=== PATIENT | female | born 1935 | race Caucasian/White ===

== ENCOUNTER 2019-06-07 18:31 | Inpatient (IN) | payer MEDICARE ==
[~2019-06-07] VITALS: Ht 152.4 cm; Wt 52.2 kg
[2019-06-07] MEDS ORDERED: SODIUM CHLORIDE 0.9% 1000ML 1,000 ML IV STA (18:49)
[2019-06-07] MEDS ORDERED: DILTIAZEM HCL 5 MG/ML 5 ML VIAL IV NR (19:13)
[2019-06-07] MEDS ORDERED: DILTIAZEM HCL 125 ML IV STA (19:13)
[2019-06-07] MEDS ORDERED: ONDANSETRON HCL INJ 2MG/ML 2ML 2 MG/ML VIAL IV PRN (19:30)
[2019-06-07 20:38] LABS: BASOPHILS # (AUTO) 0.1 (0.0-0.1); BASOPHILS % 0.5 % (0.0-1.0); EOSINOPHILS % 0.3 % (0.0-6.0); HEMATOCRIT 38.1 % (34.2-44.1); HEMOGLOBIN 12.6 g/dL (12.0-16.0); LYMPHOCYTES # (AUTO) 2.5 (1.0-3.2); LYMPHOCYTES % 26.3 % (18.0-39.1); MEAN CORPUSCULAR HEMOGLOBIN 35.3 pg (28-32); MEAN CORPUSCULAR HGB CONC 33.1 g/dL (31-35); MEAN CORPUSCULAR VOLUME 106.7 fL (81-99); MONOCYTES # (AUTO) 0.7 (0.2-0.8); MONOCYTES % 7.2 % (4.4-11.3); NEUTROPHILS % 63.4 % (38.7-80.0); PLATELET COUNT 376 x10e3/uL (140-360); RED BLOOD COUNT 3.57 x10e6/uL (3.6-5.1); RED CELL DISTRIBUTION WIDTH 15.8 % (11.7-14.4)
--- NOTE | 2019-06-07 20:41 | Diagnostic Imaging Report ---
EXAMINATION: Head CT without contrast. HISTORY:Altered mental status, seizure. COMPARISON:None. TECHNIQUE: Multidetector axial images were obtained from the foramen magnum to the vertex without contrast. The images were reconstructed using brain and bone algorithms. Thin section brain images were reformatted into coronal and sagittal planes. Dose modulation, iterative reconstruction, and/or weight based adjustment of the mA/kV was utilized to reduce the radiation dose to as low as reasonably achievable. Intravenous contrast: None IMAGE QUALITY: Suboptimal evaluation due to motion artifacts. FINDINGS: Skull/scalp: No lytic or blastic. lesions. No surgical changes. Parenchyma: No large area of cortical/subcortical based cavitating hypodensity involving the right occipital lobe, parietal lobe, posterior aspect of right temporal lobe, right subinsular region, frontal lobe, centrum semiovale and styles radiata represents prior vascular insult in right MCA and ENTERTAINER OR VARIETY ARTIST vascular territories. Wallerian degeneration of right lateral aspect of the brainstem. Old lacunar infarct in the superior aspect of right cerebellar hemisphere. Nonspecific bilateral frontoparietal confluent and patchy white matter hypodensity are likely related to small vessel ischemic changes. No acute hemorrhage or mass. No acute major vascular territorial infarct. No acute hemorrhage, mass or acute major vascular territorial infarct. Arteries: No density suggestive of thrombosis. Atherosclerotic calcification in bilateral carotid siphon. Dural sinuses: No abnormal density suggestive of thrombosis. Ventricles: Compensated dilatation due to volume loss. No hydrocephalus. Extra-axial spaces: No abnormal density. Brain volume: Generalized age-related cerebral volume loss. Craniocervical junction: No mass, Chiari malformation, or basilar invagination. Sella: No mass. Paranasal/mastoid sinuses: Imaged portions unremarkable. IMPRESSION: 1. Suboptimal evaluation due to motion artifacts, despite the limitation no gross acute intracranial abnormality. 2. 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 3. 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 4. 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 5. Generalized age-related cerebral volume loss. Signed by: Dr. Jaky Malin M.D. on 06/07/2019 8:37 PM
[2019-06-07 20:50] LABS: ALANINE AMINOTRANSFERASE 32 IU/L (0-55); ALBUMIN 2.1 g/dL (3.5-5.0); ALBUMIN/GLOBULIN RATIO 0.5 (0.8-2.0); ALKALINE PHOSPHATASE 187 IU/L (40-150); ANION GAP 15.1 mmol/L (8-16); BLOOD UREA NITROGEN 10 mg/dL (7-26); BUN/CREATININE RATIO 13 (6-25); CARBON DIOXIDE 24 mmol/L (22-29); CHLORIDE 104 mmol/L (98-107); CREATINE KINASE 51 IU/L (29-168); EST GLOMERULAR FILTRATION RATE > 60 ML/MIN (60-); GLUCOSE 222 mg/dL (74-118); POTASSIUM 4.1 mmol/L (3.5-5.1); SODIUM 139 mmol/L (136-145)
[2019-06-07 21:09] LABS: B-TYPE NATRIURETIC PEPTIDE2 479.7 pg/mL (0-100)
--- NOTE | 2019-06-07 21:11 | Diagnostic Imaging Report ---
EXAMINATION: CHEST SINGLE (PORTABLE) INDICATION: Altered mental status COMPARISON: None FINDINGS: TUBES and LINES: None. LUNGS/PLEURA: Lungs are well inflated. Bilateral lower lung haziness. Hemidiaphragms are obscured. HEART AND MEDIASTINUM: Cardiac size is mildly enlarged. There are atherosclerotic calcifications within the aorta. BONES AND SOFT TISSUES: No acute osseous lesion. Soft tissues are unremarkable. Healed right rib fracture deformities. Degenerative changes in the spine and shoulders. UPPER ABDOMEN: No free air under the diaphragm. IMPRESSION: 1. Mild cardiomegaly and pulmonary vascular congestion. 2. Bilateral lower lung haziness and obscured hemidiaphragms could be due to atelectasis, pneumonia, edema and/or pleural effusions. Signed by: Massimo Jay DO on 06/07/2019 9:08 PM
[2019-06-07] MEDS ORDERED: SODIUM CHLORIDE 0.9% 1000ML 1,000 ML ONE (22:06)
[2019-06-07] MEDS: LEVETIRACETAM 500MG/5ML VIAL 500 MG in SODIUM CHLORIDE 0.9% 100 ML 100 ML IV SCH (22:13)
[2019-06-07] MEDS ORDERED: LEVETIRACETAM 500 MG TAB PO SCH (22:15)
--- NOTE | 2019-06-07 22:40 | NUR ---
RECEIVED PATIENT FROM ED VIA STRETCHER, TRANSFERRED TO BED. PATIENT CRYING OUT WHEN LEGS ARE TOUCHED OR MOVED, STATES SHE ONLY HAS PAIN WHEN MOVED. LEGS APPEAR TO BE CONTRACTED, BUT PATIENT SAID SHE JUST PULLS THEM UP WHEN IN PAIN. PATIENT KNOWS NAME AND THAT SHE IS IN THE HOSPITAL, BUT DOES NOT KNOW TIME, A&OX2. PATIENT KNOWS FAMILY MEMBERS AT BEDSIDE. VERY POOR HISTORIAN. GARCIA CATHETER PRESENT ON ADMISSION, FAMILY BELIEVES IT WAS PLACED D/T RETENTION THEY REMEMBER HER BLADDER BEING EXPLAINED TO THEM " IF IT WAS BLOWN UP LIKE A BALLOON." GARCIA CARE PROVIDED, STERILE SAMPLE OF DARK MARIZOL URINE SENT TO LAB. GARCIA DRAINING TO GRAVITY. FOREARM BRUISING NOTED. R FA AND L FA 20G IVS ASYMPTOMATIC, INTACT, AND PATENT. LUNG SOUNDS CLEAR. BOWEL SOUNDS ACTIVE, FAMILY MEMBERS BELIEVE LAST BM WAS TODAY, 06/07. PEDAL PULSES PALPABLE. SKIN THIN, LOOSE, SHINY. SMALL ULCER, LESS THAN 2X2 INCHES NOTED TO L GLUTEAL CLEFT. SOME SKIN LOSS NOTED, WOUND BED REDDENED. IT IS UNKNOWN IF INJURY IS PRESSURE RELATED OR FROM FREQUENT BMS. SURROUNDING SKIN EXCORIATED, PATIENT HAS RECENT HX OF DIARRHEA. ALTERNATING PRESSURE MATTRESS APPLIED. Q2 TURNS INITIATED. FAMILY MEMBERS STATE PATIENT HAS NOT WALKED IN OVER A MONTH, SINCE BEFORE HER PRIOR HOSPITALIZATION AT [facility]. BED ALARM ACTIVE. PATIENT ALSO HAS HX OF DM IN CHART, BUT PATIENT AND FAMILY MEMBERS STATE SHE HAS NOT BEEN DIAGNOSED WITH DM. WILL CONTINUE TO MONITOR CLOSELY. BED LOCKED IN LOWEST POSITION, SIDE RAILS UPX2, CALL LIGHT IN REACH.
[2019-06-07] MEDS ORDERED: INFLUENZA VIRUS VAC SPLIT INJ 0.5 ML SYR IM SCH (23:08)
[2019-06-07 23:11] VITALS: BP 157/99
[2019-06-07 23:45] VITALS: BP 157/99
[2019-06-08] VITALS (8 sets, daily range): BP systolic 124–156; BP diastolic 75–107
[2019-06-08 01:16] LABS: CLARITY,URINE CLOUDY (CLEAR); COLOR,URINE YELLOW (YELLOW)
[2019-06-08 01:17] LABS: BILIRUBIN,URINE NEGATIVE (NEGATIVE); KETONES,URINE NEGATIVE (NEGATIVE); LEUKOCYTE ESTERASE ,URINE MODERATE (NEGATIVE); NITRITE,URINE POSITIVE (NEGATIVE); PROTEIN,URINE DIPSTICK TRACE (NEGATIVE); URINE UROBILINOGEN 0.2 mg/dL (0.2 - 1)
[2019-06-08 01:18] LABS: BACTERIA,URINE MANY /HPF; EPITHELIAL CELLS,URINE MODERATE /LPF; RBC,URINE >50 /HPF (0-5); WBC,URINE (MAN) >50 /HPF (0-5)
[2019-06-08] MEDS ORDERED: XARELTO10 MG PO (01:27)
[2019-06-08] MEDS ORDERED: LEVOTHYROXINE75 MCG PO (01:27)
[2019-06-08] MEDS ORDERED: ZOFRAN4 MG PO (01:27)
[2019-06-08] MEDS ORDERED: MEGESTROL400 MG/10 PO (01:27)
[2019-06-08] MEDS ORDERED: ACIDOPHILUS1 EAC1 PO (01:27)
[2019-06-08] MEDS ORDERED: VANCOMYCIN SOLUTION PO (01:27)
[2019-06-08] MEDS ORDERED: ATORVASTATIN CA10 MG PO (01:27)
[2019-06-08] MEDS ORDERED: METOPROLOL TART25 MG PO (01:27)
[2019-06-08] MEDS ORDERED: LACTULOSE20 GM/30 M PO (01:27)
[2019-06-08] MEDS ORDERED: ASPIRIN EC81 MG PO (01:27)
[2019-06-08] MEDS ORDERED: NIACIN500 M2 PO (01:27)
[2019-06-08] MEDS ORDERED: ACETAMINOPHEN325 M1 PO (01:27)
--- NOTE | 2019-06-08 05:45 | NUR ---
TELEMETRY CALLED, STATING PATIENT'S HR IS IN 130S. PATIENT SLEEPING, RESPONSIVE. HR CONFIRMED TO BE IN AFIB, JUMPING BETWEEN 108-133. CALL PLACED TO MD LOPEZ, NEW ORDERS RECEIVED. Addendum: 06/08/19 at 0606 by Madhuri Collins RN MEDICATION GIVEN ORDERED, HR 127 AT TIME OF ADMINISTRATION, WILL MONITOR CLOSELY.
[2019-06-08 05:48] LABS: CREATINE KINASE MB 2.4 ng/mL (0-5.0)
[2019-06-08] MEDS ORDERED: METOPROLOL TARTRATE 25 MG TAB PO SCH (06:00)
--- NOTE | 2019-06-08 10:20 | NUR ---
H&P cc: rapid HR HPI: 84yoF, PCP , developed rapid HR and became unresponsive at [facility]. PMH: PAF, stroke, C.diff, ambulatory dysfunction using walker PShx: none Allergies; see emr Fh/SH; single; no cigs; uses walker Meds; see MAR ROS; unobtainable v/s; revd PE tired appearing anicteric ns1s2 mod bs soft nt nd no e/t skin dry flat affect awake labs/meds revd A/P: A.fib with RVR UTI HLD Hypothyroidism Ambulatory dysfunction Hx C.diff- now resolved PLAN AV blockade with BB Resume AC Treat UTI Kelley Narvaez MD, PhD.
[2019-06-08] MEDS: LEVETIRACETAM 500MG/5ML VIAL 500 MG in SODIUM CHLORIDE 0.9% 100 ML 100 ML IV SCH ×2 (10:44→21:33)
[2019-06-08] MEDS: ASPIRIN 81 MG ENTERIC COATED PO SCH (11:58)
[2019-06-08] MEDS: AZTREONAM (AZACTAM) 0.5 GM in SODIUM CHLORIDE 0.9% 50ML 50 ML IV SCH ×3 (11:58→22:31)
[2019-06-08] MEDS: METOPROLOL TARTRATE 25 MG TAB PO SCH ×3 (11:59→22:31)
[2019-06-08 13:49] LABS: CREATINE KINASE MB 2.7 ng/mL (0-5.0)
--- NOTE | 2019-06-08 15:41 | Consultation ---
DATE OF CONSULTATION: 06/08/2019 Cardiology Consultation REASON FOR CONSULTATION: Atrial fibrillation. HISTORY OF PRESENT ILLNESS: This is an 84-year-old lady with past medical history of hypertension, type 2 diabetes, hypercholesteremia, history of atrial fibrillation as per son should be on anticoagulant therapy. Hospitalization for C. diff colitis at [facility] within the past 1 to 2 months, associated with just severe deconditioning, malaise and just inability to quite recover from that. Since that time, she went to the [facility] for rehab purposes and for the most part, the patient has dense left-sided hemiparesis from old prior stroke back in August of 2018. In fact, in the past month, she has been largely bed bound, inability to stand up or do much of anything at all. Yesterday, she was noted to be obtunded, unresponsive. The information is second hand and is admitted for further care and management. Apparently during her previous hospitalization a month ago, she had a clinical seizure. Essentially upon arrival, she had a brain CT showing right MCA, DRIVER TRAINEE distribution old infarct and moderate ischemic white matter disease changes and encephalomalacia. Chest x-ray reveals atelectasis in the lungs and some mild cardiomegaly. The patient is a very poor historian. She denies any chest pain or discomfort. She denies any subjective palpitations. She denies any lightheadedness, but is again quite sure what is going. PAST MEDICAL HISTORY: 1. Hypertension. 2. Hypercholesteremia. 3. History of atrial fibrillation. 4. 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 5. History of C. diff colitis. PAST SURGICAL HISTORY: Unknown. FAMILY HISTORY: Mother and father apparently of strokes under 80s. SOCIAL HISTORY: She does not smoke. No alcohol or illicit drug use. ALLERGIES: PENICILLIN. HOME MEDICATIONS: Include: 1. Aspirin 81 mg daily. 2. Xarelto 10 mg daily. 3. Atorvastatin 10 mg daily. 4. Lactulose p.r.n. 5. Synthroid 75 mcg daily. 6. Megace 400 mg daily. 7. Toprol 25 mg q.8 hours. 8. Niacin 1000 mg daily. REVIEW OF SYSTEMS: Not reliable historian to adequately obtain. PHYSICAL EXAMINATION: VITAL SIGNS: Height of 60 inches, weight of 113 pounds, BMI is 22.2, temperature of 99.1, pulse of 99, respiratory rate of 16, blood pressure 127/93, O2 saturation 97% on room air. GENERAL: This is a frail, emaciated lady, who is currently lying in bed, in no apparent distress. HEENT: Normocephalic and atraumatic. There is a left-sided facial droop. Extraocular movements are intact. Hearing is intact. Oropharynx is clear. NECK: There is a faint right carotid bruit. No JVD. CARDIOVASCULAR: Irregularly irregular rate and rhythm. Normal S1, S2. 1/6 systolic murmur at the left lower sternal border. LUNGS: Largely clear to auscultation. ABDOMEN: Soft, nontender, nondistended. Normoactive bowel sounds. No hepatosplenomegaly. BACK: No costovertebral angle tenderness. EXTREMITIES: Warm with the contractured left upper and left lower extremities with partial flexion. There is absent pedal pulses and diminished bilateral radial pulses. NEUROLOGIC: Has left-sided hemiparesis and 3/5 strength in the right lower extremity and 4-/5 strength in the right upper extremity. : There is a Kelly in place. LABORATORY DATA: White count of 9.5, hemoglobin 12.6, hematocrit 38.1, and platelets of 376. Sodium 139, potassium 4.1, chloride 104, bicarb 24, BUN 10, creatinine 0.8, glucose of 222, calcium of 9.0. AST 43, ALT 32, alkaline phosphatase 187, total protein of 6.6, albumin of 2.1. Troponin went from 0.025 to 0.038. BNP is 479. UA shows greater than [address] showing old right-sided brain infarct and extensive ischemic changes and volume loss. Chest x-ray shows atelectasis. EKG reveals atrial fibrillation with rapid ventricular response and left bundle branch block and nonspecific ST-T wave changes. DIAGNOSES: 1. Blackout episode of prolonged questionable postictal type versus medication side effect. 2. Chronic atrial fibrillation, needs to be on anticoagulant therapy. 3. Left-sided hemiparesis from sequela of old stroke. 4. Hypertension. 5. Hypercholesterolemia. 6. Severe protein-calorie malnutrition. 7. Elevated white count and questionable urinary tract infection. PLAN/RECOMMENDATIONS: 1. We will go ahead and keep her on rate control therapy with metoprolol and currently, we have her scheduled, receiving it q.6 hours. 2. We will restart anticoagulant therapy with Eliquis 2.5 b.i.d. on account of her advanced age and weight. 3. Aggressive risk factor modification medical therapy. 4. Add statin therapy. 5. We will appreciate Neurology. Await input in this case to see their recommendations. MD JUAN LUIS Desouza/SANDY /[id number]
[2019-06-08] MEDS: APIXAB 2.5 MG TABLET PO SCH (16:26)
[2019-06-08] MEDS: ATORVASTATIN 10 MG TAB PO SCH (21:33)
[2019-06-08] MEDS: ACETAMINOPHEN 325 MG TAB PO PRN (22:38)
[2019-06-09] VITALS (8 sets, daily range): BP systolic 106–135; BP diastolic 62–87
[2019-06-09] MEDS ORDERED: SODIUM CHLORIDE 0.9% 250ML 250 ML ONE (05:37)
[2019-06-09] MEDS: AZTREONAM (AZACTAM) 0.5 GM in SODIUM CHLORIDE 0.9% 50ML 50 ML IV SCH ×3 (05:58→21:57)
[2019-06-09] MEDS: LEVOTHYROXINE SODIUM 75 MCG TAB PO SCH (05:59)
[2019-06-09] MEDS: METOPROLOL TARTRATE 25 MG TAB PO SCH ×2 (05:59→16:54)
--- NOTE | 2019-06-09 07:34 | NUR ---
IM- progress note O/N no events ROS; unobtainable v/s; revd PE tired appearing anicteric ns1s2 mod bs soft nt nd no e/t skin dry flat affect awake labs/meds revd A/P: A.fib with RVR UTI HLD Hypothyroidism Ambulatory dysfunction Hx C.diff- now resolved PLAN AV blockade with BB Resume AC Treat UTI 06/09 cont care; PT; check labs; culture urine; Kelley Narvaez MD, PhD.
[2019-06-09 08:06] LABS: BASOPHILS # (AUTO) 0.1 (0.0-0.1); BASOPHILS % 0.7 % (0.0-1.0); EOSINOPHILS # (AUTO) 0.1 (0.0-0.4); EOSINOPHILS % 0.9 % (0.0-6.0); HEMATOCRIT 33.5 % (34.2-44.1); HEMOGLOBIN 11.2 g/dL (12.0-16.0); LYMPHOCYTES # (AUTO) 2.4 (1.0-3.2); MEAN CORPUSCULAR HEMOGLOBIN 35.4 pg (28-32); MEAN CORPUSCULAR HGB CONC 33.4 g/dL (31-35); MONOCYTES # (AUTO) 0.8 (0.2-0.8); MONOCYTES % 8.6 % (4.4-11.3); NEUTROPHILS # (AUTO) 5.2 (2.1-6.9); NEUTROPHILS % 59.2 % (38.7-80.0); PLATELET COUNT 348 x10e3/uL (140-360); RED BLOOD COUNT 3.16 x10e6/uL (3.6-5.1); RED CELL DISTRIBUTION WIDTH 15.5 % (11.7-14.4)
[2019-06-09 08:32] LABS: ANION GAP 13.2 mmol/L (8-16); BLOOD UREA NITROGEN 10 mg/dL (7-26); BUN/CREATININE RATIO 14 (6-25); CALCIUM 8.8 mg/dL (8.4-10.2); CARBON DIOXIDE 23 mmol/L (22-29); CHLORIDE 107 mmol/L (98-107); CREATININE, SERUM 0.69 mg/dL (0.57-1.11); EST GLOMERULAR FILTRATION RATE > 60 ML/MIN (60-); GLUCOSE 117 mg/dL (74-118); POTASSIUM 4.2 mmol/L (3.5-5.1); SODIUM 139 mmol/L (136-145)
[2019-06-09] MEDS ORDERED: RIVAROXABAN 10 MG TABLET PO SCH (09:00)
[2019-06-09] MEDS: APIXAB 2.5 MG TABLET PO SCH ×2 (09:44→16:54)
[2019-06-09] MEDS: LEVETIRACETAM 500MG/5ML VIAL 500 MG in SODIUM CHLORIDE 0.9% 100 ML 100 ML IV SCH (09:44)
[2019-06-09] MEDS: ACETAMINOPHEN 325 MG TAB PO PRN (09:44)
[2019-06-09] MEDS: ASPIRIN 81 MG ENTERIC COATED PO SCH (09:44)
--- NOTE | 2019-06-09 13:43 | NUR ---
WOUNDS CARE CONSULT FOR 84 YO FEMALE HX OF SEIZURE, A FIB, AND LOOSE STOOL SINDY 12 ON MODERATE PUP WITH ALTERNATING PRESSURE MATTRESS LABS: WBC- 7.85,HGB- 8.8, GLUCOSE 112 BLOOD CULTURE PENDING SKIN ASSESSMENT COMPLETE PATIENT PRESENTS WITH SACRAL STAGE 2 ULCERATION WITH DARK BRUISED DTI LOS AREA MEASURES 3CM [id number] PATIENT LEFT GLUTEAL HAS REDNESS NOTED RELATED TO FREQUENT LOOSE STOOL RECOMMENDATIONS : NURSING TO CONTINUE TO MAINTAIN MODERATE PUP STATUS AND INTERVENTIONS WITH ALTERNATING PRESSURE MATTRESS NURSING TO CONTINUE TO ASSIST PATIENT OUT OF BED FOR MEALS AND MUCH TOLERATED NURSING TO APPLY DAILY REMEDY BARRIER PASTE TO LEFT GLUTEAL DENUDED AREA AND PRN POST LOS CARE NURSING TO APPLY DAILY VENELEX OINTMENT TO SACRAL DTI COVER WITH ALLEVYN FOAM DRESSING Addendum: 06/09/19 at 1352 by Mahendra Molina RN Amended: Links added.
--- NOTE | 2019-06-09 16:14 | NUR ---
Nutrition Intervention Note RD Recommendation(s) for Physician: -Continue current diet as ordered -Recommend Murphy BID for wound healing Plan of Care: RD following, monitoring for tolerance and adequacy Nutrition reason for involvement: stage [address] Assessment (06/09/19) Pt is an 84 year old female admitted with seizure and atrial fibrillation. Pt was sleeping at time of visit and there were no family members present; therefore, prior nutrition information is limited at this time. Per chart, pt consumed 100% of lunch and 50% of dinner meal yesterday. Recommend Murphy BID for wound healing. Will continue to monitor. Principal Problems/Diagnoses: seizure and atrial fibrillation PMH: HTN, hypercholesterolemia, afib, and stroke I/O: 1000/800 GI: BM not recorded. Soft, non-tender abdomen Skin: stage 2 sacral pressure ulcer per wound care note Labs: (06/09/19) BNP 479.7 Meds: aztreonam, levothyroxine lipitor, zofran, metroprolol Ht: 60 inches Wt: 113 BMI: 22.2 kg/m2 IBW: 100 lbs Malnutrition Evaluation (06/09/19) The patient does not meet criteria for a specified degree of malnutrition at this time. Will re-evaluate at follow-up as appropriate. Prior nutrition information is limited. Nutrition Prescription (Diet Order): cardiac diet Estimated Nutritional Needs: [id number] calories/day (25-35 kcal/kg CBW) 62-77 g protein/day (1.2-1.5 g pro/kg CBW) Diet Adequacy: Pt consumed 100% of lunch and 50% of dinner meal yesterday. Prior nutrition information is limited. Tolerance: Tolerating PO Diet Education Needs Assessment: RD is available for diet education as needed Nutrition Care Level: low Nutrition Diagnosis: Increased nutrient needs related to increased demand for protein and kcal as evidenced by stage 2 sacral pressure ulcer. Goal: Patient will meet 75-100% of estimated needs by follow up Progress: N/A Interventions: -fat/sodium -modified diet, Commercial beverage Monitoring/Evaluation: -Total energy intake, Total protein intake, Modified diet, Liquid supplement, Weight change Signed: Kate Lucero RD, LD
[2019-06-09] MEDS: BALSAM PERU/CASTOR OIL 60 GM OINT...G. TP SCH (16:51)
--- NOTE | 2019-06-09 19:25 | NUR ---
PATIENT RECEIVED. PATIENT RESTING IN BED, AAOX2. RESP EVEN AND UNLABORED. NO ACUTE DISTRESS NOTED. TELE IN PLACE. CALL LIGHT WITHIN REACH. INSTRUCT TO CALL FOR ASSISTANCE. BED LOW/LOCKED. BED ALARM IS ON. CONTINUE TO MONITOR CLOSELY
[2019-06-09] MEDS: ATORVASTATIN 10 MG TAB PO SCH (21:57)
[2019-06-09] MEDS: LEVETIRACETAM 500 MG TAB PO SCH (21:57)
[2019-06-09] MEDS ORDERED: AZTREONAM 1 GM VIAL ONE (21:59)
[2019-06-10] VITALS (7 sets, daily range): BP systolic 120–148; BP diastolic 70–89
--- NOTE | 2019-06-10 01:28 | Consultation ---
DATE OF CONSULTATION: 06/09/2019 Neurology Consult Note HISTORY OF PRESENT ILLNESS: Unfortunately, the patient is encephalopathic and unable to provide current or prior medical history. There are no family members available at the bedside. History is obtained from review of the electronic medical records. Ms. Escoto is currently a resident at [facility]. She was admitted to this facility for rehabilitation purposes following a prolonged hospitalization at [facility] for Clostridium difficile colitis. On the day of admission, the patient was found in her room at [facility] to be poorly responsive/obtunded. Of note, there is no documentation of witnessed seizure activity by staff at [facility] or at [facility]. Given Tigist's poor level of responsiveness, she was transported via ambulance to [facility] for further evaluation of her symptoms. Upon arrival in the emergency center, the patient was afebrile with a blood pressure of 128/98 mmHg and a pulse of 114 beats per minute. Documentation of the patient's neurological examination is unavailable for review at present. While in the emergency center, the patient underwent a CT of the brain without contrast. This study did not reveal evidence of recent large territorial ischemia or hemorrhage. However, it did reveal a prior vascular insult in the right MCA and FIBREGLASS LAMINATOR territories with encephalomalacia in the same distribution. Ms. Escoto was subsequently admitted to [facility] as an inpatient for further evaluation and treatment of her symptoms. Once again, it should be noted, the patient has not been observed to experience seizure activity during this hospitalization. However, review of documentation from [facility], reveals a diagnosis of "other seizures" listed under medical history. Of note, the patient was not taking an antiepileptic medication while at [facility]. REVIEW OF SYSTEMS: Unable to obtain secondary to the patient being encephalopathic. PAST MEDICAL HISTORY: Hypertension, hyperlipidemia, atrial fibrillation, prior stroke in August 2018 with residual left hemiparesis, Clostridium difficile colitis. PAST SURGICAL HISTORY: No known prior surgeries. PAST HOSPITALIZATIONS: As detailed in the history of present illness, Ms. Escoto was recently hospitalized at [facility] for Clostridium difficile colitis. FAMILY MEDICAL HISTORY: Both of Ms. Escoto's parents from strokes. SOCIAL HISTORY: Ms. Escoto is a . She currently resides at [facility]. Ms. Escoto is retired. There is no reported current or prior tobacco, alcohol, or recreational drug use. HOME MEDICATIONS: Acetaminophen 650 mg by mouth every 6 hours as needed, aspirin 81 mg by mouth daily, atorvastatin 10 mg by mouth at bedtime daily, lactobacillus one tablet by mouth twice daily, lactulose 30 mL by mouth daily as needed for constipation, levothyroxine 75 mcg by mouth daily, megestrol 400 mg by mouth daily, metoprolol 25 mg by mouth every 8 hours, niacin 1000 mg by mouth daily, Zofran 4 mg by mouth every 8 hours as needed for nausea, Xarelto 10 mg by mouth daily, and vancomycin 250 mg by mouth every 6 hours. HOSPITAL MEDICATIONS: Tylenol, Eliquis, aspirin, atorvastatin, aztreonam, levetiracetam, levothyroxine, metoprolol, Zofran. ALLERGIES: PENICILLIN. NO KNOWN FOOD ALLERGIES. NO KNOWN ALLERGIES TO LATEX. NO KNOWN ALLERGIES TO IODINE OR OTHER CONTRAST MATERIALS. PHYSICAL EXAMINATION: Ms. Escoto is poorly cooperative with general physical and neurological examinations. VITAL SIGNS: Height 60 inches, weight 113 pounds, BMI 22.2 kg/m2, blood pressure 106/62 mmHg, pulse 108 beats per minute, respiratory rate 18 breaths per minute, and oxygen saturation 95% on room air. GENERAL: The patient is awake and alert, moaning secondary to pain. Normal body habitus. HEENT: Normocephalic, atraumatic. Pupils are equal, round, and sluggishly reactive to light. Moist mucous membranes. NECK: Supple. No appreciable thyromegaly. No appreciable carotid bruits. CARDIOVASCULAR: S1, S2, tachycardic, irregular rhythm. No murmurs, rubs, or gallops. RESPIRATORY: Clear to auscultation bilaterally. No wheezes, rhonchi, or rales. EXTREMITIES: The skin is warm and dry. No clubbing, cyanosis, or edema. The posterior tibial and dorsalis pedis pulses are 1+ and symmetric. SKIN: No rashes or lesions observed. NEUROLOGIC: Memory/Attention: The patient is awake and alert. Orientation cannot be assessed secondary to the patient being encephalopathic and refusing to answer questions. Ms. Escoto does not consistently follow commands. Cranial Nerves: Pupils are 4 mm, sluggishly reactive, 2 mm. Mild left central facial weakness is appreciated. Hearing is intact to voice. Strength: Bulk is diminished throughout. There is spontaneous movement observed in the right arm and right leg. There are contractures with increased tone of the left arm and left leg. Ms. Escoto withdraws all four extremities to peripheral noxious stimulation, right greater than left. Deep tendon reflexes: Unable to assess secondary to pain. Sensation: Sensation is as per motor exam. Cerebellar: Unable to assess secondary to the patient being encephalopathic. Gait: Deferred. Speech: Spontaneous speech is mildly dysarthric without aphasia. Repetition cannot be assessed secondary to lack of patient cooperation. Involuntary movements: None. Pronator Drift: As per motor exam. LABORATORY DATA: The most recent basic metabolic panel is unremarkable. A liver function panel collected on June 07, 2019, was significant for AST of 43, alkaline phosphatase of 187, albumin of 2.1, and globulin of 4.5. Cardiac enzymes are negative x3. B-natriuretic peptide 479.7. The CBC with differential and platelets reveals a white blood cell count of 8.84 with a normal differential. The hemoglobin and hematocrit are 11.2 and 33.5, respectively. The platelet count is 348. A urinalysis collected on June 07, 2019, reveals cloudy urine with trace protein, positive nitrites, moderate leukocyte esterase, greater than 50 red blood cells, greater than 50 white blood cells, many urine bacteria with moderate urine epithelial cells. DIAGNOSTIC STUDIES: Electrocardiogram on 06/07/2019: Atrial fibrillation with rapid ventricular response at 137 beats per minute. Left axis deviation. Chest x-ray on 06/07/2019: 1. Mild cardiomegaly and pulmonary vascular congestion. 2. Bilateral lower lung haziness and obscured hemidiaphragms could be due to atelectasis, pneumonia, edema, and/or pleural effusions. CT of the brain without contrast on 06/07/2019: On my review, there is no evidence of recent large territorial ischemia, hemorrhage, mass, or mass effect. Chronic encephalomalacia secondary to a prior vascular insult is seen in the right MCA and FIBREGLASS LAMINATOR vascular distributions. A chronic lacunar infarct is seen in the right cerebellar hemisphere. There is moderate diffuse cerebral atrophy with compensatory dilatation of the ventricles. Their findings compatible with moderate to severe chronic small vessel ischemic disease. Echocardiogram on 06/09/2019: Ejection fraction less than 30%. Biatrial enlargement. Moderate mitral regurgitation. Mild tricuspid regurgitation and pulmonic insufficiency. ASSESSMENT AND PLAN: Ms. Escoto is an 84-year-old woman with past medical history as detailed, admitted to [facility] as an inpatient on June 07, 2019, with encephalopathy of undetermined etiology. Ms. Escoto does have metabolic encephalopathy secondary to urinary tract infection. It is questionable as to whether or not her poor responsiveness/obtundation as observed at [facility] was secondary to metabolic encephalopathy or postictal state. The patient's neurological examination is significant for the patient being encephalopathic as well as moderate to severe left hemiparesis with contractures and increased tone of the left arm and left leg. The patient's laboratory data and other diagnostic studies have been reviewed and are documented above. 1. Seizure: Though Ms. Escoto has not been observed (per documentation) to experience seizure-like activity, the presence of encephalomalacia in the right middle cerebral artery and posterior cerebral artery distributions as well as the presence of a urinary tract infection puts her at high risk for recurrent seizures. Unfortunately, an electroencephalogram cannot be obtained at this time due to lack of equipment to perform the study. However, as the patient is at risk for future seizures, treatment with levetiracetam will be continued. However, the dose will be changed to 500 mg by mouth twice daily. 2. Metabolic encephalopathy: Ms. Escoto does have metabolic encephalopathy, probably secondary to urinary tract infection. The patient's neurological baseline is not known. It is possible the patient has vascular dementia as well. At present, treatment of the patient's urinary tract infection with antibiotic should be continued. Treatment with sedative/hypnotic and pain medication should be limited as these will alter the patient's sensorium. Environmental cues should be utilized to combat delirium. 3. Defer treatment of the remaining medical comorbidities to the primary and other services following the patient. 4. Ms. Escoto may be discharge to [facility] per the primary service. Thank you for this consultation. I will continue to follow the patient while she remains in the hospital. TIME SPENT: 70 minutes. Angela Gonsales MD CP/SANDY /[id number]
[2019-06-10] MEDS: LEVOTHYROXINE SODIUM 75 MCG TAB PO SCH (05:15)
[2019-06-10] MEDS: AZTREONAM (AZACTAM) 0.5 GM in SODIUM CHLORIDE 0.9% 50ML 50 ML IV SCH ×3 (05:15→22:30)
--- NOTE | 2019-06-10 07:14 | NUR ---
pt alert resp even and unlabored pt able to make needs known, family member at bedside, no c/o pain nor distress noted, call light in reach.
[2019-06-10] MEDS: LEVETIRACETAM 500 MG TAB PO SCH ×2 (09:00→17:26)
[2019-06-10] MEDS: APIXAB 2.5 MG TABLET PO SCH ×2 (09:00→17:26)
[2019-06-10] MEDS: ASPIRIN 81 MG ENTERIC COATED PO SCH (09:00)
[2019-06-10] MEDS: METOPROLOL TARTRATE 25 MG TAB PO SCH ×2 (09:00→17:26)
--- NOTE | 2019-06-10 10:18 | NUR ---
CM called pt's son José Manuel Escoto at [phone] to follow up on choice for SNF. Left message with callback number.
[2019-06-10] MEDS: BALSAM PERU/CASTOR OIL 60 GM OINT...G. TP SCH (10:37)
--- NOTE | 2019-06-10 11:47 | NUR ---
Spoke to pt's son José Manuel on the phone. He gave choice to return his mom to [facility] on discharge. Signed choice letter placed in chart. Clinicals faxed to [facility] at [phone]. José Manuel states we can update his Nohemi Escoto on status of referral - [phone].
--- NOTE | 2019-06-10 13:32 | NUR ---
FAXED CLINICALS TO [facility] AND COMPLETED RTF. PUT WITH PACKET AT NURSES STATION, CONFIRMED RECEIPT
--- NOTE | 2019-06-10 16:34 | Progress Note ---
DATE: 06/10/2019 Medicine Progress Note SUBJECTIVE: I am covering for Dr. Kevin Narvaez. The patient came in from the intermediate facility. The patient was just recently at [facility], treated for more than 3 weeks. She had C. difficile colitis, improved tremendously and now transferred to [facility] for further management and care. While here, Dr. Narvaez has been treating the patient for underlying atrial fibrillation with RVR and also underlying urinary tract infection. Her C. difficile colitis has been resolved. Urine culture was not sent to the lab. Currently, the patient is very weak at baseline with no other complaints. PHYSICAL EXAMINATION: VITAL SIGNS: Temperature is 96.4, pulse 88, respiratory rate is 20, blood pressure 120/75, and pulse ox 96% on room air. GENERAL: Not in acute distress. Alert and oriented x3. Cooperative on examination. HEENT: Head; normocephalic, atraumatic. Eyes; pupils are equal, round, and reactive to light bilaterally. Extraocular movements intact bilaterally. Throat; no evidence of erythema or exudates in the posterior pharynx. Has poor dentition. NECK: Supple. Good range of motion. PULMONARY: Clear to auscultation bilaterally. No wheezing, no rales, no rhonchi, no crackles appreciated. CARDIOVASCULAR: Positive S1 and S2. No murmurs, rubs, or gallops appreciated. ABDOMEN: Soft, nondistended, and nontender to palpation. Bowel sounds present. MUSCULOSKELETAL: Strength is 5/5 throughout. No evidence of any muscle deficits on examination. No weakness appreciated. NEUROLOGIC: Cranial nerves II through XII grossly intact. No evidence of any neurological deficits on exam. SKIN: Intact. Warm to touch. Good cap refill. PSYCHIATRIC: Normal affect and mood. EXTREMITIES: No edema. Good range of motion throughout. LABORATORY FINDINGS: Show white count was 8.8, hemoglobin 11.2, hematocrit is 33, and platelets of 348. Chemistry; sodium 139, potassium 4.2, chloride 107, bicarb 23, anion gap of 13, BUN is 10, creatinine is 0.69, glucose is 117, calcium is 8.8, and magnesium is 1.5. Urinalysis concerning for underlying UTI. MICROBIOLOGY: None. No UA was sent. She has been on antibiotics. IMAGING STUDIES: CT brain was found to be negative. Chest x-ray, mild cardiomegaly and pulmonary vascular congestion. IMPRESSION: 1. Concerns for underlying seizure-like activity. 2. Metabolic encephalopathy secondary to underlying urinary tract infection and possibly seizure. 3. Urinary tract infection. 4. Atrial fibrillation. 5. History of Clostridium difficile colitis. 6. Hypothyroidism. PLAN: At this time, recommendations by Neurology were noted that the patient will continue with oral Keppra twice daily. Currently, we do not have the EEG machine functional, so we will continue with Keppra as per Neurology recommendations. At this time, Cardiology was consulted for the underlying atrial fibrillation, which is being managed accordingly. As for the UTI, no urine cultures were sent. She is on IV aztreonam since the cultures will be sterile. I will go ahead and send another urine culture, but likely will be sterile. She is still having significant weakness. We are going to try to get PT and OT evaluation, possibly send back to the intermediate facility. We will continue with same plan of care and monitor very closely. Reviewed plan of care with nursing staff. Get a.m. labs. Put on Lovenox for DVT prophylaxis. PT/OT evaluation. MD LUIS Guan/GLORIAL /[id number]
--- NOTE | 2019-06-10 19:25 | NUR ---
report given to oncoming nurse, pt stable at this time.
[2019-06-10] MEDS: ACETAMINOPHEN 325 MG TAB PO PRN (19:35)
[2019-06-10] MEDS: ATORVASTATIN 10 MG TAB PO SCH (21:52)
[2019-06-11] VITALS (7 sets, daily range): BP systolic 122–153; BP diastolic 77–97
[2019-06-11] MEDS: LEVOTHYROXINE SODIUM 75 MCG TAB PO SCH (05:31)
[2019-06-11] MEDS: AZTREONAM (AZACTAM) 0.5 GM in SODIUM CHLORIDE 0.9% 50ML 50 ML IV SCH ×3 (05:31→15:23)
[2019-06-11 05:45] LABS: BASOPHILS # (AUTO) 0.1 (0.0-0.1); BASOPHILS % 1.2 % (0.0-1.0); EOSINOPHILS # (AUTO) 0.1 (0.0-0.4); EOSINOPHILS % 1.3 % (0.0-6.0); HEMATOCRIT 39.4 % (34.2-44.1); HEMOGLOBIN 12.8 g/dL (12.0-16.0); LYMPHOCYTES # (AUTO) 2.7 (1.0-3.2); MEAN CORPUSCULAR HEMOGLOBIN 34.5 pg (28-32); MEAN CORPUSCULAR HGB CONC 32.5 g/dL (31-35); MEAN CORPUSCULAR VOLUME 106.2 fL (81-99); MONOCYTES # (AUTO) 0.7 (0.2-0.8); MONOCYTES % 8.1 % (4.4-11.3); NEUTROPHILS # (AUTO) 4.3 (2.1-6.9); NEUTROPHILS % 52.1 % (38.7-80.0); PLATELET COUNT 402 x10e3/uL (140-360); RED BLOOD COUNT 3.71 x10e6/uL (3.6-5.1); RED CELL DISTRIBUTION WIDTH 15.2 % (11.7-14.4)
[2019-06-11 06:10] LABS: ANION GAP 13.9 mmol/L (8-16); BLOOD UREA NITROGEN 12 mg/dL (7-26); BUN/CREATININE RATIO 17 (6-25); CARBON DIOXIDE 22 mmol/L (22-29); CHLORIDE 104 mmol/L (98-107); EST GLOMERULAR FILTRATION RATE > 60 ML/MIN (60-); GLUCOSE 126 mg/dL (74-118); POTASSIUM 3.9 mmol/L (3.5-5.1); SODIUM 136 mmol/L (136-145)
--- NOTE | 2019-06-11 08:10 | NUR ---
[facility]-WAY FACILITY DISCHARGE INFORMATION PATIENT HAS BEEN ACCEPTED TO: NAME: [facility] ADDRESS:[id number] MD: VONDA ROOM:109 NURSE CALL REPORT TO: [phone] IMM SIGNED AND OBTAINED (if applicable): YES THE FOLLOWING DOCUMENTS MUST ACCOMPANY PATIENT FOR TRANSFER: COPIED CHART: ONCE ABX IS CHANGED CAN GO
[2019-06-11] MEDS: METOPROLOL TARTRATE 25 MG TAB PO SCH ×2 (09:57→16:42)
[2019-06-11] MEDS: APIXAB 2.5 MG TABLET PO SCH ×2 (09:57→16:42)
[2019-06-11] MEDS: LEVETIRACETAM 500 MG TAB PO SCH ×2 (09:57→16:42)
[2019-06-11] MEDS ORDERED: FUROSEMIDE INJ 10 MG/ML 4 ML VIAL IV SCH (12:00)
[2019-06-11] MEDS: BALSAM PERU/CASTOR OIL 60 GM OINT...G. TP SCH (12:28)
--- NOTE | 2019-06-11 14:32 | NUR ---
[facility] FACILITY DISCHARGE INFORMATION PATIENT HAS BEEN ACCEPTED TO: [place] [id number] [facility] [place] [address] ACCEPTING MD: DR. FERRARI ROOM:100 NURSE CALL REPORT TO: [phone] IMM SIGNED AND OBTAINED (if applicable): YES; signed copy in chart. Copy to pt's daughter in law Nohemi. THE FOLLOWING DOCUMENTS MUST ACCOMPANY PATIENT FOR TRANSFER: copy of chart COPIED CHART: community relations advisor Completed RTF with pt's packet at nurses station.
--- NOTE | 2019-06-11 15:59 | NUR ---
REPORT CALLED TO ARNOLDO GIBSON AT [facility]. PATIENT TO GO TO ROOM 100.
--- NOTE | 2019-06-11 16:01 | NUR ---
SONMANUEL MADE AWARE OF TRANSFER AT THIS TIME.
--- NOTE | 2019-06-12 16:52 | Discharge Summary ---
FINAL DISCHARGE DIAGNOSES: 1. Concerns for seizure-like activity-Neurology consulted, recommending continue with oral Keppra on discharge. 2. Metabolic encephalopathy secondary to underlying urinary tract infection, possible seizure. 3. Urinary tract infection. 4. Atrial fibrillation. 5. History of Clostridium difficile colitis, on treatment. 6. Hypothyroidism. CONSULTANTS: Cardiology and Neurology. PHYSICAL EXAMINATION: VITAL SIGNS: Temperature is 96, pulse is 98, respiratory rate is 18, blood pressure 153/77, and pulse ox 98% on room air. LABORATORY DATA: White count 8.1, hemoglobin 12.8, hematocrit 39, and platelets of 402. Chemistry; sodium 136, potassium 3.9, chloride 104, bicarb 22, anion gap of 13, BUN 12, creatinine is , glucose 126, and calcium is 9. LFTs within normal range. Troponins were 0.024. Urinalysis noted to be UTI, discharged on oral antibiotics. CT brain shows some chronic findings, but nothing acute. Chest x-ray shows some pulmonary vascular congestion. Some possible underlying atelectasis. HOSPITAL COURSE: 84-year-old female, [facility] the [facility] of Dr. Kevin Narvaez, transferred to [facility] due to elevated heart rate and concerns for underlying unresponsiveness. While here, Neurology was consulted. CT brain was found to be negative. EEG machine was not functional and according to Neurology's note, the patient will be discharged on oral Keppra. Cardiology was consulted for the atrial fibrillation. The patient was started on rate control medications as well as anticoagulation. The patient was discharged on rate control medications and also anticoagulation. The patient improved throughout the hospital course. There was no evidence of any seizure-like activity while here, but it was recommended to continue with oral antiseizure medications by Neurology. The patient continued on rate control medications as well as anticoagulation. The patient is being also treated for underlying urinary tract infection and discharged on oral antibiotics. She will continue with also oral vancomycin from a prior C diff colitis from the previous discharge from [facility]. On discharge, the patient is doing well back to normal baseline. On the day of discharge, vital signs were stable, labs reviewed and stable. The patient is seen and evaluated and examined thoroughly on the day of discharge. No other complaints. The patient verbalized understanding and agrees to plan of care to followup appointment as an outpatient with the primary care physician in 1 week and the rest of the consultants as described above in about 2 weeks' time. The patient was cleared for discharge by all consultants. MEDICATIONS: See med reconciliation form. DISPOSITION: Home. CONDITION: Stable. DIET: Heart healthy. DISCHARGE INSTRUCTIONS: In the event of any worsening symptoms, the patient was advised to come back to the ED for further evaluation. TIME SPENT: Discharge summary took greater than 35 minutes. Once again, the patient was discharged on rate control medications as well as anticoagulation as well as antiseizure medication based on the retail consultant's recommendations. MD LUIS Guan/MODPaulino /[id number]
--- OUTSIDE RECORDS SUMMARY | 2019-06-13 12:11 | XMS REPORT ---
Author [facility] Address Unknown Phone Unavailable Care Team Providers Care Director Of Broadcast Name Role Phone GAGAN PATHAK Unavailable Unavailable Payers Payer Name Policy Type Policy Number Effective Date Expiration Date Problems This patient has no known problems. Allergies, Adverse Reactions, Alerts Allergy Name Allergy Type Status Severity Reaction(s) Onset Date Inactive Date Treating Clinician Comments Penicillins DA Active [place] 2019-05-16 00:00:00 Penicillins DA Active [place] 2017-09-07 00:00:00 Medications This patient has no known medications. Results Test Description Test Time Test Comments Text Results Atomic Results Result Comments CHEST SINGLE (PORTABLE) 2019-06-07 21:05:00 [place] [address] Patient Name: ARNALDO MARSHALL MR #: [id number] : 1935 Age/Sex: 84/F Req #: [id number] Adm Physician: Ordered by: GAGAN PATHAK DO Report #: [id number] Location: ER Room/Bed: Procedure: [id number] DX/CHEST SINGLE (PORTABLE) Exam Date: 06/07/19 Exam Time: 2014 REPORT STATUS: Signed EXAMINATION: CHEST SINGLE (PORTABLE) INDICA TION: Altered mental status COMPARISON: None FINDINGS: TUBES and LINES: None. LUNGS/PLEURA: Lungs are well inflated. Bilateral lower lung haziness. Hemidiaphragms are obscured. HEART AND MEDIASTINUM: Cardiac size is mildly enlarged. There are atherosclerotic calcifications within the aorta. BONES AND SOFT TISSUES: No acute osseous lesion. Soft tissues are unremarkable. Healed right rib fracture deformities. Degenerative changes in the spine and shoulders. UPPER ABDOMEN: No free air under the diaphragm. IMPRESSION: 1. Mild cardiomegaly and pulmonary vascular congestion. 2. Bilateral lower lung haziness and obscured hemidiaphragms could be due to atelectasis, pneumonia, edema and/or pleural effusions. Signed by: Massimo Zeng DO on 06/07/2019 9:08 PM Dictated By: MASSIMO ZENG DO 07 Transcribed By: FRANCIS on 06/07/192107 COPY TO: GAGAN PATHAK DO CT BRAIN WO 2019-06-07 20:29:00 [place] [address] Patient Name: ARNALDO MARSHALL MR #: [id number] : 1935 Age/Sex: 84/F Req #: [id number] Adm Physician: Ordered by: GAGAN PATHAK DO Report #: [id number] Location: ER Room/Bed: Procedure: [id number] CT/CT BRAIN WO Exam Date: 06/07/19 Exam Time: 2004 REPORT STATUS: Signed EXAMINATION: Head CT without contrast. HISTORY:Altered mental status, seizure. COMPARISON:None. TECHNIQUE: Multidetector axial images were obtained from the foramen magnum to the vertex without contrast. The images were reconstructed using brain and bone algorithms. Thin section brain images were reformatted into coronal and sagittal planes. Dose modulation, iterative reconstruction, and/or weight based adjustment of the mA/kV was utilized to reduce the radiation dose to as low as reasonably achievable. Intravenous contrast: None IMAGE QUALITY: Suboptimal evaluation due to motion artifacts. FINDINGS: Skull/scalp: No lytic or blastic. lesions. No surgical changes. Parenchyma: No large area of cortical/subcortical based cavitating hypodensity involving the right occipital lobe, parietal lobe, posterior aspect of right temporal lobe, right subinsular region, frontal lobe, centrum semiovale and styles radiata represents prior vascular insult in right MCA and [employer]IGN [employer]INEER vascular territories. Wallerian degeneration of right lateral aspect of the brainstem. Old lacunar infarct in the superior aspect of right cerebellar hemisphere. Nonspecific bilateral frontoparietal confluent and patchy white matter hypodensity are likely related to small vessel ischemic changes. No acute hemorrhage or mass. No acute major vascular territorial infarct. No acute hemorrhage, mass or acute major vascular territorial infarct. Arteries: No density suggestive of thrombosis. Atherosclerotic calcification in bilateral carotid siphon. Dural sinuses: No abnormal density suggestive of thrombosis. Ventricles: Compensated dilatation due to volume loss. No hydrocephalus. Extra-axial spaces: No abnormal density. Brain volume: Generalized age-related cerebral volume loss. Craniocervical junction: No mass, Chiari malformation, or basilar invagination. Sella: No mass. Paranasal/mastoid sinuses: Imaged portions unremarkable. IMPRESSION: 1. Suboptimal evaluation due to motion artifacts, despite the limitation no gross acute intracranial abnormality. 2. 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 3. 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 4. 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 5. Generalized age-related cerebral volume loss. Signed by: Dr. Jaky Malin M.D. on 06/07/2019 8:37 PM Dictated By: JAKY MALIN MD 36 Transcribed By: FRANCIS on 06/07/192036 COPY TO: GAGAN PATHAK DO TROPONIN-I 2019-05-26 13:41:00 TROPONIN-I (test code=TROPI) 0.047 ng/mL 0-0.045 Results called to [id number] by [email or web address] 05/26/19 1341Critical results verified and read back by Nurse? Effie [id number] 12:37:00* Test Item Value Reference Range Comments GLUBED (test code=GLUBED) 233 mg/dL 74-106 Performed by certified exhaust equipment operator at [facility] - XR ABDOMEN AP 1 [id number] 08:01:00 FAX: Shweta Patton MD [phone] [place]: St: ADM FAX: Mathew Dove MD [phone] FAX: Oskar Mendoza [phone] Name: ARNALDO MARSHALL [facility] : 1935 Age/S: 84/F [address] [facility] Unit #: [id number] Loc: [place] [address] Phys: Oskar Luther MD Acct: [id number] Dis Date: Status: ADM IN [facility] #: [phone] Exam Date: 05/26/2019 0750 FAX #: [phone] Reason: distension EXAMS: CPT CODE: [id number] XR ABDOMEN AP 1 V 44762 HISTORY: dist ension TECHNIQUE: AP abdomen x-ray COMPARISON: Pre vious day FINDINGS: Nonobstructed small and large bowel gas patter n. No intra-abdominal mass effect. No abnormal calcifications are observed . Degenerative changes of the spine and hips. IMPRESSION : Nonobstructive bowel gas pattern. Gaseous distention of th e colon is slightly improved. LOCA TION: LP at 0801 Reported and signed by: Leonela davison D.O. CC: Shweta Patton MD; Mathew Martinez MD; Oskar Luther MD Technologist: TOMA BUENO) Trnscrd Date/Time/By: 05/26/2019 (800) : By: [email or web address] Orig Print D/T: S: (07) PAGE 1 Signed Rep ort COMPREHENSIVE METABOLIC [id number] 07:51:00* Test Item Value Reference Range Comments SODIUM (test code=NA) 141 mmol/L 136-145 POTASSIUM (test code=K) 3.9 mmol/L 3.5-5.1 CHLORIDE (test code=CL) 106.0 mmol/L 98-107 CARBON DIOXIDE (test code=CO2) 31.0 mmol/L 21-32 ANION GAP (test code=GAP) 7.9 10-20 GLUCOSE (test code=GLU) 154 mg/dL 74-106 BLOOD UREA NITROGEN (test code=BUN) 13 mg/dL 7-18 GLOMERULAR FILTRATION RATE (test code=GFR) > 60 mL/min >=60 Estimated GFR by using Modified MDRD formula.Chronic kidney disease is defined as either kidney damageor GFR <60 mL/min/1.73 m2 for >3 months. CREATININE (test code=CREAT) 0.70 mg/dL 0.55-1.02 Note change in reference range due to change in reagent. BUN/CREATININE RATIO (test code=BUN/CREA) 19.3 10-20 TOTAL PROTEIN (test code=PROT) 6.2 gram/dL 6.4-8.2 ALBUMIN (test code=ALB) 2.1 g/dL 3.4-5.0 GLOBULIN (test code=GLOB) 4.1 gram/dL 2.7-4.2 ALBUMIN/GLOBULIN RATIO (test code=A/G) 0.5 0.75-1.50 CALCIUM (test code=CA) 8.7 mg/dL 8.5-10.1 BILIRUBIN TOTAL (test code=BILT) 0.80 mg/dL 0.0-1.0 SGOT/AST (test code=AST) 71 IUnit/L 15-37 SGPT/ALT (test code=ALT) 87 IUnit/L 12-78 ALKALINE PHOSPHATASE TOTAL (test code=ALKP) 726 IUnit/L 45-117 Note change in reference range due to change in reagent. [id number] 07:47:00* Test Item Value Reference Range Comments TROPONIN-I (test code=TROPI) 0.062 ng/mL 0-0.045 COMPREHENSIVE METABOLIC [id number] 07:38:00* Test Item Value Reference Range Comments SODIUM (test code=NA) 141 mmol/L 136-145 POTASSIUM (test code=K) 3.9 mmol/L 3.5-5.1 CHLORIDE (test code=CL) 106.0 mmol/L 98-107 CARBON DIOXIDE (test code=CO2) mmol/L 21-32 ANION GAP (test code=GAP) 10-20 GLUCOSE (test code=GLU) mg/dL 74-106 BLOOD UREA NITROGEN (test code=BUN) mg/dL 7-18 GLOMERULAR FILTRATION RATE (test code=GFR) mL/min >=60 CREATININE (test code=CREAT) mg/dL 0.55-1.02 BUN/CREATININE RATIO (test code=BUN/CREA) 10-20 TOTAL PROTEIN (test code=PROT) gram/dL 6.4-8.2 ALBUMIN (test code=ALB) g/dL 3.4-5.0 GLOBULIN (test code=GLOB) gram/dL 2.7-4.2 ALBUMIN/GLOBULIN RATIO (test code=A/G) 0.75-1.50 CALCIUM (test code=CA) mg/dL 8.5-10.1 BILIRUBIN TOTAL (test code=BILT) mg/dL 0.0-1.0 SGOT/AST (test code=AST) IUnit/L 15-37 SGPT/ALT (test code=ALT) IUnit/L 12-78 ALKALINE PHOSPHATASE TOTAL (test code=ALKP) IUnit/L 45-117 CBC W/AUTO [id number] 07:23:00* Test Item Value Reference Range Comments WHITE BLOOD CELL (test code=WBC) 9.4 K/mm3 4.5-12.5 RED BLOOD CELL (test code=RBC) 4.17 mill/mm3 3.7-5.2 HEMOGLOBIN (test code=HGB) 14.1 gram/dL 11.5-15.5 HEMATOCRIT (test code=HCT) 42.6 % 36.0-46.0 MEAN CELL VOLUME (test code=MCV) 101.9 fL 80-98 MEAN CELL HGB (test code=MCH) 33.6 picogram 27.0-33.0 MEAN CELL HGB CONCETRATION (test code=MCHC) 32.9 gram/dL 33.0-36.0 RED CELL DISTRIBUTION WIDTH (test code=RDW) 14.2 % 11.6-16.2 RED CELL DISTRIBUTION WIDTH SD (test code=RDW-SD) 49.6 fL 37.0-51.0 PLATELET COUNT (test code=PLT) 105 K/mm3 150-450 MEAN PLATELET VOLUME (test code=MPV) 11.6 fL 6.7-11.0 NEUTROPHIL % (test code=NT%) 59.5 % 39.0-69.0 IMMATURE GRANULOCYTE % (test code=IG%) 4.5 % 0.0-5.0 LYMPHOCYTE % (test code=LY%) 27.0 % 25.0-55.0 MONOCYTE % (test code=MO%) 7.8 % 0.0-10.0 EOSINOPHIL % (test code=EO%) 0.6 % 0.0-5.0 BASOPHIL % (test code=BA%) 0.6 % 0.0-1.0 NUCLEATED RBC % (test code=NRBC%) 0.4 % 0-0 NEUTROPHIL # (test code=NT#) 5.58 K/mm3 1.8-7.7 IMMATURE GRANULOCYTE # (test code=IG#) 0.42 x10 3/uL 0-0.03 LYMPHOCYTE # (test code=LY#) 2.53 K/mm3 1.0-5.0 MONOCYTE # (test code=MO#) 0.73 K/mm3 0-0.8 EOSINOPHIL # (test code=EO#) 0.06 K/mm3 0.0-0.5 BASOPHIL # (test code=BA#) 0.06 K/mm3 0.0-0.2 NUCLEATED RBC # (test code=NRBC#) 0.04 K/mm3 0.0-0.1 MANUAL DIFF REQUIRED (test code=MDIFF) NO CBC W/AUTO [id number] 07:05:00* Test Item Value Reference Range Comments WHITE BLOOD CELL (test code=WBC) K/mm3 4.5-12.5 RED BLOOD CELL (test code=RBC) mill/mm3 3.7-5.2 HEMOGLOBIN (test code=HGB) 14.1 gram/dL 11.5-15.5 HEMATOCRIT (test code=HCT) 42.6 % 36.0-46.0 MEAN CELL VOLUME (test code=MCV) fL 80-98 MEAN CELL HGB (test code=MCH) picogram 27.0-33.0 MEAN CELL HGB CONCETRATION (test code=MCHC) gram/dL 33.0-36.0 RED CELL DISTRIBUTION WIDTH (test code=RDW) % 11.6-16.2 RED CELL DISTRIBUTION WIDTH SD (test code=RDW-SD) fL 37.0-51.0 PLATELET COUNT (test code=PLT) K/mm3 150-450 MEAN PLATELET VOLUME (test code=MPV) fL 6.7-11.0 NEUTROPHIL % (test code=NT%) % 39.0-69.0 IMMATURE GRANULOCYTE % (test code=IG%) % 0.0-5.0 LYMPHOCYTE % (test code=LY%) % 25.0-55.0 MONOCYTE % (test code=MO%) % 0.0-10.0 EOSINOPHIL % (test code=EO%) % 0.0-5.0 BASOPHIL % (test code=BA%) % 0.0-1.0 NEUTROPHIL # (test code=NT#) K/mm3 1.8-7.7 LYMPHOCYTE # (test code=LY#) K/mm3 1.0-5.0 MONOCYTE # (test code=MO#) K/mm3 0-0.8 EOSINOPHIL # (test code=EO#) K/mm3 0.0-0.5 BASOPHIL # (test code=BA#) K/mm3 0.0-0.2 [id number] 06:23:00* Test Item Value Reference Range Comments GLUBED (test code=GLUBED) 127 mg/dL 74-106 Performed by certified exhaust equipment operator at [facility] [id number] 03:21:00* Test Item Value Reference Range Comments TROPONIN-I (test code=TROPI) 0.078 ng/mL 0-0.045 Results called to [id number] by [email or web address] 05/26/19 0321Critical results verified and read back by Nurse? Y [id number] 21:08:00* Test Item Value Reference Range Comments GLUBED (test code=GLUBED) 264 mg/dL 74-106 Performed by certified exhaust equipment operator at [facility] [id number] 17:36:00* Test Item Value Reference Range Comments GLUBED (test code=GLUBED) 176 mg/dL 74-106 Performed by certified exhaust equipment operator at [facility] [id number] 17:07:00* Test Item Value Reference Range Comments TROPONIN-T (test code=TROPT) < 0.010 ng/mL <0.011 Performed At: [facility] [id number] Sanjai MD Ph:[phone] performed at: [facility] [address] CBC W/MANUAL [id number] 16:29:00* Test Item Value Reference Range Comments WHITE BLOOD CELL (test code=WBC) 10.2 K/mm3 4.5-12.5 RED BLOOD CELL (test code=RBC) 4.23 mill/mm3 3.7-5.2 HEMOGLOBIN (test code=HGB) 14.4 gram/dL 11.5-15.5 HEMATOCRIT (test code=HCT) 41.4 % 36.0-46.0 MEAN CELL VOLUME (test code=MCV) 97.9 fL 80-98 MEAN CELL HGB (test code=MCH) 34.0 picogram 27.0-33.0 MEAN CELL HGB CONCETRATION (test code=MCHC) 34.8 gram/dL 33.0-36.0 RED CELL DISTRIBUTION WIDTH (test code=RDW) 13.4 % 11.6-16.2 RED CELL DISTRIBUTION WIDTH SD (test code=RDW-SD) 46.8 fL 37.0-51.0 PLATELET COUNT (test code=PLT) 96 K/mm3 150-450 MEAN PLATELET VOLUME (test code=MPV) 11.9 fL 6.7-11.0 NEUTROPHIL % (test code=NT%) 64.1 % 39.0-69.0 IMMATURE GRANULOCYTE % (test code=IG%) 2.5 % 0.0-5.0 LYMPHOCYTE % (test code=LY%) 24.5 % 25.0-55.0 MONOCYTE % (test code=MO%) 7.7 % 0.0-10.0 EOSINOPHIL % (test code=EO%) 0.6 % 0.0-5.0 BASOPHIL % (test code=BA%) 0.6 % 0.0-1.0 NUCLEATED RBC % (test code=NRBC%) 0.5 % 0-0 NEUTROPHIL # (test code=NT#) 6.52 K/mm3 1.8-7.7 IMMATURE GRANULOCYTE # (test code=IG#) 0.25 x10 3/uL 0-0.03 LYMPHOCYTE # (test code=LY#) 2.49 K/mm3 1.0-5.0 MONOCYTE # (test code=MO#) 0.78 K/mm3 0-0.8 EOSINOPHIL # (test code=EO#) 0.06 K/mm3 0.0-0.5 BASOPHIL # (test code=BA#) 0.06 K/mm3 0.0-0.2 NUCLEATED RBC # (test code=NRBC#) 0.05 K/mm3 0.0-0.1 MANUAL DIFF REQUIRED (test code=MDIFF) NO STAIN ACCEPTABILITY (test code=STN ACCEPTABLE) STAIN ACCEPTABLE TOTAL CELLS COUNTED (test code=TCC) 100 #CELLS SEGMENTED NEUTROPHILS (test code=SEG) 78 % 39-69 LYMPHOCYTE (test code=LYMPH) 17 % 25-55 MONOCYTE (test code=MON) 4 % 0-10 EOSINOPHIL (test code=EOS) 1 % 0.0-5.0 NUCLEATED RED BLOOD CELL (test code=NRBC) 1 % 0.0-1.0 POLYCHROMASIA (test code=POLC) 1+ TOXIC GRANULATION (test code=TOX) 1+ VACUOLATED NEUTROPHILS (test code=VN) 1+ PLATELET ESTIMATE (test code=PLTEST) DECREASED PLATELET MORPHOLOGY (test code=PLTMORPH) NORMAL CBC W/MANUAL [id number] 16:28:00* Test Item Value Reference Range Comments WHITE BLOOD CELL (test code=WBC) 10.2 K/mm3 4.5-12.5 RED BLOOD CELL (test code=RBC) 4.23 mill/mm3 3.7-5.2 HEMOGLOBIN (test code=HGB) 14.4 gram/dL 11.5-15.5 HEMATOCRIT (test code=HCT) 41.4 % 36.0-46.0 MEAN CELL VOLUME (test code=MCV) 97.9 fL 80-98 MEAN CELL HGB (test code=MCH) 34.0 picogram 27.0-33.0 MEAN CELL HGB CONCETRATION (test code=MCHC) 34.8 gram/dL 33.0-36.0 RED CELL DISTRIBUTION WIDTH (test code=RDW) 13.4 % 11.6-16.2 RED CELL DISTRIBUTION WIDTH SD (test code=RDW-SD) 46.8 fL 37.0-51.0 PLATELET COUNT (test code=PLT) 96 K/mm3 150-450 MEAN PLATELET VOLUME (test code=MPV) 11.9 fL 6.7-11.0 NEUTROPHIL % (test code=NT%) 64.1 % 39.0-69.0 IMMATURE GRANULOCYTE % (test code=IG%) 2.5 % 0.0-5.0 LYMPHOCYTE % (test code=LY%) 24.5 % 25.0-55.0 MONOCYTE % (test code=MO%) 7.7 % 0.0-10.0 EOSINOPHIL % (test code=EO%) 0.6 % 0.0-5.0 BASOPHIL % (test code=BA%) 0.6 % 0.0-1.0 NUCLEATED RBC % (test code=NRBC%) 0.5 % 0-0 NEUTROPHIL # (test code=NT#) 6.52 K/mm3 1.8-7.7 IMMATURE GRANULOCYTE # (test code=IG#) 0.25 x10 3/uL 0-0.03 LYMPHOCYTE # (test code=LY#) 2.49 K/mm3 1.0-5.0 MONOCYTE # (test code=MO#) 0.78 K/mm3 0-0.8 EOSINOPHIL # (test code=EO#) 0.06 K/mm3 0.0-0.5 BASOPHIL # (test code=BA#) 0.06 K/mm3 0.0-0.2 NUCLEATED RBC # (test code=NRBC#) 0.05 K/mm3 0.0-0.1 MANUAL DIFF REQUIRED (test code=MDIFF) NO STAIN ACCEPTABILITY (test code=STN ACCEPTABLE) STAIN ACCEPTABLE TOTAL CELLS COUNTED (test code=TCC) 100 #CELLS SEGMENTED NEUTROPHILS (test code=SEG) 78 % 39-69 LYMPHOCYTE (test code=LYMPH) 17 % 25-55 MONOCYTE (test code=MON) 4 % 0-10 EOSINOPHIL (test code=EOS) 1 % 0.0-5.0 NUCLEATED RED BLOOD CELL (test code=NRBC) 1 % 0.0-1.0 POLYCHROMASIA (test code=POLC) 1+ PLATELET ESTIMATE (test code=PLTEST) DECREASED PLATELET MORPHOLOGY (test code=PLTMORPH) NORMAL - XR ABDOMEN AP 1 [id number] 15:42:00 FAX: Shweta Patton MD [phone] [place]: St: ADM FAX: Y Mathew Martinez MD [phone] Name: ARNALDO MARSHALL [facility] : 1935 Age/S: 84/F [address] [facility] Unit #: [id number] Loc: [place] [address] Phys: Shweta Patton MD Acct: [id number] Dis Date: Status: ADM IN PHONE #: [phone] Exam Date: 05/25/2019 1510 FAX #: [phone] Reason: ABD PAIN EXAMS: CPT CODE: [id number] XR ABDOMEN AP 1 V 19997 EXAM: Abdomen, 2 views; INFORMATION: Abdominal pain; IMPRESSION: No significant change compared with yeste mariam's study; moderate gaseous distention of the colon and mild distenti on of small bowel loops but no obstructive pattern. Lo cation code: GW at 4627 Reported and signed by: Ryan Lowe M.D. CC: Shweta Patton MD; Mathew Martinez MD Technologist: Monse Neely RT(R); MARIA FERNANDA WOLFF RT(R) Trnscrd Date/Time/By: 019 (1543) : By: ChristGRW Orig Print D/T: S: 05/25/2019 (9033) PAGE 1 Signed Report HEPATIC FUNCTION [id number] 15:25:00* Test Item Value Reference Range Comments TOTAL PROTEIN (test code=PROT) 5.7 gram/dL 6.4-8.2 ALBUMIN (test code=ALB) 2.2 g/dL 3.4-5.0 GLOBULIN (test code=GLOB) 3.5 gram/dL 2.7-4.2 ALBUMIN/GLOBULIN RATIO (test code=A/G) 0.6 0.75-1.50 BILIRUBIN TOTAL (test code=BILT) 0.90 mg/dL 0.0-1.0 BILIRUBIN DIRECT (test code=BILD) 0.17 mg/dL 0.0-0.20 SGOT/AST (test code=AST) 118 IUnit/L 15-37 SGPT/ALT (test code=ALT) 119 IUnit/L 12-78 ALKALINE PHOSPHATASE TOTAL (test code=ALKP) 833 IUnit/L 45-117 Note change in reference range due to change in reagent. [id number] 12:29:00* Test Item Value Reference Range Comments GLUBED (test code=GLUBED) 239 mg/dL 74-106 Performed by certified exhaust equipment operator at [facility] PROTHROMBIN [id number] 07:12:00* Test Item Value Reference Range Comments PROTHROMBIN TIME PATIENT (test code=PTP) 15.4 seconds 9.0-14.0 INTERNATIONAL NORMAL RATIO (test code=INR) 1.3 0.8-1.2 The therapeutic range for oral anticoagulant therapy formost indications is an international normalized ratio (INR)of between 2.0 and 3.0. The recommended therapeutic INRrange for various clinical situations is listed below: Clinical Situation INR range Pulmonary e mbolism treatment (2.0-3.0)Venous thrombosis treatmentVenous thrombosis prophylaxis (high risk surgery)Prevention of systemic embolism from: Acute myocardial infarction Valvular heart disease Atrial fibrillation Mechanical prosthetic heart valves (2.5-3.5) IS PATIENT ON ANTICOAGULANTS? NCOMPREHENSIVE METABOLIC [id number] 07:03:00 * Test Item Value Reference Range Comments SODIUM (test code=NA) 140 mmol/L 136-145 POTASSIUM (test code=K) 3.0 mmol/L 3.5-5.1 CHLORIDE (test code=CL) 102.0 mmol/L 98-107 CARBON DIOXIDE (test code=CO2) 28.0 mmol/L 21-32 ANION GAP (test code=GAP) 13.0 10-20 GLUCOSE (test code=GLU) 116 mg/dL 74-106 BLOOD UREA NITROGEN (test code=BUN) 18 mg/dL 7-18 GLOMERULAR FILTRATION RATE (test code=GFR) > 60 mL/min >=60 Estimated GFR by using Modified MDRD formula.Chronic kidney disease is defined as either kidney damageor GFR <60 mL/min/1.73 m2 for >3 months. CREATININE (test code=CREAT) 0.70 mg/dL 0.55-1.02 Note change in reference range due to change in reagent. BUN/CREATININE RATIO (test code=BUN/CREA) 25.5 10-20 TOTAL PROTEIN (test code=PROT) 5.6 gram/dL 6.4-8.2 ALBUMIN (test code=ALB) 2.1 g/dL 3.4-5.0 GLOBULIN (test code=GLOB) 3.5 gram/dL 2.7-4.2 ALBUMIN/GLOBULIN RATIO (test code=A/G) 0.6 0.75-1.50 CALCIUM (test code=CA) 8.1 mg/dL 8.5-10.1 BILIRUBIN TOTAL (test code=BILT) 1.00 mg/dL 0.0-1.0 SGOT/AST (test code=AST) 104 IUnit/L 15-37 SGPT/ALT (test code=ALT) 107 IUnit/L 12-78 ALKALINE PHOSPHATASE TOTAL (test code=ALKP) 815 IUnit/L 45-117 Note change in reference range due to change in reagent. CBC W/MANUAL [id number] 07:02:00* Test Item Value Reference Range Comments WHITE BLOOD CELL (test code=WBC) 10.2 K/mm3 4.5-12.5 RED BLOOD CELL (test code=RBC) 4.23 mill/mm3 3.7-5.2 HEMOGLOBIN (test code=HGB) 14.4 gram/dL 11.5-15.5 HEMATOCRIT (test code=HCT) 41.4 % 36.0-46.0 MEAN CELL VOLUME (test code=MCV) 97.9 fL 80-98 MEAN CELL HGB (test code=MCH) 34.0 picogram 27.0-33.0 MEAN CELL HGB CONCETRATION (test code=MCHC) 34.8 gram/dL 33.0-36.0 RED CELL DISTRIBUTION WIDTH (test code=RDW) 13.4 % 11.6-16.2 RED CELL DISTRIBUTION WIDTH SD (test code=RDW-SD) 46.8 fL 37.0-51.0 PLATELET COUNT (test code=PLT) 96 K/mm3 150-450 MEAN PLATELET VOLUME (test code=MPV) 11.9 fL 6.7-11.0 NEUTROPHIL % (test code=NT%) 64.1 % 39.0-69.0 IMMATURE GRANULOCYTE % (test code=IG%) 2.5 % 0.0-5.0 LYMPHOCYTE % (test code=LY%) 24.5 % 25.0-55.0 MONOCYTE % (test code=MO%) 7.7 % 0.0-10.0 EOSINOPHIL % (test code=EO%) 0.6 % 0.0-5.0 BASOPHIL % (test code=BA%) 0.6 % 0.0-1.0 NUCLEATED RBC % (test code=NRBC%) 0.5 % 0-0 NEUTROPHIL # (test code=NT#) 6.52 K/mm3 1.8-7.7 IMMATURE GRANULOCYTE # (test code=IG#) 0.25 x10 3/uL 0-0.03 LYMPHOCYTE # (test code=LY#) 2.49 K/mm3 1.0-5.0 MONOCYTE # (test code=MO#) 0.78 K/mm3 0-0.8 EOSINOPHIL # (test code=EO#) 0.06 K/mm3 0.0-0.5 BASOPHIL # (test code=BA#) 0.06 K/mm3 0.0-0.2 NUCLEATED RBC # (test code=NRBC#) 0.05 K/mm3 0.0-0.1 MANUAL DIFF REQUIRED (test code=MDIFF) NO STAIN ACCEPTABILITY (test code=STN ACCEPTABLE) TOTAL CELLS COUNTED (test code=TCC) #CELLS SEGMENTED NEUTROPHILS (test code=SEG) % 39-69 LYMPHOCYTE (test code=LYMPH) % 25-55 MONOCYTE (test code=MON) % 0-10 MORPHOLOGY COMMENT (test code=MOC) PLATELET ESTIMATE (test code=PLTEST) PLATELET MORPHOLOGY (test code=PLTMORPH) [id number] 07:01:00* Test Item Value Reference Range Comments GLYCOSYLATED HEMOGLOBIN (HA1C) (test code=GLYHGB) 6.7 % HbA1 SUGGESTED DIAGNOSIS: HbA1C (%) Diabetic >6.4Prediabetes 5.7 - 6.4Normal <5.7 ESTIMATED AVERAGE GLUCOSE (test code=EAG) 146 MG/DL [id number] 06:21:00* Test Item Value Reference Range Comments GLUBED (test code=GLUBED) 131 mg/dL 74-106 Performed by certified exhaust equipment operator at [facility] [id number] 20:36:00* Test Item Value Reference Range Comments GLUBED (test code=GLUBED) 257 mg/dL 74-106 Performed by certified exhaust equipment operator at [facility] [id number] 17:37:00* Test Item Value Reference Range Comments GLUBED (test code=GLUBED) 206 mg/dL 74-106 Performed by certified exhaust equipment operator at [facility] [id number] 17:37:00* Test Item Value Reference Range Comments GLUBED (test code=GLUBED) 147 mg/dL 74-106 Performed by certified exhaust equipment operator at [facility] - XR ABDOMEN AP 1 [id number] 14:54:00 FAX: Shweta Patton MD [phone] [place]: St: ADM FAX: Mathew Dove MD [phone] FAX: José Manuel Moreland MD [phone] [facility] 1935 Age[facility]S: 84/F [address] [facility] Unit #: [id number] Loc: V.[address] [place] [address] Phys: José Manuel Link MD Acct: [id number] Dis Date: Status: ADM IN ONE #: [phone] Exam Date: 05/24/2019 1300 FAX #: [phone] Reason: colon distention EXAMS: CPT CODE: [id number] XR ABDOMEN AP 1 V [id number] EXAM: Abdomen, one view; INFORMATION: Diarrhea, colon distention; IMPRESSION: Moderate gaseous distention of the colon with a maximum di ameter of 6 cm. No obstructive pattern. No acute abnormalities. Location code: [facility] at 9343 Reported and signed by: Ryan Lowe M.D. CC: Shweta Patton MD; Mathew Martinez MD; José Manuel Link MD Technologist: MARIA FERNANDA COLLIER(R) Trnscrd Jason ate/Time/By: 05/24/2019 (9381) : By: Jesus Orig Print D/T: S: 04/27 (5175) PAGE 1 Signed Repor t PROTHROMBIN [id number] 11:37:00* Test Item Value Reference Range Comments PROTHROMBIN TIME PATIENT (test code=PTP) 15.3 seconds 9.0-14.0 INTERNATIONAL NORMAL RATIO (test code=INR) 1.3 0.8-1.2 The therapeutic range for oral anticoagulant therapy formost indications is an international normalized ratio (INR)of between 2.0 and 3.0. The recommended therapeutic INRrange for various clinical situations is listed below: Clinical Situation INR range Pulmonary e mbolism treatment (2.0-3.0)Venous thrombosis treatmentVenous thrombosis prophylaxis (high risk surgery)Prevention of systemic embolism from: Acute myocardial infarction Valvular heart disease Atrial fibrillation Mechanical prosthetic heart valves (2.5-3.5) IS PATIENT ON ANTICOAGULANTS? NHEPATIC FUNCTION [id number] 07:30:00* Test Item Value Reference Range Comments TOTAL PROTEIN (test code=PROT) 5.7 gram/dL 6.4-8.2 ALBUMIN (test code=ALB) 1.9 g/dL 3.4-5.0 GLOBULIN (test code=GLOB) 3.8 gram/dL 2.7-4.2 ALBUMIN/GLOBULIN RATIO (test code=A/G) 0.5 0.75-1.50 BILIRUBIN TOTAL (test code=BILT) 1.10 mg/dL 0.0-1.0 BILIRUBIN DIRECT (test code=BILD) 0.41 mg/dL 0.0-0.20 SGOT/AST (test code=AST) 129 IUnit/L 15-37 SGPT/ALT (test code=ALT) 128 IUnit/L 12-78 ALKALINE PHOSPHATASE TOTAL (test code=ALKP) 768 IUnit/L 45-117 Note change in reference range due to change in reagent. BLOOD UREA [id number] 07:22:00* Test Item Value Reference Range Comments BLOOD UREA NITROGEN (test code=BUN) 33 mg/dL 7-18 RESULT VERIFIED BY REPEAT ANALYSIS [id number] 07:22:00* Test Item Value Reference Range Comments CREATININE (test code=CREAT) 1.00 mg/dL 0.55-1.02 Note change in reference range due to change in reagent. CBC W/AUTO [id number] 06:29:00* Test Item Value Reference Range Comments WHITE BLOOD CELL (test code=WBC) 12.8 K/mm3 4.5-12.5 RED BLOOD CELL (test code=RBC) 4.06 mill/mm3 3.7-5.2 HEMOGLOBIN (test code=HGB) 13.5 gram/dL 11.5-15.5 HEMATOCRIT (test code=HCT) 39.0 % 36.0-46.0 MEAN CELL VOLUME (test code=MCV) 96.1 fL 80-98 MEAN CELL HGB (test code=MCH) 33.3 picogram 27.0-33.0 MEAN CELL HGB CONCETRATION (test code=MCHC) 34.6 gram/dL 33.0-36.0 RED CELL DISTRIBUTION WIDTH (test code=RDW) 13.0 % 11.6-16.2 RED CELL DISTRIBUTION WIDTH SD (test code=RDW-SD) 44.9 fL 37.0-51.0 PLATELET COUNT (test code=PLT) 87 K/mm3 150-450 MEAN PLATELET VOLUME (test code=MPV) 11.9 fL 6.7-11.0 NEUTROPHIL % (test code=NT%) 69.4 % 39.0-69.0 IMMATURE GRANULOCYTE % (test code=IG%) 1.7 % 0.0-5.0 LYMPHOCYTE % (test code=LY%) 20.8 % 25.0-55.0 MONOCYTE % (test code=MO%) 7.8 % 0.0-10.0 EOSINOPHIL % (test code=EO%) 0.1 % 0.0-5.0 BASOPHIL % (test code=BA%) 0.2 % 0.0-1.0 NUCLEATED RBC % (test code=NRBC%) 0.5 % 0-0 NEUTROPHIL # (test code=NT#) 8.87 K/mm3 1.8-7.7 IMMATURE GRANULOCYTE # (test code=IG#) 0.22 x10 3/uL 0-0.03 LYMPHOCYTE # (test code=LY#) 2.66 K/mm3 1.0-5.0 MONOCYTE # (test code=MO#) 1.00 K/mm3 0-0.8 EOSINOPHIL # (test code=EO#) 0.01 K/mm3 0.0-0.5 BASOPHIL # (test code=BA#) 0.02 K/mm3 0.0-0.2 NUCLEATED RBC # (test code=NRBC#) 0.07 K/mm3 0.0-0.1 MANUAL DIFF REQUIRED (test code=MDIFF) NO, ONLY SCAN NEEDED DIFFERENTIAL [id number] 06:29:00* Test Item Value Reference Range Comments STAIN ACCEPTABILITY (test code=STN ACCEPTABLE) STAIN ACCEPTABLE ANISOCYTOSIS (test code=ANISO) 1+ MACROCYTOSIS (test code=MACR) 1+ PLATELET ESTIMATE (test code=PLTEST) DECREASED PLATELET MORPHOLOGY (test code=PLTMORPH) NORMAL CBC W/AUTO [id number] 06:00:00* Test Item Value Reference Range Comments WHITE BLOOD CELL (test code=WBC) 12.8 K/mm3 4.5-12.5 RED BLOOD CELL (test code=RBC) 4.06 mill/mm3 3.7-5.2 HEMOGLOBIN (test code=HGB) 13.5 gram/dL 11.5-15.5 HEMATOCRIT (test code=HCT) 39.0 % 36.0-46.0 MEAN CELL VOLUME (test code=MCV) 96.1 fL 80-98 MEAN CELL HGB (test code=MCH) 33.3 picogram 27.0-33.0 MEAN CELL HGB CONCETRATION (test code=MCHC) 34.6 gram/dL 33.0-36.0 RED CELL DISTRIBUTION WIDTH (test code=RDW) 13.0 % 11.6-16.2 RED CELL DISTRIBUTION WIDTH SD (test code=RDW-SD) 44.9 fL 37.0-51.0 PLATELET COUNT (test code=PLT) 87 K/mm3 150-450 MEAN PLATELET VOLUME (test code=MPV) 11.9 fL 6.7-11.0 NEUTROPHIL % (test code=NT%) 69.4 % 39.0-69.0 IMMATURE GRANULOCYTE % (test code=IG%) 1.7 % 0.0-5.0 LYMPHOCYTE % (test code=LY%) 20.8 % 25.0-55.0 MONOCYTE % (test code=MO%) 7.8 % 0.0-10.0 EOSINOPHIL % (test code=EO%) 0.1 % 0.0-5.0 BASOPHIL % (test code=BA%) 0.2 % 0.0-1.0 NUCLEATED RBC % (test code=NRBC%) 0.5 % 0-0 NEUTROPHIL # (test code=NT#) 8.87 K/mm3 1.8-7.7 IMMATURE GRANULOCYTE # (test code=IG#) 0.22 x10 3/uL 0-0.03 LYMPHOCYTE # (test code=LY#) 2.66 K/mm3 1.0-5.0 MONOCYTE # (test code=MO#) 1.00 K/mm3 0-0.8 EOSINOPHIL # (test code=EO#) 0.01 K/mm3 0.0-0.5 BASOPHIL # (test code=BA#) 0.02 K/mm3 0.0-0.2 NUCLEATED RBC # (test code=NRBC#) 0.07 K/mm3 0.0-0.1 MANUAL DIFF REQUIRED (test code=MDIFF) NO, ONLY SCAN NEEDED DIFFERENTIAL [id number] 06:00:00* Test Item Value Reference Range Comments STAIN ACCEPTABILITY (test code=STN ACCEPTABLE) MORPHOLOGY COMMENT (test code=MOC) PLATELET ESTIMATE (test code=PLTEST) PLATELET MORPHOLOGY (test code=PLTMORPH) CBC W/AUTO [id number] 05:59:00* Test Item Value Reference Range Comments WHITE BLOOD CELL (test code=WBC) 12.8 K/mm3 4.5-12.5 RED BLOOD CELL (test code=RBC) 4.06 mill/mm3 3.7-5.2 HEMOGLOBIN (test code=HGB) 13.5 gram/dL 11.5-15.5 HEMATOCRIT (test code=HCT) 39.0 % 36.0-46.0 MEAN CELL VOLUME (test code=MCV) 96.1 fL 80-98 MEAN CELL HGB (test code=MCH) 33.3 picogram 27.0-33.0 MEAN CELL HGB CONCETRATION (test code=MCHC) 34.6 gram/dL 33.0-36.0 RED CELL DISTRIBUTION WIDTH (test code=RDW) 13.0 % 11.6-16.2 RED CELL DISTRIBUTION WIDTH SD (test code=RDW-SD) 44.9 fL 37.0-51.0 PLATELET COUNT (test code=PLT) 87 K/mm3 150-450 MEAN PLATELET VOLUME (test code=MPV) 11.9 fL 6.7-11.0 NEUTROPHIL % (test code=NT%) 69.4 % 39.0-69.0 IMMATURE GRANULOCYTE % (test code=IG%) 1.7 % 0.0-5.0 LYMPHOCYTE % (test code=LY%) 20.8 % 25.0-55.0 MONOCYTE % (test code=MO%) 7.8 % 0.0-10.0 EOSINOPHIL % (test code=EO%) 0.1 % 0.0-5.0 BASOPHIL % (test code=BA%) 0.2 % 0.0-1.0 NUCLEATED RBC % (test code=NRBC%) 0.5 % 0-0 NEUTROPHIL # (test code=NT#) 8.87 K/mm3 1.8-7.7 IMMATURE GRANULOCYTE # (test code=IG#) 0.22 x10 3/uL 0-0.03 LYMPHOCYTE # (test code=LY#) 2.66 K/mm3 1.0-5.0 MONOCYTE # (test code=MO#) 1.00 K/mm3 0-0.8 EOSINOPHIL # (test code=EO#) 0.01 K/mm3 0.0-0.5 BASOPHIL # (test code=BA#) 0.02 K/mm3 0.0-0.2 NUCLEATED RBC # (test code=NRBC#) 0.07 K/mm3 0.0-0.1 MANUAL DIFF REQUIRED (test code=MDIFF) NO, ONLY SCAN NEEDED DIFFERENTIAL [id number] 05:59:00* Test Item Value Reference Range Comments STAIN ACCEPTABILITY (test code=STN ACCEPTABLE) CABOT RINGS (test code=CAB) MORPHOLOGY COMMENT (test code=MOC) PLATELET ESTIMATE (test code=PLTEST) PLATELET MORPHOLOGY (test code=PLTMORPH) CBC W/AUTO [id number] 05:59:00* Test Item Value Reference Range Comments WHITE BLOOD CELL (test code=WBC) 12.8 K/mm3 4.5-12.5 RED BLOOD CELL (test code=RBC) 4.06 mill/mm3 3.7-5.2 HEMOGLOBIN (test code=HGB) 13.5 gram/dL 11.5-15.5 HEMATOCRIT (test code=HCT) 39.0 % 36.0-46.0 MEAN CELL VOLUME (test code=MCV) 96.1 fL 80-98 MEAN CELL HGB (test code=MCH) 33.3 picogram 27.0-33.0 MEAN CELL HGB CONCETRATION (test code=MCHC) 34.6 gram/dL 33.0-36.0 RED CELL DISTRIBUTION WIDTH (test code=RDW) 13.0 % 11.6-16.2 RED CELL DISTRIBUTION WIDTH SD (test code=RDW-SD) 44.9 fL 37.0-51.0 PLATELET COUNT (test code=PLT) 87 K/mm3 150-450 MEAN PLATELET VOLUME (test code=MPV) 11.9 fL 6.7-11.0 NEUTROPHIL % (test code=NT%) 69.4 % 39.0-69.0 IMMATURE GRANULOCYTE % (test code=IG%) 1.7 % 0.0-5.0 LYMPHOCYTE % (test code=LY%) 20.8 % 25.0-55.0 MONOCYTE % (test code=MO%) 7.8 % 0.0-10.0 EOSINOPHIL % (test code=EO%) 0.1 % 0.0-5.0 BASOPHIL % (test code=BA%) 0.2 % 0.0-1.0 NUCLEATED RBC % (test code=NRBC%) 0.5 % 0-0 NEUTROPHIL # (test code=NT#) 8.87 K/mm3 1.8-7.7 IMMATURE GRANULOCYTE # (test code=IG#) 0.22 x10 3/uL 0-0.03 LYMPHOCYTE # (test code=LY#) 2.66 K/mm3 1.0-5.0 MONOCYTE # (test code=MO#) 1.00 K/mm3 0-0.8 EOSINOPHIL # (test code=EO#) 0.01 K/mm3 0.0-0.5 BASOPHIL # (test code=BA#) 0.02 K/mm3 0.0-0.2 NUCLEATED RBC # (test code=NRBC#) 0.07 K/mm3 0.0-0.1 MANUAL DIFF REQUIRED (test code=MDIFF) NO, ONLY SCAN NEEDED DIFFERENTIAL [id number] 05:59:00* Test Item Value Reference Range Comments STAIN ACCEPTABILITY (test code=STN ACCEPTABLE) MORPHOLOGY COMMENT (test code=MOC) PLATELET ESTIMATE (test code=PLTEST) PLATELET MORPHOLOGY (test code=PLTMORPH) CBC W/AUTO [id number] 05:59:00* Test Item Value Reference Range Comments WHITE BLOOD CELL (test code=WBC) 12.8 K/mm3 4.5-12.5 RED BLOOD CELL (test code=RBC) 4.06 mill/mm3 3.7-5.2 HEMOGLOBIN (test code=HGB) 13.5 gram/dL 11.5-15.5 HEMATOCRIT (test code=HCT) 39.0 % 36.0-46.0 MEAN CELL VOLUME (test code=MCV) 96.1 fL 80-98 MEAN CELL HGB (test code=MCH) 33.3 picogram 27.0-33.0 MEAN CELL HGB CONCETRATION (test code=MCHC) 34.6 gram/dL 33.0-36.0 RED CELL DISTRIBUTION WIDTH (test code=RDW) 13.0 % 11.6-16.2 RED CELL DISTRIBUTION WIDTH SD (test code=RDW-SD) 44.9 fL 37.0-51.0 PLATELET COUNT (test code=PLT) 87 K/mm3 150-450 MEAN PLATELET VOLUME (test code=MPV) 11.9 fL 6.7-11.0 NEUTROPHIL % (test code=NT%) 69.4 % 39.0-69.0 IMMATURE GRANULOCYTE % (test code=IG%) 1.7 % 0.0-5.0 LYMPHOCYTE % (test code=LY%) 20.8 % 25.0-55.0 MONOCYTE % (test code=MO%) 7.8 % 0.0-10.0 EOSINOPHIL % (test code=EO%) 0.1 % 0.0-5.0 BASOPHIL % (test code=BA%) 0.2 % 0.0-1.0 NUCLEATED RBC % (test code=NRBC%) 0.5 % 0-0 NEUTROPHIL # (test code=NT#) 8.87 K/mm3 1.8-7.7 IMMATURE GRANULOCYTE # (test code=IG#) 0.22 x10 3/uL 0-0.03 LYMPHOCYTE # (test code=LY#) 2.66 K/mm3 1.0-5.0 MONOCYTE # (test code=MO#) 1.00 K/mm3 0-0.8 EOSINOPHIL # (test code=EO#) 0.01 K/mm3 0.0-0.5 BASOPHIL # (test code=BA#) 0.02 K/mm3 0.0-0.2 NUCLEATED RBC # (test code=NRBC#) 0.07 K/mm3 0.0-0.1 MANUAL DIFF REQUIRED (test code=MDIFF) NO, ONLY SCAN NEEDED DIFFERENTIAL [id number] 05:59:00* Test Item Value Reference Range Comments STAIN ACCEPTABILITY (test code=STN ACCEPTABLE) CABOT RINGS (test code=CAB) MORPHOLOGY COMMENT (test code=MOC) PLATELET ESTIMATE (test code=PLTEST) PLATELET MORPHOLOGY (test code=PLTMORPH) [id number] 16:45:00* Test Item Value Reference Range Comments GLUBED (test code=GLUBED) 214 mg/dL 74-106 Performed by certified exhaust equipment operator at [facility] - CT ABD PELVIS W/O [id number] 13:21:00 Name: ARNALDO MARSHALL [facility] : 1935 Age/S: 84 / F [address] [facility] Unit #: [id number] Loc: [place] [address] Phys: Shweta Patton MD Acct: [id number] Dis Date: Status: ADM IN PHONE #: [phone] Exam Date: 05/23/2019 1303 FAX #: [phone] Reason: abd distended EXAMS: CPT CODE: [id number] CT ABD PELVIS W/O CONT 56424 HISTORY: Abdominal distention TECHNIQUE: 5mm axial CT images were obtained through the abdomen and pelvis without contrast. Sagittal and coronal reformatted images were generated. Automated exposure control for dose reduction. COMPARISON: 05/16/19 FINDINGS: Small bilateral pleural effusion with dependent subsegmental atelectasis. Cardiomegaly. Co ronary artery calcification. Gallbladder is not visualized. Hepato megaly. Atrophic pancreas. Nonenhanced spleen and adrenal glands are unrem arkable. Nonspecific bilateral perinephric stranding. 3.7 cm super ior right renal cyst. Nonenhanced left kidney is unremarkable. Mild bilate ral hydronephrosis. No urinary calculus. Stomach and small b owel are unremarkable. Severely distended proximal colon with air-fluid le alondra; gradual transition to normal caliber distal colon. No f ree air or free fluid. No lymphadenopathy. Aortoiliac atherosclerotic vasc ular calcification without aneurysm. Distended urinary bladder. No nenhanced uterus and ovaries are unremarkable. No pelvic free fluid. Degenerative changes of the spine, sacral iliac joints, and hips. IMPRESSION: Severely distended proximal co sushant with air-fluid level; no transition point to suggest obstruction. Distended urinary bladder. Mild secondary bilateral hydronephros is. No urinary calculus. PAGE 1 Signed Report (CONTINUED) Name: ARNALDO MARSHALL [facility] : 1935 Age/S: 84 / F [address] [facility] Unit #: [id number] Loc: [place] [address] Phys: Shweta Patton MD Acct: [id number] Dis Date: tus: ADM IN PHONE #: [phone] Exam Date : 05/23/2019 1303 FAX #: [phone] Reason: abd dist ended EXAMS: CPT CODE: [id number] CT ABD PELVIS W/O CONT 10313 <Continued> at 1321 Reported and signed by: Leonela Way D.O. CC: Shweta Patton MD; Mathew Martinez MD Technologist:Kashif Porter RT(R),(MR),(CT); CTDI: DLP: Trnscb Date/Time: 05/23/2019 (1321) [email or web address] Orig Print D/T: S: 05/23/2019 (1324) PAGE 2 Signed Report - HEPA IMAG INCL GB W [facility] 2019-05-23 13:13:00 FAX: Shweta Patton MD [phone] [place]: B St: ADM FAX: Mathew Dove MD [phone] FAX: Oskar Mendoza [phone] Name: ARNALDO MARSHALL [facility] : 1935 Age/S: 84/F [address] Unit #: [id number] Loc: V.2076 [place] [address] Phys: Oskar Luther MD Acct: [id number] Dis Date: Status: ADM IN ONE #: [phone] Exam Date: 05/23/2019 1306 FAX #: [phone] Reason: elevated LFTs EXAMS: CPT CODE: [id number] HE PA IMAG INCL GB W PHA [id number] HISTORY: Right upper quadrant abdominal pain, elevated LFTs EXAM: NUCLEAR MEDIC INE HEPATOBILIARY SCAN. TECHNIQUE: After IV injection of 5.6 mCi T c 99m Choletec, sequential planar images were obtained over the upper abdo men out to 120 minutes. FINDINGS: Homogeneous distribution of rad iopharmaceutical in the liver. No accumulation of radiopharmaceutical in t he gallbladder by 120 minutes. Normal accumulation of radiopharmaceutical in small bowel by 30 minutes. IMPRESSION: No radiopharmaceutical accumulation within the gallbladder by 120 minutes. Findings suggest cystic duct obstruction which can be seen with acute cholecystitis. LOCATION: LP at 1313 Reported and signed by: Leonela Way D.O. CC: Shweta Patton MD; Mathew Martinez MD; Oskar Luther MD Technologist: CHIKIS DUMONT Trnscrd Date/Time/By: 05/23/2019 (1313) : By: [email or web address] Orig Print D/T: S: 05/23/2019 (0665) PAGE 1 Signed Report [id number] 12:12:00* Test Item Value Reference Range Comments GLUBED (test code=GLUBED) 227 mg/dL 74-106 Performed by certified exhaust equipment operator at [facility] CBC W/AUTO [id number] 09:16:00* Test Item Value Reference Range Comments WHITE BLOOD CELL (test code=WBC) 17.4 K/mm3 4.5-12.5 RED BLOOD CELL (test code=RBC) 4.59 mill/mm3 3.7-5.2 HEMOGLOBIN (test code=HGB) 15.7 gram/dL 11.5-15.5 HEMATOCRIT (test code=HCT) 45.9 % 36.0-46.0 MEAN CELL VOLUME (test code=MCV) 97.4 fL 80-98 MEAN CELL HGB (test code=MCH) 34.2 picogram 27.0-33.0 MEAN CELL HGB CONCETRATION (test code=MCHC) 35.1 gram/dL 33.0-36.0 RED CELL DISTRIBUTION WIDTH (test code=RDW) 13.1 % 11.6-16.2 RED CELL DISTRIBUTION WIDTH SD (test code=RDW-SD) 46.2 fL 37.0-51.0 PLATELET COUNT (test code=PLT) 86 K/mm3 150-450 MEAN PLATELET VOLUME (test code=MPV) 11.9 fL 6.7-11.0 NEUTROPHIL % (test code=NT%) 77.9 % 39.0-69.0 IMMATURE GRANULOCYTE % (test code=IG%) 1.1 % 0.0-5.0 LYMPHOCYTE % (test code=LY%) 12.4 % 25.0-55.0 MONOCYTE % (test code=MO%) 8.3 % 0.0-10.0 EOSINOPHIL % (test code=EO%) 0.1 % 0.0-5.0 BASOPHIL % (test code=BA%) 0.2 % 0.0-1.0 NUCLEATED RBC % (test code=NRBC%) 0.4 % 0-0 NEUTROPHIL # (test code=NT#) 13.56 K/mm3 1.8-7.7 IMMATURE GRANULOCYTE # (test code=IG#) 0.19 x10 3/uL 0-0.03 LYMPHOCYTE # (test code=LY#) 2.15 K/mm3 1.0-5.0 MONOCYTE # (test code=MO#) 1.45 K/mm3 0-0.8 EOSINOPHIL # (test code=EO#) 0.01 K/mm3 0.0-0.5 BASOPHIL # (test code=BA#) 0.04 K/mm3 0.0-0.2 NUCLEATED RBC # (test code=NRBC#) 0.07 K/mm3 0.0-0.1 MANUAL DIFF REQUIRED (test code=MDIFF) NO, ONLY SCAN NEEDED DIFFERENTIAL [id number] 09:16:00* Test Item Value Reference Range Comments STAIN ACCEPTABILITY (test code=STN ACCEPTABLE) STAIN ACCEPTABLE TOXIC GRANULATION (test code=TOX) 1+ MORPHOLOGY COMMENT (test code=MOC) NORMAL PLATELET ESTIMATE (test code=PLTEST) DECREASED PLATELET MORPHOLOGY (test code=PLTMORPH) NORMAL COMPREHENSIVE METABOLIC [id number] 08:37:00* Test Item Value Reference Range Comments SODIUM (test code=NA) 132 mmol/L 136-145 POTASSIUM (test code=K) 3.5 mmol/L 3.5-5.1 CHLORIDE (test code=CL) 91.0 mmol/L 98-107 CARBON DIOXIDE (test code=CO2) 31.0 mmol/L 21-32 ANION GAP (test code=GAP) 13.5 10-20 GLUCOSE (test code=GLU) 198 mg/dL 74-106 BLOOD UREA NITROGEN (test code=BUN) 42 mg/dL 7-18 GLOMERULAR FILTRATION RATE (test code=GFR) 33 mL/min >=60 Estimated GFR by using Modified MDRD formula.Chronic kidney disease is defined as either kidney damageor GFR <60 mL/min/1.73 m2 for >3 months. CREATININE (test code=CREAT) 1.50 mg/dL 0.55-1.02 Note change in reference range due to change in reagent. BUN/CREATININE RATIO (test code=BUN/CREA) 28.4 10-20 TOTAL PROTEIN (test code=PROT) 6.3 gram/dL 6.4-8.2 ALBUMIN (test code=ALB) 2.6 g/dL 3.4-5.0 GLOBULIN (test code=GLOB) 3.7 gram/dL 2.7-4.2 ALBUMIN/GLOBULIN RATIO (test code=A/G) 0.7 0.75-1.50 CALCIUM (test code=CA) 8.8 mg/dL 8.5-10.1 BILIRUBIN TOTAL (test code=BILT) 1.40 mg/dL 0.0-1.0 SGOT/AST (test code=AST) 204 IUnit/L 15-37 SGPT/ALT (test code=ALT) 193 IUnit/L 12-78 ALKALINE PHOSPHATASE TOTAL (test code=ALKP) 957 IUnit/L 45-117 Note change in reference range due to change in reagent. HEPATIC FUNCTION [id number] 08:37:00* Test Item Value Reference Range Comments BILIRUBIN DIRECT (test code=BILD) 0.88 mg/dL 0.0-0.20 GAMMA GLUTAMYL [id number] 08:37:00* Test Item Value Reference Range Comments GAMMA GLUTAMYL TRANSPEPTIDASE (test code=GGT) 1740 Unit/L 5-55 COMPREHENSIVE METABOLIC [id number] 08:19:00* Test Item Value Reference Range Comments SODIUM (test code=NA) 132 mmol/L 136-145 POTASSIUM (test code=K) 3.5 mmol/L 3.5-5.1 CHLORIDE (test code=CL) 91.0 mmol/L 98-107 CARBON DIOXIDE (test code=CO2) mmol/L 21-32 ANION GAP (test code=GAP) 10-20 GLUCOSE (test code=GLU) mg/dL 74-106 BLOOD UREA NITROGEN (test code=BUN) mg/dL 7-18 GLOMERULAR FILTRATION RATE (test code=GFR) mL/min >=60 CREATININE (test code=CREAT) mg/dL 0.55-1.02 BUN/CREATININE RATIO (test code=BUN/CREA) 10-20 TOTAL PROTEIN (test code=PROT) gram/dL 6.4-8.2 ALBUMIN (test code=ALB) g/dL 3.4-5.0 GLOBULIN (test code=GLOB) gram/dL 2.7-4.2 ALBUMIN/GLOBULIN RATIO (test code=A/G) 0.75-1.50 CALCIUM (test code=CA) mg/dL 8.5-10.1 BILIRUBIN TOTAL (test code=BILT) mg/dL 0.0-1.0 SGOT/AST (test code=AST) IUnit/L 15-37 SGPT/ALT (test code=ALT) IUnit/L 12-78 ALKALINE PHOSPHATASE TOTAL (test code=ALKP) IUnit/L 45-117 HEPATIC FUNCTION [id number] 08:19:00* Test Item Value Reference Range Comments BILIRUBIN DIRECT (test code=BILD) mg/dL 0.0-0.20 GAMMA GLUTAMYL [id number] 08:19:00* Test Item Value Reference Range Comments GAMMA GLUTAMYL TRANSPEPTIDASE (test code=GGT) Unit/L 5-55 CBC W/AUTO [id number] 08:10:00* Test Item Value Reference Range Comments WHITE BLOOD CELL (test code=WBC) 17.4 K/mm3 4.5-12.5 RED BLOOD CELL (test code=RBC) 4.59 mill/mm3 3.7-5.2 HEMOGLOBIN (test code=HGB) 15.7 gram/dL 11.5-15.5 HEMATOCRIT (test code=HCT) 45.9 % 36.0-46.0 MEAN CELL VOLUME (test code=MCV) 97.4 fL 80-98 MEAN CELL HGB (test code=MCH) 34.2 picogram 27.0-33.0 MEAN CELL HGB CONCETRATION (test code=MCHC) 35.1 gram/dL 33.0-36.0 RED CELL DISTRIBUTION WIDTH (test code=RDW) 13.1 % 11.6-16.2 RED CELL DISTRIBUTION WIDTH SD (test code=RDW-SD) 46.2 fL 37.0-51.0 PLATELET COUNT (test code=PLT) 86 K/mm3 150-450 MEAN PLATELET VOLUME (test code=MPV) 11.9 fL 6.7-11.0 NEUTROPHIL % (test code=NT%) 77.9 % 39.0-69.0 IMMATURE GRANULOCYTE % (test code=IG%) 1.1 % 0.0-5.0 LYMPHOCYTE % (test code=LY%) 12.4 % 25.0-55.0 MONOCYTE % (test code=MO%) 8.3 % 0.0-10.0 EOSINOPHIL % (test code=EO%) 0.1 % 0.0-5.0 BASOPHIL % (test code=BA%) 0.2 % 0.0-1.0 NUCLEATED RBC % (test code=NRBC%) 0.4 % 0-0 NEUTROPHIL # (test code=NT#) 13.56 K/mm3 1.8-7.7 IMMATURE GRANULOCYTE # (test code=IG#) 0.19 x10 3/uL 0-0.03 LYMPHOCYTE # (test code=LY#) 2.15 K/mm3 1.0-5.0 MONOCYTE # (test code=MO#) 1.45 K/mm3 0-0.8 EOSINOPHIL # (test code=EO#) 0.01 K/mm3 0.0-0.5 BASOPHIL # (test code=BA#) 0.04 K/mm3 0.0-0.2 NUCLEATED RBC # (test code=NRBC#) 0.07 K/mm3 0.0-0.1 MANUAL DIFF REQUIRED (test code=MDIFF) NO, ONLY SCAN NEEDED DIFFERENTIAL [id number] 08:10:00* Test Item Value Reference Range Comments STAIN ACCEPTABILITY (test code=STN ACCEPTABLE) CABOT RINGS (test code=CAB) MORPHOLOGY COMMENT (test code=MOC) PLATELET ESTIMATE (test code=PLTEST) PLATELET MORPHOLOGY (test code=PLTMORPH) CBC W/AUTO [id number] 08:10:00* Test Item Value Reference Range Comments WHITE BLOOD CELL (test code=WBC) 17.4 K/mm3 4.5-12.5 RED BLOOD CELL (test code=RBC) 4.59 mill/mm3 3.7-5.2 HEMOGLOBIN (test code=HGB) 15.7 gram/dL 11.5-15.5 HEMATOCRIT (test code=HCT) 45.9 % 36.0-46.0 MEAN CELL VOLUME (test code=MCV) 97.4 fL 80-98 MEAN CELL HGB (test code=MCH) 34.2 picogram 27.0-33.0 MEAN CELL HGB CONCETRATION (test code=MCHC) 35.1 gram/dL 33.0-36.0 RED CELL DISTRIBUTION WIDTH (test code=RDW) 13.1 % 11.6-16.2 RED CELL DISTRIBUTION WIDTH SD (test code=RDW-SD) 46.2 fL 37.0-51.0 PLATELET COUNT (test code=PLT) 86 K/mm3 150-450 MEAN PLATELET VOLUME (test code=MPV) 11.9 fL 6.7-11.0 NEUTROPHIL % (test code=NT%) 77.9 % 39.0-69.0 IMMATURE GRANULOCYTE % (test code=IG%) 1.1 % 0.0-5.0 LYMPHOCYTE % (test code=LY%) 12.4 % 25.0-55.0 MONOCYTE % (test code=MO%) 8.3 % 0.0-10.0 EOSINOPHIL % (test code=EO%) 0.1 % 0.0-5.0 BASOPHIL % (test code=BA%) 0.2 % 0.0-1.0 NUCLEATED RBC % (test code=NRBC%) 0.4 % 0-0 NEUTROPHIL # (test code=NT#) 13.56 K/mm3 1.8-7.7 IMMATURE GRANULOCYTE # (test code=IG#) 0.19 x10 3/uL 0-0.03 LYMPHOCYTE # (test code=LY#) 2.15 K/mm3 1.0-5.0 MONOCYTE # (test code=MO#) 1.45 K/mm3 0-0.8 EOSINOPHIL # (test code=EO#) 0.01 K/mm3 0.0-0.5 BASOPHIL # (test code=BA#) 0.04 K/mm3 0.0-0.2 NUCLEATED RBC # (test code=NRBC#) 0.07 K/mm3 0.0-0.1 MANUAL DIFF REQUIRED (test code=MDIFF) NO, ONLY SCAN NEEDED DIFFERENTIAL [id number] 08:10:00* Test Item Value Reference Range Comments STAIN ACCEPTABILITY (test code=STN ACCEPTABLE) CABOT RINGS (test code=CAB) MORPHOLOGY COMMENT (test code=MOC) PLATELET ESTIMATE (test code=PLTEST) PLATELET MORPHOLOGY (test code=PLTMORPH) CBC W/AUTO [id number] 08:10:00* Test Item Value Reference Range Comments WHITE BLOOD CELL (test code=WBC) 17.4 K/mm3 4.5-12.5 RED BLOOD CELL (test code=RBC) 4.59 mill/mm3 3.7-5.2 HEMOGLOBIN (test code=HGB) 15.7 gram/dL 11.5-15.5 HEMATOCRIT (test code=HCT) 45.9 % 36.0-46.0 MEAN CELL VOLUME (test code=MCV) 97.4 fL 80-98 MEAN CELL HGB (test code=MCH) 34.2 picogram 27.0-33.0 MEAN CELL HGB CONCETRATION (test code=MCHC) 35.1 gram/dL 33.0-36.0 RED CELL DISTRIBUTION WIDTH (test code=RDW) 13.1 % 11.6-16.2 RED CELL DISTRIBUTION WIDTH SD (test code=RDW-SD) 46.2 fL 37.0-51.0 PLATELET COUNT (test code=PLT) 86 K/mm3 150-450 MEAN PLATELET VOLUME (test code=MPV) 11.9 fL 6.7-11.0 NEUTROPHIL % (test code=NT%) 77.9 % 39.0-69.0 IMMATURE GRANULOCYTE % (test code=IG%) 1.1 % 0.0-5.0 LYMPHOCYTE % (test code=LY%) 12.4 % 25.0-55.0 MONOCYTE % (test code=MO%) 8.3 % 0.0-10.0 EOSINOPHIL % (test code=EO%) 0.1 % 0.0-5.0 BASOPHIL % (test code=BA%) 0.2 % 0.0-1.0 NUCLEATED RBC % (test code=NRBC%) 0.4 % 0-0 NEUTROPHIL # (test code=NT#) 13.56 K/mm3 1.8-7.7 IMMATURE GRANULOCYTE # (test code=IG#) 0.19 x10 3/uL 0-0.03 LYMPHOCYTE # (test code=LY#) 2.15 K/mm3 1.0-5.0 MONOCYTE # (test code=MO#) 1.45 K/mm3 0-0.8 EOSINOPHIL # (test code=EO#) 0.01 K/mm3 0.0-0.5 BASOPHIL # (test code=BA#) 0.04 K/mm3 0.0-0.2 NUCLEATED RBC # (test code=NRBC#) 0.07 K/mm3 0.0-0.1 MANUAL DIFF REQUIRED (test code=MDIFF) NO, ONLY SCAN NEEDED DIFFERENTIAL [id number] 08:10:00* Test Item Value Reference Range Comments STAIN ACCEPTABILITY (test code=STN ACCEPTABLE) MORPHOLOGY COMMENT (test code=MOC) PLATELET ESTIMATE (test code=PLTEST) PLATELET MORPHOLOGY (test code=PLTMORPH) CBC W/AUTO [id number] 08:10:00* Test Item Value Reference Range Comments WHITE BLOOD CELL (test code=WBC) 17.4 K/mm3 4.5-12.5 RED BLOOD CELL (test code=RBC) 4.59 mill/mm3 3.7-5.2 HEMOGLOBIN (test code=HGB) 15.7 gram/dL 11.5-15.5 HEMATOCRIT (test code=HCT) 45.9 % 36.0-46.0 MEAN CELL VOLUME (test code=MCV) 97.4 fL 80-98 MEAN CELL HGB (test code=MCH) 34.2 picogram 27.0-33.0 MEAN CELL HGB CONCETRATION (test code=MCHC) 35.1 gram/dL 33.0-36.0 RED CELL DISTRIBUTION WIDTH (test code=RDW) 13.1 % 11.6-16.2 RED CELL DISTRIBUTION WIDTH SD (test code=RDW-SD) 46.2 fL 37.0-51.0 PLATELET COUNT (test code=PLT) 86 K/mm3 150-450 MEAN PLATELET VOLUME (test code=MPV) 11.9 fL 6.7-11.0 NEUTROPHIL % (test code=NT%) 77.9 % 39.0-69.0 IMMATURE GRANULOCYTE % (test code=IG%) 1.1 % 0.0-5.0 LYMPHOCYTE % (test code=LY%) 12.4 % 25.0-55.0 MONOCYTE % (test code=MO%) 8.3 % 0.0-10.0 EOSINOPHIL % (test code=EO%) 0.1 % 0.0-5.0 BASOPHIL % (test code=BA%) 0.2 % 0.0-1.0 NUCLEATED RBC % (test code=NRBC%) 0.4 % 0-0 NEUTROPHIL # (test code=NT#) 13.56 K/mm3 1.8-7.7 IMMATURE GRANULOCYTE # (test code=IG#) 0.19 x10 3/uL 0-0.03 LYMPHOCYTE # (test code=LY#) 2.15 K/mm3 1.0-5.0 MONOCYTE # (test code=MO#) 1.45 K/mm3 0-0.8 EOSINOPHIL # (test code=EO#) 0.01 K/mm3 0.0-0.5 BASOPHIL # (test code=BA#) 0.04 K/mm3 0.0-0.2 NUCLEATED RBC # (test code=NRBC#) 0.07 K/mm3 0.0-0.1 MANUAL DIFF REQUIRED (test code=MDIFF) NO, ONLY SCAN NEEDED DIFFERENTIAL [id number] 08:10:00* Test Item Value Reference Range Comments STAIN ACCEPTABILITY (test code=STN ACCEPTABLE) CABOT RINGS (test code=CAB) MORPHOLOGY COMMENT (test code=MOC) PLATELET ESTIMATE (test code=PLTEST) PLATELET MORPHOLOGY (test code=PLTMORPH) CBC W/AUTO [id number] 07:56:00* Test Item Value Reference Range Comments WHITE BLOOD CELL (test code=WBC) K/mm3 4.5-12.5 RED BLOOD CELL (test code=RBC) mill/mm3 3.7-5.2 HEMOGLOBIN (test code=HGB) gram/dL 11.5-15.5 HEMATOCRIT (test code=HCT) 45.9 % 36.0-46.0 MEAN CELL VOLUME (test code=MCV) fL 80-98 MEAN CELL HGB (test code=MCH) picogram 27.0-33.0 MEAN CELL HGB CONCETRATION (test code=MCHC) gram/dL 33.0-36.0 RED CELL DISTRIBUTION WIDTH (test code=RDW) % 11.6-16.2 RED CELL DISTRIBUTION WIDTH SD (test code=RDW-SD) fL 37.0-51.0 PLATELET COUNT (test code=PLT) K/mm3 150-450 MEAN PLATELET VOLUME (test code=MPV) fL 6.7-11.0 NEUTROPHIL % (test code=NT%) % 39.0-69.0 IMMATURE GRANULOCYTE % (test code=IG%) % 0.0-5.0 LYMPHOCYTE % (test code=LY%) % 25.0-55.0 MONOCYTE % (test code=MO%) % 0.0-10.0 EOSINOPHIL % (test code=EO%) % 0.0-5.0 BASOPHIL % (test code=BA%) % 0.0-1.0 NEUTROPHIL # (test code=NT#) K/mm3 1.8-7.7 LYMPHOCYTE # (test code=LY#) K/mm3 1.0-5.0 MONOCYTE # (test code=MO#) K/mm3 0-0.8 EOSINOPHIL # (test code=EO#) K/mm3 0.0-0.5 BASOPHIL # (test code=BA#) K/mm3 0.0-0.2 [id number] 06:19:00* Test Item Value Reference Range Comments GLUBED (test code=GLUBED) 250 mg/dL 74-106 Performed by certified exhaust equipment operator at [facility] [id number] 23:29:00* Test Item Value Reference Range Comments TROPONIN-I (test code=TROPI) 0.144 ng/mL 0-0.045 PREVIOUSLY CALLED - XR CHEST 1 [id number] 13:05:00 FAX: Shweta Patton MD [phone] [place]: St: ADM FAX: Mathew Dove MD [phone] Name: ARNALDO MARSHALL [facility] : 1935 Age/S: 84/F [address] [facility] Unit #: [id number] Loc: [place] [address] Phys: Shweta Patton MD Acct: [id number] Dis Date: Status: ADM IN PHONE #: [phone] Exam Date: 05/22/2019 1237 FAX #: [phone] Reason: sob EXAMS: CPT CODE: [id number] XR CHEST 1 V [id number] EXAM: Chest x-ray, one view; INFORMATION: Shortness of breath; IMPRESSION: 1. No significant change compared with the recent study from May 20, 2019; persistent moderate cardiomegaly. Aortic calcifications. 2. No acute pulmonary abnormalities. 3. Old, consolidated right-sided rib fractures. Location code: [facility] at 1305 Reported and signed by: Ryan Lowe M.D. CC: Shweta Patton MD; Mathew Martinez MD Technologist: Keri Francisco); PAYAM KING (R) Trnscrd Date/Time/By: 05/22/2019 (7397) : By: Jesus Orig Print D/T: S: 05/22/2019 (0953) PAGE 1 Signed Report [id number] 11:38:00* Test Item Value Reference Range Comments TROPONIN-I (test code=TROPI) 0.055 ng/mL 0-0.045 [id number] 07:12:00* Test Item Value Reference Range Comments TRANSFERRRIN (test code=TRANSF) 154 mg/dL 200-370 Performed At: [facility] [id number] Sanjai MD Ph:[phone] [id number] 07:12:00* Test Item Value Reference Range Comments FERRITIN (test code=JILL) 329 ng/mL 8-388 RETICULOCYTE [id number] 07:12:00* Test Item Value Reference Range Comments RETICULOCYTE COUNT (test code=RETICT) 1.5 % 0.5-2.0 RETIC COUNT ABSOLUTE (test code=RET#) 0.055 mill/mm3 0.016-0.095 IMMATURE RETICULOCYTE FRACTION (test code=IRF) 18.4 % 3.0-15.9 Values above normal range indicate an increase in RBCcellular response from bone marrow. RETICULOCYTE HGB EQUIVALENT (test code=RETHE) 34.2 pg 28.2-35.7 RET-He is a direct estimate of recent functionalavailability of iron in the cell, therefore, decreasedRET-He is indicative of iron deficiency. SMEAR PERIPHERAL [id number] 07:12:00* Test Item Value Reference Range Comments SMEAR PERIPHERAL BLOOD (test code=BLDSM) PATH REV PATH REVIEW Reviewed by Dr Sheri LiangHOMBOCYTOPENIASOME CRENATED RED BLOOD CELLSRED BLOOD CELL MORPHOLOGYOTHERWISE UNREMARKABLE [id number] 07:12:00* Test Item Value Reference Range Comments HAPTOGLOBIN (test code=HAPT) 114 mg/dL 34-200 Effective June 09, 2019 Haptoglobin reference interval will be changing to: Age Male Female 0 - 6 months Not Estab. Not Estab. 7 months - 1 year 23 - 218 23 - 218 2 - 5 years 10 - 212 10 - 212 6 - 12 years 10 - 182 10 - 182 13 - 17 years 20 - 191 22 - 208 18 - 40 years 17 - 317 33 - 278 41 - 50 years 23 - 355 42 - 296 51 - 60 years 29 - 370 33 - 346 61 - 70 years 32 - 363 37 - 355 71 - 80 years 34 - 355 42 - 346 >80 years 38 - 329 41 - 333Performed At: [facility] [address] [id number] Abdalla MD Ph:[phone] [id number] 06:42:00* Test Item Value Reference Range Comments GLUBED (test code=GLUBED) 212 mg/dL 74-106 Performed by certified exhaust equipment operator at [facility] CBC W/AUTO [id number] 06:19:00* Test Item Value Reference Range Comments WHITE BLOOD CELL (test code=WBC) 16.0 K/mm3 4.5-12.5 RED BLOOD CELL (test code=RBC) 4.54 mill/mm3 3.7-5.2 HEMOGLOBIN (test code=HGB) 15.3 gram/dL 11.5-15.5 HEMATOCRIT (test code=HCT) 44.4 % 36.0-46.0 MEAN CELL VOLUME (test code=MCV) 97.8 fL 80-98 MEAN CELL HGB (test code=MCH) 33.7 picogram 27.0-33.0 MEAN CELL HGB CONCETRATION (test code=MCHC) 34.5 gram/dL 33.0-36.0 RED CELL DISTRIBUTION WIDTH (test code=RDW) 12.7 % 11.6-16.2 RED CELL DISTRIBUTION WIDTH SD (test code=RDW-SD) 45.7 fL 37.0-51.0 PLATELET COUNT (test code=PLT) 90 K/mm3 150-450 MEAN PLATELET VOLUME (test code=MPV) 10.9 fL 6.7-11.0 NEUTROPHIL % (test code=NT%) 76.4 % 39.0-69.0 IMMATURE GRANULOCYTE % (test code=IG%) 1.0 % 0.0-5.0 LYMPHOCYTE % (test code=LY%) 14.4 % 25.0-55.0 MONOCYTE % (test code=MO%) 7.8 % 0.0-10.0 EOSINOPHIL % (test code=EO%) 0.1 % 0.0-5.0 BASOPHIL % (test code=BA%) 0.3 % 0.0-1.0 NUCLEATED RBC % (test code=NRBC%) 0.1 % 0-0 NEUTROPHIL # (test code=NT#) 12.25 K/mm3 1.8-7.7 IMMATURE GRANULOCYTE # (test code=IG#) 0.16 x10 3/uL 0-0.03 LYMPHOCYTE # (test code=LY#) 2.30 K/mm3 1.0-5.0 MONOCYTE # (test code=MO#) 1.25 K/mm3 0-0.8 EOSINOPHIL # (test code=EO#) 0.01 K/mm3 0.0-0.5 BASOPHIL # (test code=BA#) 0.05 K/mm3 0.0-0.2 NUCLEATED RBC # (test code=NRBC#) 0.02 K/mm3 0.0-0.1 MANUAL DIFF REQUIRED (test code=MDIFF) NO, ONLY SCAN NEEDED DIFFERENTIAL [id number] 06:19:00* Test Item Value Reference Range Comments STAIN ACCEPTABILITY (test code=STN ACCEPTABLE) STAIN ACCEPTABLE POLYCHROMASIA (test code=POLC) 1+ POIKILOCYTOSIS (test code=POIK) 1+ CRENATED CELLS (test code=CREN) 1+ PLATELET ESTIMATE (test code=PLTEST) ADEQUATE PLATELET MORPHOLOGY (test code=PLTMORPH) NORMAL COMPREHENSIVE METABOLIC [id number] 05:50:00* Test Item Value Reference Range Comments SODIUM (test code=NA) 134 mmol/L 136-145 POTASSIUM (test code=K) 3.6 mmol/L 3.5-5.1 CHLORIDE (test code=CL) 92.0 mmol/L 98-107 CARBON DIOXIDE (test code=CO2) 34.0 mmol/L 21-32 ANION GAP (test code=GAP) 11.6 10-20 GLUCOSE (test code=GLU) 183 mg/dL 74-106 BLOOD UREA NITROGEN (test code=BUN) 36 mg/dL 7-18 RESULT VERIFIED BY REPEAT ANALYSIS GLOMERULAR FILTRATION RATE (test code=GFR) 36 mL/min >=60 Estimated GFR by using Modified MDRD formula.Chronic kidney disease is defined as either kidney damageor GFR <60 mL/min/1.73 m2 for >3 months. CREATININE (test code=CREAT) 1.40 mg/dL 0.55-1.02 Note change in reference range due to change in reagent. BUN/CREATININE RATIO (test code=BUN/CREA) 25.7 10-20 TOTAL PROTEIN (test code=PROT) 6.3 gram/dL 6.4-8.2 ALBUMIN (test code=ALB) 2.6 g/dL 3.4-5.0 GLOBULIN (test code=GLOB) 3.7 gram/dL 2.7-4.2 ALBUMIN/GLOBULIN RATIO (test code=A/G) 0.7 0.75-1.50 CALCIUM (test code=CA) 8.6 mg/dL 8.5-10.1 BILIRUBIN TOTAL (test code=BILT) 1.60 mg/dL 0.0-1.0 SGOT/AST (test code=AST) 229 IUnit/L 15-37 SGPT/ALT (test code=ALT) 225 IUnit/L 12-78 ALKALINE PHOSPHATASE TOTAL (test code=ALKP) 711 IUnit/L 45-117 Note change in reference range due to change in reagent. COMPREHENSIVE METABOLIC [id number] 05:20:00* Test Item Value Reference Range Comments SODIUM (test code=NA) 134 mmol/L 136-145 POTASSIUM (test code=K) 3.6 mmol/L 3.5-5.1 CHLORIDE (test code=CL) 92.0 mmol/L 98-107 CARBON DIOXIDE (test code=CO2) mmol/L 21-32 ANION GAP (test code=GAP) 10-20 GLUCOSE (test code=GLU) mg/dL 74-106 BLOOD UREA NITROGEN (test code=BUN) mg/dL 7-18 GLOMERULAR FILTRATION RATE (test code=GFR) mL/min >=60 CREATININE (test code=CREAT) mg/dL 0.55-1.02 BUN/CREATININE RATIO (test code=BUN/CREA) 10-20 TOTAL PROTEIN (test code=PROT) gram/dL 6.4-8.2 ALBUMIN (test code=ALB) g/dL 3.4-5.0 GLOBULIN (test code=GLOB) gram/dL 2.7-4.2 ALBUMIN/GLOBULIN RATIO (test code=A/G) 0.75-1.50 CALCIUM (test code=CA) mg/dL 8.5-10.1 BILIRUBIN TOTAL (test code=BILT) mg/dL 0.0-1.0 SGOT/AST (test code=AST) IUnit/L 15-37 SGPT/ALT (test code=ALT) IUnit/L 12-78 ALKALINE PHOSPHATASE TOTAL (test code=ALKP) IUnit/L 45-117 CBC W/AUTO [id number] 04:44:00* Test Item Value Reference Range Comments WHITE BLOOD CELL (test code=WBC) 16.0 K/mm3 4.5-12.5 RED BLOOD CELL (test code=RBC) 4.54 mill/mm3 3.7-5.2 HEMOGLOBIN (test code=HGB) 15.3 gram/dL 11.5-15.5 HEMATOCRIT (test code=HCT) 44.4 % 36.0-46.0 MEAN CELL VOLUME (test code=MCV) 97.8 fL 80-98 MEAN CELL HGB (test code=MCH) 33.7 picogram 27.0-33.0 MEAN CELL HGB CONCETRATION (test code=MCHC) 34.5 gram/dL 33.0-36.0 RED CELL DISTRIBUTION WIDTH (test code=RDW) 12.7 % 11.6-16.2 RED CELL DISTRIBUTION WIDTH SD (test code=RDW-SD) 45.7 fL 37.0-51.0 PLATELET COUNT (test code=PLT) 90 K/mm3 150-450 MEAN PLATELET VOLUME (test code=MPV) 10.9 fL 6.7-11.0 NEUTROPHIL % (test code=NT%) 76.4 % 39.0-69.0 IMMATURE GRANULOCYTE % (test code=IG%) 1.0 % 0.0-5.0 LYMPHOCYTE % (test code=LY%) 14.4 % 25.0-55.0 MONOCYTE % (test code=MO%) 7.8 % 0.0-10.0 EOSINOPHIL % (test code=EO%) 0.1 % 0.0-5.0 BASOPHIL % (test code=BA%) 0.3 % 0.0-1.0 NUCLEATED RBC % (test code=NRBC%) 0.1 % 0-0 NEUTROPHIL # (test code=NT#) 12.25 K/mm3 1.8-7.7 IMMATURE GRANULOCYTE # (test code=IG#) 0.16 x10 3/uL 0-0.03 LYMPHOCYTE # (test code=LY#) 2.30 K/mm3 1.0-5.0 MONOCYTE # (test code=MO#) 1.25 K/mm3 0-0.8 EOSINOPHIL # (test code=EO#) 0.01 K/mm3 0.0-0.5 BASOPHIL # (test code=BA#) 0.05 K/mm3 0.0-0.2 NUCLEATED RBC # (test code=NRBC#) 0.02 K/mm3 0.0-0.1 MANUAL DIFF REQUIRED (test code=MDIFF) NO, ONLY SCAN NEEDED DIFFERENTIAL [id number] 04:44:00* Test Item Value Reference Range Comments STAIN ACCEPTABILITY (test code=STN ACCEPTABLE) CABOT RINGS (test code=CAB) MORPHOLOGY COMMENT (test code=MOC) PLATELET ESTIMATE (test code=PLTEST) PLATELET MORPHOLOGY (test code=PLTMORPH) CBC W/AUTO [id number] 04:44:00* Test Item Value Reference Range Comments WHITE BLOOD CELL (test code=WBC) 16.0 K/mm3 4.5-12.5 RED BLOOD CELL (test code=RBC) 4.54 mill/mm3 3.7-5.2 HEMOGLOBIN (test code=HGB) 15.3 gram/dL 11.5-15.5 HEMATOCRIT (test code=HCT) 44.4 % 36.0-46.0 MEAN CELL VOLUME (test code=MCV) 97.8 fL 80-98 MEAN CELL HGB (test code=MCH) 33.7 picogram 27.0-33.0 MEAN CELL HGB CONCETRATION (test code=MCHC) 34.5 gram/dL 33.0-36.0 RED CELL DISTRIBUTION WIDTH (test code=RDW) 12.7 % 11.6-16.2 RED CELL DISTRIBUTION WIDTH SD (test code=RDW-SD) 45.7 fL 37.0-51.0 PLATELET COUNT (test code=PLT) 90 K/mm3 150-450 MEAN PLATELET VOLUME (test code=MPV) 10.9 fL 6.7-11.0 NEUTROPHIL % (test code=NT%) 76.4 % 39.0-69.0 IMMATURE GRANULOCYTE % (test code=IG%) 1.0 % 0.0-5.0 LYMPHOCYTE % (test code=LY%) 14.4 % 25.0-55.0 MONOCYTE % (test code=MO%) 7.8 % 0.0-10.0 EOSINOPHIL % (test code=EO%) 0.1 % 0.0-5.0 BASOPHIL % (test code=BA%) 0.3 % 0.0-1.0 NUCLEATED RBC % (test code=NRBC%) 0.1 % 0-0 NEUTROPHIL # (test code=NT#) 12.25 K/mm3 1.8-7.7 IMMATURE GRANULOCYTE # (test code=IG#) 0.16 x10 3/uL 0-0.03 LYMPHOCYTE # (test code=LY#) 2.30 K/mm3 1.0-5.0 MONOCYTE # (test code=MO#) 1.25 K/mm3 0-0.8 EOSINOPHIL # (test code=EO#) 0.01 K/mm3 0.0-0.5 BASOPHIL # (test code=BA#) 0.05 K/mm3 0.0-0.2 NUCLEATED RBC # (test code=NRBC#) 0.02 K/mm3 0.0-0.1 MANUAL DIFF REQUIRED (test code=MDIFF) NO, ONLY SCAN NEEDED DIFFERENTIAL [id number] 04:44:00* Test Item Value Reference Range Comments STAIN ACCEPTABILITY (test code=STN ACCEPTABLE) CABOT RINGS (test code=CAB) MORPHOLOGY COMMENT (test code=MOC) PLATELET ESTIMATE (test code=PLTEST) PLATELET MORPHOLOGY (test code=PLTMORPH) CBC W/AUTO [id number] 04:44:00* Test Item Value Reference Range Comments WHITE BLOOD CELL (test code=WBC) 16.0 K/mm3 4.5-12.5 RED BLOOD CELL (test code=RBC) 4.54 mill/mm3 3.7-5.2 HEMOGLOBIN (test code=HGB) 15.3 gram/dL 11.5-15.5 HEMATOCRIT (test code=HCT) 44.4 % 36.0-46.0 MEAN CELL VOLUME (test code=MCV) 97.8 fL 80-98 MEAN CELL HGB (test code=MCH) 33.7 picogram 27.0-33.0 MEAN CELL HGB CONCETRATION (test code=MCHC) 34.5 gram/dL 33.0-36.0 RED CELL DISTRIBUTION WIDTH (test code=RDW) 12.7 % 11.6-16.2 RED CELL DISTRIBUTION WIDTH SD (test code=RDW-SD) 45.7 fL 37.0-51.0 PLATELET COUNT (test code=PLT) 90 K/mm3 150-450 MEAN PLATELET VOLUME (test code=MPV) 10.9 fL 6.7-11.0 NEUTROPHIL % (test code=NT%) 76.4 % 39.0-69.0 IMMATURE GRANULOCYTE % (test code=IG%) 1.0 % 0.0-5.0 LYMPHOCYTE % (test code=LY%) 14.4 % 25.0-55.0 MONOCYTE % (test code=MO%) 7.8 % 0.0-10.0 EOSINOPHIL % (test code=EO%) 0.1 % 0.0-5.0 BASOPHIL % (test code=BA%) 0.3 % 0.0-1.0 NUCLEATED RBC % (test code=NRBC%) 0.1 % 0-0 NEUTROPHIL # (test code=NT#) 12.25 K/mm3 1.8-7.7 IMMATURE GRANULOCYTE # (test code=IG#) 0.16 x10 3/uL 0-0.03 LYMPHOCYTE # (test code=LY#) 2.30 K/mm3 1.0-5.0 MONOCYTE # (test code=MO#) 1.25 K/mm3 0-0.8 EOSINOPHIL # (test code=EO#) 0.01 K/mm3 0.0-0.5 BASOPHIL # (test code=BA#) 0.05 K/mm3 0.0-0.2 NUCLEATED RBC # (test code=NRBC#) 0.02 K/mm3 0.0-0.1 MANUAL DIFF REQUIRED (test code=MDIFF) NO, ONLY SCAN NEEDED DIFFERENTIAL [id number] 04:44:00* Test Item Value Reference Range Comments STAIN ACCEPTABILITY (test code=STN ACCEPTABLE) MORPHOLOGY COMMENT (test code=MOC) PLATELET ESTIMATE (test code=PLTEST) PLATELET MORPHOLOGY (test code=PLTMORPH) CBC W/AUTO [id number] 04:44:00* Test Item Value Reference Range Comments WHITE BLOOD CELL (test code=WBC) 16.0 K/mm3 4.5-12.5 RED BLOOD CELL (test code=RBC) 4.54 mill/mm3 3.7-5.2 HEMOGLOBIN (test code=HGB) 15.3 gram/dL 11.5-15.5 HEMATOCRIT (test code=HCT) 44.4 % 36.0-46.0 MEAN CELL VOLUME (test code=MCV) 97.8 fL 80-98 MEAN CELL HGB (test code=MCH) 33.7 picogram 27.0-33.0 MEAN CELL HGB CONCETRATION (test code=MCHC) 34.5 gram/dL 33.0-36.0 RED CELL DISTRIBUTION WIDTH (test code=RDW) 12.7 % 11.6-16.2 RED CELL DISTRIBUTION WIDTH SD (test code=RDW-SD) 45.7 fL 37.0-51.0 PLATELET COUNT (test code=PLT) 90 K/mm3 150-450 MEAN PLATELET VOLUME (test code=MPV) 10.9 fL 6.7-11.0 NEUTROPHIL % (test code=NT%) 76.4 % 39.0-69.0 IMMATURE GRANULOCYTE % (test code=IG%) 1.0 % 0.0-5.0 LYMPHOCYTE % (test code=LY%) 14.4 % 25.0-55.0 MONOCYTE % (test code=MO%) 7.8 % 0.0-10.0 EOSINOPHIL % (test code=EO%) 0.1 % 0.0-5.0 BASOPHIL % (test code=BA%) 0.3 % 0.0-1.0 NUCLEATED RBC % (test code=NRBC%) 0.1 % 0-0 NEUTROPHIL # (test code=NT#) 12.25 K/mm3 1.8-7.7 IMMATURE GRANULOCYTE # (test code=IG#) 0.16 x10 3/uL 0-0.03 LYMPHOCYTE # (test code=LY#) 2.30 K/mm3 1.0-5.0 MONOCYTE # (test code=MO#) 1.25 K/mm3 0-0.8 EOSINOPHIL # (test code=EO#) 0.01 K/mm3 0.0-0.5 BASOPHIL # (test code=BA#) 0.05 K/mm3 0.0-0.2 NUCLEATED RBC # (test code=NRBC#) 0.02 K/mm3 0.0-0.1 MANUAL DIFF REQUIRED (test code=MDIFF) NO, ONLY SCAN NEEDED DIFFERENTIAL [id number] 04:44:00* Test Item Value Reference Range Comments STAIN ACCEPTABILITY (test code=STN ACCEPTABLE) CABOT RINGS (test code=CAB) MORPHOLOGY COMMENT (test code=MOC) PLATELET ESTIMATE (test code=PLTEST) PLATELET MORPHOLOGY (test code=PLTMORPH) CBC W/AUTO [id number] 04:37:00* Test Item Value Reference Range Comments WHITE BLOOD CELL (test code=WBC) K/mm3 4.5-12.5 RED BLOOD CELL (test code=RBC) mill/mm3 3.7-5.2 HEMOGLOBIN (test code=HGB) 15.3 gram/dL 11.5-15.5 HEMATOCRIT (test code=HCT) 44.4 % 36.0-46.0 MEAN CELL VOLUME (test code=MCV) fL 80-98 MEAN CELL HGB (test code=MCH) picogram 27.0-33.0 MEAN CELL HGB CONCETRATION (test code=MCHC) gram/dL 33.0-36.0 RED CELL DISTRIBUTION WIDTH (test code=RDW) % 11.6-16.2 RED CELL DISTRIBUTION WIDTH SD (test code=RDW-SD) fL 37.0-51.0 PLATELET COUNT (test code=PLT) K/mm3 150-450 MEAN PLATELET VOLUME (test code=MPV) fL 6.7-11.0 NEUTROPHIL % (test code=NT%) % 39.0-69.0 IMMATURE GRANULOCYTE % (test code=IG%) % 0.0-5.0 LYMPHOCYTE % (test code=LY%) % 25.0-55.0 MONOCYTE % (test code=MO%) % 0.0-10.0 EOSINOPHIL % (test code=EO%) % 0.0-5.0 BASOPHIL % (test code=BA%) % 0.0-1.0 NEUTROPHIL # (test code=NT#) K/mm3 1.8-7.7 LYMPHOCYTE # (test code=LY#) K/mm3 1.0-5.0 MONOCYTE # (test code=MO#) K/mm3 0-0.8 EOSINOPHIL # (test code=EO#) K/mm3 0.0-0.5 BASOPHIL # (test code=BA#) K/mm3 0.0-0.2 [id number] 20:42:00* Test Item Value Reference Range Comments GLUBED (test code=GLUBED) 235 mg/dL 74-106 Performed by certified exhaust equipment operator at [facility] RETICULOCYTE [id number] 18:07:00* Test Item Value Reference Range Comments RETICULOCYTE COUNT (test code=RETICT) 1.5 % 0.5-2.0 RETIC COUNT ABSOLUTE (test code=RET#) 0.055 mill/mm3 0.016-0.095 IMMATURE RETICULOCYTE FRACTION (test code=IRF) 18.4 % 3.0-15.9 Values above normal range indicate an increase in RBCcellular response from bone marrow. RETICULOCYTE HGB EQUIVALENT (test code=RETHE) 34.2 pg 28.2-35.7 RET-He is a direct estimate of recent functionalavailability of iron in the cell, therefore, decreasedRET-He is indicative of iron deficiency. SMEAR PERIPHERAL [id number] 18:07:00* Test Item Value Reference Range Comments SMEAR PERIPHERAL BLOOD (test code=BLDSM) PATH REV PATH REVIEW Reviewed by Dr Sheri LiangHOMBOCYTOPENIASOME CRENATED RED BLOOD CELLSRED BLOOD CELL MORPHOLOGYOTHERWISE UNREMARKABLE [id number] 18:07:00* Test Item Value Reference Range Comments HAPTOGLOBIN (test code=HAPT) mg/dL [id number] 16:24:00* Test Item Value Reference Range Comments GLUBED (test code=GLUBED) 183 mg/dL 74-106 Performed by certified exhaust equipment operator at [facility] [id number] 13:06:00* Test Item Value Reference Range Comments GLUBED (test code=GLUBED) 204 mg/dL 74-106 Performed by certified exhaust equipment operator at [facility] ACUTE HEPATITIS [id number] 12:08:00* Test Item Value Reference Range Comments AB HEPATITIS A IGM (test code=HAVMAB) Negative Negative AG HEPAT B SURF (test code=HBSAG) Negative Negative HEPATITIS B CORE ANTIBODY,IGM (test code=HBCMAB) Negative Negative AB HEPATITIS C (test code=HCVAB) <0.1 0.0-0.9 INFCE Result Units: s/co ratio Negative: < 0.8 Indeterminate: 0.8 - 0.9 Positive: > 0.9 The CDC recommends that a positive HCV antibody result be followed up with a HCV Nucleic Acid Amplification test (345200).Performed At: [facility] [address] [id number] Darío Bob MD Ph:[phone] SPECIMEN COMMENTS: can add to morning labs or tomorrow [id number] 11:04:00* Test Item Value Reference Range Comments TROPONIN-I (test code=TROPI) 0.048 ng/mL 0-0.045 Results called to [id number] by V.[facility].QD 05/21/19 1104Critical results verified and read back by Nurse? YES CBC W/AUTO [id number] 09:22:00* Test Item Value Reference Range Comments WHITE BLOOD CELL (test code=WBC) 14.0 K/mm3 4.5-12.5 RED BLOOD CELL (test code=RBC) 4.56 mill/mm3 3.7-5.2 HEMOGLOBIN (test code=HGB) 15.4 gram/dL 11.5-15.5 RESULT VERIFIED BY REPEAT ANALYSIS HEMATOCRIT (test code=HCT) 45.4 % 36.0-46.0 MEAN CELL VOLUME (test code=MCV) 99.6 fL 80-98 MEAN CELL HGB (test code=MCH) 33.8 picogram 27.0-33.0 MEAN CELL HGB CONCETRATION (test code=MCHC) 33.9 gram/dL 33.0-36.0 RED CELL DISTRIBUTION WIDTH (test code=RDW) 13.0 % 11.6-16.2 RED CELL DISTRIBUTION WIDTH SD (test code=RDW-SD) 47.9 fL 37.0-51.0 PLATELET COUNT (test code=PLT) 101 K/mm3 150-450 MEAN PLATELET VOLUME (test code=MPV) 10.4 fL 6.7-11.0 NEUTROPHIL % (test code=NT%) 73.0 % 39.0-69.0 IMMATURE GRANULOCYTE % (test code=IG%) 1.1 % 0.0-5.0 LYMPHOCYTE % (test code=LY%) 17.9 % 25.0-55.0 MONOCYTE % (test code=MO%) 7.7 % 0.0-10.0 EOSINOPHIL % (test code=EO%) 0.1 % 0.0-5.0 BASOPHIL % (test code=BA%) 0.2 % 0.0-1.0 NUCLEATED RBC % (test code=NRBC%) 0.1 % 0-0 NEUTROPHIL # (test code=NT#) 10.21 K/mm3 1.8-7.7 IMMATURE GRANULOCYTE # (test code=IG#) 0.15 x10 3/uL 0-0.03 LYMPHOCYTE # (test code=LY#) 2.50 K/mm3 1.0-5.0 MONOCYTE # (test code=MO#) 1.08 K/mm3 0-0.8 EOSINOPHIL # (test code=EO#) 0.01 K/mm3 0.0-0.5 BASOPHIL # (test code=BA#) 0.03 K/mm3 0.0-0.2 NUCLEATED RBC # (test code=NRBC#) 0.02 K/mm3 0.0-0.1 MANUAL DIFF REQUIRED (test code=MDIFF) NO, ONLY SCAN NEEDED DIFFERENTIAL [id number] 09:22:00* Test Item Value Reference Range Comments STAIN ACCEPTABILITY (test code=STN ACCEPTABLE) STAIN ACCEPTABLE ANISOCYTOSIS (test code=ANISO) 2+ MACROCYTOSIS (test code=MACR) 2+ ELLIPTOCYTES (test code=ELL) 1+ PLATELET ESTIMATE (test code=PLTEST) DECREASED PLATELET MORPHOLOGY (test code=PLTMORPH) NORMAL CBC W/AUTO [id number] 07:54:00* Test Item Value Reference Range Comments WHITE BLOOD CELL (test code=WBC) 14.0 K/mm3 4.5-12.5 RED BLOOD CELL (test code=RBC) 4.56 mill/mm3 3.7-5.2 HEMOGLOBIN (test code=HGB) 15.4 gram/dL 11.5-15.5 RESULT VERIFIED BY REPEAT ANALYSIS HEMATOCRIT (test code=HCT) 45.4 % 36.0-46.0 MEAN CELL VOLUME (test code=MCV) 99.6 fL 80-98 MEAN CELL HGB (test code=MCH) 33.8 picogram 27.0-33.0 MEAN CELL HGB CONCETRATION (test code=MCHC) 33.9 gram/dL 33.0-36.0 RED CELL DISTRIBUTION WIDTH (test code=RDW) 13.0 % 11.6-16.2 RED CELL DISTRIBUTION WIDTH SD (test code=RDW-SD) 47.9 fL 37.0-51.0 PLATELET COUNT (test code=PLT) 101 K/mm3 150-450 MEAN PLATELET VOLUME (test code=MPV) 10.4 fL 6.7-11.0 NEUTROPHIL % (test code=NT%) 73.0 % 39.0-69.0 IMMATURE GRANULOCYTE % (test code=IG%) 1.1 % 0.0-5.0 LYMPHOCYTE % (test code=LY%) 17.9 % 25.0-55.0 MONOCYTE % (test code=MO%) 7.7 % 0.0-10.0 EOSINOPHIL % (test code=EO%) 0.1 % 0.0-5.0 BASOPHIL % (test code=BA%) 0.2 % 0.0-1.0 NUCLEATED RBC % (test code=NRBC%) 0.1 % 0-0 NEUTROPHIL # (test code=NT#) 10.21 K/mm3 1.8-7.7 IMMATURE GRANULOCYTE # (test code=IG#) 0.15 x10 3/uL 0-0.03 LYMPHOCYTE # (test code=LY#) 2.50 K/mm3 1.0-5.0 MONOCYTE # (test code=MO#) 1.08 K/mm3 0-0.8 EOSINOPHIL # (test code=EO#) 0.01 K/mm3 0.0-0.5 BASOPHIL # (test code=BA#) 0.03 K/mm3 0.0-0.2 NUCLEATED RBC # (test code=NRBC#) 0.02 K/mm3 0.0-0.1 MANUAL DIFF REQUIRED (test code=MDIFF) NO, ONLY SCAN NEEDED DIFFERENTIAL [id number] 07:54:00* Test Item Value Reference Range Comments STAIN ACCEPTABILITY (test code=STN ACCEPTABLE) CABOT RINGS (test code=CAB) MORPHOLOGY COMMENT (test code=MOC) PLATELET ESTIMATE (test code=PLTEST) PLATELET MORPHOLOGY (test code=PLTMORPH) CBC W/AUTO [id number] 07:54:00* Test Item Value Reference Range Comments WHITE BLOOD CELL (test code=WBC) 14.0 K/mm3 4.5-12.5 RED BLOOD CELL (test code=RBC) 4.56 mill/mm3 3.7-5.2 HEMOGLOBIN (test code=HGB) 15.4 gram/dL 11.5-15.5 RESULT VERIFIED BY REPEAT ANALYSIS HEMATOCRIT (test code=HCT) 45.4 % 36.0-46.0 MEAN CELL VOLUME (test code=MCV) 99.6 fL 80-98 MEAN CELL HGB (test code=MCH) 33.8 picogram 27.0-33.0 MEAN CELL HGB CONCETRATION (test code=MCHC) 33.9 gram/dL 33.0-36.0 RED CELL DISTRIBUTION WIDTH (test code=RDW) 13.0 % 11.6-16.2 RED CELL DISTRIBUTION WIDTH SD (test code=RDW-SD) 47.9 fL 37.0-51.0 PLATELET COUNT (test code=PLT) 101 K/mm3 150-450 MEAN PLATELET VOLUME (test code=MPV) 10.4 fL 6.7-11.0 NEUTROPHIL % (test code=NT%) 73.0 % 39.0-69.0 IMMATURE GRANULOCYTE % (test code=IG%) 1.1 % 0.0-5.0 LYMPHOCYTE % (test code=LY%) 17.9 % 25.0-55.0 MONOCYTE % (test code=MO%) 7.7 % 0.0-10.0 EOSINOPHIL % (test code=EO%) 0.1 % 0.0-5.0 BASOPHIL % (test code=BA%) 0.2 % 0.0-1.0 NUCLEATED RBC % (test code=NRBC%) 0.1 % 0-0 NEUTROPHIL # (test code=NT#) 10.21 K/mm3 1.8-7.7 IMMATURE GRANULOCYTE # (test code=IG#) 0.15 x10 3/uL 0-0.03 LYMPHOCYTE # (test code=LY#) 2.50 K/mm3 1.0-5.0 MONOCYTE # (test code=MO#) 1.08 K/mm3 0-0.8 EOSINOPHIL # (test code=EO#) 0.01 K/mm3 0.0-0.5 BASOPHIL # (test code=BA#) 0.03 K/mm3 0.0-0.2 NUCLEATED RBC # (test code=NRBC#) 0.02 K/mm3 0.0-0.1 MANUAL DIFF REQUIRED (test code=MDIFF) NO, ONLY SCAN NEEDED DIFFERENTIAL [id number] 07:54:00* Test Item Value Reference Range Comments STAIN ACCEPTABILITY (test code=STN ACCEPTABLE) CABOT RINGS (test code=CAB) MORPHOLOGY COMMENT (test code=MOC) PLATELET ESTIMATE (test code=PLTEST) PLATELET MORPHOLOGY (test code=PLTMORPH) CBC W/AUTO [id number] 07:54:00* Test Item Value Reference Range Comments WHITE BLOOD CELL (test code=WBC) 14.0 K/mm3 4.5-12.5 RED BLOOD CELL (test code=RBC) 4.56 mill/mm3 3.7-5.2 HEMOGLOBIN (test code=HGB) 15.4 gram/dL 11.5-15.5 RESULT VERIFIED BY REPEAT ANALYSIS HEMATOCRIT (test code=HCT) 45.4 % 36.0-46.0 MEAN CELL VOLUME (test code=MCV) 99.6 fL 80-98 MEAN CELL HGB (test code=MCH) 33.8 picogram 27.0-33.0 MEAN CELL HGB CONCETRATION (test code=MCHC) 33.9 gram/dL 33.0-36.0 RED CELL DISTRIBUTION WIDTH (test code=RDW) 13.0 % 11.6-16.2 RED CELL DISTRIBUTION WIDTH SD (test code=RDW-SD) 47.9 fL 37.0-51.0 PLATELET COUNT (test code=PLT) 101 K/mm3 150-450 MEAN PLATELET VOLUME (test code=MPV) 10.4 fL 6.7-11.0 NEUTROPHIL % (test code=NT%) 73.0 % 39.0-69.0 IMMATURE GRANULOCYTE % (test code=IG%) 1.1 % 0.0-5.0 LYMPHOCYTE % (test code=LY%) 17.9 % 25.0-55.0 MONOCYTE % (test code=MO%) 7.7 % 0.0-10.0 EOSINOPHIL % (test code=EO%) 0.1 % 0.0-5.0 BASOPHIL % (test code=BA%) 0.2 % 0.0-1.0 NUCLEATED RBC % (test code=NRBC%) 0.1 % 0-0 NEUTROPHIL # (test code=NT#) 10.21 K/mm3 1.8-7.7 IMMATURE GRANULOCYTE # (test code=IG#) 0.15 x10 3/uL 0-0.03 LYMPHOCYTE # (test code=LY#) 2.50 K/mm3 1.0-5.0 MONOCYTE # (test code=MO#) 1.08 K/mm3 0-0.8 EOSINOPHIL # (test code=EO#) 0.01 K/mm3 0.0-0.5 BASOPHIL # (test code=BA#) 0.03 K/mm3 0.0-0.2 NUCLEATED RBC # (test code=NRBC#) 0.02 K/mm3 0.0-0.1 MANUAL DIFF REQUIRED (test code=MDIFF) NO, ONLY SCAN NEEDED DIFFERENTIAL [id number] 07:54:00* Test Item Value Reference Range Comments STAIN ACCEPTABILITY (test code=STN ACCEPTABLE) MORPHOLOGY COMMENT (test code=MOC) PLATELET ESTIMATE (test code=PLTEST) PLATELET MORPHOLOGY (test code=PLTMORPH) CBC W/AUTO [id number] 07:54:00* Test Item Value Reference Range Comments WHITE BLOOD CELL (test code=WBC) 14.0 K/mm3 4.5-12.5 RED BLOOD CELL (test code=RBC) 4.56 mill/mm3 3.7-5.2 HEMOGLOBIN (test code=HGB) 15.4 gram/dL 11.5-15.5 RESULT VERIFIED BY REPEAT ANALYSIS HEMATOCRIT (test code=HCT) 45.4 % 36.0-46.0 MEAN CELL VOLUME (test code=MCV) 99.6 fL 80-98 MEAN CELL HGB (test code=MCH) 33.8 picogram 27.0-33.0 MEAN CELL HGB CONCETRATION (test code=MCHC) 33.9 gram/dL 33.0-36.0 RED CELL DISTRIBUTION WIDTH (test code=RDW) 13.0 % 11.6-16.2 RED CELL DISTRIBUTION WIDTH SD (test code=RDW-SD) 47.9 fL 37.0-51.0 PLATELET COUNT (test code=PLT) 101 K/mm3 150-450 MEAN PLATELET VOLUME (test code=MPV) 10.4 fL 6.7-11.0 NEUTROPHIL % (test code=NT%) 73.0 % 39.0-69.0 IMMATURE GRANULOCYTE % (test code=IG%) 1.1 % 0.0-5.0 LYMPHOCYTE % (test code=LY%) 17.9 % 25.0-55.0 MONOCYTE % (test code=MO%) 7.7 % 0.0-10.0 EOSINOPHIL % (test code=EO%) 0.1 % 0.0-5.0 BASOPHIL % (test code=BA%) 0.2 % 0.0-1.0 NUCLEATED RBC % (test code=NRBC%) 0.1 % 0-0 NEUTROPHIL # (test code=NT#) 10.21 K/mm3 1.8-7.7 IMMATURE GRANULOCYTE # (test code=IG#) 0.15 x10 3/uL 0-0.03 LYMPHOCYTE # (test code=LY#) 2.50 K/mm3 1.0-5.0 MONOCYTE # (test code=MO#) 1.08 K/mm3 0-0.8 EOSINOPHIL # (test code=EO#) 0.01 K/mm3 0.0-0.5 BASOPHIL # (test code=BA#) 0.03 K/mm3 0.0-0.2 NUCLEATED RBC # (test code=NRBC#) 0.02 K/mm3 0.0-0.1 MANUAL DIFF REQUIRED (test code=MDIFF) NO, ONLY SCAN NEEDED DIFFERENTIAL [id number] 07:54:00* Test Item Value Reference Range Comments STAIN ACCEPTABILITY (test code=STN ACCEPTABLE) CABOT RINGS (test code=CAB) MORPHOLOGY COMMENT (test code=MOC) PLATELET ESTIMATE (test code=PLTEST) PLATELET MORPHOLOGY (test code=PLTMORPH) COMPREHENSIVE METABOLIC [id number] 07:52:00* Test Item Value Reference Range Comments SODIUM (test code=NA) 134 mmol/L 136-145 POTASSIUM (test code=K) 4.3 mmol/L 3.5-5.1 CHLORIDE (test code=CL) 96.0 mmol/L 98-107 CARBON DIOXIDE (test code=CO2) 30.0 mmol/L 21-32 ANION GAP (test code=GAP) 12.3 10-20 GLUCOSE (test code=GLU) 167 mg/dL 74-106 BLOOD UREA NITROGEN (test code=BUN) 29 mg/dL 7-18 GLOMERULAR FILTRATION RATE (test code=GFR) 39 mL/min >=60 Estimated GFR by using Modified MDRD formula.Chronic kidney disease is defined as either kidney damageor GFR <60 mL/min/1.73 m2 for >3 months. CREATININE (test code=CREAT) 1.30 mg/dL 0.55-1.02 Note change in reference range due to change in reagent. BUN/CREATININE RATIO (test code=BUN/CREA) 22.8 10-20 TOTAL PROTEIN (test code=PROT) 6.9 gram/dL 6.4-8.2 ALBUMIN (test code=ALB) 2.6 g/dL 3.4-5.0 GLOBULIN (test code=GLOB) 4.3 gram/dL 2.7-4.2 ALBUMIN/GLOBULIN RATIO (test code=A/G) 0.6 0.75-1.50 CALCIUM (test code=CA) 9.1 mg/dL 8.5-10.1 BILIRUBIN TOTAL (test code=BILT) 1.80 mg/dL 0.0-1.0 SGOT/AST (test code=AST) 339 IUnit/L 15-37 SGPT/ALT (test code=ALT) 291 IUnit/L 12-78 ALKALINE PHOSPHATASE TOTAL (test code=ALKP) 547 IUnit/L 45-117 Note change in reference range due to change in reagent. COMPREHENSIVE METABOLIC [id number] 07:42:00* Test Item Value Reference Range Comments SODIUM (test code=NA) 134 mmol/L 136-145 POTASSIUM (test code=K) 4.3 mmol/L 3.5-5.1 CHLORIDE (test code=CL) 96.0 mmol/L 98-107 CARBON DIOXIDE (test code=CO2) mmol/L 21-32 ANION GAP (test code=GAP) 10-20 GLUCOSE (test code=GLU) mg/dL 74-106 BLOOD UREA NITROGEN (test code=BUN) mg/dL 7-18 GLOMERULAR FILTRATION RATE (test code=GFR) mL/min >=60 CREATININE (test code=CREAT) mg/dL 0.55-1.02 BUN/CREATININE RATIO (test code=BUN/CREA) 10-20 TOTAL PROTEIN (test code=PROT) gram/dL 6.4-8.2 ALBUMIN (test code=ALB) g/dL 3.4-5.0 GLOBULIN (test code=GLOB) gram/dL 2.7-4.2 ALBUMIN/GLOBULIN RATIO (test code=A/G) 0.75-1.50 CALCIUM (test code=CA) mg/dL 8.5-10.1 BILIRUBIN TOTAL (test code=BILT) mg/dL 0.0-1.0 SGOT/AST (test code=AST) IUnit/L 15-37 SGPT/ALT (test code=ALT) IUnit/L 12-78 ALKALINE PHOSPHATASE TOTAL (test code=ALKP) IUnit/L 45-117 [id number] 06:16:00* Test Item Value Reference Range Comments GLUBED (test code=GLUBED) 203 mg/dL 74-106 Performed by certified exhaust equipment operator at [facility] [id number] 21:05:00* Test Item Value Reference Range Comments GLUBED (test code=GLUBED) 201 mg/dL 74-106 Performed by certified exhaust equipment operator at [facility] [id number] 16:55:00* Test Item Value Reference Range Comments GLUBED (test code=GLUBED) 170 mg/dL 74-106 Performed by certified exhaust equipment operator at [facility] - XR CHEST 1 [id number] 14:28:00 FAX: Shweta Patton MD [phone] [place]: [address] St: ADM FAX: Mathew Dove MD [phone] Name: ARNALDO MARSHALL [facility] : 1935 Age/S: 84/F [address] Unit #: [id number] Loc: [place] [address] Phys: Shweta Patton MD Acct: [id number] Dis Date: Status: ADM IN PHONE #: [phone] Exam Date: 05/20/2019 1412 FAX #: [phone] Reason: sob EXAMS: CPT CODE: [id number] XR CHEST 1 V [id number] REASON FOR EXAM: sob Exam Order Date: 05/20/2019 12:00 AM Ordering Jose Ramon: Shweta Pattno MD PROCEDURE: - XR CHEST 1 V COMPARISON: Frontal chest x-ray 3 days earlier FINDINGS: There are opacities in the bilateral lung bases, more pronounced on the left side, which may represent any combination of small layering effusions, subsegmental atelectasis, and consolidations. When compared to the previous exam the right lung is unchanged but the left lung is better aerated. The upper lungs are clear with no pneumothorax. The cardiomediastinal silhouette is markedly widened but stable in size. Atherosclerotic disease and tortuosity of the thoracic aorta is unchanged. There are degenerative changes in the shoulders and spine. The visualized upper abdomen is within normal limits. IMPRESSION: Improved aeration of the left lung base from the prior exam. Remaining findings are unchanged. Locat ion: [facility] at 14 28 Reported and signed by: Bautista Negrete MD CC: Shweta Jackson MD; Mathew Martinez MD Technologist: Mendy turner, RT(R) Trnscrd Date/Time/By: 05/20/2019 (1428 ) : By: [email or web address] Orig Print D/T: S: 05/20/2019 (0522) PAGE 1 Signed Report [id number] 13:14:00* Test Item Value Reference Range Comments GLUBED (test code=GLUBED) 171 mg/dL 74-106 Performed by certified exhaust equipment operator at [facility] PROTHROMBIN [id number] 11:43:00* Test Item Value Reference Range Comments PROTHROMBIN TIME PATIENT (test code=PTP) 22.4 seconds 9.0-14.0 INTERNATIONAL NORMAL RATIO (test code=INR) 1.9 0.8-1.2 The therapeutic range for oral anticoagulant therapy formost indications is an international normalized ratio (INR)of between 2.0 and 3.0. The recommended therapeutic INRrange for various clinical situations is listed below: Clinical Situation INR range Pulmonary e mbolism treatment (2.0-3.0)Venous thrombosis treatmentVenous thrombosis prophylaxis (high risk surgery)Prevention of systemic embolism from: Acute myocardial infarction Valvular heart disease Atrial fibrillation Mechanical prosthetic heart valves (2.5-3.5) IS PATIENT ON ANTICOAGULANTS? [id number] 09:19:00* Test Item Value Reference Range Comments TRANSFERRRIN (test code=TRANSF) mg/dL 200-370 [id number] 09:19:00* Test Item Value Reference Range Comments FERRITIN (test code=JILL) 329 ng/mL 8-388 CBC W/AUTO [id number] 07:05:00* Test Item Value Reference Range Comments WHITE BLOOD CELL (test code=WBC) 10.0 K/mm3 4.5-12.5 RED BLOOD CELL (test code=RBC) 3.96 mill/mm3 3.7-5.2 HEMOGLOBIN (test code=HGB) 13.4 gram/dL 11.5-15.5 HEMATOCRIT (test code=HCT) 39.8 % 36.0-46.0 MEAN CELL VOLUME (test code=MCV) 100.5 fL 80-98 MEAN CELL HGB (test code=MCH) 33.8 picogram 27.0-33.0 MEAN CELL HGB CONCETRATION (test code=MCHC) 33.7 gram/dL 33.0-36.0 RED CELL DISTRIBUTION WIDTH (test code=RDW) 13.1 % 11.6-16.2 RED CELL DISTRIBUTION WIDTH SD (test code=RDW-SD) 48.7 fL 37.0-51.0 PLATELET COUNT (test code=PLT) 80 K/mm3 150-450 MEAN PLATELET VOLUME (test code=MPV) 10.5 fL 6.7-11.0 NEUTROPHIL % (test code=NT%) 73.9 % 39.0-69.0 IMMATURE GRANULOCYTE % (test code=IG%) 0.8 % 0.0-5.0 LYMPHOCYTE % (test code=LY%) 15.9 % 25.0-55.0 MONOCYTE % (test code=MO%) 8.6 % 0.0-10.0 EOSINOPHIL % (test code=EO%) 0.3 % 0.0-5.0 BASOPHIL % (test code=BA%) 0.5 % 0.0-1.0 NUCLEATED RBC % (test code=NRBC%) 0.0 % 0-0 NEUTROPHIL # (test code=NT#) 7.41 K/mm3 1.8-7.7 IMMATURE GRANULOCYTE # (test code=IG#) 0.08 x10 3/uL 0-0.03 LYMPHOCYTE # (test code=LY#) 1.59 K/mm3 1.0-5.0 MONOCYTE # (test code=MO#) 0.86 K/mm3 0-0.8 EOSINOPHIL # (test code=EO#) 0.03 K/mm3 0.0-0.5 BASOPHIL # (test code=BA#) 0.05 K/mm3 0.0-0.2 NUCLEATED RBC # (test code=NRBC#) 0.00 K/mm3 0.0-0.1 MANUAL DIFF REQUIRED (test code=MDIFF) NO, ONLY SCAN NEEDED DIFFERENTIAL [id number] 07:05:00* Test Item Value Reference Range Comments STAIN ACCEPTABILITY (test code=STN ACCEPTABLE) STAIN ACCEPTABLE POLYCHROMASIA (test code=POLC) 1+ POIKILOCYTOSIS (test code=POIK) 3+ ANISOCYTOSIS (test code=ANISO) 2+ MACROCYTOSIS (test code=MACR) 1+ YOLI CELLS (test code=YOLI) 2+ NONE PLATELET ESTIMATE (test code=PLTEST) DECREASED PLATELET MORPHOLOGY (test code=PLTMORPH) NORMAL [id number] 06:18:00* Test Item Value Reference Range Comments GLUBED (test code=GLUBED) 150 mg/dL 74-106 Performed by certified exhaust equipment operator at [facility] COMPREHENSIVE METABOLIC [id number] 06:16:00* Test Item Value Reference Range Comments SODIUM (test code=NA) 138 mmol/L 136-145 POTASSIUM (test code=K) 3.5 mmol/L 3.5-5.1 CHLORIDE (test code=CL) 103.0 mmol/L 98-107 CARBON DIOXIDE (test code=CO2) 29.0 mmol/L 21-32 ANION GAP (test code=GAP) 9.5 10-20 GLUCOSE (test code=GLU) 156 mg/dL 74-106 BLOOD UREA NITROGEN (test code=BUN) 22 mg/dL 7-18 GLOMERULAR FILTRATION RATE (test code=GFR) 60 mL/min >=60 Estimated GFR by using Modified MDRD formula.Chronic kidney disease is defined as either kidney damageor GFR <60 mL/min/1.73 m2 for >3 months. CREATININE (test code=CREAT) 0.90 mg/dL 0.55-1.02 Note change in reference range due to change in reagent. BUN/CREATININE RATIO (test code=BUN/CREA) 25.2 10-20 TOTAL PROTEIN (test code=PROT) 6.3 gram/dL 6.4-8.2 ALBUMIN (test code=ALB) 2.5 g/dL 3.4-5.0 GLOBULIN (test code=GLOB) 3.8 gram/dL 2.7-4.2 ALBUMIN/GLOBULIN RATIO (test code=A/G) 0.7 0.75-1.50 CALCIUM (test code=CA) 8.6 mg/dL 8.5-10.1 BILIRUBIN TOTAL (test code=BILT) 1.90 mg/dL 0.0-1.0 SGOT/AST (test code=AST) 450 IUnit/L 15-37 SGPT/ALT (test code=ALT) 318 IUnit/L 12-78 ALKALINE PHOSPHATASE TOTAL (test code=ALKP) 379 IUnit/L 45-117 Note change in reference range due to change in reagent. PROTHROMBIN [id number] 06:16:00* Test Item Value Reference Range Comments PROTHROMBIN TIME PATIENT (test code=PTP) 24.7 seconds 9.0-14.0 INTERNATIONAL NORMAL RATIO (test code=INR) 2.1 0.8-1.2 The therapeutic range for oral anticoagulant therapy formost indications is an international normalized ratio (INR)of between 2.0 and 3.0. The recommended therapeutic INRrange for various clinical situations is listed below: Clinical Situation INR range Pulmonary e mbolism treatment (2.0-3.0)Venous thrombosis treatmentVenous thrombosis prophylaxis (high risk surgery)Prevention of systemic embolism from: Acute myocardial infarction Valvular heart disease Atrial fibrillation Mechanical prosthetic heart valves (2.5-3.5) IS PATIENT ON ANTICOAGULANTS? NCOMPREHENSIVE METABOLIC [id number] 06:08:00 * Test Item Value Reference Range Comments SODIUM (test code=NA) 138 mmol/L 136-145 POTASSIUM (test code=K) 3.5 mmol/L 3.5-5.1 CHLORIDE (test code=CL) 103.0 mmol/L 98-107 CARBON DIOXIDE (test code=CO2) mmol/L 21-32 ANION GAP (test code=GAP) 10-20 GLUCOSE (test code=GLU) mg/dL 74-106 BLOOD UREA NITROGEN (test code=BUN) mg/dL 7-18 GLOMERULAR FILTRATION RATE (test code=GFR) mL/min >=60 CREATININE (test code=CREAT) mg/dL 0.55-1.02 BUN/CREATININE RATIO (test code=BUN/CREA) 10-20 TOTAL PROTEIN (test code=PROT) gram/dL 6.4-8.2 ALBUMIN (test code=ALB) g/dL 3.4-5.0 GLOBULIN (test code=GLOB) gram/dL 2.7-4.2 ALBUMIN/GLOBULIN RATIO (test code=A/G) 0.75-1.50 CALCIUM (test code=CA) mg/dL 8.5-10.1 BILIRUBIN TOTAL (test code=BILT) mg/dL 0.0-1.0 SGOT/AST (test code=AST) IUnit/L 15-37 SGPT/ALT (test code=ALT) IUnit/L 12-78 ALKALINE PHOSPHATASE TOTAL (test code=ALKP) IUnit/L 45-117 CBC W/AUTO [id number] 06:08:00* Test Item Value Reference Range Comments WHITE BLOOD CELL (test code=WBC) 10.0 K/mm3 4.5-12.5 RED BLOOD CELL (test code=RBC) 3.96 mill/mm3 3.7-5.2 HEMOGLOBIN (test code=HGB) 13.4 gram/dL 11.5-15.5 HEMATOCRIT (test code=HCT) 39.8 % 36.0-46.0 MEAN CELL VOLUME (test code=MCV) 100.5 fL 80-98 MEAN CELL HGB (test code=MCH) 33.8 picogram 27.0-33.0 MEAN CELL HGB CONCETRATION (test code=MCHC) 33.7 gram/dL 33.0-36.0 RED CELL DISTRIBUTION WIDTH (test code=RDW) 13.1 % 11.6-16.2 RED CELL DISTRIBUTION WIDTH SD (test code=RDW-SD) 48.7 fL 37.0-51.0 PLATELET COUNT (test code=PLT) 80 K/mm3 150-450 MEAN PLATELET VOLUME (test code=MPV) 10.5 fL 6.7-11.0 NEUTROPHIL % (test code=NT%) 73.9 % 39.0-69.0 IMMATURE GRANULOCYTE % (test code=IG%) 0.8 % 0.0-5.0 LYMPHOCYTE % (test code=LY%) 15.9 % 25.0-55.0 MONOCYTE % (test code=MO%) 8.6 % 0.0-10.0 EOSINOPHIL % (test code=EO%) 0.3 % 0.0-5.0 BASOPHIL % (test code=BA%) 0.5 % 0.0-1.0 NUCLEATED RBC % (test code=NRBC%) 0.0 % 0-0 NEUTROPHIL # (test code=NT#) 7.41 K/mm3 1.8-7.7 IMMATURE GRANULOCYTE # (test code=IG#) 0.08 x10 3/uL 0-0.03 LYMPHOCYTE # (test code=LY#) 1.59 K/mm3 1.0-5.0 MONOCYTE # (test code=MO#) 0.86 K/mm3 0-0.8 EOSINOPHIL # (test code=EO#) 0.03 K/mm3 0.0-0.5 BASOPHIL # (test code=BA#) 0.05 K/mm3 0.0-0.2 NUCLEATED RBC # (test code=NRBC#) 0.00 K/mm3 0.0-0.1 MANUAL DIFF REQUIRED (test code=MDIFF) NO, ONLY SCAN NEEDED DIFFERENTIAL [id number] 06:08:00* Test Item Value Reference Range Comments STAIN ACCEPTABILITY (test code=STN ACCEPTABLE) CABOT RINGS (test code=CAB) MORPHOLOGY COMMENT (test code=MOC) PLATELET ESTIMATE (test code=PLTEST) PLATELET MORPHOLOGY (test code=PLTMORPH) CBC W/AUTO [id number] 06:08:00* Test Item Value Reference Range Comments WHITE BLOOD CELL (test code=WBC) 10.0 K/mm3 4.5-12.5 RED BLOOD CELL (test code=RBC) 3.96 mill/mm3 3.7-5.2 HEMOGLOBIN (test code=HGB) 13.4 gram/dL 11.5-15.5 HEMATOCRIT (test code=HCT) 39.8 % 36.0-46.0 MEAN CELL VOLUME (test code=MCV) 100.5 fL 80-98 MEAN CELL HGB (test code=MCH) 33.8 picogram 27.0-33.0 MEAN CELL HGB CONCETRATION (test code=MCHC) 33.7 gram/dL 33.0-36.0 RED CELL DISTRIBUTION WIDTH (test code=RDW) 13.1 % 11.6-16.2 RED CELL DISTRIBUTION WIDTH SD (test code=RDW-SD) 48.7 fL 37.0-51.0 PLATELET COUNT (test code=PLT) 80 K/mm3 150-450 MEAN PLATELET VOLUME (test code=MPV) 10.5 fL 6.7-11.0 NEUTROPHIL % (test code=NT%) 73.9 % 39.0-69.0 IMMATURE GRANULOCYTE % (test code=IG%) 0.8 % 0.0-5.0 LYMPHOCYTE % (test code=LY%) 15.9 % 25.0-55.0 MONOCYTE % (test code=MO%) 8.6 % 0.0-10.0 EOSINOPHIL % (test code=EO%) 0.3 % 0.0-5.0 BASOPHIL % (test code=BA%) 0.5 % 0.0-1.0 NUCLEATED RBC % (test code=NRBC%) 0.0 % 0-0 NEUTROPHIL # (test code=NT#) 7.41 K/mm3 1.8-7.7 IMMATURE GRANULOCYTE # (test code=IG#) 0.08 x10 3/uL 0-0.03 LYMPHOCYTE # (test code=LY#) 1.59 K/mm3 1.0-5.0 MONOCYTE # (test code=MO#) 0.86 K/mm3 0-0.8 EOSINOPHIL # (test code=EO#) 0.03 K/mm3 0.0-0.5 BASOPHIL # (test code=BA#) 0.05 K/mm3 0.0-0.2 NUCLEATED RBC # (test code=NRBC#) 0.00 K/mm3 0.0-0.1 MANUAL DIFF REQUIRED (test code=MDIFF) NO, ONLY SCAN NEEDED DIFFERENTIAL [id number] 06:08:00* Test Item Value Reference Range Comments STAIN ACCEPTABILITY (test code=STN ACCEPTABLE) MORPHOLOGY COMMENT (test code=MOC) PLATELET ESTIMATE (test code=PLTEST) PLATELET MORPHOLOGY (test code=PLTMORPH) CBC W/AUTO [id number] 06:08:00* Test Item Value Reference Range Comments WHITE BLOOD CELL (test code=WBC) 10.0 K/mm3 4.5-12.5 RED BLOOD CELL (test code=RBC) 3.96 mill/mm3 3.7-5.2 HEMOGLOBIN (test code=HGB) 13.4 gram/dL 11.5-15.5 HEMATOCRIT (test code=HCT) 39.8 % 36.0-46.0 MEAN CELL VOLUME (test code=MCV) 100.5 fL 80-98 MEAN CELL HGB (test code=MCH) 33.8 picogram 27.0-33.0 MEAN CELL HGB CONCETRATION (test code=MCHC) 33.7 gram/dL 33.0-36.0 RED CELL DISTRIBUTION WIDTH (test code=RDW) 13.1 % 11.6-16.2 RED CELL DISTRIBUTION WIDTH SD (test code=RDW-SD) 48.7 fL 37.0-51.0 PLATELET COUNT (test code=PLT) 80 K/mm3 150-450 MEAN PLATELET VOLUME (test code=MPV) 10.5 fL 6.7-11.0 NEUTROPHIL % (test code=NT%) 73.9 % 39.0-69.0 IMMATURE GRANULOCYTE % (test code=IG%) 0.8 % 0.0-5.0 LYMPHOCYTE % (test code=LY%) 15.9 % 25.0-55.0 MONOCYTE % (test code=MO%) 8.6 % 0.0-10.0 EOSINOPHIL % (test code=EO%) 0.3 % 0.0-5.0 BASOPHIL % (test code=BA%) 0.5 % 0.0-1.0 NUCLEATED RBC % (test code=NRBC%) 0.0 % 0-0 NEUTROPHIL # (test code=NT#) 7.41 K/mm3 1.8-7.7 IMMATURE GRANULOCYTE # (test code=IG#) 0.08 x10 3/uL 0-0.03 LYMPHOCYTE # (test code=LY#) 1.59 K/mm3 1.0-5.0 MONOCYTE # (test code=MO#) 0.86 K/mm3 0-0.8 EOSINOPHIL # (test code=EO#) 0.03 K/mm3 0.0-0.5 BASOPHIL # (test code=BA#) 0.05 K/mm3 0.0-0.2 NUCLEATED RBC # (test code=NRBC#) 0.00 K/mm3 0.0-0.1 MANUAL DIFF REQUIRED (test code=MDIFF) NO, ONLY SCAN NEEDED DIFFERENTIAL [id number] 06:08:00* Test Item Value Reference Range Comments STAIN ACCEPTABILITY (test code=STN ACCEPTABLE) MORPHOLOGY COMMENT (test code=MOC) PLATELET ESTIMATE (test code=PLTEST) PLATELET MORPHOLOGY (test code=PLTMORPH) CBC W/AUTO [id number] 06:08:00* Test Item Value Reference Range Comments WHITE BLOOD CELL (test code=WBC) 10.0 K/mm3 4.5-12.5 RED BLOOD CELL (test code=RBC) 3.96 mill/mm3 3.7-5.2 HEMOGLOBIN (test code=HGB) 13.4 gram/dL 11.5-15.5 HEMATOCRIT (test code=HCT) 39.8 % 36.0-46.0 MEAN CELL VOLUME (test code=MCV) 100.5 fL 80-98 MEAN CELL HGB (test code=MCH) 33.8 picogram 27.0-33.0 MEAN CELL HGB CONCETRATION (test code=MCHC) 33.7 gram/dL 33.0-36.0 RED CELL DISTRIBUTION WIDTH (test code=RDW) 13.1 % 11.6-16.2 RED CELL DISTRIBUTION WIDTH SD (test code=RDW-SD) 48.7 fL 37.0-51.0 PLATELET COUNT (test code=PLT) 80 K/mm3 150-450 MEAN PLATELET VOLUME (test code=MPV) 10.5 fL 6.7-11.0 NEUTROPHIL % (test code=NT%) 73.9 % 39.0-69.0 IMMATURE GRANULOCYTE % (test code=IG%) 0.8 % 0.0-5.0 LYMPHOCYTE % (test code=LY%) 15.9 % 25.0-55.0 MONOCYTE % (test code=MO%) 8.6 % 0.0-10.0 EOSINOPHIL % (test code=EO%) 0.3 % 0.0-5.0 BASOPHIL % (test code=BA%) 0.5 % 0.0-1.0 NUCLEATED RBC % (test code=NRBC%) 0.0 % 0-0 NEUTROPHIL # (test code=NT#) 7.41 K/mm3 1.8-7.7 IMMATURE GRANULOCYTE # (test code=IG#) 0.08 x10 3/uL 0-0.03 LYMPHOCYTE # (test code=LY#) 1.59 K/mm3 1.0-5.0 MONOCYTE # (test code=MO#) 0.86 K/mm3 0-0.8 EOSINOPHIL # (test code=EO#) 0.03 K/mm3 0.0-0.5 BASOPHIL # (test code=BA#) 0.05 K/mm3 0.0-0.2 NUCLEATED RBC # (test code=NRBC#) 0.00 K/mm3 0.0-0.1 MANUAL DIFF REQUIRED (test code=MDIFF) NO, ONLY SCAN NEEDED DIFFERENTIAL [id number] 06:08:00* Test Item Value Reference Range Comments STAIN ACCEPTABILITY (test code=STN ACCEPTABLE) CABOT RINGS (test code=CAB) MORPHOLOGY COMMENT (test code=MOC) PLATELET ESTIMATE (test code=PLTEST) PLATELET MORPHOLOGY (test code=PLTMORPH) CBC W/AUTO [id number] 05:57:00* Test Item Value Reference Range Comments WHITE BLOOD CELL (test code=WBC) K/mm3 4.5-12.5 RED BLOOD CELL (test code=RBC) mill/mm3 3.7-5.2 HEMOGLOBIN (test code=HGB) 13.4 gram/dL 11.5-15.5 HEMATOCRIT (test code=HCT) 39.8 % 36.0-46.0 MEAN CELL VOLUME (test code=MCV) fL 80-98 MEAN CELL HGB (test code=MCH) picogram 27.0-33.0 MEAN CELL HGB CONCETRATION (test code=MCHC) gram/dL 33.0-36.0 RED CELL DISTRIBUTION WIDTH (test code=RDW) % 11.6-16.2 RED CELL DISTRIBUTION WIDTH SD (test code=RDW-SD) fL 37.0-51.0 PLATELET COUNT (test code=PLT) K/mm3 150-450 MEAN PLATELET VOLUME (test code=MPV) fL 6.7-11.0 NEUTROPHIL % (test code=NT%) % 39.0-69.0 IMMATURE GRANULOCYTE % (test code=IG%) % 0.0-5.0 LYMPHOCYTE % (test code=LY%) % 25.0-55.0 MONOCYTE % (test code=MO%) % 0.0-10.0 EOSINOPHIL % (test code=EO%) % 0.0-5.0 BASOPHIL % (test code=BA%) % 0.0-1.0 NEUTROPHIL # (test code=NT#) K/mm3 1.8-7.7 LYMPHOCYTE # (test code=LY#) K/mm3 1.0-5.0 MONOCYTE # (test code=MO#) K/mm3 0-0.8 EOSINOPHIL # (test code=EO#) K/mm3 0.0-0.5 BASOPHIL # (test code=BA#) K/mm3 0.0-0.2 LACTIC DEHYDROGENASE(LDH)2019-05-20 01:05:00* Test Item Value Reference Range Comments LACTIC DEHYDROGENASE(LDH) (test code=LDH) 605 IUnit/L 84-246 FE W/TOTAL IRON BINDING CAP.2019-05-20 01:05:00* Test Item Value Reference Range Comments SERUM IRON (test code=IRON) 146 ug/dL 50-175 TOTAL IRON BINDING CAPACITY (test code=TIBC) 242 mcg/dL 250-450 IRON SATURATION (test code=FESAT) 60.33 % 13-45 VITAMIN [id number] 01:05:00* Test Item Value Reference Range Comments VITAMIN B12 (test code=VITB12) 3137 pg/mL 193-986 FOLIC [id number] 01:05:00* Test Item Value Reference Range Comments FOLIC ACID (test code=FOL) 19.1 ng/mL 3.10-17.50 [id number] 23:46:00* Test Item Value Reference Range Comments FIBRINOGEN (test code=FIB) 265 mg/dL 200-400 RETICULOCYTE [id number] 23:15:00* Test Item Value Reference Range Comments RETICULOCYTE COUNT (test code=RETICT) 1.5 % 0.5-2.0 RETIC COUNT ABSOLUTE (test code=RET#) 0.055 mill/mm3 0.016-0.095 IMMATURE RETICULOCYTE FRACTION (test code=IRF) 18.4 % 3.0-15.9 Values above normal range indicate an increase in RBCcellular response from bone marrow. RETICULOCYTE HGB EQUIVALENT (test code=RETHE) 34.2 pg 28.2-35.7 RET-He is a direct estimate of recent functionalavailability of iron in the cell, therefore, decreasedRET-He is indicative of iron deficiency. SMEAR PERIPHERAL [id number] 23:15:00* Test Item Value Reference Range Comments SMEAR PERIPHERAL BLOOD (test code=BLDSM) PATH REV PATH REVIEW [id number] 23:15:00* Test Item Value Reference Range Comments HAPTOGLOBIN (test code=HAPT) mg/dL [id number] 21:14:00* Test Item Value Reference Range Comments GLUBED (test code=GLUBED) 211 mg/dL 74-106 Performed by certified exhaust equipment operator at [facility] - MRI ABDOMEN W/O [id number] 19:06:00 FAX: Shweta Patton MD [phone] [place]: B St: ADM FAX: Mathew Dove MD [phone] FAX: Valentina Strickland [phone] Name: ARNALDO MARSHALL [facility] : 1935 Age/S: 84/F [address] [facility] Unit #: [id number] Loc: [place] [address] Phys: Valentina Strickland Acct: [id number] Dis Date: Status: ADM IN ONE #: [phone] Exam Date: 05/19/2019 1857 FAX #: [phone] Reason: elevated LFTs EXAMS: CPT CODE: [id number] MR I ABDOMEN W/O CONT [id number] REASON FOR EXAM: elevated LFTs EXAM ORDER DATE: 05/19/2019 10:58 AM Ordering: NYASIA La Attending:Shweta Patton MD Location: PROCEDURE: - MRI ABDOMEN W/O CONT FINDINGS: Axial and 3-D psba-rj-[id number] images of the upper abdomen and biliary system were obtained without IV contrast using MRCP protocol. Rec onstructed sagittal and coronal images including 3D reconstructions of the biliary system were provided for interpretation. No focal mass id entified in the liver. No evidence of intra or extrahepatic biliary diste ntion. The gallbladder is minimally distended without evidence of gallstone. The common bile duct measures 0.4 cm IMPRESSIO N: Moderate bilateral pleural effusions. 3 cm right renal cyst. Mild b ilateral hydronephrosis. No evidence of gall stones or choledocholithia sis Electronically Signed by Jose Ramon Sheridan on at 1906 Reported and signed by: Chaka Sheridan M.D. CC: Shweta Patton MD; Mathew Martinez MD; Valentina Strickland Technologist: RT JOSELIN - MRI Trnscrd Date/Time/By: (190) : By: ChristVTL Orig Print D/T: S: 05/19/2019 (191) PAGE 1 Signed Report - US ABDOMEN [id number] 17:44:00 Name: ARNALDO MARSHALL [facility] : 1935 Age/S: 84 / F [address] Unit #: [id number] Loc: [place] [address] Phys: Valentina Strickland Acct: [id number] Dis Date: Status: ADM IN PHONE #: [phone] Exam Date: 05/19/2019 1717 FAX #: [phone] Reason: elevated LFTS EXAMS: CPT CODE: [id number] US ABDOMEN LTD [id number] REASON FOR EXAM: elevated LFTS EXAM ORDER DATE: 05/19/2019 2:52 PM Ordering: NYASIA La Attending:Shweta Patton MD Location:[facility] PROCEDURE: - US ABDOMEN LTD FINDINGS: The liver is unremarkable. There is no evidence of focal mass identified. The pancreas is within normal limits. The right kidney measures 9.9 x 3.5 cm. There is no evidence of nephrolithiasis. There is no evidence of renal mass. The gallbladder is unremarkable without evidence of gall stone. No evidence of gallbladder wall thickening or pericholecystic fluid. The common bile duct measures 0.3 cm. There is no evidence of ascites. The aorta and IVC are within normal limits. The portal vein is patent with hepatopetal flow IMPRESSION: 3.1 cm right renal cyst. Minimal right hydronephrosis. Electronically Si gned by Jose Ramon Sheridan on 05/19/2019 at 1744 Reported and signed by: Chaka Sheridan M.D. CC: Shweta Patton MD; Mathew Martinez MD ; Valentina Strickland Technologist: Christine Hernandez [facility] Trnscb Date/Time: 05/19/2019 (8803) Nelda.VTL Orig Print D/T: S: 05/19/2019 (657) Probe: PAGE 1 Signed Report [id number] 16:43:00* Test Item Value Reference Range Comments GLUBED (test code=GLUBED) 222 mg/dL 74-106 Performed by certified exhaust equipment operator at [facility] [id number] 12:57:00* Test Item Value Reference Range Comments GLUBED (test code=GLUBED) 182 mg/dL 74-106 Performed by certified exhaust equipment operator at [facility] COMPREHENSIVE METABOLIC [id number] 07:36:00* Test Item Value Reference Range Comments SODIUM (test code=NA) 140 mmol/L 136-145 POTASSIUM (test code=K) 3.9 mmol/L 3.5-5.1 CHLORIDE (test code=CL) 102.0 mmol/L 98-107 CARBON DIOXIDE (test code=CO2) 29.0 mmol/L 21-32 ANION GAP (test code=GAP) 12.9 10-20 GLUCOSE (test code=GLU) 136 mg/dL 74-106 BLOOD UREA NITROGEN (test code=BUN) 20 mg/dL 7-18 GLOMERULAR FILTRATION RATE (test code=GFR) 39 mL/min >=60 Estimated GFR by using Modified MDRD formula.Chronic kidney disease is defined as either kidney damageor GFR <60 mL/min/1.73 m2 for >3 months. CREATININE (test code=CREAT) 1.30 mg/dL 0.55-1.02 Note change in reference range due to change in reagent. BUN/CREATININE RATIO (test code=BUN/CREA) 15.2 10-20 TOTAL PROTEIN (test code=PROT) 5.9 gram/dL 6.4-8.2 ALBUMIN (test code=ALB) 2.8 g/dL 3.4-5.0 GLOBULIN (test code=GLOB) 3.1 gram/dL 2.7-4.2 ALBUMIN/GLOBULIN RATIO (test code=A/G) 0.9 0.75-1.50 CALCIUM (test code=CA) 8.5 mg/dL 8.5-10.1 BILIRUBIN TOTAL (test code=BILT) 1.30 mg/dL 0.0-1.0 SGOT/AST (test code=AST) 483 IUnit/L 15-37 SGPT/ALT (test code=ALT) 291 IUnit/L 12-78 ALKALINE PHOSPHATASE TOTAL (test code=ALKP) 260 IUnit/L 45-117 Note change in reference range due to change in reagent. COMPREHENSIVE METABOLIC [id number] 07:29:00* Test Item Value Reference Range Comments SODIUM (test code=NA) 140 mmol/L 136-145 POTASSIUM (test code=K) 3.9 mmol/L 3.5-5.1 CHLORIDE (test code=CL) 102.0 mmol/L 98-107 CARBON DIOXIDE (test code=CO2) mmol/L 21-32 ANION GAP (test code=GAP) 10-20 GLUCOSE (test code=GLU) mg/dL 74-106 BLOOD UREA NITROGEN (test code=BUN) mg/dL 7-18 GLOMERULAR FILTRATION RATE (test code=GFR) mL/min >=60 CREATININE (test code=CREAT) mg/dL 0.55-1.02 BUN/CREATININE RATIO (test code=BUN/CREA) 10-20 TOTAL PROTEIN (test code=PROT) gram/dL 6.4-8.2 ALBUMIN (test code=ALB) g/dL 3.4-5.0 GLOBULIN (test code=GLOB) gram/dL 2.7-4.2 ALBUMIN/GLOBULIN RATIO (test code=A/G) 0.75-1.50 CALCIUM (test code=CA) mg/dL 8.5-10.1 BILIRUBIN TOTAL (test code=BILT) mg/dL 0.0-1.0 SGOT/AST (test code=AST) IUnit/L 15-37 SGPT/ALT (test code=ALT) IUnit/L 12-78 ALKALINE PHOSPHATASE TOTAL (test code=ALKP) IUnit/L 45-117 PROTHROMBIN [id number] 06:51:00* Test Item Value Reference Range Comments PROTHROMBIN TIME PATIENT (test code=PTP) 38.5 seconds 9.0-14.0 INTERNATIONAL NORMAL RATIO (test code=INR) 3.3 0.8-1.2 The therapeutic range for oral anticoagulant therapy formost indications is an international normalized ratio (INR)of between 2.0 and 3.0. The recommended therapeutic INRrange for various clinical situations is listed below: Clinical Situation INR range Pulmonary e mbolism treatment (2.0-3.0)Venous thrombosis treatmentVenous thrombosis prophylaxis (high risk surgery)Prevention of systemic embolism from: Acute myocardial infarction Valvular heart disease Atrial fibrillation Mechanical prosthetic heart valves (2.5-3.5) IS PATIENT ON ANTICOAGULANTS? NCBC W/AUTO [id number] 06:49:00* Test Item Value Reference Range Comments WHITE BLOOD CELL (test code=WBC) 7.7 K/mm3 4.5-12.5 RED BLOOD CELL (test code=RBC) 3.58 mill/mm3 3.7-5.2 HEMOGLOBIN (test code=HGB) 12.1 gram/dL 11.5-15.5 HEMATOCRIT (test code=HCT) 36.0 % 36.0-46.0 MEAN CELL VOLUME (test code=MCV) 100.6 fL 80-98 MEAN CELL HGB (test code=MCH) 33.8 picogram 27.0-33.0 MEAN CELL HGB CONCETRATION (test code=MCHC) 33.6 gram/dL 33.0-36.0 RED CELL DISTRIBUTION WIDTH (test code=RDW) 13.1 % 11.6-16.2 RED CELL DISTRIBUTION WIDTH SD (test code=RDW-SD) 48.6 fL 37.0-51.0 PLATELET COUNT (test code=PLT) 85 K/mm3 150-450 MEAN PLATELET VOLUME (test code=MPV) 10.0 fL 6.7-11.0 NEUTROPHIL % (test code=NT%) 73.0 % 39.0-69.0 IMMATURE GRANULOCYTE % (test code=IG%) 0.4 % 0.0-5.0 LYMPHOCYTE % (test code=LY%) 17.1 % 25.0-55.0 MONOCYTE % (test code=MO%) 8.8 % 0.0-10.0 EOSINOPHIL % (test code=EO%) 0.3 % 0.0-5.0 BASOPHIL % (test code=BA%) 0.4 % 0.0-1.0 NUCLEATED RBC % (test code=NRBC%) 0.0 % 0-0 NEUTROPHIL # (test code=NT#) 5.66 K/mm3 1.8-7.7 IMMATURE GRANULOCYTE # (test code=IG#) 0.03 x10 3/uL 0-0.03 LYMPHOCYTE # (test code=LY#) 1.32 K/mm3 1.0-5.0 MONOCYTE # (test code=MO#) 0.68 K/mm3 0-0.8 EOSINOPHIL # (test code=EO#) 0.02 K/mm3 0.0-0.5 BASOPHIL # (test code=BA#) 0.03 K/mm3 0.0-0.2 NUCLEATED RBC # (test code=NRBC#) 0.00 K/mm3 0.0-0.1 MANUAL DIFF REQUIRED (test code=MDIFF) NO CBC W/AUTO [id number] 06:48:00* Test Item Value Reference Range Comments WHITE BLOOD CELL (test code=WBC) K/mm3 4.5-12.5 RED BLOOD CELL (test code=RBC) mill/mm3 3.7-5.2 HEMOGLOBIN (test code=HGB) 12.1 gram/dL 11.5-15.5 HEMATOCRIT (test code=HCT) 36.0 % 36.0-46.0 MEAN CELL VOLUME (test code=MCV) fL 80-98 MEAN CELL HGB (test code=MCH) picogram 27.0-33.0 MEAN CELL HGB CONCETRATION (test code=MCHC) gram/dL 33.0-36.0 RED CELL DISTRIBUTION WIDTH (test code=RDW) % 11.6-16.2 RED CELL DISTRIBUTION WIDTH SD (test code=RDW-SD) fL 37.0-51.0 PLATELET COUNT (test code=PLT) K/mm3 150-450 MEAN PLATELET VOLUME (test code=MPV) fL 6.7-11.0 NEUTROPHIL % (test code=NT%) % 39.0-69.0 IMMATURE GRANULOCYTE % (test code=IG%) % 0.0-5.0 LYMPHOCYTE % (test code=LY%) % 25.0-55.0 MONOCYTE % (test code=MO%) % 0.0-10.0 EOSINOPHIL % (test code=EO%) % 0.0-5.0 BASOPHIL % (test code=BA%) % 0.0-1.0 NEUTROPHIL # (test code=NT#) K/mm3 1.8-7.7 LYMPHOCYTE # (test code=LY#) K/mm3 1.0-5.0 MONOCYTE # (test code=MO#) K/mm3 0-0.8 EOSINOPHIL # (test code=EO#) K/mm3 0.0-0.5 BASOPHIL # (test code=BA#) K/mm3 0.0-0.2 [id number] 19:49:00* Test Item Value Reference Range Comments GLUBED (test code=GLUBED) 157 mg/dL 74-106 Performed by certified exhaust equipment operator at [facility] [id number] 17:37:00* Test Item Value Reference Range Comments GLUBED (test code=GLUBED) 152 mg/dL 74-106 Performed by certified exhaust equipment operator at [facility] [id number] 17:37:00* Test Item Value Reference Range Comments GLUBED (test code=GLUBED) 168 mg/dL 74-106 Performed by certified exhaust equipment operator at [facility] PROTHROMBIN [id number] 13:05:00* Test Item Value Reference Range Comments PROTHROMBIN TIME PATIENT (test code=PTP) 54.7 seconds 9.0-14.0 INTERNATIONAL NORMAL RATIO (test code=INR) 4.7 0.8-1.2 The therapeutic range for oral anticoagulant therapy formost indications is an international normalized ratio (INR)of between 2.0 and 3.0. The recommended therapeutic INRrange for various clinical situations is listed below: Clinical Situation INR range Pulmonary e mbolism treatment (2.0-3.0)Venous thrombosis treatmentVenous thrombosis prophylaxis (high risk surgery)Prevention of systemic embolism from: Acute myocardial infarction Valvular heart disease Atrial fibrillation Mechanical prosthetic heart valves (2.5-3.5) IS PATIENT ON ANTICOAGULANTS? NCOMPREHENSIVE METABOLIC [id number] 07:43:00 * Test Item Value Reference Range Comments SODIUM (test code=NA) 140 mmol/L 136-145 POTASSIUM (test code=K) 4.9 mmol/L 3.5-5.1 CHLORIDE (test code=CL) 104.0 mmol/L 98-107 CARBON DIOXIDE (test code=CO2) 28.0 mmol/L 21-32 ANION GAP (test code=GAP) 12.9 10-20 GLUCOSE (test code=GLU) 201 mg/dL 74-106 BLOOD UREA NITROGEN (test code=BUN) 15 mg/dL 7-18 GLOMERULAR FILTRATION RATE (test code=GFR) 39 mL/min >=60 Estimated GFR by using Modified MDRD formula.Chronic kidney disease is defined as either kidney damageor GFR <60 mL/min/1.73 m2 for >3 months. CREATININE (test code=CREAT) 1.30 mg/dL 0.55-1.02 Note change in reference range due to change in reagent. BUN/CREATININE RATIO (test code=BUN/CREA) 11.5 10-20 TOTAL PROTEIN (test code=PROT) 6.7 gram/dL 6.4-8.2 ALBUMIN (test code=ALB) 3.0 g/dL 3.4-5.0 GLOBULIN (test code=GLOB) 3.7 gram/dL 2.7-4.2 ALBUMIN/GLOBULIN RATIO (test code=A/G) 0.8 0.75-1.50 CALCIUM (test code=CA) 8.8 mg/dL 8.5-10.1 BILIRUBIN TOTAL (test code=BILT) 1.00 mg/dL 0.0-1.0 SGOT/AST (test code=AST) 423 IUnit/L 15-37 SGPT/ALT (test code=ALT) 240 IUnit/L 12-78 ALKALINE PHOSPHATASE TOTAL (test code=ALKP) 189 IUnit/L 45-117 Note change in reference range due to change in reagent. COMPREHENSIVE METABOLIC [id number] 07:37:00* Test Item Value Reference Range Comments SODIUM (test code=NA) 140 mmol/L 136-145 POTASSIUM (test code=K) 4.9 mmol/L 3.5-5.1 CHLORIDE (test code=CL) 104.0 mmol/L 98-107 CARBON DIOXIDE (test code=CO2) mmol/L 21-32 ANION GAP (test code=GAP) 10-20 GLUCOSE (test code=GLU) mg/dL 74-106 BLOOD UREA NITROGEN (test code=BUN) mg/dL 7-18 GLOMERULAR FILTRATION RATE (test code=GFR) mL/min >=60 CREATININE (test code=CREAT) mg/dL 0.55-1.02 BUN/CREATININE RATIO (test code=BUN/CREA) 10-20 TOTAL PROTEIN (test code=PROT) gram/dL 6.4-8.2 ALBUMIN (test code=ALB) g/dL 3.4-5.0 GLOBULIN (test code=GLOB) gram/dL 2.7-4.2 ALBUMIN/GLOBULIN RATIO (test code=A/G) 0.75-1.50 CALCIUM (test code=CA) mg/dL 8.5-10.1 BILIRUBIN TOTAL (test code=BILT) mg/dL 0.0-1.0 SGOT/AST (test code=AST) IUnit/L 15-37 SGPT/ALT (test code=ALT) IUnit/L 12-78 ALKALINE PHOSPHATASE TOTAL (test code=ALKP) IUnit/L 45-117 CBC W/AUTO [id number] 06:50:00* Test Item Value Reference Range Comments WHITE BLOOD CELL (test code=WBC) 8.6 K/mm3 4.5-12.5 RED BLOOD CELL (test code=RBC) 3.59 mill/mm3 3.7-5.2 HEMOGLOBIN (test code=HGB) 12.1 gram/dL 11.5-15.5 HEMATOCRIT (test code=HCT) 35.4 % 36.0-46.0 MEAN CELL VOLUME (test code=MCV) 98.6 fL 80-98 MEAN CELL HGB (test code=MCH) 33.7 picogram 27.0-33.0 MEAN CELL HGB CONCETRATION (test code=MCHC) 34.2 gram/dL 33.0-36.0 RED CELL DISTRIBUTION WIDTH (test code=RDW) 13.2 % 11.6-16.2 RED CELL DISTRIBUTION WIDTH SD (test code=RDW-SD) 47.1 fL 37.0-51.0 PLATELET COUNT (test code=PLT) 106 K/mm3 150-450 MEAN PLATELET VOLUME (test code=MPV) 10.3 fL 6.7-11.0 NEUTROPHIL % (test code=NT%) 77.9 % 39.0-69.0 IMMATURE GRANULOCYTE % (test code=IG%) 0.3 % 0.0-5.0 LYMPHOCYTE % (test code=LY%) 10.8 % 25.0-55.0 MONOCYTE % (test code=MO%) 10.8 % 0.0-10.0 EOSINOPHIL % (test code=EO%) 0.0 % 0.0-5.0 BASOPHIL % (test code=BA%) 0.2 % 0.0-1.0 NUCLEATED RBC % (test code=NRBC%) 0.0 % 0-0 NEUTROPHIL # (test code=NT#) 6.72 K/mm3 1.8-7.7 IMMATURE GRANULOCYTE # (test code=IG#) 0.03 x10 3/uL 0-0.03 LYMPHOCYTE # (test code=LY#) 0.93 K/mm3 1.0-5.0 MONOCYTE # (test code=MO#) 0.93 K/mm3 0-0.8 EOSINOPHIL # (test code=EO#) 0.00 K/mm3 0.0-0.5 BASOPHIL # (test code=BA#) 0.02 K/mm3 0.0-0.2 NUCLEATED RBC # (test code=NRBC#) 0.00 K/mm3 0.0-0.1 CBC W/AUTO [id number] 06:46:00* Test Item Value Reference Range Comments WHITE BLOOD CELL (test code=WBC) K/mm3 4.5-12.5 RED BLOOD CELL (test code=RBC) mill/mm3 3.7-5.2 HEMOGLOBIN (test code=HGB) 12.1 gram/dL 11.5-15.5 HEMATOCRIT (test code=HCT) % 36.0-46.0 MEAN CELL VOLUME (test code=MCV) fL 80-98 MEAN CELL HGB (test code=MCH) picogram 27.0-33.0 MEAN CELL HGB CONCETRATION (test code=MCHC) gram/dL 33.0-36.0 RED CELL DISTRIBUTION WIDTH (test code=RDW) % 11.6-16.2 RED CELL DISTRIBUTION WIDTH SD (test code=RDW-SD) fL 37.0-51.0 PLATELET COUNT (test code=PLT) K/mm3 150-450 MEAN PLATELET VOLUME (test code=MPV) fL 6.7-11.0 NEUTROPHIL % (test code=NT%) % 39.0-69.0 IMMATURE GRANULOCYTE % (test code=IG%) % 0.0-5.0 LYMPHOCYTE % (test code=LY%) % 25.0-55.0 MONOCYTE % (test code=MO%) % 0.0-10.0 EOSINOPHIL % (test code=EO%) % 0.0-5.0 BASOPHIL % (test code=BA%) % 0.0-1.0 NEUTROPHIL # (test code=NT#) K/mm3 1.8-7.7 LYMPHOCYTE # (test code=LY#) K/mm3 1.0-5.0 MONOCYTE # (test code=MO#) K/mm3 0-0.8 EOSINOPHIL # (test code=EO#) K/mm3 0.0-0.5 BASOPHIL # (test code=BA#) K/mm3 0.0-0.2 [id number] 06:02:00* Test Item Value Reference Range Comments GLUBED (test code=GLUBED) 183 mg/dL 74-106 Performed by certified exhaust equipment operator at [facility] - XR CHEST 1 [id number] 22:05:00 FAX: Shweta Patton MD [phone] [place]: St: [facility] FAX: Mathew Dove MD [phone] Name: ARNALDO MARSHALL [facility] : 1935 Age/S: 84/F [address] [facility] Unit #: [id number] Loc: [address] [place] [id number] Phys: Shweta Patton MD Acct: [id number] Dis Date: Status: ADM IN PHONE #: [phone] Exam Date: 05/17/20192199 FAX #: [phone] Reason: WHEEZING EXAMS: CPT CODE: [id number] XR CHEST 1 V 96464 HISTORY: WHEEZING TECHNIQUE: AP chest x-ray COMPARISON: 09/07/17 FINDINGS: Left mid-lower lung field airspace consolidation with small pleural effusion. Bilateral interstitial opacities. Cardiomegaly. There are chest degenerative changes of the spine and shoulders. IMPRESSION: Findings suggest developing pneumonia or pulmonary edema. LOCATION: [place] at 2205 Reported and signed by: Leonela Way D.O. CC: Shweta Patton MD; Mathew Martinez MD Technologist: Monse Neely RT(R) Trnscrd Date/Time/By: 05/17/2019 (2204) : By: [email or web address] [facility] Print D/T: S: 05/17/2019 (2207) PAGE 1 Signed Report [id number] 20:13:00* Test Item Value Reference Range Comments GLUBED (test code=GLUBED) 150 mg/dL 74-106 Performed by certified exhaust equipment operator at [facility] PROTHROMBIN [id number] 10:28:00* Test Item Value Reference Range Comments PROTHROMBIN TIME PATIENT (test code=PTP) 53.5 seconds 9.0-14.0 INTERNATIONAL NORMAL RATIO (test code=INR) 4.6 0.8-1.2 The therapeutic range for oral anticoagulant therapy formost indications is an international normalized ratio (INR)of between 2.0 and 3.0. The recommended therapeutic INRrange for various clinical situations is listed below: Clinical Situation INR range Pulmonary e mbolism treatment (2.0-3.0)Venous thrombosis treatmentVenous thrombosis prophylaxis (high risk surgery)Prevention of systemic embolism from: Acute myocardial infarction Valvular heart disease Atrial fibrillation Mechanical prosthetic heart valves (2.5-3.5) IS PATIENT ON ANTICOAGULANTS? YLIST ANTICOAGULANTS COUMADINCOMPREHENSIVE METABOLIC [id number] 07:47:00* Test Item Value Reference Range Comments SODIUM (test code=NA) 139 mmol/L 136-145 POTASSIUM (test code=K) 3.3 mmol/L 3.5-5.1 CHLORIDE (test code=CL) 104.0 mmol/L 98-107 CARBON DIOXIDE (test code=CO2) 24.0 mmol/L 21-32 ANION GAP (test code=GAP) 14.3 10-20 GLUCOSE (test code=GLU) 167 mg/dL 74-106 BLOOD UREA NITROGEN (test code=BUN) 15 mg/dL 7-18 GLOMERULAR FILTRATION RATE (test code=GFR) 53 mL/min >=60 Estimated GFR by using Modified MDRD formula.Chronic kidney disease is defined as either kidney damageor GFR <60 mL/min/1.73 m2 for >3 months. CREATININE (test code=CREAT) 1.00 mg/dL 0.55-1.02 Note change in reference range due to change in reagent. BUN/CREATININE RATIO (test code=BUN/CREA) 15.4 10-20 TOTAL PROTEIN (test code=PROT) 6.4 gram/dL 6.4-8.2 ALBUMIN (test code=ALB) 3.2 g/dL 3.4-5.0 GLOBULIN (test code=GLOB) 3.2 gram/dL 2.7-4.2 ALBUMIN/GLOBULIN RATIO (test code=A/G) 1.0 0.75-1.50 CALCIUM (test code=CA) 9.0 mg/dL 8.5-10.1 BILIRUBIN TOTAL (test code=BILT) 0.90 mg/dL 0.0-1.0 SGOT/AST (test code=AST) 340 IUnit/L 15-37 SGPT/ALT (test code=ALT) 181 IUnit/L 12-78 ALKALINE PHOSPHATASE TOTAL (test code=ALKP) 135 IUnit/L 45-117 Note change in reference range due to change in reagent. [id number] 07:47:00* Test Item Value Reference Range Comments MAGNESIUM (test code=MAG) 1.8 mg/dL 1.8-2.4 COMPREHENSIVE METABOLIC [id number] 07:25:00* Test Item Value Reference Range Comments SODIUM (test code=NA) 139 mmol/L 136-145 POTASSIUM (test code=K) 3.3 mmol/L 3.5-5.1 CHLORIDE (test code=CL) 104.0 mmol/L 98-107 CARBON DIOXIDE (test code=CO2) mmol/L 21-32 ANION GAP (test code=GAP) 10-20 GLUCOSE (test code=GLU) mg/dL 74-106 BLOOD UREA NITROGEN (test code=BUN) mg/dL 7-18 GLOMERULAR FILTRATION RATE (test code=GFR) mL/min >=60 CREATININE (test code=CREAT) mg/dL 0.55-1.02 BUN/CREATININE RATIO (test code=BUN/CREA) 10-20 TOTAL PROTEIN (test code=PROT) gram/dL 6.4-8.2 ALBUMIN (test code=ALB) g/dL 3.4-5.0 GLOBULIN (test code=GLOB) gram/dL 2.7-4.2 ALBUMIN/GLOBULIN RATIO (test code=A/G) 0.75-1.50 CALCIUM (test code=CA) mg/dL 8.5-10.1 BILIRUBIN TOTAL (test code=BILT) mg/dL 0.0-1.0 SGOT/AST (test code=AST) IUnit/L 15-37 SGPT/ALT (test code=ALT) IUnit/L 12-78 ALKALINE PHOSPHATASE TOTAL (test code=ALKP) IUnit/L 45-117 [id number] 07:25:00* Test Item Value Reference Range Comments MAGNESIUM (test code=MAG) mg/dL 1.8-2.4 CBC W/AUTO [id number] 06:58:00* Test Item Value Reference Range Comments WHITE BLOOD CELL (test code=WBC) 9.4 K/mm3 4.5-12.5 RED BLOOD CELL (test code=RBC) 3.34 mill/mm3 3.7-5.2 HEMOGLOBIN (test code=HGB) 11.3 gram/dL 11.5-15.5 HEMATOCRIT (test code=HCT) 34.1 % 36.0-46.0 MEAN CELL VOLUME (test code=MCV) 102.1 fL 80-98 MEAN CELL HGB (test code=MCH) 33.8 picogram 27.0-33.0 MEAN CELL HGB CONCETRATION (test code=MCHC) 33.1 gram/dL 33.0-36.0 RED CELL DISTRIBUTION WIDTH (test code=RDW) 13.0 % 11.6-16.2 RED CELL DISTRIBUTION WIDTH SD (test code=RDW-SD) 48.1 fL 37.0-51.0 PLATELET COUNT (test code=PLT) 114 K/mm3 150-450 MEAN PLATELET VOLUME (test code=MPV) 10.1 fL 6.7-11.0 NEUTROPHIL % (test code=NT%) 63.3 % 39.0-69.0 IMMATURE GRANULOCYTE % (test code=IG%) 0.5 % 0.0-5.0 LYMPHOCYTE % (test code=LY%) 24.7 % 25.0-55.0 MONOCYTE % (test code=MO%) 10.9 % 0.0-10.0 EOSINOPHIL % (test code=EO%) 0.2 % 0.0-5.0 BASOPHIL % (test code=BA%) 0.4 % 0.0-1.0 NUCLEATED RBC % (test code=NRBC%) 0.0 % 0-0 NEUTROPHIL # (test code=NT#) 5.97 K/mm3 1.8-7.7 IMMATURE GRANULOCYTE # (test code=IG#) 0.05 x10 3/uL 0-0.03 LYMPHOCYTE # (test code=LY#) 2.33 K/mm3 1.0-5.0 MONOCYTE # (test code=MO#) 1.03 K/mm3 0-0.8 EOSINOPHIL # (test code=EO#) 0.02 K/mm3 0.0-0.5 BASOPHIL # (test code=BA#) 0.04 K/mm3 0.0-0.2 NUCLEATED RBC # (test code=NRBC#) 0.00 K/mm3 0.0-0.1 [id number] 22:28:00* Test Item Value Reference Range Comments TROPONIN-I (test code=TROPI) 0.027 ng/mL 0-0.045 COMMENTS TO REAL ESTATE ADMINISTRATOR: COLLECT 3 HOURS AFTER PREVIOUS SAMPLELACTIC [id number] 22:23:00* Test Item Value Reference Range Comments LACTIC ACID (test code=LACT) 1.5 mmol/L 0.4-1.9 CBC W/AUTO [id number] 22:18:00* Test Item Value Reference Range Comments WHITE BLOOD CELL (test code=WBC) 12.0 K/mm3 4.5-12.5 RED BLOOD CELL (test code=RBC) 3.25 mill/mm3 3.7-5.2 HEMOGLOBIN (test code=HGB) 11.1 gram/dL 11.5-15.5 RESULT VERIFIED BY REPEAT ANALYSIS HEMATOCRIT (test code=HCT) 33.2 % 36.0-46.0 MEAN CELL VOLUME (test code=MCV) 102.2 fL 80-98 MEAN CELL HGB (test code=MCH) 34.2 picogram 27.0-33.0 MEAN CELL HGB CONCETRATION (test code=MCHC) 33.4 gram/dL 33.0-36.0 RED CELL DISTRIBUTION WIDTH (test code=RDW) 13.1 % 11.6-16.2 RED CELL DISTRIBUTION WIDTH SD (test code=RDW-SD) 49.1 fL 37.0-51.0 PLATELET COUNT (test code=PLT) 129 K/mm3 150-450 MEAN PLATELET VOLUME (test code=MPV) 10.2 fL 6.7-11.0 NEUTROPHIL % (test code=NT%) 70.5 % 39.0-69.0 IMMATURE GRANULOCYTE % (test code=IG%) 0.6 % 0.0-5.0 LYMPHOCYTE % (test code=LY%) 21.3 % 25.0-55.0 MONOCYTE % (test code=MO%) 7.2 % 0.0-10.0 EOSINOPHIL % (test code=EO%) 0.1 % 0.0-5.0 BASOPHIL % (test code=BA%) 0.3 % 0.0-1.0 NUCLEATED RBC % (test code=NRBC%) 0.0 % 0-0 NEUTROPHIL # (test code=NT#) 8.48 K/mm3 1.8-7.7 IMMATURE GRANULOCYTE # (test code=IG#) 0.07 x10 3/uL 0-0.03 LYMPHOCYTE # (test code=LY#) 2.56 K/mm3 1.0-5.0 MONOCYTE # (test code=MO#) 0.86 K/mm3 0-0.8 EOSINOPHIL # (test code=EO#) 0.01 K/mm3 0.0-0.5 BASOPHIL # (test code=BA#) 0.04 K/mm3 0.0-0.2 NUCLEATED RBC # (test code=NRBC#) 0.00 K/mm3 0.0-0.1 MANUAL DIFF REQUIRED (test code=MDIFF) NO BASIC METABOLIC [id number] 22:16:00* Test Item Value Reference Range Comments SODIUM (test code=NA) 138 mmol/L 136-145 POTASSIUM (test code=K) 3.5 mmol/L 3.5-5.1 CHLORIDE (test code=CL) 104.0 mmol/L 98-107 CARBON DIOXIDE (test code=CO2) 27.0 mmol/L 21-32 ANION GAP (test code=GAP) 10.5 10-20 GLUCOSE (test code=GLU) 185 mg/dL 74-106 BLOOD UREA NITROGEN (test code=BUN) 17 mg/dL 7-18 GLOMERULAR FILTRATION RATE (test code=GFR) 53 mL/min >=60 Estimated GFR by using Modified MDRD formula.Chronic kidney disease is defined as either kidney damageor GFR <60 mL/min/1.73 m2 for >3 months. CREATININE (test code=CREAT) 1.00 mg/dL 0.55-1.02 Note change in reference range due to change in reagent. BUN/CREATININE RATIO (test code=BUN/CREA) 17.9 10-20 CALCIUM (test code=CA) 8.6 mg/dL 8.5-10.1 [id number] 22:16:00* Test Item Value Reference Range Comments MAGNESIUM (test code=MAG) 1.8 mg/dL 1.8-2.4 BASIC METABOLIC [id number] 22:12:00* Test Item Value Reference Range Comments SODIUM (test code=NA) 138 mmol/L 136-145 POTASSIUM (test code=K) 3.5 mmol/L 3.5-5.1 CHLORIDE (test code=CL) 104.0 mmol/L 98-107 CARBON DIOXIDE (test code=CO2) mmol/L 21-32 ANION GAP (test code=GAP) 10-20 GLUCOSE (test code=GLU) mg/dL 74-106 BLOOD UREA NITROGEN (test code=BUN) mg/dL 7-18 GLOMERULAR FILTRATION RATE (test code=GFR) mL/min >=60 CREATININE (test code=CREAT) mg/dL 0.55-1.02 BUN/CREATININE RATIO (test code=BUN/CREA) 10-20 CALCIUM (test code=CA) mg/dL 8.5-10.1 [id number] 22:12:00* Test Item Value Reference Range Comments MAGNESIUM (test code=MAG) mg/dL 1.8-2.4 PROTHROMBIN [id number] 19:49:00* Test Item Value Reference Range Comments PROTHROMBIN TIME PATIENT (test code=PTP) 165.9 seconds 9.0-14.0 INTERNATIONAL NORMAL RATIO (test code=INR) 14.2 0.8-1.2 Results called to [id number] by PARKIN 05/16/191947Critical results verified and read back by Nurse? YThe therapeutic range for oral anticoagulant therapy formost indications is an international normalized ratio (INR)of between 2.0 and 3.0. The recommended therapeutic INRrange for various clinical situations is listed below: Clinical Situation INR range Pulmonary embolism treatment (2.0-3.0)Venous thrombosis treatmentVenous thrombosis prophylaxis (high risk surgery)Prevention of systemic embolism from: Acute myocardial infarction Valvular heart disease Atrial fibrillation Mechanical prosthetic heart valves (2.5-3.5) IS PATIENT ON ANTICOAGULANTS? [id number] 19:36:00* Test Item Value Reference Range Comments TROPONIN-I (test code=TROPI) 0.043 ng/mL 0-0.045 COMMENTS TO REAL ESTATE ADMINISTRATOR: COLLECT 3 HOURS AFTER PREVIOUS SAMPLELACTIC [id number] 17:41:00* Test Item Value Reference Range Comments LACTIC ACID (test code=LACT) 2.9 mmol/L 0.4-1.9 Results called to [id number] by V.LAB.LT 05/16/19 1741Critical results verified and read back by Nurse? Y BASIC METABOLIC [id number] 17:04:00* Test Item Value Reference Range Comments SODIUM (test code=NA) 140 mmol/L 136-145 RESULT VERIFIED BY REPEAT ANALYSIS POTASSIUM (test code=K) 4.0 mmol/L 3.5-5.1 CHLORIDE (test code=CL) 105.0 mmol/L 98-107 CARBON DIOXIDE (test code=CO2) 25.0 mmol/L 21-32 ANION GAP (test code=GAP) 14.0 10-20 GLUCOSE (test code=GLU) 211 mg/dL 74-106 BLOOD UREA NITROGEN (test code=BUN) 18 mg/dL 7-18 GLOMERULAR FILTRATION RATE (test code=GFR) 47 mL/min >=60 Estimated GFR by using Modified MDRD formula.Chronic kidney disease is defined as either kidney damageor GFR <60 mL/min/1.73 m2 for >3 months. CREATININE (test code=CREAT) 1.10 mg/dL 0.55-1.02 Note change in reference range due to change in reagent. BUN/CREATININE RATIO (test code=BUN/CREA) 16.7 10-20 CALCIUM (test code=CA) 8.6 mg/dL 8.5-10.1 [id number] 17:04:00* Test Item Value Reference Range Comments MAGNESIUM (test code=MAG) 1.4 mg/dL 1.8-2.4 URINALYSIS [id number] 16:55:00* Test Item Value Reference Range Comments UA COLOR (test code=COLU) YELLOW YELLOW UA APPEARANCE (test code=APPU) Cloudy CLEAR UA GLUCOSE DIPSTICK (test code=DGLUU) NEGATIVE mg/dL NEGATIVE UA BILIRUBIN DIPSTICK (test code=BILU) NEGATIVE mg/dL NEGATIVE UA KETONE DIPSTICK (test code=KETU) 10 (1+) mg/dL NEGATIVE UA SPECIFIC GRAVITY (test code=SGU) 1.023 1.001-1.035 UA BLOOD DIPSTICK (test code=ADRY) 1.0 mg/dL (3+) mg/dL NEGATIVE UA PH DIPSTICK (test code=MALCOM) 5.5 5.0-8.0 UA PROTEIN DIPSTICK (test code=PROU) 50 (1+) mg/dL NEGATIVE UA UROBILINIOGEN DIPSTICK (test code=URO) Normal mg/dL NEGATIVE UA NITRITE DIPSTICK (test code=LORENA) NEGATIVE NEGATIVE UA LEUKOCYTE ESTERASE W REFLEX (test code=LEUUR) NEGATIVE Lisa/uL NEGATIVE UA WBC (test code=WBCU) 6-10 per HPF 0-5 UA RBC (test code=RBCU) 21-50 #/HPF 0-5 UA EPITHELIAL CELLS (test code=EPIU) FEW per HPF FEW UA BACTERIA (test code=BACU) MODERATE #/HPF NONE UA HYALINE CAST (test code=HYALU) 11-20 #/LPF 0-5 UA MUCUS (test code=MUCU) MODERATE #/LPF FEW Urine Source? Clean CatchPOC LACTIC [id number] 16:28:00* Test Item Value Reference Range Comments POC LACTIC ACID (test code=POCLAC) 4.03 MMOL/L 0.4-2.2 - CT ABD PELVIS W/O [id number] 14:00:00 Name: ARNALDO MARSHALL [facility] : 1935 Age/S: 84 / F [address] [facility] Unit #: [id number] Loc: [place] [address] Phys: Amadou Novak MD Acct: [id number] Dis Date: Status: REG ER PHONE #: [phone] Exam Date: 05/16/2019 1301 FAX #: [phone] Reason: diarrhea, abdominal pain EXAMS: CPT CODE: [id number] CT ABD PELVIS W/O CONT 10304 REASON FOR EXAM: diarrhea, abdominal pain EXAM ORDER DATE: 05/16/2019 10:54 AM Ordering M.D.: Amadou Novak MD PROCEDURE: - CT ABD PELVIS W/O CONT noncontrast axial CT images were acquired through the abdomen/pelvis at 5 mm intervals. Sagittal and coronal reformatted images were generated. Automated exposure control was utilized for this reduction. Phases of contrast: None COMPARISON: None FINDINGS: The absence of IV contrast limits sensitivity of this exam for the detection of soft tissue pathology Visualized thorax: Mild subsegmental atelectasis is present in the lung bases. Atherosclerotic disease is seen in the coronary arteries Hepatobiliary system: Gr ossly normal Pancreas: Grossly normal Spleen: Grossl y normal Adrenal glands: Grossly normal Genitourinar y system: Grossly normal Gastrointestinal tract and appendix: Rach sly normal Abdominal vascular structures: Extensive atheroscleroti c disease is present in the abdominal aorta. Atherosclerotic disease is al so present in the splenic artery Peritoneum and retroperiton eum: No free fluid or free air. No omental or mesenteric masses. No abno rmal lymph nodes. Musculoskeletal structures and abdominal wall: T here is anterior wedging of the T11 vertebral body. There are degenerative changes in the hips and pubic symphysis. PAGE 1 Signed Report (CONTINUED) Name: ARNALDO MARSHALL [facility] : 1935 Age/S: 84 / F [address] [facility] Unit #: [id number] Loc: [place] [address] Phys: Amadou Novak MD Acct: [id number] Dis Date: Status: REG ER PHONE #: [phone] Exam Date: 2018 1301 FAX #: [phone] Reason: diarrhea, abdomi nal pain EXAMS: CPT CODE: [id number] CT ABD PELVIS W/O CONT 741 76 <Continued> IMPRESSION: No acute intra-abdominal process. Specifically no abnormalities of the gastrointestinal tract. Anterior wedging of the T11 vertebral body likely represents a chronic compression fracture. Location: [facility] at 1400 Reported and signed by: Bautista Negrete MD CC: Mathew Martinez MD; Amadou Novak MD Technologist:Kashif Porter RT(R),(MR),(CT) CTDI: DLP: Trnscb Date/Time: 05/16/2019 (1400) [id number] Orig Print D/T: S: 05/16/2019 (1260) PAGE 2 Signed Report - CT HEAD/BRAIN W/O [id number] 12:49:00 Name: ARNALDO MARSHALL [facility] : 1935 Age/S: 84 / F [address] Unit #: [id number] Loc: [place] [address] Phys: Lakisha Novak MD Acct: [id number] Di s Date: Status: REG ER PHONE #: Exam Date: 05/16/2019 1202 FAX #: Reason: seizure EXAMS: CPT CODE: [id number] CT HEAD/BRAIN W/O CONT 56822 HISTORY: seizure TECHNIQUE: Noncontrast 2.[address] of the head. Examination acq uired within 24 hours of arrival. Automated exposure control for dose redu ction. COMPARISON: CT angiogram of the head and neck September [address] scan of the brain September 07, 2017 FINDINGS: No lacerations or contusions of the scalp or facial soft tissues. C alvarium and skull base are intact. No acute hemorrhage. No intrac ranial mass, mass effect, or midline shift. 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 There is diffuse cortical atrop hy. Microvascular ischemic changes are present in the periventricular whit e matter in the left cerebral hemisphere, similar to the previous study. Visualized paranasal sinuses are clear. Mastoid air cells and middle ear cavities are clear. Orbital contents are unremarkable. IMPRESSION: No acute intracranial process and no change from prior CT scan of the brain September 07, 2017. Location: [facility] Electronically Signed by Bautista Negrete MD on at 1249 Reported and signed by: Bautista Negrete MD CC: Mathew Martinez MD; Amadou Novak MD Technologist:Kashif Trujillo RT(R),(MR),(CT); CTDI: DLP: Trnscb Date/Time: 9 (1249) [email or web address] Orig Print D/T: S: 05/16/2019 (2659) PAGE 1 Signed Report BASIC METABOLIC [id number] 12:36:00* Test Item Value Reference Range Comments SODIUM (test code=NA) 159 mmol/L 136-145 Results called to [id number] by V.LAB.QD 05/16/19 1236Critical results verified and read back by Nurse? YES POTASSIUM (test code=K) 4.0 mmol/L 3.5-5.1 CHLORIDE (test code=CL) 114.0 mmol/L 98-107 CARBON DIOXIDE (test code=CO2) 16.0 mmol/L 21-32 ANION GAP (test code=GAP) 33.0 10-20 GLUCOSE (test code=GLU) 164 mg/dL 74-106 BLOOD UREA NITROGEN (test code=BUN) 18 mg/dL 7-18 GLOMERULAR FILTRATION RATE (test code=GFR) 36 mL/min >=60 Estimated GFR by using Modified MDRD formula.Chronic kidney disease is defined as either kidney damageor GFR <60 mL/min/1.73 m2 for >3 months. CREATININE (test code=CREAT) 1.40 mg/dL 0.55-1.02 Note change in reference range due to change in reagent. BUN/CREATININE RATIO (test code=BUN/CREA) 13.0 10-20 CALCIUM (test code=CA) 9.4 mg/dL 8.5-10.1 HEPATIC FUNCTION [id number] 12:36:00* Test Item Value Reference Range Comments TOTAL PROTEIN (test code=PROT) 7.6 gram/dL 6.4-8.2 ALBUMIN (test code=ALB) 3.4 g/dL 3.4-5.0 GLOBULIN (test code=GLOB) 4.2 gram/dL 2.7-4.2 ALBUMIN/GLOBULIN RATIO (test code=A/G) 0.8 0.75-1.50 BILIRUBIN TOTAL (test code=BILT) 1.10 mg/dL 0.0-1.0 BILIRUBIN DIRECT (test code=BILD) 0.57 mg/dL 0.0-0.20 SGOT/AST (test code=AST) 333 IUnit/L 15-37 SGPT/ALT (test code=ALT) 189 IUnit/L 12-78 ALKALINE PHOSPHATASE TOTAL (test code=ALKP) 174 IUnit/L 45-117 Note change in reference range due to change in reagent. [id number] 12:36:00* Test Item Value Reference Range Comments LIPASE (test code=LIP) 50 U/L 73.0-393.0 [id number] 12:36:00* Test Item Value Reference Range Comments TROPONIN-I (test code=TROPI) <0.015 ng/mL 0-0.045 LACTIC [id number] 12:35:00* Test Item Value Reference Range Comments LACTIC ACID (test code=LACT) 17.1 mmol/L 0.4-1.9 Results called to [id number] by V.LAB.ALYCIA 05/16/19 1235Critical results verified and read back by Nurse? YES [id number] 12:31:00* Test Item Value Reference Range Comments MAGNESIUM (test code=MAG) 1.4 mg/dL 1.8-2.4 TSH REFLEX TO [id number] 12:31:00* Test Item Value Reference Range Comments TSH REFLEX TO FT4 (test code=TSHREFLEX) 4.4 0.4-5.5 PROCALCITONIN (PCT)2019-05-16 12:31:00* Test Item Value Reference Range Comments PROCALCITONIN (PCT) (test code=PROCAL) 0.27 ng/ml Concentration Interpretation (ng/mL) <0.51 Sepsis is not likely. Local bacterial infection is possible. (LOW RISK for progression to Sepsis) 0.51 - 2.00 Sepsis is possible, but other conditions are known to elevate PCT as well. (MODERATE RISK for progression to Sepsis) > 2.00 Sepsis is likely, unless other causes are known. (HIGH RISK for progression to Severe Sepsis or Septic Shock) 10.00 High likelihood of Severe Sepsis or Septic or higher Shock. *Increased PCT levels may not always be related to systemic bacterial infection.*Low PCT levels do not automatically exclude the presence of bacterial infection.*All results should be interpreted taking into account the patients history. PROTHROMBIN [id number] 12:27:00* Test Item Value Reference Range Comments PROTHROMBIN TIME PATIENT (test code=PTP) 113.6 seconds 9.0-14.0 INTERNATIONAL NORMAL RATIO (test code=INR) 9.7 0.8-1.2 Results called to [id number] by CRYSTAL 05/16/19 1226Critical results verified and read back by Nurse? YThe therapeutic range for oral anticoagulant therapy formost indications is an international normalized ratio (INR)of between 2.0 and 3.0. The recommended therapeutic INRrange for various clinical situations is listed below: Clinical Situation INR range Pulmonary embolism treatment (2.0-3.0)Venous thrombosis treatmentVenous thrombosis prophylaxis (high risk surgery)Prevention of systemic embolism from: Acute myocardial infarction Valvular heart disease Atrial fibrillation Mechanical prosthetic heart valves (2.5-3.5) IS PATIENT ON ANTICOAGULANTS? NTHROMBOPLASTIN TIME [id number] 12:27:00* Test Item Value Reference Range Comments THROMBOPLASTIN TIME PARTIAL (test code=PTT) 31.2 seconds 25.0-36.5 IS PATIENT ON ANTICOAGULANTS? [id number] 12:22:00* Test Item Value Reference Range Comments MAGNESIUM (test code=MAG) 1.4 mg/dL 1.8-2.4 TSH REFLEX TO [id number] 12:22:00* Test Item Value Reference Range Comments TSH REFLEX TO FT4 (test code=TSHREFLEX) 0.4-5.5 CBC W/O [id number] 11:46:00* Test Item Value Reference Range Comments WHITE BLOOD CELL (test code=WBC) K/mm3 4.5-12.5 RED BLOOD CELL (test code=RBC) mill/mm3 3.7-5.2 HEMOGLOBIN (test code=HGB) 15.1 gram/dL 11.5-15.5 HEMATOCRIT (test code=HCT) 45.4 % 36.0-46.0 MEAN CELL VOLUME (test code=MCV) fL 80-98 MEAN CELL HGB (test code=MCH) picogram 27.0-33.0 MEAN CELL HGB CONCETRATION (test code=MCHC) gram/dL 33.0-36.0 RED CELL DISTRIBUTION WIDTH (test code=RDW) % 11.6-16.2 PLATELET COUNT (test code=PLT) K/mm3 150-450 MEAN PLATELET VOLUME (test code=MPV) fL 6.7-11.0 CBC W/O [id number] 11:46:00* Test Item Value Reference Range Comments WHITE BLOOD CELL (test code=WBC) 16.2 K/mm3 4.5-12.5 RED BLOOD CELL (test code=RBC) 4.45 mill/mm3 3.7-5.2 HEMOGLOBIN (test code=HGB) 15.1 gram/dL 11.5-15.5 HEMATOCRIT (test code=HCT) 45.4 % 36.0-46.0 MEAN CELL VOLUME (test code=MCV) 102.0 fL 80-98 MEAN CELL HGB (test code=MCH) 33.9 picogram 27.0-33.0 MEAN CELL HGB CONCETRATION (test code=MCHC) 33.3 gram/dL 33.0-36.0 RED CELL DISTRIBUTION WIDTH (test code=RDW) 12.9 % 11.6-16.2 PLATELET COUNT (test code=PLT) 157 K/mm3 150-450 MEAN PLATELET VOLUME (test code=MPV) 10.5 fL 6.7-11.0
== END 2019-06-11 19:06 | DRG 100 ==
LOC: ER 18:31 → ERHOLD 21:28 → MED/SURG2 22:41
PROVIDERS: ADMIT Internal Medicine; ATTEND Internal Medicine
DX: R56.9 Unspecified convulsions (principal); G93.41 Metabolic encephalopathy; E43 Unspecified severe protein-calorie malnutrition; N39.0 Urinary tract infection, site not specified; I69.154 Hemiplegia and hemiparesis following nontraumatic intracerebral hemorrhage affecting left non-dominant side; I48.20 Chronic atrial fibrillation, unspecified; A04.71 Enterocolitis due to Clostridium difficile, recurrent; E03.9 Hypothyroidism, unspecified; E78.00 Pure hypercholesterolemia, unspecified; Z74.01 Bed confinement status; G93.89 Other specified disorders of brain; Z88.0 Allergy status to penicillin; F03.90 Unspecified dementia, unspecified severity, without behavioral disturbance, psychotic disturbance, mood disturbance, and anxiety
CPT/HCPCS: 36415; 70450; 71045; 80048; 80053; 81001; 82550; 82553; 82948; 83605; 83735; 83880; 84484; 85025; 93005; 93306; 96374; 97139; 99284; J1940; J2405; J7030; J7050

== ENCOUNTER 2020-03-01 11:58 | Inpatient (IN) | payer MEDICARE ==
[~2020-03-01] VITALS: Ht 149.9 cm; Wt 51.3 kg
[2020-03-01] VITALS (7 sets, daily range): BP systolic 101–128; BP diastolic 48–83
[~2020-03-01 11:58] MED LIST: ACETAMINOPHEN325 M1 PO; ACIDOPHILUS1 EAC1 PO; ASPIRIN EC81 MG PO; ATORVASTATIN CA10 MG PO; LACTULOSE20 GM/30 M PO; LEVOTHYROXINE75 MCG PO; MEGESTROL400 MG/10 PO; METOPROLOL TART25 MG PO; NIACIN500 M2 PO; VANCOMYCIN SOLUTION PO; XARELTO10 MG PO; ZOFRAN4 MG PO
[2020-03-01] MEDS ORDERED: VANCOMYCIN 1GM/NS 250 ML 250 ML IV ONE (12:08)
[2020-03-01] MEDS ORDERED: SODIUM CHLORIDE 0.9% 1000ML 1,000 ML IV STA ×2 (12:15→13:03)
--- NOTE | 2020-03-01 12:20 | Emergency Department Note ---
History of Present Illnes History of Present Illness Chief Complaint: Abdominal Complaints History of Present Illness This is a 84 year old female arrived to the ED AMS- covered in diarrhea unable to provide history. Pt is coming from home accompanied by EMS. Chief Complaint Comment Patient in from home via EMS with reports of altered mental status and lethargy since this morning. Patient's home health nurse noted that the patient was not as alert as normal and stated that the patient has had diarrhea since Sunday. Patient is tachycardic (A-Fib w/RVR) in triage but afebrile. Historian: Patient History limited by: condition of the patient [facility] Required: No Severity: moderate Onset quality: sudden Duration (how long): day(s) Progression: worsening Chronicity: new Relieving factors: none Past Medical/Family History Physician Review I have reviewed the patient's past medical and family history. Any updates have been documented here. Past Medical History Past Medical History: Diabetes, CVA, A-Fib, Seizure Disorder Other Medical History: ENTERCOLITIS V-FIB C-DIFF Other Surgery: UNABLE TO OBTAIN SURGICAL HISTORY. Review of Systems ROS Narrative Unable to obtain ROS: Unable to obtain due to, altered mental status Review of Systems Gastrointestinal: Reports as per HPI Physical Exam Related Data Allergies: Coded Allergies: Penicillins (Verified Allergy, Unknown, 06/07/19) Vital signs reviewed: Yes Physical Exam CONSTITUTIONAL Constitutional: Present cachectic HENT HENT: Present normocephalic, Present atraumatic, Present oropharynx clear/moist, Present nose normal HENT L/R: Present left ext ear normal, Present right ext ear normal EYES Eyes: Reports PERRL, Reports conjunctivae normal NECK Neck: Present ROM normal PULMONARY Pulmonary: Present effort normal, Present breath sounds normal CARDIOVASCULAR Cardiovascular: Present regular rhythm, Present heart sounds normal, Present capillary refill normal, Present normal rate GASTROINTESTINAL Abdominal: Present soft, Present nontender, Present bowel sounds normal GENITOURINARY Genitourinary: Present exam deferred SKIN Skin: Present warm, Present dry MUSCULOSKELETAL Musculoskeletal: Present ROM normal NEUROLOGICAL Neurological: Present alert PSYCHOLOGICAL Psychological: Present mood/affect normal, Present judgement normal Results Laboratory Lab results reviewed: Yes Critical Care Time Total Critical Care Time (min): 75 Critical care time exclusive o: separately billable procedures Critcal care necessary due to: circulatory failure Assessment & Plan Medical Decision Making MDM 84-year-old female arrives the ED unable to 5 medical history, found to be covered and diarrhea. Patient's presentation concerning for possible C. difficile infection. Patient covered with empiric antibiotics, blood cultures lactic acid obtained. There is also suspicion of Covid 19 co-infection. Home Meds Active Scripts Metronidazole (FLAGYL) 500 Mg Tablet, 500 MG PO TID for 14 Days Prov:LITO FERRARI MD 03/09/20 Vancomycin Hcl (VANCOCIN HCL) 250 Mg Capsule, 250 MG PO Q6HR for 14 Days Prov:LITO FERRARI MD 03/09/20 Cholestyramine (CHOLESTYRAMINE LIGHT PACKET) 4 Gm Pack, 4 GM PO Q6H for 14 Days Prov:LITO FERRARI MD 03/09/20 Reported Medications Ondansetron Hcl* (ZOFRAN*) 4 Mg Tablet, 4 MG PO Q8H PRN for NAUSEA 06/08/19 Acetaminophen (ACETAMINOPHEN) 325 Mg Tablet, 650 MG PO Q6H PRN for MODERATE PAIN (4-6) for 5 Days, TAB 06/08/19 Niacin (NIACIN) 500 Mg Tabsr, 1000 MG PO DAILY, #30 TAB 06/08/19 Levothyroxine Sodium (LEVOTHYROXINE SODIUM) 75 Mcg Tablet, 75 MCG PO DAILY, #30 TAB 06/08/19 Lactulose (LACTULOSE) 20 Gm/30 Ml Solution, 30 ML PO DAILY PRN for CONSTIPATION, EACH 06/08/19 Lactobacillus Acidophilus (ACIDOPHILUS) 1 Each Tab.chew, 1 EA PO BID 06/08/19 Atorvastatin Calcium (ATORVASTATIN CALCIUM) 10 Mg Tablet, 10 MG PO 2100, #30 TAB 06/08/19 Aspirin (ASPIRIN EC) 81 Mg Tablet.dr, 81 MG PO DAILY, #30 TAB 06/08/19 Discontinued Reported Medications [Vancomycin Solution] No Conflict Check, 250 MG PO Q6H GIVE 250MG/10ML BY MOUTH EVERY 6 HOURS FOR C-DIFF UNTIL 06/09/2019 23:59 06/08/19 GERA FLEMING DO Mar 01, 2020 12:21
--- OUTSIDE RECORDS SUMMARY | 2020-03-01 12:33 | XMS REPORT | Continuity of Care Document ---
Author Author [facility] t Organization [facility] Address [address] [place] [address] Phone Unavailable Care Team Providers Care Revenue Manager Name Role Phone REY, (NON STAFF) MANUEL PCP GAGAN PATHAK Attphys Unavailable ANTOINETTE LOPEZ Admphys Unavailable Payers Payer Name Policy Type Policy Number Effective Date Expiration Date S ource Problems This patient has no known problems. Allergies, Adverse Reactions, Alerts Allergy Name Allergy Type Status Severity Reaction(s) Onset Date Inacti ve Date Treating Clinician Comments Source Penicillin Allergy to Substance Active 2019-06-07 00:00:00 [facility] Penicillins DA Active [place] 2019-05-16 00:00:00 [facility] Penicillins DA Active MT 2017-09-07 00:00:00 [facility] Medications Ordered Medication Name Filled Medication Name Start Date Stop Da te Current Medication? Ordering Clinician Indication Dosage Frequency Signature (SIG) Comments Components Source Acetaminophen 325 Mg Tablet Acetaminophen 325 Mg Tablet Yes 650 Every 6 Hours as needed for Moderate Pain (4-6) [facility] Aspirin (Aspirin Ec) 81 Mg Tablet. Aspirin (Aspirin Ec) 81 Mg Tab let. Yes 81 Daily [facility] Atorvastatin Calcium 10 Mg Tablet Atorvastatin Calcium 10 Mg Tablet Yes 10 Today At 9:00PM [facility] Lactobacillus Acidophilus (Acidophilus) 1 Each Tab.saul w Lactobacillus Acidophilus (Acidophilus) 1 Each Tab.chew Yes 1 Twice A Day [facility] Lactulose 20 Gm/30 Ml Solution Lactulose 20 Gm/30 Ml Solution Yes 30 Daily as needed for Constipation [facility] Levothyroxine Sodium 75 Mcg Tablet Levothyroxine Sodium 75 Mcg Tablet Yes 75 Daily [facility] Niacin 500 Mg Tabsr Niacin 500 Mg Tabsr Yes 1000 Daily [facility] Ondansetron Hcl (Zofran*) 4 Mg Tablet Ondansetron Hcl (Zofran*) 4 M g Tablet Yes 4 Every 8 Hours as needed for Nausea [facility] Vancomycin Solution Vancomycin Solution Yes 250 Every 6 Hours [facility] Megestrol Acetate 400 Mg/10 Ml Oral.susp, 400 Mg Oral Megestrol Acetate 400 Mg/10 Ml Oral.susp, 400 Mg Oral 2019-06-11 00:00:00 No 400 Daily [facility] Metoprolol Tartrate 25 Mg Tablet, 25 Mg Oral Metoprolo l Tartrate 25 Mg Tablet, 25 Mg Oral 2019-06-11 00:00:00 No 25 Every 8 Hours [facility] Rivaroxaban (Xarelto) 10 Mg Tablet, 10 Mg Oral Rivarox aban (Xarelto) 10 Mg Tablet, 10 Mg Oral 2019-06-11 00:00:00 No 10 Daily [facility] Procedures Procedure Date / Time Performed Performing Clinician [facility] e Computed tomography of brain without radiopaque contrast 201 03-06-14 00:00:00 GAGAN PATHAK [facility] Encounters Start Date/Time End Date/Time Encounter Type [facility] Encounter ID Source 2019-06-07 21:28:00 2019-06-11 19:06:00 Discharged Inpatient 1 GAGAN PATHAK [facility] [id number] [facility] Results Test Description Test Time Test Comments Results Result Comments Source Bedside Glucose 2019-06-11 16:17:00 Test Item Bedside Glucose (test code = 91405-7) 111 70-120 Meter ID: [id number] [facility] 2019-06-11 06:13:00* Test Item Value Reference Range Interpretation Comments Sodium Level (test code = 2951-2) 136 136-145 [facility] [id number] 06:13:00* Test Item Value Reference Range Interpretation Comments Potassium Level (test code = 2823-3) 3.9 3.5-5.1 [facility]loride Fbnjx1278-93-16 06:13:00* Test Item Value Reference Range Interpretation Comments Chloride Level (test code = 2075-0) 104 98-107 [facility] Central[facility]bon Dioxide Dodmr8928-99-25 06:13:00* Test Item Value Reference Range Interpretation Comments Carbon Dioxide Level (test code = 2028-9) 22 22-29 [facility] CentralAnion [id number] 06:13:00* Test Item Value Reference Range Interpretation Comments Anion Gap (test code = 12843-3) 13.9 8-16 [facility] Central[facility] Urea Guqueazz2512-30-91 06:13:00* Test Item Value Reference Range Interpretation Comments Blood Urea Nitrogen (test code = 3094-0) 12 7-26 [facility] CentralCreatinine2019-12-18 06:13:00* Test Item Value Reference Range Interpretation Comments Creatinine (test code = 2160-0) 0.70 0.57-1.11 [facility]UN/Creatinine Jkrjx6648-43-79 06:13:00* Test Item Value Reference Range Interpretation Comments BUN/Creatinine Ratio (test code = 3097-3) 17 6-25 [facility] CentralEstimat Glomerular Filtration Rate 2019-06-11 06:13:00* Test Item Value Reference Range Interpretation Comments Estimat Glomerular Filtration Rate (test code = 908513168) > 60 >60 Ranges were taken from the National Kidney Disease Education Program and the [facility] literature.Reference ranges:60 or greater: Tjnevn81-19 ( for 3 consecutive months): Chronic kidney disease 15 or less: Kidney failureMid[facility] – CentralGlucose Mqevl5151-52-38 06:13:00* Test Item Value Reference Range Interpretation Comments Glucose Level (test code = BCY4992) 126 74-118 H [facility] CentralCalcium Opkhl4062-65-89 06:13:00* Test Item Value Reference Range Interpretation Comments Calcium Level (test code = 68701-8) 9.0 8.4-10.2 [facility] CentralWhite Blood Zsild9439-36-70 05:53:00* Test Item Value Reference Range Interpretation Comments White Blood Count (test code = 6690-2) 8.18 4.8-10.8 [facility] CentralRed Blood Kqsgu9106-53-99 05:53:00* Test Item Value Reference Range Interpretation Comments Red Blood Count (test code = 789-8) 3.71 3.6-5.1 [facility] CentralHemoglobin2019-12-18 05:53:00* Test Item Value Reference Range Interpretation Comments Hemoglobin (test code = 66538-8) 12.8 12.0-16.0 [facility] CentralHematocrit2019-12-18 05:53:00* Test Item Value Reference Range Interpretation Comments Hematocrit (test code = 4544-3) 39.4 34.2-44.1 [facility] CentralMean Corpuscular Kcpfzy0119-23-27 05:53:00* Test Item Value Reference Range Interpretation Comments Mean Corpuscular Volume (test code = 787-2) 106.2 81-99 H [facility] CentralMean Corpuscular Uttvprkpzk9706-43-54 05:53:00* Test Item Value Reference Range Interpretation Comments Mean Corpuscular Hemoglobin (test code = 785-6) 34.5 28-32 H [facility] CentralMean Corpuscular Hemoglobin Concent 2019-06-11 05:53:00* Test Item Value Reference Range Interpretation Comments Mean Corpuscular Hemoglobin Concent (test code = 786-4) 32.5 31-35 [facility] CentralRed Cell Distribution Iirnt2164-85-43 05:53:00* Test Item Value Reference Range Interpretation Comments Red Cell Distribution Width (test code = 26451-9) 15.2 11.7 -14.4 H [facility] CentralPlatelet Ibspd3645-91-94 05:53:00* Test Item Value Reference Range Interpretation Comments Platelet Count (test code = 777-3) 402 140-360 H [facility] CentralNeutrophils (%) (Auto)2019-06-11 05:53:00 * Test Item Value Reference Range Interpretation Comments Neutrophils (%) (Auto) (test code = 23126-6) 52.1 38.7-80.0 [facility] CentralLymphocytes (%) (Auto)2019-06-11 05:53:00 * Test Item Value Reference Range Interpretation Comments Lymphocytes (%) (Auto) (test code = 736-9) 33.0 18.0-39.1 [facility] CentralMonocytes (%) (Auto)2019-06-11 05:53:00* Test Item Value Reference Range Interpretation Comments Monocytes (%) (Auto) (test code = 5905-5) 8.1 4.4-11.3 [facility] Central[facility]osinophils (%) (Auto)2019-06-11 05:53:00 * Test Item Value Reference Range Interpretation Comments Eosinophils (%) (Auto) (test code = 713-8) 1.3 0.0-6.0 [facility] Central[facility]ophils (%) (Auto)2019-06-11 05:53:00* Test Item Value Reference Range Interpretation Comments Basophils (%) (Auto) (test code = 706-2) 1.2 0.0-1.0 H [facility] CentralIM GRANULOCYTES %2019-06-11 05:53:00* Test Item Value Reference Range Interpretation Comments IM GRANULOCYTES % (test code = IM GRANULOCYTES %) 4.3 0.0- 1.0 H [facility] CentralNeutrophils # (Auto)2019-06-11 05:53:00* Test Item Value Reference Range Interpretation Comments Neutrophils # (Auto) (test code = 751-8) 4.3 2.1-6.9 [facility] CentralLymphocytes # (Auto)2019-06-11 05:53:00* Test Item Value Reference Range Interpretation Comments Lymphocytes # (Auto) (test code = 03224-6) 2.7 1.0-3.2 [facility] CentralMonocytes # (Auto)2019-06-11 05:53:00* Test Item Value Reference Range Interpretation Comments Monocytes # (Auto) (test code = 742-7) 0.7 0.2-0.8 [facility] Central[facility]osinophils # (Auto)2019-06-11 05:53:00* Test Item Value Reference Range Interpretation Comments Eosinophils # (Auto) (test code = 711-2) 0.1 0.0-0.4 [facility] Central[facility]ophils # (Auto)2019-06-11 05:53:00* Test Item Value Reference Range Interpretation Comments Basophils # (Auto) (test code = 704-7) 0.1 0.0-0.1 [facility] CentralAbsolute Immature Granulocyte (auto 2019-06-11 05:53:00* Test Item Value Reference Range Interpretation Comments Absolute Immature Granulocyte (auto (henri t code = Absolute Immature Granulocyte (auto) 0.35 0-0.1 H [facility] CentralMagnesium Ogjyu2622-76-74 08:57:00* Test Item Value Reference Range Interpretation Comments Magnesium Level (test code = 70571-3) 1.5 1.3-2.1 [facility] CentralCreatine Lvrrcj6433-00-51 13:54:00* Test Item Value Reference Range Interpretation Comments Creatine Kinase (test code = 2157-6) 35 29-168 [facility] CentralCreatine Kinase [id number] 13:54:00* Test Item Value Reference Range Interpretation Comments Creatine Kinase MB (test code = 12159-8) 2.70 0-5.0 [facility] CentralTroponin Z2439-06-85 13:54:00* Test Item Value Reference Range Interpretation Comments Troponin I (test code = KUQ0990) 0.024 0-0.300 [facility] CentralUrine Vfiwa7903-61-36 01:18:00* Test Item Value Reference Range Interpretation Comments Urine Color (test code = 5778-6) YELLOW YELLOW [facility] CentralUrine Sdmyvcb3962-02-61 01:18:00* Test Item Value Reference Range Interpretation Comments Urine Clarity (test code = 05138-0) CLOUDY CLEAR H [facility] CentralUrine Specific Gmffguw6820-45-78 01:18:00 * Test Item Value Reference Range Interpretation Comments Urine Specific [place] (test code = 5811-5) 1.015 1.010-1.02 5 [facility] CentralUrine nY7723-51-74 01:18:00* Test Item Value Reference Range Interpretation Comments Urine pH (test code = 69952-5) 6.5 5-7 [facility] Leukocyte Bbkqqnun8943-86-49 01:18:00* Test Item Value Reference Range Interpretation Comments Urine Leukocyte Esterase (test code = 5799-2) MODERATE NEGATIVE [facility] Taratdy1314-25-89 01:18:00* Test Item Value Reference Range Interpretation Comments Urine Nitrite (test code = 06170-4) POSITIVE NEGATIVE [facility] Orjurtl8348-82-37 01:18:00* Test Item Value Reference Range Interpretation Comments Urine Protein (test code = 5804-0) TRACE NEGATIVE H [facility] Glucose (UA)2019-06-08 01:18:00* Test Item Value Reference Range Interpretation Comments Urine Glucose (UA) (test code = 2349-9) NEGATIVE NEGATIVE [facility] Tvbvnhj8575-55-16 01:18:00* Test Item Value Reference Range Interpretation Comments Urine Ketones (test code = 81832-3) NEGATIVE NEGATIVE [facility] Dqjoxaoagqbm7644-82-76 01:18:00* Test Item Value Reference Range Interpretation Comments Urine Urobilinogen (test code = 57143-0) 0.2 0.2-1 [facility] CentralUrine Vwlboavbm5426-13-85 01:18:00* Test Item Value Reference Range Interpretation Comments Urine Bilirubin (test code = 1978-6) NEGATIVE NEGATIVE [facility] Vgxyi8083-09-94 01:18:00* Test Item Value Reference Range Interpretation Comments Urine Blood (test code = 39724-1) 3+ NEGATIVE [facility] CentralU[facility] RNJ3349-97-77 01:18:00* Test Item Value Reference Range Interpretation Comments Urine WBC (test code = 5821-4) >50 0-5 H [facility] CentralUrine RGL9056-20-25 01:18:00* Test Item Value Reference Range Interpretation Comments Urine RBC (test code = 42643-7) >50 0-5 H [facility] CentralUrine Nnjobhyi6249-86-36 01:18:00* Test Item Value Reference Range Interpretation Comments Urine Bacteria (test code = 16790-3) MANY NONE H [facility] CentralU[facility] Epithelial Yfcvj8025-47-69 01:18:00 * Test Item Value Reference Range Interpretation Comments Urine Epithelial Cells (test code = 76948-3) MODERATE NONE [facility] CentralB-Type Natriuretic Sjemwhq3480-09-19 21:31:00* Test Item Value Reference Range Interpretation Comments B-Type Natriuretic Peptide (test code = 73349-9) 479.7 0-100 H [facility] CentralCHEST SINGLE (PORTABLE)2019-06-07 21:05:00 [facility] [address] [place] [address] Patient Name: ARNALDO MARSHALL MR #: [id number] : 1935 Age/Sex: 84/F Req #: [id number] Adm Physician: Ordered by: GAGAN PATHAK DO Report #: [id number] Location: ER Room/Bed: Procedure: [id number] DX/C HEST SINGLE (PORTABLE) Exam Date: 06/07/19 Exam Time : 2014 REPORT STATUS: Signed EXA MINATION: CHEST SINGLE (PORTABLE) INDICATION: Altered mental status COMPARISON: None FINDINGS: TUBES and LINES: None. LUNGS/PLEURA: Lungs are well inflated. Bilateral lower lung haziness. He midiaphragms are obscured. HEART AND MEDIASTINUM: Cardiac size is mildly e nlarged. There are atherosclerotic calcifications within the aorta. BONES AND SOFT TISSUES: No acute osseous lesion. Soft tissues are unremarkable. H ealed right rib fracture deformities. Degenerative changes in the spine and sh oulders. UPPER ABDOMEN: No free air under the diaphragm. IMPRESSION: 1. Mild cardiomegaly and pulmonary vascular congestion. 2. Bilateral lower lung haziness and obscured hemidiaphragms could be due to atelectasis, p neumonia, edema and/or pleural effusions. Signed by: Massimo Zeng DO on 06/07/2019 9:08 PM Dictated By: MASSIMO ZENG DO Electronically Eileen d By: MASSIMO ZENG DO on 06/07/192107 Transcribed By: FRANCIS on 06/07/192107 COPY TO: GAGAN PATHAK DO Total Srcjrddzu6901-94-88 20:58:00 * Test Item Value Reference Range Interpretation Comments Total Bilirubin (test code = 1975-2) 0.4 0.2-1.2 [facility] CentralAspartate Amino Transf (AST/SGOT) 2019-06-07 20:58:00* Test Item Value Reference Range Interpretation Comments Aspartate Amino Transf (AST/SGOT) (test code = Aspartate Amino Transf (AST/SGOT)) 43 5-34 H [facility] CentralAlanine Aminotransferase (ALT/SGPT) 2019-06-07 20:58:00* Test Item Value Reference Range Interpretation Comments Alanine Aminotransferase (ALT/SGPT) (test code = 1742-6) 32 0-55 [facility] CentralTotal Fxniivj5494-25-23 20:58:00* Test Item Value Reference Range Interpretation Comments Total Protein (test code = 2885-2) 6.6 6.5-8.1 [facility] CentralAlbumin2019-12-14 20:58:00* Test Item Value Reference Range Interpretation Comments Albumin (test code = 1751-7) 2.1 3.5-5.0 L [facility] CentralGlobulin2019-12-14 20:58:00* Test Item Value Reference Range Interpretation Comments Globulin (test code = 66857-7) 4.5 2.3-3.5 H [facility] CentralAlbumin/Globulin Vpera5628-25-64 20:58:00 * Test Item Value Reference Range Interpretation Comments Albumin/Globulin Ratio (test code = 1759-0) 0.5 0.8-2.0 L [facility] CentralAlkaline Tzoercmvsrs4633-20-36 20:58:00* Test Item Value Reference Range Interpretation Comments Alkaline Phosphatase (test code = 6768-6) 187 40-150 H [facility] CentralCT BRAIN [id number] 20:29:00 [place] [address] Patient Name: ARNALDO MARSHALL MR #: [id number] : 1935 Age/Sex: 84/F Req #: [id number] Adm Physician: Ordered by: GAGAN PATHAK DO Report #: [id number] Location: ER Room/Bed: Procedure: [id number] CT/C T BRAIN WO Exam Date: 06/07/19 Exam Time: 2004 REPORT STATUS: Signed EXAMINATION: He ad CT without contrast. HISTORY:Altered mental status, seizure. C OMPARISON:None. TECHNIQUE: Multidetector axial images were obtained from the f oramen magnum to the vertex without contrast. The images were reconstructed us ing brain and bone algorithms. Thin section brain images were reformatted int o coronal and sagittal planes. Dose modulation, iterative reconstruction, an d/or weight based adjustment of the mA/kV was utilized to reduce the radiation dose to as low as reasonably achievable. Intravenous contrast: None IMAGE QUALITY: Suboptimal evaluation due to motion artifacts. FINDINGS: Skull/scalp: No lytic or blastic. lesions. No surgical changes. Par enchyma: No large area of cortical/subcortical based cavitating hypodensity in volving the right occipital lobe, parietal lobe, posterior aspect of right tem poral lobe, right subinsular region, frontal lobe, centrum semiovale and coron a radiata represents prior vascular insult in right MCA and SYSTEMS ADMINISTRATOR vascular nitin tories. Wallerian degeneration of right lateral aspect of the brainstem. Old lacunar infarct in the superior aspect of right cerebellar hemisphere. Nonspe cific bilateral frontoparietal confluent and patchy white matter hypodensity a re likely related to small vessel ischemic changes. No acute hemorrhage or mas s. No acute major vascular territorial infarct. No acute hemorrhage, mass or a cute major vascular territorial infarct. Arteries: No density suggestive o f thrombosis. Atherosclerotic calcification in bilateral carotid siphon. Dural sinuses: No abnormal density suggestive of thrombosis. Ventricl es: Compensated dilatation due to volume loss. No hydrocephalus. Extra-axi al spaces: No abnormal density. Brain volume: Generalized age-related ce rebral volume loss. Craniocervical junction: No mass, Chiari malformation, or basilar invagination. Sella: No mass. Paranasal/mastoid sinus es: Imaged portions unremarkable. IMPRESSION: 1. Suboptimal evaluat ion due to motion artifacts, despite the limitation no gross acute intracrania l abnormality. 2. 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 3. 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 4. 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 5. Generalized age-related cerebral volume loss. Si gned by: Dr. Jaky Malin M.D. on 06/07/2019 8:37 PM Dictated By: BERE MALIN MD 36 Transcribed By: FRANCIS on 06/07/192036 COPY TO: GAGAN PATHAK DO [id number]-[id number] 13:41:00* Test Item Value Reference Range Interpretation Comments TROPONIN-I (test code = TROPI) 0.047 ng/mL 0-0.045 Results called to [id number] by [email or web address] 05/26/19 1341Critical results verified and read back by Nurse? Y [id number] 12:37:00* Test Item Value Reference Range Interpretation Comments GLUBED (test code = GLUBED) 233 mg/dL 74-106 H Performed by certified shaker operator at [facility] - XR ABDOMEN AP 1 N1490-03-30 08:01:00 FAX: Shweta Patton MD [phone] [place]: St: ADM FAX: Mathew Dove MD [phone] FAX: Oskar Mendoza [phone] Name: ARNALDO MARSHALL [facility] : 1935 Age/S: 84/F [address] [facility] Unit #: [id number] Loc: [place] [address] Phys: Oskar Luther MD Acct: [id number] Dis Date: Status: ADM IN [facility] #: [phone] Exam Date: 05/26/2019 0750 FAX #: [phone] Reason: distension EXAMS: CPT CODE: [id number] XR ABDOMEN AP 1 V 54364 HISTORY: dist ension TECHNIQUE: AP abdomen x-ray [...] Mathew Martinez MD; Oskar Luther MD Technologist: RT XIMENA(Dick) Trnscrd Date/Time/By: 05/26/2019 (800) : By: [email or web address] Orig Print D/T: S: (4107) PAGE 1 Signed Rep ort COMPREHENSIVE METABOLIC [id number] 07:51:00* Test Item Value Reference Range Interpretation Comments SODIUM (test code = NA) 141 mmol/L 136-145 N POTASSIUM (test code = K) 3.9 mmol/L 3.5-5.1 N CHLORIDE (test code = CL) 106.0 mmol/L 98-107 N CARBON DIOXIDE (test code = CO2) 31.0 mmol/L 21-32 N ANION GAP (test code = GAP) 7.9 10-20 L GLUCOSE (test code = GLU) 154 mg/dL 74-106 H BLOOD UREA NITROGEN (test code = BUN) 13 mg/dL 7-18 N GLOMERULAR FILTRATION RATE (test code = GFR) > 60 mL/min >=60 Estimated GFR by using Modified MDRD formula.Chronic kidney disease is defined as either kidney damageor GFR <60 mL/min/1.73 m2 for >3 months. CREATININE (test code = CREAT) 0.70 mg/dL 0.55-1.02 N Note change in reference range due to change in reagent. BUN/CREATININE RATIO (test code = BUN/CREA) 19.3 10-20 N TOTAL PROTEIN (test code = PROT) 6.2 gram/dL 6.4-8.2 L ALBUMIN (test code = ALB) 2.1 g/dL 3.4-5.0 L GLOBULIN (test code = GLOB) 4.1 gram/dL 2.7-4.2 N ALBUMIN/GLOBULIN RATIO (test code = A/G) 0.5 0.75-1.50 L CALCIUM (test code = CA) 8.7 mg/dL 8.5-10.1 N BILIRUBIN TOTAL (test code = BILT) 0.80 mg/dL 0.0-1.0 N SGOT/AST (test code = AST) 71 IUnit/L 15-37 H SGPT/ALT (test code = ALT) 87 IUnit/L 12-78 H ALKALINE PHOSPHATASE TOTAL (test code = ALKP) 726 IUnit/L 45-117 H Note change in reference range due to change in reagent. [id number] 07:47:00* Test Item Value Reference Range Interpretation Comments TROPONIN-I (test code = TROPI) 0.062 ng/mL 0-0.045 COMPREHENSIVE METABOLIC [id number] 07:38:00* Test Item Value Reference Range Interpretation Comments SODIUM (test code = NA) 141 mmol/L 136-145 N POTASSIUM (test code = K) 3.9 mmol/L 3.5-5.1 N CHLORIDE (test code = CL) 106.0 mmol/L 98-107 N CARBON DIOXIDE (test code = CO2) mmol/L 21-32 ANION GAP (test code = GAP) 10-20 GLUCOSE (test code = GLU) mg/dL 74-106 BLOOD UREA NITROGEN (test code = BUN) mg/dL 7-18 GLOMERULAR FILTRATION RATE (test code = GFR) mL/min >=60 CREATININE (test code = CREAT) mg/dL 0.55-1.02 BUN/CREATININE RATIO (test code = BUN/CREA) 10-20 TOTAL PROTEIN (test code = PROT) gram/dL 6.4-8.2 ALBUMIN (test code = ALB) g/dL 3.4-5.0 GLOBULIN (test code = GLOB) gram/dL 2.7-4.2 ALBUMIN/GLOBULIN RATIO (test code = A/G) 0.75-1.50 CALCIUM (test code = CA) mg/dL 8.5-10.1 BILIRUBIN TOTAL (test code = BILT) mg/dL 0.0-1.0 SGOT/AST (test code = AST) IUnit/L 15-37 SGPT/ALT (test code = ALT) IUnit/L 12-78 ALKALINE PHOSPHATASE TOTAL (test code = ALKP) IUnit/L 45-117 CBC W/AUTO [id number] 07:23:00* Test Item Value Reference Range Interpretation Comments WHITE BLOOD CELL (test code = WBC) 9.4 K/mm3 4.5-12.5 N RED BLOOD CELL (test code = RBC) 4.17 mill/mm3 3.7-5.2 N HEMOGLOBIN (test code = HGB) 14.1 gram/dL 11.5-15.5 N HEMATOCRIT (test code = HCT) 42.6 % 36.0-46.0 N MEAN CELL VOLUME (test code = MCV) 101.9 fL 80-98 H MEAN CELL HGB (test code = MCH) 33.6 picogram 27.0-33.0 H MEAN CELL HGB CONCETRATION (test code = MCHC) 32.9 gram/dL 33.0-36. 0 L RED CELL DISTRIBUTION WIDTH (test code = RDW) 14.2 % 11.6-16. 2 N RED CELL DISTRIBUTION WIDTH SD (test code = RDW-SD) 49.6 fL 37 .0-51.0 N PLATELET COUNT (test code = PLT) 105 K/mm3 150-450 L MEAN PLATELET VOLUME (test code = MPV) 11.6 fL 6.7-11.0 H NEUTROPHIL % (test code = NT%) 59.5 % 39.0-69.0 N IMMATURE GRANULOCYTE % (test code = IG%) 4.5 % 0.0-5.0 N LYMPHOCYTE % (test code = LY%) 27.0 % 25.0-55.0 N MONOCYTE % (test code = MO%) 7.8 % 0.0-10.0 N EOSINOPHIL % (test code = EO%) 0.6 % 0.0-5.0 N BASOPHIL % (test code = BA%) 0.6 % 0.0-1.0 N NUCLEATED RBC % (test code = NRBC%) 0.4 % 0-0 H NEUTROPHIL # (test code = NT#) 5.58 K/mm3 1.8-7.7 N IMMATURE GRANULOCYTE # (test code = IG#) 0.42 x10 3/uL 0-0.03 H LYMPHOCYTE # (test code = LY#) 2.53 K/mm3 1.0-5.0 N MONOCYTE # (test code = MO#) 0.73 K/mm3 0-0.8 N EOSINOPHIL # (test code = EO#) 0.06 K/mm3 0.0-0.5 N BASOPHIL # (test code = BA#) 0.06 K/mm3 0.0-0.2 N NUCLEATED RBC # (test code = NRBC#) 0.04 K/mm3 0.0-0.1 N MANUAL DIFF REQUIRED (test code = MDIFF) NO CBC W/AUTO [id number] 07:05:00* Test Item Value Reference Range Interpretation Comments WHITE BLOOD CELL (test code = WBC) K/mm3 4.5-12.5 RED BLOOD CELL (test code = RBC) mill/mm3 3.7-5.2 HEMOGLOBIN (test code = HGB) 14.1 gram/dL 11.5-15.5 N HEMATOCRIT (test code = HCT) 42.6 % 36.0-46.0 N MEAN CELL VOLUME (test code = MCV) fL 80-98 MEAN CELL HGB (test code = MCH) picogram 27.0-33.0 MEAN CELL HGB CONCETRATION (test code = MCHC) gram/dL 33.0-36. 0 RED CELL DISTRIBUTION WIDTH (test code = RDW) % 11.6-16. 2 RED CELL DISTRIBUTION WIDTH SD (test code = RDW-SD) fL 37 .0-51.0 PLATELET COUNT (test code = PLT) K/mm3 150-450 MEAN PLATELET VOLUME (test code = MPV) fL 6.7-11.0 NEUTROPHIL % (test code = NT%) % 39.0-69.0 IMMATURE GRANULOCYTE % (test code = IG%) % 0.0-5.0 LYMPHOCYTE % (test code = LY%) % 25.0-55.0 MONOCYTE % (test code = MO%) % 0.0-10.0 EOSINOPHIL % (test code = EO%) % 0.0-5.0 BASOPHIL % (test code = BA%) % 0.0-1.0 NEUTROPHIL # (test code = NT#) K/mm3 1.8-7.7 LYMPHOCYTE # (test code = LY#) K/mm3 1.0-5.0 MONOCYTE # (test code = MO#) K/mm3 0-0.8 EOSINOPHIL # (test code = EO#) K/mm3 0.0-0.5 BASOPHIL # (test code = BA#) K/mm3 0.0-0.2 [id number] 06:23:00* Test Item Value Reference Range Interpretation Comments GLUBED (test code = GLUBED) 127 mg/dL 74-106 H Performed by certified shaker operator at [facility] [id number] 03:21:00* Test Item Value Reference Range Interpretation Comments TROPONIN-I (test code = TROPI) 0.078 ng/mL 0-0.045 HH Results called to [id number] by [email or web address] 05/26/19 0321Critical results verified and read back by Nurse? Y [id number] 21:08:00* Test Item Value Reference Range Interpretation Comments GLUBED (test code = GLUBED) 264 mg/dL 74-106 H Performed by certified shaker operator at [facility] [id number] 17:36:00* Test Item Value Reference Range Interpretation Comments GLUBED (test code = GLUBED) 176 mg/dL 74-106 H Performed by certified shaker operator at [facility] [id number] 17:07:00* Test Item Value Reference Range Interpretation Comments TROPONIN-T (test code = TROPT) < 0.010 ng/mL <0.011 Performed At: [facility] [id number] Sanjai MD Ph:[phone] performed at: [facility] [address] [place] [address] CBC W/MANUAL [id number] 16:29:00* Test Item Value Reference Range Interpretation Comments WHITE BLOOD CELL (test code = WBC) 10.2 K/mm3 4.5-12.5 N RED BLOOD CELL (test code = RBC) 4.23 mill/mm3 3.7-5.2 N HEMOGLOBIN (test code = HGB) 14.4 gram/dL 11.5-15.5 N HEMATOCRIT (test code = HCT) 41.4 % 36.0-46.0 N MEAN CELL VOLUME (test code = MCV) 97.9 fL 80-98 N MEAN CELL HGB (test code = MCH) 34.0 picogram 27.0-33.0 H MEAN CELL HGB CONCETRATION (test code = MCHC) 34.8 gram/dL 33.0-36. 0 N RED CELL DISTRIBUTION WIDTH (test code = RDW) 13.4 % 11.6-16. 2 N RED CELL DISTRIBUTION WIDTH SD (test code = RDW-SD) 46.8 fL 37 .0-51.0 N PLATELET COUNT (test code = PLT) 96 K/mm3 150-450 L MEAN PLATELET VOLUME (test code = MPV) 11.9 fL 6.7-11.0 H NEUTROPHIL % (test code = NT%) 64.1 % 39.0-69.0 N IMMATURE GRANULOCYTE % (test code = IG%) 2.5 % 0.0-5.0 N LYMPHOCYTE % (test code = LY%) 24.5 % 25.0-55.0 L MONOCYTE % (test code = MO%) 7.7 % 0.0-10.0 N EOSINOPHIL % (test code = EO%) 0.6 % 0.0-5.0 N BASOPHIL % (test code = BA%) 0.6 % 0.0-1.0 N NUCLEATED RBC % (test code = NRBC%) 0.5 % 0-0 H NEUTROPHIL # (test code = NT#) 6.52 K/mm3 1.8-7.7 N IMMATURE GRANULOCYTE # (test code = IG#) 0.25 x10 3/uL 0-0.03 H LYMPHOCYTE # (test code = LY#) 2.49 K/mm3 1.0-5.0 N MONOCYTE # (test code = MO#) 0.78 K/mm3 0-0.8 N EOSINOPHIL # (test code = EO#) 0.06 K/mm3 0.0-0.5 N BASOPHIL # (test code = BA#) 0.06 K/mm3 0.0-0.2 N NUCLEATED RBC # (test code = NRBC#) 0.05 K/mm3 0.0-0.1 N MANUAL DIFF REQUIRED (test code = MDIFF) NO STAIN ACCEPTABILITY (test code = STN ACCEPTABLE) STAIN ACCEPTABLE TOTAL CELLS COUNTED (test code = TCC) 100 #CELLS SEGMENTED NEUTROPHILS (test code = SEG) 78 % 39-69 H LYMPHOCYTE (test code = LYMPH) 17 % 25-55 L MONOCYTE (test code = MON) 4 % 0-10 N EOSINOPHIL (test code = EOS) 1 % 0.0-5.0 N NUCLEATED RED BLOOD CELL (test code = NRBC) 1 % 0.0-1.0 N POLYCHROMASIA (test code = POLC) 1+ TOXIC GRANULATION (test code = TOX) 1+ VACUOLATED NEUTROPHILS (test code = VN) 1+ PLATELET ESTIMATE (test code = PLTEST) DECREASED PLATELET MORPHOLOGY (test code = PLTMORPH) NORMAL CBC W/MANUAL [id number] 16:28:00* Test Item Value Reference Range Interpretation Comments WHITE BLOOD CELL (test code = WBC) 10.2 K/mm3 4.5-12.5 N RED BLOOD CELL (test code = RBC) 4.23 mill/mm3 3.7-5.2 N HEMOGLOBIN (test code = HGB) 14.4 gram/dL 11.5-15.5 N HEMATOCRIT (test code = HCT) 41.4 % 36.0-46.0 N MEAN CELL VOLUME (test code = MCV) 97.9 fL 80-98 N MEAN CELL HGB (test code = MCH) 34.0 picogram 27.0-33.0 H MEAN CELL HGB CONCETRATION (test code = MCHC) 34.8 gram/dL 33.0-36. 0 N RED CELL DISTRIBUTION WIDTH (test code = RDW) 13.4 % 11.6-16. 2 N RED CELL DISTRIBUTION WIDTH SD (test code = RDW-SD) 46.8 fL 37 .0-51.0 N PLATELET COUNT (test code = PLT) 96 K/mm3 150-450 L MEAN PLATELET VOLUME (test code = MPV) 11.9 fL 6.7-11.0 H NEUTROPHIL % (test code = NT%) 64.1 % 39.0-69.0 N IMMATURE GRANULOCYTE % (test code = IG%) 2.5 % 0.0-5.0 N LYMPHOCYTE % (test code = LY%) 24.5 % 25.0-55.0 L MONOCYTE % (test code = MO%) 7.7 % 0.0-10.0 N EOSINOPHIL % (test code = EO%) 0.6 % 0.0-5.0 N BASOPHIL % (test code = BA%) 0.6 % 0.0-1.0 N NUCLEATED RBC % (test code = NRBC%) 0.5 % 0-0 H NEUTROPHIL # (test code = NT#) 6.52 K/mm3 1.8-7.7 N IMMATURE GRANULOCYTE # (test code = IG#) 0.25 x10 3/uL 0-0.03 H LYMPHOCYTE # (test code = LY#) 2.49 K/mm3 1.0-5.0 N MONOCYTE # (test code = MO#) 0.78 K/mm3 0-0.8 N EOSINOPHIL # (test code = EO#) 0.06 K/mm3 0.0-0.5 N BASOPHIL # (test code = BA#) 0.06 K/mm3 0.0-0.2 N NUCLEATED RBC # (test code = NRBC#) 0.05 K/mm3 0.0-0.1 N MANUAL DIFF REQUIRED (test code = MDIFF) NO STAIN ACCEPTABILITY (test code = STN ACCEPTABLE) STAIN ACCEPTABLE TOTAL CELLS COUNTED (test code = TCC) 100 #CELLS SEGMENTED NEUTROPHILS (test code = SEG) 78 % 39-69 H LYMPHOCYTE (test code = LYMPH) 17 % 25-55 L MONOCYTE (test code = MON) 4 % 0-10 N EOSINOPHIL (test code = EOS) 1 % 0.0-5.0 N NUCLEATED RED BLOOD CELL (test code = NRBC) 1 % 0.0-1.0 N POLYCHROMASIA (test code = POLC) 1+ PLATELET ESTIMATE (test code = PLTEST) DECREASED PLATELET MORPHOLOGY (test code = PLTMORPH) NORMAL - XR ABDOMEN AP 1 [id number] 15:42:00 FAX: Shweta Patton MD [phone] [place]: B St: ADM FAX: Mathew Dove MD [phone] Name: ARNALDO MARSHALL [facility] : 1935 Age/S: 84/F [address] [facility] Unit #: [id number] Loc: [place] [address] Phys: Shweta Patton MD Acct: [id number] Dis Date: Status: ADM IN PHONE #: [phone] Exam Date: 05/25/2019 1510 FAX #: [phone] Reason: ABD PAIN EXAMS: CPT CODE: [id number] XR ABDOMEN AP 1 V [id number] EXAM: Abdomen, 2 views; INFORMATION: Abdominal pain; IMPRESSION: No significant change compared with yeste mariam's study; moderate gaseous distention of the colon and mild distenti on of small bowel loops but no obstructive pattern. Lo cation code: GW at 1542 Reported and signed by: Ryan Lowe M.D. CC: Shweta Patton MD; Mathew Martinez MD Technologist: Monse Neely RT(R); MARIA FERNANDA WOLFF RT(R) Trnscrd Date/Time/By: 019 (5404) : By: ChristGRW Orig Print D/T: S: 05/25/2019 (8601) PAGE 1 Signed Report HEPATIC FUNCTION [id number] 15:25:00* Test Item Value Reference Range Interpretation Comments TOTAL PROTEIN (test code = PROT) 5.7 gram/dL 6.4-8.2 L ALBUMIN (test code = ALB) 2.2 g/dL 3.4-5.0 L GLOBULIN (test code = GLOB) 3.5 gram/dL 2.7-4.2 N ALBUMIN/GLOBULIN RATIO (test code = A/G) 0.6 0.75-1.50 L BILIRUBIN TOTAL (test code = BILT) 0.90 mg/dL 0.0-1.0 N BILIRUBIN DIRECT (test code = BILD) 0.17 mg/dL 0.0-0.20 N SGOT/AST (test code = AST) 118 IUnit/L 15-37 H SGPT/ALT (test code = ALT) 119 IUnit/L 12-78 H ALKALINE PHOSPHATASE TOTAL (test code = ALKP) 833 IUnit/L 45-117 H Note change in reference range due to change in reagent. [id number] 12:29:00* Test Item Value Reference Range Interpretation Comments GLUBED (test code = GLUBED) 239 mg/dL 74-106 H Performed by certified shaker operator at [facility] PROTHROMBIN [id number] 07:12:00* Test Item Value Reference Range Interpretation Comments PROTHROMBIN TIME PATIENT (test code = PTP) 15.4 seconds 9.0-14.0 H INTERNATIONAL NORMAL RATIO (test code = INR) 1.3 0.8-1.2 H The therapeutic range for oral anticoagulant therapy [...] (2.5-3.5) IS PATIENT ON ANTICOAGULANTS? NCOMPREHENSIVE METABOLIC [id number] 07:03:00 * Test Item Value Reference Range Interpretation Comments SODIUM (test code = NA) 140 mmol/L 136-145 N POTASSIUM (test code = K) 3.0 mmol/L 3.5-5.1 L CHLORIDE (test code = CL) 102.0 mmol/L 98-107 N CARBON DIOXIDE (test code = CO2) 28.0 mmol/L 21-32 N ANION GAP (test code = GAP) 13.0 10-20 N GLUCOSE (test code = GLU) 116 mg/dL 74-106 H BLOOD UREA NITROGEN (test code = BUN) 18 mg/dL 7-18 N GLOMERULAR FILTRATION RATE (test code = GFR) > 60 mL/min >=60 Estimated GFR by using Modified MDRD formula.Chronic kidney disease is defined as either kidney damageor GFR <60 mL/min/1.73 m2 for >3 months. CREATININE (test code = CREAT) 0.70 mg/dL 0.55-1.02 N Note change in reference range due to change in reagent. BUN/CREATININE RATIO (test code = BUN/CREA) 25.5 10-20 H TOTAL PROTEIN (test code = PROT) 5.6 gram/dL 6.4-8.2 L ALBUMIN (test code = ALB) 2.1 g/dL 3.4-5.0 L GLOBULIN (test code = GLOB) 3.5 gram/dL 2.7-4.2 N ALBUMIN/GLOBULIN RATIO (test code = A/G) 0.6 0.75-1.50 L CALCIUM (test code = CA) 8.1 mg/dL 8.5-10.1 L BILIRUBIN TOTAL (test code = BILT) 1.00 mg/dL 0.0-1.0 N SGOT/AST (test code = AST) 104 IUnit/L 15-37 H SGPT/ALT (test code = ALT) 107 IUnit/L 12-78 H ALKALINE PHOSPHATASE TOTAL (test code = ALKP) 815 IUnit/L 45-117 H Note change in reference range due to change in reagent. CBC W/MANUAL [id number] 07:02:00* Test Item Value Reference Range Interpretation Comments WHITE BLOOD CELL (test code = WBC) 10.2 K/mm3 4.5-12.5 N RED BLOOD CELL (test code = RBC) 4.23 mill/mm3 3.7-5.2 N HEMOGLOBIN (test code = HGB) 14.4 gram/dL 11.5-15.5 N HEMATOCRIT (test code = HCT) 41.4 % 36.0-46.0 N MEAN CELL VOLUME (test code = MCV) 97.9 fL 80-98 N MEAN CELL HGB (test code = MCH) 34.0 picogram 27.0-33.0 H MEAN CELL HGB CONCETRATION (test code = MCHC) 34.8 gram/dL 33.0-36. 0 N RED CELL DISTRIBUTION WIDTH (test code = RDW) 13.4 % 11.6-16. 2 N RED CELL DISTRIBUTION WIDTH SD (test code = RDW-SD) 46.8 fL 37 .0-51.0 N PLATELET COUNT (test code = PLT) 96 K/mm3 150-450 L MEAN PLATELET VOLUME (test code = MPV) 11.9 fL 6.7-11.0 H NEUTROPHIL % (test code = NT%) 64.1 % 39.0-69.0 N IMMATURE GRANULOCYTE % (test code = IG%) 2.5 % 0.0-5.0 N LYMPHOCYTE % (test code = LY%) 24.5 % 25.0-55.0 L MONOCYTE % (test code = MO%) 7.7 % 0.0-10.0 N EOSINOPHIL % (test code = EO%) 0.6 % 0.0-5.0 N BASOPHIL % (test code = BA%) 0.6 % 0.0-1.0 N NUCLEATED RBC % (test code = NRBC%) 0.5 % 0-0 H NEUTROPHIL # (test code = NT#) 6.52 K/mm3 1.8-7.7 N IMMATURE GRANULOCYTE # (test code = IG#) 0.25 x10 3/uL 0-0.03 H LYMPHOCYTE # (test code = LY#) 2.49 K/mm3 1.0-5.0 N MONOCYTE # (test code = MO#) 0.78 K/mm3 0-0.8 N EOSINOPHIL # (test code = EO#) 0.06 K/mm3 0.0-0.5 N BASOPHIL # (test code = BA#) 0.06 K/mm3 0.0-0.2 N NUCLEATED RBC # (test code = NRBC#) 0.05 K/mm3 0.0-0.1 N MANUAL DIFF REQUIRED (test code = MDIFF) NO STAIN ACCEPTABILITY (test code = STN ACCEPTABLE) TOTAL CELLS COUNTED (test code = TCC) #CELLS SEGMENTED NEUTROPHILS (test code = SEG) % 39-69 LYMPHOCYTE (test code = LYMPH) % 25-55 MONOCYTE (test code = MON) % 0-10 MORPHOLOGY COMMENT (test code = MOC) PLATELET ESTIMATE (test code = PLTEST) PLATELET MORPHOLOGY (test code = PLTMORPH) [id number] 07:01:00* Test Item Value Reference Range Interpretation Comments GLYCOSYLATED HEMOGLOBIN (HA1C) (test code = GLYHGB) 6.7 % HbA1 SUGGESTED DIAGNOSIS: HbA1C (%) Diabetic >6.4Prediabetes 5.7 - 6.4Normal <5.7 ESTIMATED AVERAGE GLUCOSE (test code = EAG) 146 MG/DL [id number] 06:21:00* Test Item Value Reference Range Interpretation Comments GLUBED (test code = GLUBED) 131 mg/dL 74-106 H Performed by certified shaker operator at [facility] [id number] 20:36:00* Test Item Value Reference Range Interpretation Comments GLUBED (test code = GLUBED) 257 mg/dL 74-106 H Performed by certified shaker operator at [facility] [id number] 17:37:00* Test Item Value Reference Range Interpretation Comments GLUBED (test code = GLUBED) 206 mg/dL 74-106 H Performed by certified shaker operator at [facility] [id number] 17:37:00* Test Item Value Reference Range Interpretation Comments GLUBED (test code = GLUBED) 147 mg/dL 74-106 H Performed by certified shaker operator at [facility] - XR ABDOMEN AP 1 [id number] 14:54:00 FAX: Shweta Patton MD [phone] [place]: St: ADM FAX: Mathew Dove MD [phone] FAX: Manuel Moreland MD [phone] Name: ARNALDO MARSHALL [facility] : 1935 Age/S: 84/F [address] [facility] Unit #: [id number] Loc: [address] [place] [address] Phys: Manuel Link MD Acct: [id number] Dis Date: Status: ADM IN ONE #: [phone] Exam Date: 05/24/2019 1300 FAX #: [phone] Reason: colon distention EXAMS: CPT CODE: [id number] XR ABDOMEN AP 1 V [id number] EXAM: Abdomen, one view; INFORMATION: Diarrhea, colon distention; IMPRESSION: Moderate gaseous distention of the colon with a maximum di ameter of 6 cm. No obstructive pattern. No acute abnormalities. Location code: [facility] at 8046 Reported and signed by: Ryan Lowe M.D. CC: Shweta Patton MD; Mathew Martinez MD; Manuel Link MD Technologist: MARIA FERNANDA COLLIER(R) Trnscrd D ate/Time/By: 05/24/2019 (1963) : By: ChristGRW Orig Print D/T: S: 04/27 (7180) PAGE 1 Signed Repor t PROTHROMBIN [id number] 11:37:00* Test Item Value Reference Range Interpretation Comments PROTHROMBIN TIME PATIENT (test code = PTP) 15.3 seconds 9.0-14.0 H INTERNATIONAL NORMAL RATIO (test code = INR) 1.3 0.8-1.2 H The therapeutic range for oral anticoagulant therapy [...] (2.5-3.5) IS PATIENT ON ANTICOAGULANTS? NHEPATIC FUNCTION [id number] 07:30:00* Test Item Value Reference Range Interpretation Comments TOTAL PROTEIN (test code = PROT) 5.7 gram/dL 6.4-8.2 L ALBUMIN (test code = ALB) 1.9 g/dL 3.4-5.0 L GLOBULIN (test code = GLOB) 3.8 gram/dL 2.7-4.2 N ALBUMIN/GLOBULIN RATIO (test code = A/G) 0.5 0.75-1.50 L BILIRUBIN TOTAL (test code = BILT) 1.10 mg/dL 0.0-1.0 H BILIRUBIN DIRECT (test code = BILD) 0.41 mg/dL 0.0-0.20 H SGOT/AST (test code = AST) 129 IUnit/L 15-37 H SGPT/ALT (test code = ALT) 128 IUnit/L 12-78 H ALKALINE PHOSPHATASE TOTAL (test code = ALKP) 768 IUnit/L 45-117 H Note change in reference range due to change in reagent. BLOOD UREA [id number] 07:22:00* Test Item Value Reference Range Interpretation Comments BLOOD UREA NITROGEN (test code = BUN) 33 mg/dL 7-18 H RESULT VERIFIED BY REPEAT ANALYSIS [id number] 07:22:00* Test Item Value Reference Range Interpretation Comments CREATININE (test code = CREAT) 1.00 mg/dL 0.55-1.02 N Note change in reference range due to change in reagent. CBC W/AUTO [id number] 06:29:00* Test Item Value Reference Range Interpretation Comments WHITE BLOOD CELL (test code = WBC) 12.8 K/mm3 4.5-12.5 H RED BLOOD CELL (test code = RBC) 4.06 mill/mm3 3.7-5.2 N HEMOGLOBIN (test code = HGB) 13.5 gram/dL 11.5-15.5 HEMATOCRIT (test code = HCT) 39.0 % 36.0-46.0 N MEAN CELL VOLUME (test code = MCV) 96.1 fL 80-98 N MEAN CELL HGB (test code = MCH) 33.3 picogram 27.0-33.0 H MEAN CELL HGB CONCETRATION (test code = MCHC) 34.6 gram/dL 33.0-36. 0 N RED CELL DISTRIBUTION WIDTH (test code = RDW) 13.0 % 11.6-16. 2 N RED CELL DISTRIBUTION WIDTH SD (test code = RDW-SD) 44.9 fL 37 .0-51.0 N PLATELET COUNT (test code = PLT) 87 K/mm3 150-450 L MEAN PLATELET VOLUME (test code = MPV) 11.9 fL 6.7-11.0 H NEUTROPHIL % (test code = NT%) 69.4 % 39.0-69.0 H IMMATURE GRANULOCYTE % (test code = IG%) 1.7 % 0.0-5.0 N LYMPHOCYTE % (test code = LY%) 20.8 % 25.0-55.0 L MONOCYTE % (test code = MO%) 7.8 % 0.0-10.0 N EOSINOPHIL % (test code = EO%) 0.1 % 0.0-5.0 N BASOPHIL % (test code = BA%) 0.2 % 0.0-1.0 N NUCLEATED RBC % (test code = NRBC%) 0.5 % 0-0 H NEUTROPHIL # (test code = NT#) 8.87 K/mm3 1.8-7.7 H IMMATURE GRANULOCYTE # (test code = IG#) 0.22 x10 3/uL 0-0.03 H LYMPHOCYTE # (test code = LY#) 2.66 K/mm3 1.0-5.0 N MONOCYTE # (test code = MO#) 1.00 K/mm3 0-0.8 H EOSINOPHIL # (test code = EO#) 0.01 K/mm3 0.0-0.5 N BASOPHIL # (test code = BA#) 0.02 K/mm3 0.0-0.2 N NUCLEATED RBC # (test code = NRBC#) 0.07 K/mm3 0.0-0.1 N MANUAL DIFF REQUIRED (test code = MDIFF) NO, ONLY SCAN NEEDED DIFFERENTIAL [id number] 06:29:00* Test Item Value Reference Range Interpretation Comments STAIN ACCEPTABILITY (test code = STN ACCEPTABLE) STAIN ACCEPTABLE ANISOCYTOSIS (test code = ANISO) 1+ MACROCYTOSIS (test code = MACR) 1+ PLATELET ESTIMATE (test code = PLTEST) DECREASED PLATELET MORPHOLOGY (test code = PLTMORPH) NORMAL CBC W/AUTO [id number] 06:00:00* Test Item Value Reference Range Interpretation Comments WHITE BLOOD CELL (test code = WBC) 12.8 K/mm3 4.5-12.5 H RED BLOOD CELL (test code = RBC) 4.06 mill/mm3 3.7-5.2 N HEMOGLOBIN (test code = HGB) 13.5 gram/dL 11.5-15.5 HEMATOCRIT (test code = HCT) 39.0 % 36.0-46.0 N MEAN CELL VOLUME (test code = MCV) 96.1 fL 80-98 N MEAN CELL HGB (test code = MCH) 33.3 picogram 27.0-33.0 H MEAN CELL HGB CONCETRATION (test code = MCHC) 34.6 gram/dL 33.0-36. 0 N RED CELL DISTRIBUTION WIDTH (test code = RDW) 13.0 % 11.6-16. 2 N RED CELL DISTRIBUTION WIDTH SD (test code = RDW-SD) 44.9 fL 37 .0-51.0 N PLATELET COUNT (test code = PLT) 87 K/mm3 150-450 L MEAN PLATELET VOLUME (test code = MPV) 11.9 fL 6.7-11.0 H NEUTROPHIL % (test code = NT%) 69.4 % 39.0-69.0 H IMMATURE GRANULOCYTE % (test code = IG%) 1.7 % 0.0-5.0 N LYMPHOCYTE % (test code = LY%) 20.8 % 25.0-55.0 L MONOCYTE % (test code = MO%) 7.8 % 0.0-10.0 N EOSINOPHIL % (test code = EO%) 0.1 % 0.0-5.0 N BASOPHIL % (test code = BA%) 0.2 % 0.0-1.0 N NUCLEATED RBC % (test code = NRBC%) 0.5 % 0-0 H NEUTROPHIL # (test code = NT#) 8.87 K/mm3 1.8-7.7 H IMMATURE GRANULOCYTE # (test code = IG#) 0.22 x10 3/uL 0-0.03 H LYMPHOCYTE # (test code = LY#) 2.66 K/mm3 1.0-5.0 N MONOCYTE # (test code = MO#) 1.00 K/mm3 0-0.8 H EOSINOPHIL # (test code = EO#) 0.01 K/mm3 0.0-0.5 N BASOPHIL # (test code = BA#) 0.02 K/mm3 0.0-0.2 N NUCLEATED RBC # (test code = NRBC#) 0.07 K/mm3 0.0-0.1 N MANUAL DIFF REQUIRED (test code = MDIFF) NO, ONLY SCAN NEEDED DIFFERENTIAL [id number] 06:00:00* Test Item Value Reference Range Interpretation Comments STAIN ACCEPTABILITY (test code = STN ACCEPTABLE) MORPHOLOGY COMMENT (test code = MOC) PLATELET ESTIMATE (test code = PLTEST) PLATELET MORPHOLOGY (test code = PLTMORPH) CBC W/AUTO [id number] 05:59:00* Test Item Value Reference Range Interpretation Comments WHITE BLOOD CELL (test code = WBC) 12.8 K/mm3 4.5-12.5 H RED BLOOD CELL (test code = RBC) 4.06 mill/mm3 3.7-5.2 N HEMOGLOBIN (test code = HGB) 13.5 gram/dL 11.5-15.5 HEMATOCRIT (test code = HCT) 39.0 % 36.0-46.0 N MEAN CELL VOLUME (test code = MCV) 96.1 fL 80-98 N MEAN CELL HGB (test code = MCH) 33.3 picogram 27.0-33.0 H MEAN CELL HGB CONCETRATION (test code = MCHC) 34.6 gram/dL 33.0-36. 0 N RED CELL DISTRIBUTION WIDTH (test code = RDW) 13.0 % 11.6-16. 2 N RED CELL DISTRIBUTION WIDTH SD (test code = RDW-SD) 44.9 fL 37 .0-51.0 N PLATELET COUNT (test code = PLT) 87 K/mm3 150-450 L MEAN PLATELET VOLUME (test code = MPV) 11.9 fL 6.7-11.0 H NEUTROPHIL % (test code = NT%) 69.4 % 39.0-69.0 H IMMATURE GRANULOCYTE % (test code = IG%) 1.7 % 0.0-5.0 N LYMPHOCYTE % (test code = LY%) 20.8 % 25.0-55.0 L MONOCYTE % (test code = MO%) 7.8 % 0.0-10.0 N EOSINOPHIL % (test code = EO%) 0.1 % 0.0-5.0 N BASOPHIL % (test code = BA%) 0.2 % 0.0-1.0 N NUCLEATED RBC % (test code = NRBC%) 0.5 % 0-0 H NEUTROPHIL # (test code = NT#) 8.87 K/mm3 1.8-7.7 H IMMATURE GRANULOCYTE # (test code = IG#) 0.22 x10 3/uL 0-0.03 H LYMPHOCYTE # (test code = LY#) 2.66 K/mm3 1.0-5.0 N MONOCYTE # (test code = MO#) 1.00 K/mm3 0-0.8 H EOSINOPHIL # (test code = EO#) 0.01 K/mm3 0.0-0.5 N BASOPHIL # (test code = BA#) 0.02 K/mm3 0.0-0.2 N NUCLEATED RBC # (test code = NRBC#) 0.07 K/mm3 0.0-0.1 N MANUAL DIFF REQUIRED (test code = MDIFF) NO, ONLY SCAN NEEDED DIFFERENTIAL [id number] 05:59:00* Test Item Value Reference Range Interpretation Comments STAIN ACCEPTABILITY (test code = STN ACCEPTABLE) CABOT RINGS (test code = CAB) MORPHOLOGY COMMENT (test code = MOC) PLATELET ESTIMATE (test code = PLTEST) PLATELET MORPHOLOGY (test code = PLTMORPH) CBC W/AUTO [id number] 05:59:00* Test Item Value Reference Range Interpretation Comments WHITE BLOOD CELL (test code = WBC) 12.8 K/mm3 4.5-12.5 H RED BLOOD CELL (test code = RBC) 4.06 mill/mm3 3.7-5.2 N HEMOGLOBIN (test code = HGB) 13.5 gram/dL 11.5-15.5 HEMATOCRIT (test code = HCT) 39.0 % 36.0-46.0 N MEAN CELL VOLUME (test code = MCV) 96.1 fL 80-98 N MEAN CELL HGB (test code = MCH) 33.3 picogram 27.0-33.0 H MEAN CELL HGB CONCETRATION (test code = MCHC) 34.6 gram/dL 33.0-36. 0 N RED CELL DISTRIBUTION WIDTH (test code = RDW) 13.0 % 11.6-16. 2 N RED CELL DISTRIBUTION WIDTH SD (test code = RDW-SD) 44.9 fL 37 .0-51.0 N PLATELET COUNT (test code = PLT) 87 K/mm3 150-450 L MEAN PLATELET VOLUME (test code = MPV) 11.9 fL 6.7-11.0 H NEUTROPHIL % (test code = NT%) 69.4 % 39.0-69.0 H IMMATURE GRANULOCYTE % (test code = IG%) 1.7 % 0.0-5.0 N LYMPHOCYTE % (test code = LY%) 20.8 % 25.0-55.0 L MONOCYTE % (test code = MO%) 7.8 % 0.0-10.0 N EOSINOPHIL % (test code = EO%) 0.1 % 0.0-5.0 N BASOPHIL % (test code = BA%) 0.2 % 0.0-1.0 N NUCLEATED RBC % (test code = NRBC%) 0.5 % 0-0 H NEUTROPHIL # (test code = NT#) 8.87 K/mm3 1.8-7.7 H IMMATURE GRANULOCYTE # (test code = IG#) 0.22 x10 3/uL 0-0.03 H LYMPHOCYTE # (test code = LY#) 2.66 K/mm3 1.0-5.0 N MONOCYTE # (test code = MO#) 1.00 K/mm3 0-0.8 H EOSINOPHIL # (test code = EO#) 0.01 K/mm3 0.0-0.5 N BASOPHIL # (test code = BA#) 0.02 K/mm3 0.0-0.2 N NUCLEATED RBC # (test code = NRBC#) 0.07 K/mm3 0.0-0.1 N MANUAL DIFF REQUIRED (test code = MDIFF) NO, ONLY SCAN NEEDED DIFFERENTIAL [id number] 05:59:00* Test Item Value Reference Range Interpretation Comments STAIN ACCEPTABILITY (test code = STN ACCEPTABLE) MORPHOLOGY COMMENT (test code = MOC) PLATELET ESTIMATE (test code = PLTEST) PLATELET MORPHOLOGY (test code = PLTMORPH) CBC W/AUTO [id number] 05:59:00* Test Item Value Reference Range Interpretation Comments WHITE BLOOD CELL (test code = WBC) 12.8 K/mm3 4.5-12.5 H RED BLOOD CELL (test code = RBC) 4.06 mill/mm3 3.7-5.2 N HEMOGLOBIN (test code = HGB) 13.5 gram/dL 11.5-15.5 HEMATOCRIT (test code = HCT) 39.0 % 36.0-46.0 N MEAN CELL VOLUME (test code = MCV) 96.1 fL 80-98 N MEAN CELL HGB (test code = MCH) 33.3 picogram 27.0-33.0 H MEAN CELL HGB CONCETRATION (test code = MCHC) 34.6 gram/dL 33.0-36. 0 N RED CELL DISTRIBUTION WIDTH (test code = RDW) 13.0 % 11.6-16. 2 N RED CELL DISTRIBUTION WIDTH SD (test code = RDW-SD) 44.9 fL 37 .0-51.0 N PLATELET COUNT (test code = PLT) 87 K/mm3 150-450 L MEAN PLATELET VOLUME (test code = MPV) 11.9 fL 6.7-11.0 H NEUTROPHIL % (test code = NT%) 69.4 % 39.0-69.0 H IMMATURE GRANULOCYTE % (test code = IG%) 1.7 % 0.0-5.0 N LYMPHOCYTE % (test code = LY%) 20.8 % 25.0-55.0 L MONOCYTE % (test code = MO%) 7.8 % 0.0-10.0 N EOSINOPHIL % (test code = EO%) 0.1 % 0.0-5.0 N BASOPHIL % (test code = BA%) 0.2 % 0.0-1.0 N NUCLEATED RBC % (test code = NRBC%) 0.5 % 0-0 H NEUTROPHIL # (test code = NT#) 8.87 K/mm3 1.8-7.7 H IMMATURE GRANULOCYTE # (test code = IG#) 0.22 x10 3/uL 0-0.03 H LYMPHOCYTE # (test code = LY#) 2.66 K/mm3 1.0-5.0 N MONOCYTE # (test code = MO#) 1.00 K/mm3 0-0.8 H EOSINOPHIL # (test code = EO#) 0.01 K/mm3 0.0-0.5 N BASOPHIL # (test code = BA#) 0.02 K/mm3 0.0-0.2 N NUCLEATED RBC # (test code = NRBC#) 0.07 K/mm3 0.0-0.1 N MANUAL DIFF REQUIRED (test code = MDIFF) NO, ONLY SCAN NEEDED DIFFERENTIAL [id number] 05:59:00* Test Item Value Reference Range Interpretation Comments STAIN ACCEPTABILITY (test code = STN ACCEPTABLE) CABOT RINGS (test code = CAB) MORPHOLOGY COMMENT (test code = MOC) PLATELET ESTIMATE (test code = PLTEST) PLATELET MORPHOLOGY (test code = PLTMORPH) [id number] 16:45:00* Test Item Value Reference Range Interpretation Comments GLUBED (test code = GLUBED) 214 mg/dL 74-106 H Performed by certified shaker operator at [facility] - CT ABD PELVIS W/O [id number] 13:21:00 Name: ARNALDO MARSHALL [facility] : 1935 Age/S: 84 / F [address] Unit #: [id number] Loc: [place] [address] Phys: Shweta Patton MD Acct: [id number] Dis Date: Status: ADM IN PHONE #: [phone] Exam Date: 05/23/2019 1303 FAX #: [phone] Reason: abd distended EXAMS: CPT CODE: [id number] CT ABD PELVIS W/O CONT 54131 HISTORY: Abdominal distention TECHNIQUE: 5mm axial CT [...] calculus. PAGE 1 Signed Report (CONTINUED) Name: VILLAARNALDO WEBBER ALFA [facility] : 1935 Age/S: 84 / F [address] Unit #: [id number] Loc: [place] [address] Phys: Shweta Patton MD Acct: [id number] Dis Date: Sta tus: ADM IN PHONE #: [phone] Exam Date : 05/23/2019 1303 FAX #: [phone] Reason: abd dist ended EXAMS: CPT CODE: [id number] CT ABD PELVIS W/O CONT 16695 <Continued> at 1321 Reported and signed by: Leonela Way D.O. CC: Shweta Patton MD; Mathew Martinez MD Technologist:Kashif Porter RT(R),(MR),(CT); CTDI: DLP: Trnscb Date/Time: 05/23/2019 (1321) [email or web address] Orig Print D/T: S: 05/23/2019 (9706) PAGE 2 Signed Report - HEPA IMAG INCL GB W [facility] 2019-05-23 13:13:00 FAX: Shweta Patton MD [phone] [place]: St: ADM FAX: Mathew Dove MD [phone] FAX: Oskar Mendoza [phone] Name: VILLANISAARNALDO MANDEL [facility] : 1935 Age/S: 84/F [address] Unit #: [id number] Loc: V.2076 [place] [address] Phys: Oskar Luther MD Acct: [id number] Dis Date: Status: ADM IN ONE #: [phone] Exam Date: 05/23/2019 1306 FAX #: [phone] Reason: elevated LFTs EXAMS: CPT CODE: [id number] HE PA IMAG INCL GB W PHA 73005 HISTORY: Right upper quadrant abdominal pain, elevated [...] MD Technologist: CHIKIS DUMONT Trnscrd Date/Time/By: 05/23/2019 (1086) : By: [email or web address] Orig Print D/T: S: 05/23/2019 (9613) PAGE 1 Signed Report [id number] 12:12:00* Test Item Value Reference Range Interpretation Comments GLUBED (test code = GLUBED) 227 mg/dL 74-106 H Performed by certified shaker operator at [facility] CBC W/AUTO [id number] 09:16:00* Test Item Value Reference Range Interpretation Comments WHITE BLOOD CELL (test code = WBC) 17.4 K/mm3 4.5-12.5 H RED BLOOD CELL (test code = RBC) 4.59 mill/mm3 3.7-5.2 N HEMOGLOBIN (test code = HGB) 15.7 gram/dL 11.5-15.5 H HEMATOCRIT (test code = HCT) 45.9 % 36.0-46.0 N MEAN CELL VOLUME (test code = MCV) 97.4 fL 80-98 N MEAN CELL HGB (test code = MCH) 34.2 picogram 27.0-33.0 H MEAN CELL HGB CONCETRATION (test code = MCHC) 35.1 gram/dL 33.0-36. 0 N RED CELL DISTRIBUTION WIDTH (test code = RDW) 13.1 % 11.6-16. 2 N RED CELL DISTRIBUTION WIDTH SD (test code = RDW-SD) 46.2 fL 37 .0-51.0 N PLATELET COUNT (test code = PLT) 86 K/mm3 150-450 L MEAN PLATELET VOLUME (test code = MPV) 11.9 fL 6.7-11.0 H NEUTROPHIL % (test code = NT%) 77.9 % 39.0-69.0 H IMMATURE GRANULOCYTE % (test code = IG%) 1.1 % 0.0-5.0 N LYMPHOCYTE % (test code = LY%) 12.4 % 25.0-55.0 L MONOCYTE % (test code = MO%) 8.3 % 0.0-10.0 N EOSINOPHIL % (test code = EO%) 0.1 % 0.0-5.0 N BASOPHIL % (test code = BA%) 0.2 % 0.0-1.0 N NUCLEATED RBC % (test code = NRBC%) 0.4 % 0-0 H NEUTROPHIL # (test code = NT#) 13.56 K/mm3 1.8-7.7 H IMMATURE GRANULOCYTE # (test code = IG#) 0.19 x10 3/uL 0-0.03 H LYMPHOCYTE # (test code = LY#) 2.15 K/mm3 1.0-5.0 N MONOCYTE # (test code = MO#) 1.45 K/mm3 0-0.8 H EOSINOPHIL # (test code = EO#) 0.01 K/mm3 0.0-0.5 N BASOPHIL # (test code = BA#) 0.04 K/mm3 0.0-0.2 N NUCLEATED RBC # (test code = NRBC#) 0.07 K/mm3 0.0-0.1 N MANUAL DIFF REQUIRED (test code = MDIFF) NO, ONLY SCAN NEEDED DIFFERENTIAL [id number] 09:16:00* Test Item Value Reference Range Interpretation Comments STAIN ACCEPTABILITY (test code = STN ACCEPTABLE) STAIN ACCEPTABLE TOXIC GRANULATION (test code = TOX) 1+ MORPHOLOGY COMMENT (test code = MOC) NORMAL PLATELET ESTIMATE (test code = PLTEST) DECREASED PLATELET MORPHOLOGY (test code = PLTMORPH) NORMAL COMPREHENSIVE METABOLIC [id number] 08:37:00* Test Item Value Reference Range Interpretation Comments SODIUM (test code = NA) 132 mmol/L 136-145 L POTASSIUM (test code = K) 3.5 mmol/L 3.5-5.1 N CHLORIDE (test code = CL) 91.0 mmol/L 98-107 L CARBON DIOXIDE (test code = CO2) 31.0 mmol/L 21-32 N ANION GAP (test code = GAP) 13.5 10-20 N GLUCOSE (test code = GLU) 198 mg/dL 74-106 H BLOOD UREA NITROGEN (test code = BUN) 42 mg/dL 7-18 H GLOMERULAR FILTRATION RATE (test code = GFR) 33 mL/min >=60 Estimated GFR by using Modified MDRD formula.Chronic kidney disease is defined as either kidney damageor GFR <60 mL/min/1.73 m2 for >3 months. CREATININE (test code = CREAT) 1.50 mg/dL 0.55-1.02 H Note change in reference range due to change in reagent. BUN/CREATININE RATIO (test code = BUN/CREA) 28.4 10-20 H TOTAL PROTEIN (test code = PROT) 6.3 gram/dL 6.4-8.2 L ALBUMIN (test code = ALB) 2.6 g/dL 3.4-5.0 L GLOBULIN (test code = GLOB) 3.7 gram/dL 2.7-4.2 N ALBUMIN/GLOBULIN RATIO (test code = A/G) 0.7 0.75-1.50 L CALCIUM (test code = CA) 8.8 mg/dL 8.5-10.1 N BILIRUBIN TOTAL (test code = BILT) 1.40 mg/dL 0.0-1.0 H SGOT/AST (test code = AST) 204 IUnit/L 15-37 H SGPT/ALT (test code = ALT) 193 IUnit/L 12-78 H ALKALINE PHOSPHATASE TOTAL (test code = ALKP) 957 IUnit/L 45-117 H Note change in reference range due to change in reagent. HEPATIC FUNCTION [id number] 08:37:00* Test Item Value Reference Range Interpretation Comments BILIRUBIN DIRECT (test code = BILD) 0.88 mg/dL 0.0-0.20 H GAMMA GLUTAMYL [id number] 08:37:00* Test Item Value Reference Range Interpretation Comments GAMMA GLUTAMYL TRANSPEPTIDASE (test code = GGT) 1740 Unit/L 5-55 H COMPREHENSIVE METABOLIC [id number] 08:19:00* Test Item Value Reference Range Interpretation Comments SODIUM (test code = NA) 132 mmol/L 136-145 L POTASSIUM (test code = K) 3.5 mmol/L 3.5-5.1 N CHLORIDE (test code = CL) 91.0 mmol/L 98-107 L CARBON DIOXIDE (test code = CO2) mmol/L 21-32 ANION GAP (test code = GAP) 10-20 GLUCOSE (test code = GLU) mg/dL 74-106 BLOOD UREA NITROGEN (test code = BUN) mg/dL 7-18 GLOMERULAR FILTRATION RATE (test code = GFR) mL/min >=60 CREATININE (test code = CREAT) mg/dL 0.55-1.02 BUN/CREATININE RATIO (test code = BUN/CREA) 10-20 TOTAL PROTEIN (test code = PROT) gram/dL 6.4-8.2 ALBUMIN (test code = ALB) g/dL 3.4-5.0 GLOBULIN (test code = GLOB) gram/dL 2.7-4.2 ALBUMIN/GLOBULIN RATIO (test code = A/G) 0.75-1.50 CALCIUM (test code = CA) mg/dL 8.5-10.1 BILIRUBIN TOTAL (test code = BILT) mg/dL 0.0-1.0 SGOT/AST (test code = AST) IUnit/L 15-37 SGPT/ALT (test code = ALT) IUnit/L 12-78 ALKALINE PHOSPHATASE TOTAL (test code = ALKP) IUnit/L 45-117 HEPATIC FUNCTION [id number] 08:19:00* Test Item Value Reference Range Interpretation Comments BILIRUBIN DIRECT (test code = BILD) mg/dL 0.0-0.20 GAMMA GLUTAMYL [id number] 08:19:00* Test Item Value Reference Range Interpretation Comments GAMMA GLUTAMYL TRANSPEPTIDASE (test code = GGT) Unit/L 5-55 CBC W/AUTO [id number] 08:10:00* Test Item Value Reference Range Interpretation Comments WHITE BLOOD CELL (test code = WBC) 17.4 K/mm3 4.5-12.5 H RED BLOOD CELL (test code = RBC) 4.59 mill/mm3 3.7-5.2 N HEMOGLOBIN (test code = HGB) 15.7 gram/dL 11.5-15.5 H HEMATOCRIT (test code = HCT) 45.9 % 36.0-46.0 N MEAN CELL VOLUME (test code = MCV) 97.4 fL 80-98 N MEAN CELL HGB (test code = MCH) 34.2 picogram 27.0-33.0 H MEAN CELL HGB CONCETRATION (test code = MCHC) 35.1 gram/dL 33.0-36. 0 N RED CELL DISTRIBUTION WIDTH (test code = RDW) 13.1 % 11.6-16. 2 N RED CELL DISTRIBUTION WIDTH SD (test code = RDW-SD) 46.2 fL 37 .0-51.0 N PLATELET COUNT (test code = PLT) 86 K/mm3 150-450 L MEAN PLATELET VOLUME (test code = MPV) 11.9 fL 6.7-11.0 H NEUTROPHIL % (test code = NT%) 77.9 % 39.0-69.0 H IMMATURE GRANULOCYTE % (test code = IG%) 1.1 % 0.0-5.0 N LYMPHOCYTE % (test code = LY%) 12.4 % 25.0-55.0 L MONOCYTE % (test code = MO%) 8.3 % 0.0-10.0 N EOSINOPHIL % (test code = EO%) 0.1 % 0.0-5.0 N BASOPHIL % (test code = BA%) 0.2 % 0.0-1.0 N NUCLEATED RBC % (test code = NRBC%) 0.4 % 0-0 H NEUTROPHIL # (test code = NT#) 13.56 K/mm3 1.8-7.7 H IMMATURE GRANULOCYTE # (test code = IG#) 0.19 x10 3/uL 0-0.03 H LYMPHOCYTE # (test code = LY#) 2.15 K/mm3 1.0-5.0 N MONOCYTE # (test code = MO#) 1.45 K/mm3 0-0.8 H EOSINOPHIL # (test code = EO#) 0.01 K/mm3 0.0-0.5 N BASOPHIL # (test code = BA#) 0.04 K/mm3 0.0-0.2 N NUCLEATED RBC # (test code = NRBC#) 0.07 K/mm3 0.0-0.1 N MANUAL DIFF REQUIRED (test code = MDIFF) NO, ONLY SCAN NEEDED DIFFERENTIAL [id number] 08:10:00* Test Item Value Reference Range Interpretation Comments STAIN ACCEPTABILITY (test code = STN ACCEPTABLE) CABOT RINGS (test code = CAB) MORPHOLOGY COMMENT (test code = MOC) PLATELET ESTIMATE (test code = PLTEST) PLATELET MORPHOLOGY (test code = PLTMORPH) CBC W/AUTO [id number] 08:10:00* Test Item Value Reference Range Interpretation Comments WHITE BLOOD CELL (test code = WBC) 17.4 K/mm3 4.5-12.5 H RED BLOOD CELL (test code = RBC) 4.59 mill/mm3 3.7-5.2 N HEMOGLOBIN (test code = HGB) 15.7 gram/dL 11.5-15.5 H HEMATOCRIT (test code = HCT) 45.9 % 36.0-46.0 N MEAN CELL VOLUME (test code = MCV) 97.4 fL 80-98 N MEAN CELL HGB (test code = MCH) 34.2 picogram 27.0-33.0 H MEAN CELL HGB CONCETRATION (test code = MCHC) 35.1 gram/dL 33.0-36. 0 N RED CELL DISTRIBUTION WIDTH (test code = RDW) 13.1 % 11.6-16. 2 N RED CELL DISTRIBUTION WIDTH SD (test code = RDW-SD) 46.2 fL 37 .0-51.0 N PLATELET COUNT (test code = PLT) 86 K/mm3 150-450 L MEAN PLATELET VOLUME (test code = MPV) 11.9 fL 6.7-11.0 H NEUTROPHIL % (test code = NT%) 77.9 % 39.0-69.0 H IMMATURE GRANULOCYTE % (test code = IG%) 1.1 % 0.0-5.0 N LYMPHOCYTE % (test code = LY%) 12.4 % 25.0-55.0 L MONOCYTE % (test code = MO%) 8.3 % 0.0-10.0 N EOSINOPHIL % (test code = EO%) 0.1 % 0.0-5.0 N BASOPHIL % (test code = BA%) 0.2 % 0.0-1.0 N NUCLEATED RBC % (test code = NRBC%) 0.4 % 0-0 H NEUTROPHIL # (test code = NT#) 13.56 K/mm3 1.8-7.7 H IMMATURE GRANULOCYTE # (test code = IG#) 0.19 x10 3/uL 0-0.03 H LYMPHOCYTE # (test code = LY#) 2.15 K/mm3 1.0-5.0 N MONOCYTE # (test code = MO#) 1.45 K/mm3 0-0.8 H EOSINOPHIL # (test code = EO#) 0.01 K/mm3 0.0-0.5 N BASOPHIL # (test code = BA#) 0.04 K/mm3 0.0-0.2 N NUCLEATED RBC # (test code = NRBC#) 0.07 K/mm3 0.0-0.1 N MANUAL DIFF REQUIRED (test code = MDIFF) NO, ONLY SCAN NEEDED DIFFERENTIAL [id number] 08:10:00* Test Item Value Reference Range Interpretation Comments STAIN ACCEPTABILITY (test code = STN ACCEPTABLE) CABOT RINGS (test code = CAB) MORPHOLOGY COMMENT (test code = MOC) PLATELET ESTIMATE (test code = PLTEST) PLATELET MORPHOLOGY (test code = PLTMORPH) CBC W/AUTO [id number] 08:10:00* Test Item Value Reference Range Interpretation Comments WHITE BLOOD CELL (test code = WBC) 17.4 K/mm3 4.5-12.5 H RED BLOOD CELL (test code = RBC) 4.59 mill/mm3 3.7-5.2 N HEMOGLOBIN (test code = HGB) 15.7 gram/dL 11.5-15.5 H HEMATOCRIT (test code = HCT) 45.9 % 36.0-46.0 N MEAN CELL VOLUME (test code = MCV) 97.4 fL 80-98 N MEAN CELL HGB (test code = MCH) 34.2 picogram 27.0-33.0 H MEAN CELL HGB CONCETRATION (test code = MCHC) 35.1 gram/dL 33.0-36. 0 N RED CELL DISTRIBUTION WIDTH (test code = RDW) 13.1 % 11.6-16. 2 N RED CELL DISTRIBUTION WIDTH SD (test code = RDW-SD) 46.2 fL 37 .0-51.0 N PLATELET COUNT (test code = PLT) 86 K/mm3 150-450 L MEAN PLATELET VOLUME (test code = MPV) 11.9 fL 6.7-11.0 H NEUTROPHIL % (test code = NT%) 77.9 % 39.0-69.0 H IMMATURE GRANULOCYTE % (test code = IG%) 1.1 % 0.0-5.0 N LYMPHOCYTE % (test code = LY%) 12.4 % 25.0-55.0 L MONOCYTE % (test code = MO%) 8.3 % 0.0-10.0 N EOSINOPHIL % (test code = EO%) 0.1 % 0.0-5.0 N BASOPHIL % (test code = BA%) 0.2 % 0.0-1.0 N NUCLEATED RBC % (test code = NRBC%) 0.4 % 0-0 H NEUTROPHIL # (test code = NT#) 13.56 K/mm3 1.8-7.7 H IMMATURE GRANULOCYTE # (test code = IG#) 0.19 x10 3/uL 0-0.03 H LYMPHOCYTE # (test code = LY#) 2.15 K/mm3 1.0-5.0 N MONOCYTE # (test code = MO#) 1.45 K/mm3 0-0.8 H EOSINOPHIL # (test code = EO#) 0.01 K/mm3 0.0-0.5 N BASOPHIL # (test code = BA#) 0.04 K/mm3 0.0-0.2 N NUCLEATED RBC # (test code = NRBC#) 0.07 K/mm3 0.0-0.1 N MANUAL DIFF REQUIRED (test code = MDIFF) NO, ONLY SCAN NEEDED DIFFERENTIAL [id number] 08:10:00* Test Item Value Reference Range Interpretation Comments STAIN ACCEPTABILITY (test code = STN ACCEPTABLE) MORPHOLOGY COMMENT (test code = MOC) PLATELET ESTIMATE (test code = PLTEST) PLATELET MORPHOLOGY (test code = PLTMORPH) CBC W/AUTO [id number] 08:10:00* Test Item Value Reference Range Interpretation Comments WHITE BLOOD CELL (test code = WBC) 17.4 K/mm3 4.5-12.5 H RED BLOOD CELL (test code = RBC) 4.59 mill/mm3 3.7-5.2 N HEMOGLOBIN (test code = HGB) 15.7 gram/dL 11.5-15.5 H HEMATOCRIT (test code = HCT) 45.9 % 36.0-46.0 N MEAN CELL VOLUME (test code = MCV) 97.4 fL 80-98 N MEAN CELL HGB (test code = MCH) 34.2 picogram 27.0-33.0 H MEAN CELL HGB CONCETRATION (test code = MCHC) 35.1 gram/dL 33.0-36. 0 N RED CELL DISTRIBUTION WIDTH (test code = RDW) 13.1 % 11.6-16. 2 N RED CELL DISTRIBUTION WIDTH SD (test code = RDW-SD) 46.2 fL 37 .0-51.0 N PLATELET COUNT (test code = PLT) 86 K/mm3 150-450 L MEAN PLATELET VOLUME (test code = MPV) 11.9 fL 6.7-11.0 H NEUTROPHIL % (test code = NT%) 77.9 % 39.0-69.0 H IMMATURE GRANULOCYTE % (test code = IG%) 1.1 % 0.0-5.0 N LYMPHOCYTE % (test code = LY%) 12.4 % 25.0-55.0 L MONOCYTE % (test code = MO%) 8.3 % 0.0-10.0 N EOSINOPHIL % (test code = EO%) 0.1 % 0.0-5.0 N BASOPHIL % (test code = BA%) 0.2 % 0.0-1.0 N NUCLEATED RBC % (test code = NRBC%) 0.4 % 0-0 H NEUTROPHIL # (test code = NT#) 13.56 K/mm3 1.8-7.7 H IMMATURE GRANULOCYTE # (test code = IG#) 0.19 x10 3/uL 0-0.03 H LYMPHOCYTE # (test code = LY#) 2.15 K/mm3 1.0-5.0 N MONOCYTE # (test code = MO#) 1.45 K/mm3 0-0.8 H EOSINOPHIL # (test code = EO#) 0.01 K/mm3 0.0-0.5 N BASOPHIL # (test code = BA#) 0.04 K/mm3 0.0-0.2 N NUCLEATED RBC # (test code = NRBC#) 0.07 K/mm3 0.0-0.1 N MANUAL DIFF REQUIRED (test code = MDIFF) NO, ONLY SCAN NEEDED DIFFERENTIAL [id number] 08:10:00* Test Item Value Reference Range Interpretation Comments STAIN ACCEPTABILITY (test code = STN ACCEPTABLE) CABOT RINGS (test code = CAB) MORPHOLOGY COMMENT (test code = MOC) PLATELET ESTIMATE (test code = PLTEST) PLATELET MORPHOLOGY (test code = PLTMORPH) CBC W/AUTO [id number] 07:56:00* Test Item Value Reference Range Interpretation Comments WHITE BLOOD CELL (test code = WBC) K/mm3 4.5-12.5 RED BLOOD CELL (test code = RBC) mill/mm3 3.7-5.2 HEMOGLOBIN (test code = HGB) gram/dL 11.5-15.5 HEMATOCRIT (test code = HCT) 45.9 % 36.0-46.0 N MEAN CELL VOLUME (test code = MCV) fL 80-98 MEAN CELL HGB (test code = MCH) picogram 27.0-33.0 MEAN CELL HGB CONCETRATION (test code = MCHC) gram/dL 33.0-36. 0 RED CELL DISTRIBUTION WIDTH (test code = RDW) % 11.6-16. 2 RED CELL DISTRIBUTION WIDTH SD (test code = RDW-SD) fL 37 .0-51.0 PLATELET COUNT (test code = PLT) K/mm3 150-450 MEAN PLATELET VOLUME (test code = MPV) fL 6.7-11.0 NEUTROPHIL % (test code = NT%) % 39.0-69.0 IMMATURE GRANULOCYTE % (test code = IG%) % 0.0-5.0 LYMPHOCYTE % (test code = LY%) % 25.0-55.0 MONOCYTE % (test code = MO%) % 0.0-10.0 EOSINOPHIL % (test code = EO%) % 0.0-5.0 BASOPHIL % (test code = BA%) % 0.0-1.0 NEUTROPHIL # (test code = NT#) K/mm3 1.8-7.7 LYMPHOCYTE # (test code = LY#) K/mm3 1.0-5.0 MONOCYTE # (test code = MO#) K/mm3 0-0.8 EOSINOPHIL # (test code = EO#) K/mm3 0.0-0.5 BASOPHIL # (test code = BA#) K/mm3 0.0-0.2 [id number] 06:19:00* Test Item Value Reference Range Interpretation Comments GLUBED (test code = GLUBED) 250 mg/dL 74-106 H Performed by certified shaker operator at [facility] [id number] 23:29:00* Test Item Value Reference Range Interpretation Comments TROPONIN-I (test code = TROPI) 0.144 ng/mL 0-0.045 HH PREVIOUSLY CALLED - XR CHEST 1 [id number] 13:05:00 FAX: Shweta Patton MD [phone] [place]: St: ADM FAX: Mathew Dove MD [phone] Name: ARNALDO MARSHALL [facility] : 1935 Age/S: 84/F [address] Unit #: [id number] Loc: V.2076 [place] [address] Phys: Shweta Patton MD Acct: [id number] Dis Date: Status: ADM IN PHONE #: [phone] Exam Date: 05/22/2019 1237 FAX #: [phone] Reason: sob EXAMS: CPT CODE: [id number] XR CHEST 1 V 86543 EXAM: Chest x-ray, one view; INFORMATION: Shortness of breath; IMPRESSION: 1. No significant change compared with the recent study from May 20, 2019; persistent moderate cardiomegaly. Aortic calcifications. 2. No acute pulmonary abnormalities. 3. Old, consolidated right-sided rib fractures. Location code: [facility] at 1305 Reported and signed by: Ryan Lowe M.D. CC: Shweta Patton MD; Mathew Martinez MD Technologist: Keri Cotter(R); PAYAM GERMANIA COLLIER (R) Trnscrd Date/Time/By: 05/22/2019 (7450) : By: ChristGRW Orig Print D/T: S: 05/22/2019 (3171) PAGE 1 Signed Report [id number] 11:38:00* Test Item Value Reference Range Interpretation Comments TROPONIN-I (test code = TROPI) 0.055 ng/mL 0-0.045 HH [id number] 07:12:00* Test Item Value Reference Range Interpretation Comments TRANSFERRRIN (test code = TRANSF) 154 mg/dL 200-370 A Performed At: [facility] [id number] Sanjai MD Ph:[phone] [id number] 07:12:00* Test Item Value Reference Range Interpretation Comments FERRITIN (test code = JILL) 329 ng/mL 8-388 N RETICULOCYTE [id number] 07:12:00* Test Item Value Reference Range Interpretation Comments RETICULOCYTE COUNT (test code = RETICT) 1.5 % 0.5-2.0 N RETIC COUNT ABSOLUTE (test code = RET#) 0.055 mill/mm3 0.016-0.095 N IMMATURE RETICULOCYTE FRACTION (test code = IRF) 18.4 % 3.0-1 5.9 H Values above normal range indicate an increase in RBCcellular response from bone marrow. RETICULOCYTE HGB EQUIVALENT (test code = RETHE) 34.2 pg 28.2-3 5.7 N RET-He is a direct estimate of recent functionalavailability of iron in the cell, therefore, decreasedRET-He is indicative of iron deficiency. SMEAR PERIPHERAL [id number] 07:12:00* Test Item Value Reference Range Interpretation Comments SMEAR PERIPHERAL BLOOD (test code = BLDSM) PATH REV PATH REVIEW Reviewed by Dr Sheri LiangHOMBOCYTOPENIASOME CRENATED RED BLOOD CELLSRED BLOOD CELL MORPHOLOGYOTHERWISE UNREMARKABLE [id number] 07:12:00* Test Item Value Reference Range Interpretation Comments HAPTOGLOBIN (test code = HAPT) 114 mg/dL 34-200 Effective June 09, 2019 [...] - 329 41 - 333Performed At: [facility] [address] [id number] Sanjai MD Ph:[phone] [id number] 06:42:00* Test Item Value Reference Range Interpretation Comments GLUBED (test code = GLUBED) 212 mg/dL 74-106 H Performed by certified shaker operator at [facility] CBC W/AUTO [id number] 06:19:00* Test Item Value Reference Range Interpretation Comments WHITE BLOOD CELL (test code = WBC) 16.0 K/mm3 4.5-12.5 H RED BLOOD CELL (test code = RBC) 4.54 mill/mm3 3.7-5.2 N HEMOGLOBIN (test code = HGB) 15.3 gram/dL 11.5-15.5 N HEMATOCRIT (test code = HCT) 44.4 % 36.0-46.0 N MEAN CELL VOLUME (test code = MCV) 97.8 fL 80-98 N MEAN CELL HGB (test code = MCH) 33.7 picogram 27.0-33.0 H MEAN CELL HGB CONCETRATION (test code = MCHC) 34.5 gram/dL 33.0-36. 0 N RED CELL DISTRIBUTION WIDTH (test code = RDW) 12.7 % 11.6-16. 2 N RED CELL DISTRIBUTION WIDTH SD (test code = RDW-SD) 45.7 fL 37 .0-51.0 N PLATELET COUNT (test code = PLT) 90 K/mm3 150-450 L MEAN PLATELET VOLUME (test code = MPV) 10.9 fL 6.7-11.0 N NEUTROPHIL % (test code = NT%) 76.4 % 39.0-69.0 H IMMATURE GRANULOCYTE % (test code = IG%) 1.0 % 0.0-5.0 N LYMPHOCYTE % (test code = LY%) 14.4 % 25.0-55.0 L MONOCYTE % (test code = MO%) 7.8 % 0.0-10.0 N EOSINOPHIL % (test code = EO%) 0.1 % 0.0-5.0 N BASOPHIL % (test code = BA%) 0.3 % 0.0-1.0 N NUCLEATED RBC % (test code = NRBC%) 0.1 % 0-0 H NEUTROPHIL # (test code = NT#) 12.25 K/mm3 1.8-7.7 H IMMATURE GRANULOCYTE # (test code = IG#) 0.16 x10 3/uL 0-0.03 H LYMPHOCYTE # (test code = LY#) 2.30 K/mm3 1.0-5.0 N MONOCYTE # (test code = MO#) 1.25 K/mm3 0-0.8 H EOSINOPHIL # (test code = EO#) 0.01 K/mm3 0.0-0.5 N BASOPHIL # (test code = BA#) 0.05 K/mm3 0.0-0.2 N NUCLEATED RBC # (test code = NRBC#) 0.02 K/mm3 0.0-0.1 N MANUAL DIFF REQUIRED (test code = MDIFF) NO, ONLY SCAN NEEDED DIFFERENTIAL [id number] 06:19:00* Test Item Value Reference Range Interpretation Comments STAIN ACCEPTABILITY (test code = STN ACCEPTABLE) STAIN ACCEPTABLE POLYCHROMASIA (test code = POLC) 1+ POIKILOCYTOSIS (test code = POIK) 1+ CRENATED CELLS (test code = CREN) 1+ PLATELET ESTIMATE (test code = PLTEST) ADEQUATE PLATELET MORPHOLOGY (test code = PLTMORPH) NORMAL COMPREHENSIVE METABOLIC [id number] 05:50:00* Test Item Value Reference Range Interpretation Comments SODIUM (test code = NA) 134 mmol/L 136-145 L POTASSIUM (test code = K) 3.6 mmol/L 3.5-5.1 N CHLORIDE (test code = CL) 92.0 mmol/L 98-107 L CARBON DIOXIDE (test code = CO2) 34.0 mmol/L 21-32 H ANION GAP (test code = GAP) 11.6 10-20 N GLUCOSE (test code = GLU) 183 mg/dL 74-106 H BLOOD UREA NITROGEN (test code = BUN) 36 mg/dL 7-18 H RESULT VERIFIED BY REPEAT ANALYSIS GLOMERULAR FILTRATION RATE (test code = GFR) 36 mL/min >=60 Estimated GFR by using Modified MDRD formula.Chronic kidney disease is defined as either kidney damageor GFR <60 mL/min/1.73 m2 for >3 months. CREATININE (test code = CREAT) 1.40 mg/dL 0.55-1.02 H Note change in reference range due to change in reagent. BUN/CREATININE RATIO (test code = BUN/CREA) 25.7 10-20 H TOTAL PROTEIN (test code = PROT) 6.3 gram/dL 6.4-8.2 L ALBUMIN (test code = ALB) 2.6 g/dL 3.4-5.0 L GLOBULIN (test code = GLOB) 3.7 gram/dL 2.7-4.2 N ALBUMIN/GLOBULIN RATIO (test code = A/G) 0.7 0.75-1.50 L CALCIUM (test code = CA) 8.6 mg/dL 8.5-10.1 N BILIRUBIN TOTAL (test code = BILT) 1.60 mg/dL 0.0-1.0 H SGOT/AST (test code = AST) 229 IUnit/L 15-37 H SGPT/ALT (test code = ALT) 225 IUnit/L 12-78 H ALKALINE PHOSPHATASE TOTAL (test code = ALKP) 711 IUnit/L 45-117 H Note change in reference range due to change in reagent. COMPREHENSIVE METABOLIC [id number] 05:20:00* Test Item Value Reference Range Interpretation Comments SODIUM (test code = NA) 134 mmol/L 136-145 L POTASSIUM (test code = K) 3.6 mmol/L 3.5-5.1 N CHLORIDE (test code = CL) 92.0 mmol/L 98-107 L CARBON DIOXIDE (test code = CO2) mmol/L 21-32 ANION GAP (test code = GAP) 10-20 GLUCOSE (test code = GLU) mg/dL 74-106 BLOOD UREA NITROGEN (test code = BUN) mg/dL 7-18 GLOMERULAR FILTRATION RATE (test code = GFR) mL/min >=60 CREATININE (test code = CREAT) mg/dL 0.55-1.02 BUN/CREATININE RATIO (test code = BUN/CREA) 10-20 TOTAL PROTEIN (test code = PROT) gram/dL 6.4-8.2 ALBUMIN (test code = ALB) g/dL 3.4-5.0 GLOBULIN (test code = GLOB) gram/dL 2.7-4.2 ALBUMIN/GLOBULIN RATIO (test code = A/G) 0.75-1.50 CALCIUM (test code = CA) mg/dL 8.5-10.1 BILIRUBIN TOTAL (test code = BILT) mg/dL 0.0-1.0 SGOT/AST (test code = AST) IUnit/L 15-37 SGPT/ALT (test code = ALT) IUnit/L 12-78 ALKALINE PHOSPHATASE TOTAL (test code = ALKP) IUnit/L 45-117 CBC W/AUTO [id number] 04:44:00* Test Item Value Reference Range Interpretation Comments WHITE BLOOD CELL (test code = WBC) 16.0 K/mm3 4.5-12.5 H RED BLOOD CELL (test code = RBC) 4.54 mill/mm3 3.7-5.2 N HEMOGLOBIN (test code = HGB) 15.3 gram/dL 11.5-15.5 N HEMATOCRIT (test code = HCT) 44.4 % 36.0-46.0 N MEAN CELL VOLUME (test code = MCV) 97.8 fL 80-98 N MEAN CELL HGB (test code = MCH) 33.7 picogram 27.0-33.0 H MEAN CELL HGB CONCETRATION (test code = MCHC) 34.5 gram/dL 33.0-36. 0 N RED CELL DISTRIBUTION WIDTH (test code = RDW) 12.7 % 11.6-16. 2 N RED CELL DISTRIBUTION WIDTH SD (test code = RDW-SD) 45.7 fL 37 .0-51.0 N PLATELET COUNT (test code = PLT) 90 K/mm3 150-450 L MEAN PLATELET VOLUME (test code = MPV) 10.9 fL 6.7-11.0 N NEUTROPHIL % (test code = NT%) 76.4 % 39.0-69.0 H IMMATURE GRANULOCYTE % (test code = IG%) 1.0 % 0.0-5.0 N LYMPHOCYTE % (test code = LY%) 14.4 % 25.0-55.0 L MONOCYTE % (test code = MO%) 7.8 % 0.0-10.0 N EOSINOPHIL % (test code = EO%) 0.1 % 0.0-5.0 N BASOPHIL % (test code = BA%) 0.3 % 0.0-1.0 N NUCLEATED RBC % (test code = NRBC%) 0.1 % 0-0 H NEUTROPHIL # (test code = NT#) 12.25 K/mm3 1.8-7.7 H IMMATURE GRANULOCYTE # (test code = IG#) 0.16 x10 3/uL 0-0.03 H LYMPHOCYTE # (test code = LY#) 2.30 K/mm3 1.0-5.0 N MONOCYTE # (test code = MO#) 1.25 K/mm3 0-0.8 H EOSINOPHIL # (test code = EO#) 0.01 K/mm3 0.0-0.5 N BASOPHIL # (test code = BA#) 0.05 K/mm3 0.0-0.2 N NUCLEATED RBC # (test code = NRBC#) 0.02 K/mm3 0.0-0.1 N MANUAL DIFF REQUIRED (test code = MDIFF) NO, ONLY SCAN NEEDED DIFFERENTIAL [id number] 04:44:00* Test Item Value Reference Range Interpretation Comments STAIN ACCEPTABILITY (test code = STN ACCEPTABLE) CABOT RINGS (test code = CAB) MORPHOLOGY COMMENT (test code = MOC) PLATELET ESTIMATE (test code = PLTEST) PLATELET MORPHOLOGY (test code = PLTMORPH) CBC W/AUTO [id number] 04:44:00* Test Item Value Reference Range Interpretation Comments WHITE BLOOD CELL (test code = WBC) 16.0 K/mm3 4.5-12.5 H RED BLOOD CELL (test code = RBC) 4.54 mill/mm3 3.7-5.2 N HEMOGLOBIN (test code = HGB) 15.3 gram/dL 11.5-15.5 N HEMATOCRIT (test code = HCT) 44.4 % 36.0-46.0 N MEAN CELL VOLUME (test code = MCV) 97.8 fL 80-98 N MEAN CELL HGB (test code = MCH) 33.7 picogram 27.0-33.0 H MEAN CELL HGB CONCETRATION (test code = MCHC) 34.5 gram/dL 33.0-36. 0 N RED CELL DISTRIBUTION WIDTH (test code = RDW) 12.7 % 11.6-16. 2 N RED CELL DISTRIBUTION WIDTH SD (test code = RDW-SD) 45.7 fL 37 .0-51.0 N PLATELET COUNT (test code = PLT) 90 K/mm3 150-450 L MEAN PLATELET VOLUME (test code = MPV) 10.9 fL 6.7-11.0 N NEUTROPHIL % (test code = NT%) 76.4 % 39.0-69.0 H IMMATURE GRANULOCYTE % (test code = IG%) 1.0 % 0.0-5.0 N LYMPHOCYTE % (test code = LY%) 14.4 % 25.0-55.0 L MONOCYTE % (test code = MO%) 7.8 % 0.0-10.0 N EOSINOPHIL % (test code = EO%) 0.1 % 0.0-5.0 N BASOPHIL % (test code = BA%) 0.3 % 0.0-1.0 N NUCLEATED RBC % (test code = NRBC%) 0.1 % 0-0 H NEUTROPHIL # (test code = NT#) 12.25 K/mm3 1.8-7.7 H IMMATURE GRANULOCYTE # (test code = IG#) 0.16 x10 3/uL 0-0.03 H LYMPHOCYTE # (test code = LY#) 2.30 K/mm3 1.0-5.0 N MONOCYTE # (test code = MO#) 1.25 K/mm3 0-0.8 H EOSINOPHIL # (test code = EO#) 0.01 K/mm3 0.0-0.5 N BASOPHIL # (test code = BA#) 0.05 K/mm3 0.0-0.2 N NUCLEATED RBC # (test code = NRBC#) 0.02 K/mm3 0.0-0.1 N MANUAL DIFF REQUIRED (test code = MDIFF) NO, ONLY SCAN NEEDED DIFFERENTIAL [id number] 04:44:00* Test Item Value Reference Range Interpretation Comments STAIN ACCEPTABILITY (test code = STN ACCEPTABLE) CABOT RINGS (test code = CAB) MORPHOLOGY COMMENT (test code = MOC) PLATELET ESTIMATE (test code = PLTEST) PLATELET MORPHOLOGY (test code = PLTMORPH) CBC W/AUTO [id number] 04:44:00* Test Item Value Reference Range Interpretation Comments WHITE BLOOD CELL (test code = WBC) 16.0 K/mm3 4.5-12.5 H RED BLOOD CELL (test code = RBC) 4.54 mill/mm3 3.7-5.2 N HEMOGLOBIN (test code = HGB) 15.3 gram/dL 11.5-15.5 N HEMATOCRIT (test code = HCT) 44.4 % 36.0-46.0 N MEAN CELL VOLUME (test code = MCV) 97.8 fL 80-98 N MEAN CELL HGB (test code = MCH) 33.7 picogram 27.0-33.0 H MEAN CELL HGB CONCETRATION (test code = MCHC) 34.5 gram/dL 33.0-36. 0 N RED CELL DISTRIBUTION WIDTH (test code = RDW) 12.7 % 11.6-16. 2 N RED CELL DISTRIBUTION WIDTH SD (test code = RDW-SD) 45.7 fL 37 .0-51.0 N PLATELET COUNT (test code = PLT) 90 K/mm3 150-450 L MEAN PLATELET VOLUME (test code = MPV) 10.9 fL 6.7-11.0 N NEUTROPHIL % (test code = NT%) 76.4 % 39.0-69.0 H IMMATURE GRANULOCYTE % (test code = IG%) 1.0 % 0.0-5.0 N LYMPHOCYTE % (test code = LY%) 14.4 % 25.0-55.0 L MONOCYTE % (test code = MO%) 7.8 % 0.0-10.0 N EOSINOPHIL % (test code = EO%) 0.1 % 0.0-5.0 N BASOPHIL % (test code = BA%) 0.3 % 0.0-1.0 N NUCLEATED RBC % (test code = NRBC%) 0.1 % 0-0 H NEUTROPHIL # (test code = NT#) 12.25 K/mm3 1.8-7.7 H IMMATURE GRANULOCYTE # (test code = IG#) 0.16 x10 3/uL 0-0.03 H LYMPHOCYTE # (test code = LY#) 2.30 K/mm3 1.0-5.0 N MONOCYTE # (test code = MO#) 1.25 K/mm3 0-0.8 H EOSINOPHIL # (test code = EO#) 0.01 K/mm3 0.0-0.5 N BASOPHIL # (test code = BA#) 0.05 K/mm3 0.0-0.2 N NUCLEATED RBC # (test code = NRBC#) 0.02 K/mm3 0.0-0.1 N MANUAL DIFF REQUIRED (test code = MDIFF) NO, ONLY SCAN NEEDED DIFFERENTIAL [id number] 04:44:00* Test Item Value Reference Range Interpretation Comments STAIN ACCEPTABILITY (test code = STN ACCEPTABLE) MORPHOLOGY COMMENT (test code = MOC) PLATELET ESTIMATE (test code = PLTEST) PLATELET MORPHOLOGY (test code = PLTMORPH) CBC W/AUTO [id number] 04:44:00* Test Item Value Reference Range Interpretation Comments WHITE BLOOD CELL (test code = WBC) 16.0 K/mm3 4.5-12.5 H RED BLOOD CELL (test code = RBC) 4.54 mill/mm3 3.7-5.2 N HEMOGLOBIN (test code = HGB) 15.3 gram/dL 11.5-15.5 N HEMATOCRIT (test code = HCT) 44.4 % 36.0-46.0 N MEAN CELL VOLUME (test code = MCV) 97.8 fL 80-98 N MEAN CELL HGB (test code = MCH) 33.7 picogram 27.0-33.0 H MEAN CELL HGB CONCETRATION (test code = MCHC) 34.5 gram/dL 33.0-36. 0 N RED CELL DISTRIBUTION WIDTH (test code = RDW) 12.7 % 11.6-16. 2 N RED CELL DISTRIBUTION WIDTH SD (test code = RDW-SD) 45.7 fL 37 .0-51.0 N PLATELET COUNT (test code = PLT) 90 K/mm3 150-450 L MEAN PLATELET VOLUME (test code = MPV) 10.9 fL 6.7-11.0 N NEUTROPHIL % (test code = NT%) 76.4 % 39.0-69.0 H IMMATURE GRANULOCYTE % (test code = IG%) 1.0 % 0.0-5.0 N LYMPHOCYTE % (test code = LY%) 14.4 % 25.0-55.0 L MONOCYTE % (test code = MO%) 7.8 % 0.0-10.0 N EOSINOPHIL % (test code = EO%) 0.1 % 0.0-5.0 N BASOPHIL % (test code = BA%) 0.3 % 0.0-1.0 N NUCLEATED RBC % (test code = NRBC%) 0.1 % 0-0 H NEUTROPHIL # (test code = NT#) 12.25 K/mm3 1.8-7.7 H IMMATURE GRANULOCYTE # (test code = IG#) 0.16 x10 3/uL 0-0.03 H LYMPHOCYTE # (test code = LY#) 2.30 K/mm3 1.0-5.0 N MONOCYTE # (test code = MO#) 1.25 K/mm3 0-0.8 H EOSINOPHIL # (test code = EO#) 0.01 K/mm3 0.0-0.5 N BASOPHIL # (test code = BA#) 0.05 K/mm3 0.0-0.2 N NUCLEATED RBC # (test code = NRBC#) 0.02 K/mm3 0.0-0.1 N MANUAL DIFF REQUIRED (test code = MDIFF) NO, ONLY SCAN NEEDED DIFFERENTIAL [id number] 04:44:00* Test Item Value Reference Range Interpretation Comments STAIN ACCEPTABILITY (test code = STN ACCEPTABLE) CABOT RINGS (test code = CAB) MORPHOLOGY COMMENT (test code = MOC) PLATELET ESTIMATE (test code = PLTEST) PLATELET MORPHOLOGY (test code = PLTMORPH) CBC W/AUTO [id number] 04:37:00* Test Item Value Reference Range Interpretation Comments WHITE BLOOD CELL (test code = WBC) K/mm3 4.5-12.5 RED BLOOD CELL (test code = RBC) mill/mm3 3.7-5.2 HEMOGLOBIN (test code = HGB) 15.3 gram/dL 11.5-15.5 N HEMATOCRIT (test code = HCT) 44.4 % 36.0-46.0 N MEAN CELL VOLUME (test code = MCV) fL 80-98 MEAN CELL HGB (test code = MCH) picogram 27.0-33.0 MEAN CELL HGB CONCETRATION (test code = MCHC) gram/dL 33.0-36. 0 RED CELL DISTRIBUTION WIDTH (test code = RDW) % 11.6-16. 2 RED CELL DISTRIBUTION WIDTH SD (test code = RDW-SD) fL 37 .0-51.0 PLATELET COUNT (test code = PLT) K/mm3 150-450 MEAN PLATELET VOLUME (test code = MPV) fL 6.7-11.0 NEUTROPHIL % (test code = NT%) % 39.0-69.0 IMMATURE GRANULOCYTE % (test code = IG%) % 0.0-5.0 LYMPHOCYTE % (test code = LY%) % 25.0-55.0 MONOCYTE % (test code = MO%) % 0.0-10.0 EOSINOPHIL % (test code = EO%) % 0.0-5.0 BASOPHIL % (test code = BA%) % 0.0-1.0 NEUTROPHIL # (test code = NT#) K/mm3 1.8-7.7 LYMPHOCYTE # (test code = LY#) K/mm3 1.0-5.0 MONOCYTE # (test code = MO#) K/mm3 0-0.8 EOSINOPHIL # (test code = EO#) K/mm3 0.0-0.5 BASOPHIL # (test code = BA#) K/mm3 0.0-0.2 [id number] 20:42:00* Test Item Value Reference Range Interpretation Comments GLUBED (test code = GLUBED) 235 mg/dL 74-106 H Performed by certified shaker operator at [facility] RETICULOCYTE [id number] 18:07:00* Test Item Value Reference Range Interpretation Comments RETICULOCYTE COUNT (test code = RETICT) 1.5 % 0.5-2.0 N RETIC COUNT ABSOLUTE (test code = RET#) 0.055 mill/mm3 0.016-0.095 N IMMATURE RETICULOCYTE FRACTION (test code = IRF) 18.4 % 3.0-1 5.9 H Values above normal range indicate an increase in RBCcellular response from bone marrow. RETICULOCYTE HGB EQUIVALENT (test code = RETHE) 34.2 pg 28.2-3 5.7 N RET-He is a direct estimate of recent functionalavailability of iron in the cell, therefore, decreasedRET-He is indicative of iron deficiency. SMEAR PERIPHERAL [id number] 18:07:00* Test Item Value Reference Range Interpretation Comments SMEAR PERIPHERAL BLOOD (test code = BLDSM) PATH REV PATH REVIEW Reviewed by Dr Sheri LiangHOMBOCYTOPENIASOME CRENATED RED BLOOD CELLSRED BLOOD CELL MORPHOLOGYOTHERWISE UNREMARKABLE [id number] 18:07:00* Test Item Value Reference Range Interpretation Comments HAPTOGLOBIN (test code = HAPT) mg/dL [id number] 16:24:00* Test Item Value Reference Range Interpretation Comments GLUBED (test code = GLUBED) 183 mg/dL 74-106 H Performed by certified shaker operator at [facility] [id number] 13:06:00* Test Item Value Reference Range Interpretation Comments GLUBED (test code = GLUBED) 204 mg/dL 74-106 H Performed by certified shaker operator at [facility] ACUTE HEPATITIS [id number] 12:08:00* Test Item Value Reference Range Interpretation Comments AB HEPATITIS A IGM (test code = HAVMAB) Negative Negative AG HEPAT B SURF (test code = HBSAG) Negative Negative HEPATITIS B CORE ANTIBODY,IGM (test code = HBCMAB) Negative Neg ative AB HEPATITIS C (test code = HCVAB) <0.1 0.0-0.9 INFCE Result Units: s/co ratio Negative: < 0.8 Indeterminate: 0.8 - 0.9 Positive: > 0.9 The CDC recommends that a positive HCV antibody result be followed up with a HCV Nucleic Acid Amplification test (109705).Performed At: [facility] [address] [id number] Darío Bob MD Ph:[phone] SPECIMEN COMMENTS: can add to morning labs or tomorrow [id number] 11:04:00* Test Item Value Reference Range Interpretation Comments TROPONIN-I (test code = TROPI) 0.048 ng/mL 0-0.045 Results called to [id number] by [facility].QD 05/21/19 1104Critical results verified and read back by Nurse? YES CBC W/AUTO [id number] 09:22:00* Test Item Value Reference Range Interpretation Comments WHITE BLOOD CELL (test code = WBC) 14.0 K/mm3 4.5-12.5 H RED BLOOD CELL (test code = RBC) 4.56 mill/mm3 3.7-5.2 N HEMOGLOBIN (test code = HGB) 15.4 gram/dL 11.5-15.5 RESULT VERIFIED BY REPEAT ANALYSIS HEMATOCRIT (test code = HCT) 45.4 % 36.0-46.0 N MEAN CELL VOLUME (test code = MCV) 99.6 fL 80-98 H MEAN CELL HGB (test code = MCH) 33.8 picogram 27.0-33.0 H MEAN CELL HGB CONCETRATION (test code = MCHC) 33.9 gram/dL 33.0-36. 0 N RED CELL DISTRIBUTION WIDTH (test code = RDW) 13.0 % 11.6-16. 2 N RED CELL DISTRIBUTION WIDTH SD (test code = RDW-SD) 47.9 fL 37 .0-51.0 N PLATELET COUNT (test code = PLT) 101 K/mm3 150-450 L MEAN PLATELET VOLUME (test code = MPV) 10.4 fL 6.7-11.0 N NEUTROPHIL % (test code = NT%) 73.0 % 39.0-69.0 H IMMATURE GRANULOCYTE % (test code = IG%) 1.1 % 0.0-5.0 N LYMPHOCYTE % (test code = LY%) 17.9 % 25.0-55.0 L MONOCYTE % (test code = MO%) 7.7 % 0.0-10.0 N EOSINOPHIL % (test code = EO%) 0.1 % 0.0-5.0 N BASOPHIL % (test code = BA%) 0.2 % 0.0-1.0 N NUCLEATED RBC % (test code = NRBC%) 0.1 % 0-0 H NEUTROPHIL # (test code = NT#) 10.21 K/mm3 1.8-7.7 H IMMATURE GRANULOCYTE # (test code = IG#) 0.15 x10 3/uL 0-0.03 H LYMPHOCYTE # (test code = LY#) 2.50 K/mm3 1.0-5.0 N MONOCYTE # (test code = MO#) 1.08 K/mm3 0-0.8 H EOSINOPHIL # (test code = EO#) 0.01 K/mm3 0.0-0.5 N BASOPHIL # (test code = BA#) 0.03 K/mm3 0.0-0.2 N NUCLEATED RBC # (test code = NRBC#) 0.02 K/mm3 0.0-0.1 N MANUAL DIFF REQUIRED (test code = MDIFF) NO, ONLY SCAN NEEDED DIFFERENTIAL [id number] 09:22:00* Test Item Value Reference Range Interpretation Comments STAIN ACCEPTABILITY (test code = STN ACCEPTABLE) STAIN ACCEPTABLE ANISOCYTOSIS (test code = ANISO) 2+ MACROCYTOSIS (test code = MACR) 2+ ELLIPTOCYTES (test code = ELL) 1+ PLATELET ESTIMATE (test code = PLTEST) DECREASED PLATELET MORPHOLOGY (test code = PLTMORPH) NORMAL CBC W/AUTO [id number] 07:54:00* Test Item Value Reference Range Interpretation Comments WHITE BLOOD CELL (test code = WBC) 14.0 K/mm3 4.5-12.5 H RED BLOOD CELL (test code = RBC) 4.56 mill/mm3 3.7-5.2 N HEMOGLOBIN (test code = HGB) 15.4 gram/dL 11.5-15.5 RESULT VERIFIED BY REPEAT ANALYSIS HEMATOCRIT (test code = HCT) 45.4 % 36.0-46.0 N MEAN CELL VOLUME (test code = MCV) 99.6 fL 80-98 H MEAN CELL HGB (test code = MCH) 33.8 picogram 27.0-33.0 H MEAN CELL HGB CONCETRATION (test code = MCHC) 33.9 gram/dL 33.0-36. 0 N RED CELL DISTRIBUTION WIDTH (test code = RDW) 13.0 % 11.6-16. 2 N RED CELL DISTRIBUTION WIDTH SD (test code = RDW-SD) 47.9 fL 37 .0-51.0 N PLATELET COUNT (test code = PLT) 101 K/mm3 150-450 L MEAN PLATELET VOLUME (test code = MPV) 10.4 fL 6.7-11.0 N NEUTROPHIL % (test code = NT%) 73.0 % 39.0-69.0 H IMMATURE GRANULOCYTE % (test code = IG%) 1.1 % 0.0-5.0 N LYMPHOCYTE % (test code = LY%) 17.9 % 25.0-55.0 L MONOCYTE % (test code = MO%) 7.7 % 0.0-10.0 N EOSINOPHIL % (test code = EO%) 0.1 % 0.0-5.0 N BASOPHIL % (test code = BA%) 0.2 % 0.0-1.0 N NUCLEATED RBC % (test code = NRBC%) 0.1 % 0-0 H NEUTROPHIL # (test code = NT#) 10.21 K/mm3 1.8-7.7 H IMMATURE GRANULOCYTE # (test code = IG#) 0.15 x10 3/uL 0-0.03 H LYMPHOCYTE # (test code = LY#) 2.50 K/mm3 1.0-5.0 N MONOCYTE # (test code = MO#) 1.08 K/mm3 0-0.8 H EOSINOPHIL # (test code = EO#) 0.01 K/mm3 0.0-0.5 N BASOPHIL # (test code = BA#) 0.03 K/mm3 0.0-0.2 N NUCLEATED RBC # (test code = NRBC#) 0.02 K/mm3 0.0-0.1 N MANUAL DIFF REQUIRED (test code = MDIFF) NO, ONLY SCAN NEEDED DIFFERENTIAL [id number] 07:54:00* Test Item Value Reference Range Interpretation Comments STAIN ACCEPTABILITY (test code = STN ACCEPTABLE) CABOT RINGS (test code = CAB) MORPHOLOGY COMMENT (test code = MOC) PLATELET ESTIMATE (test code = PLTEST) PLATELET MORPHOLOGY (test code = PLTMORPH) CBC W/AUTO [id number] 07:54:00* Test Item Value Reference Range Interpretation Comments WHITE BLOOD CELL (test code = WBC) 14.0 K/mm3 4.5-12.5 H RED BLOOD CELL (test code = RBC) 4.56 mill/mm3 3.7-5.2 N HEMOGLOBIN (test code = HGB) 15.4 gram/dL 11.5-15.5 RESULT VERIFIED BY REPEAT ANALYSIS HEMATOCRIT (test code = HCT) 45.4 % 36.0-46.0 N MEAN CELL VOLUME (test code = MCV) 99.6 fL 80-98 H MEAN CELL HGB (test code = MCH) 33.8 picogram 27.0-33.0 H MEAN CELL HGB CONCETRATION (test code = MCHC) 33.9 gram/dL 33.0-36. 0 N RED CELL DISTRIBUTION WIDTH (test code = RDW) 13.0 % 11.6-16. 2 N RED CELL DISTRIBUTION WIDTH SD (test code = RDW-SD) 47.9 fL 37 .0-51.0 N PLATELET COUNT (test code = PLT) 101 K/mm3 150-450 L MEAN PLATELET VOLUME (test code = MPV) 10.4 fL 6.7-11.0 N NEUTROPHIL % (test code = NT%) 73.0 % 39.0-69.0 H IMMATURE GRANULOCYTE % (test code = IG%) 1.1 % 0.0-5.0 N LYMPHOCYTE % (test code = LY%) 17.9 % 25.0-55.0 L MONOCYTE % (test code = MO%) 7.7 % 0.0-10.0 N EOSINOPHIL % (test code = EO%) 0.1 % 0.0-5.0 N BASOPHIL % (test code = BA%) 0.2 % 0.0-1.0 N NUCLEATED RBC % (test code = NRBC%) 0.1 % 0-0 H NEUTROPHIL # (test code = NT#) 10.21 K/mm3 1.8-7.7 H IMMATURE GRANULOCYTE # (test code = IG#) 0.15 x10 3/uL 0-0.03 H LYMPHOCYTE # (test code = LY#) 2.50 K/mm3 1.0-5.0 N MONOCYTE # (test code = MO#) 1.08 K/mm3 0-0.8 H EOSINOPHIL # (test code = EO#) 0.01 K/mm3 0.0-0.5 N BASOPHIL # (test code = BA#) 0.03 K/mm3 0.0-0.2 N NUCLEATED RBC # (test code = NRBC#) 0.02 K/mm3 0.0-0.1 N MANUAL DIFF REQUIRED (test code = MDIFF) NO, ONLY SCAN NEEDED DIFFERENTIAL [id number] 07:54:00* Test Item Value Reference Range Interpretation Comments STAIN ACCEPTABILITY (test code = STN ACCEPTABLE) CABOT RINGS (test code = CAB) MORPHOLOGY COMMENT (test code = MOC) PLATELET ESTIMATE (test code = PLTEST) PLATELET MORPHOLOGY (test code = PLTMORPH) CBC W/AUTO [id number] 07:54:00* Test Item Value Reference Range Interpretation Comments WHITE BLOOD CELL (test code = WBC) 14.0 K/mm3 4.5-12.5 H RED BLOOD CELL (test code = RBC) 4.56 mill/mm3 3.7-5.2 N HEMOGLOBIN (test code = HGB) 15.4 gram/dL 11.5-15.5 RESULT VERIFIED BY REPEAT ANALYSIS HEMATOCRIT (test code = HCT) 45.4 % 36.0-46.0 N MEAN CELL VOLUME (test code = MCV) 99.6 fL 80-98 H MEAN CELL HGB (test code = MCH) 33.8 picogram 27.0-33.0 H MEAN CELL HGB CONCETRATION (test code = MCHC) 33.9 gram/dL 33.0-36. 0 N RED CELL DISTRIBUTION WIDTH (test code = RDW) 13.0 % 11.6-16. 2 N RED CELL DISTRIBUTION WIDTH SD (test code = RDW-SD) 47.9 fL 37 .0-51.0 N PLATELET COUNT (test code = PLT) 101 K/mm3 150-450 L MEAN PLATELET VOLUME (test code = MPV) 10.4 fL 6.7-11.0 N NEUTROPHIL % (test code = NT%) 73.0 % 39.0-69.0 H IMMATURE GRANULOCYTE % (test code = IG%) 1.1 % 0.0-5.0 N LYMPHOCYTE % (test code = LY%) 17.9 % 25.0-55.0 L MONOCYTE % (test code = MO%) 7.7 % 0.0-10.0 N EOSINOPHIL % (test code = EO%) 0.1 % 0.0-5.0 N BASOPHIL % (test code = BA%) 0.2 % 0.0-1.0 N NUCLEATED RBC % (test code = NRBC%) 0.1 % 0-0 H NEUTROPHIL # (test code = NT#) 10.21 K/mm3 1.8-7.7 H IMMATURE GRANULOCYTE # (test code = IG#) 0.15 x10 3/uL 0-0.03 H LYMPHOCYTE # (test code = LY#) 2.50 K/mm3 1.0-5.0 N MONOCYTE # (test code = MO#) 1.08 K/mm3 0-0.8 H EOSINOPHIL # (test code = EO#) 0.01 K/mm3 0.0-0.5 N BASOPHIL # (test code = BA#) 0.03 K/mm3 0.0-0.2 N NUCLEATED RBC # (test code = NRBC#) 0.02 K/mm3 0.0-0.1 N MANUAL DIFF REQUIRED (test code = MDIFF) NO, ONLY SCAN NEEDED DIFFERENTIAL [id number] 07:54:00* Test Item Value Reference Range Interpretation Comments STAIN ACCEPTABILITY (test code = STN ACCEPTABLE) MORPHOLOGY COMMENT (test code = MOC) PLATELET ESTIMATE (test code = PLTEST) PLATELET MORPHOLOGY (test code = PLTMORPH) CBC W/AUTO [id number] 07:54:00* Test Item Value Reference Range Interpretation Comments WHITE BLOOD CELL (test code = WBC) 14.0 K/mm3 4.5-12.5 H RED BLOOD CELL (test code = RBC) 4.56 mill/mm3 3.7-5.2 N HEMOGLOBIN (test code = HGB) 15.4 gram/dL 11.5-15.5 RESULT VERIFIED BY REPEAT ANALYSIS HEMATOCRIT (test code = HCT) 45.4 % 36.0-46.0 N MEAN CELL VOLUME (test code = MCV) 99.6 fL 80-98 H MEAN CELL HGB (test code = MCH) 33.8 picogram 27.0-33.0 H MEAN CELL HGB CONCETRATION (test code = MCHC) 33.9 gram/dL 33.0-36. 0 N RED CELL DISTRIBUTION WIDTH (test code = RDW) 13.0 % 11.6-16. 2 N RED CELL DISTRIBUTION WIDTH SD (test code = RDW-SD) 47.9 fL 37 .0-51.0 N PLATELET COUNT (test code = PLT) 101 K/mm3 150-450 L MEAN PLATELET VOLUME (test code = MPV) 10.4 fL 6.7-11.0 N NEUTROPHIL % (test code = NT%) 73.0 % 39.0-69.0 H IMMATURE GRANULOCYTE % (test code = IG%) 1.1 % 0.0-5.0 N LYMPHOCYTE % (test code = LY%) 17.9 % 25.0-55.0 L MONOCYTE % (test code = MO%) 7.7 % 0.0-10.0 N EOSINOPHIL % (test code = EO%) 0.1 % 0.0-5.0 N BASOPHIL % (test code = BA%) 0.2 % 0.0-1.0 N NUCLEATED RBC % (test code = NRBC%) 0.1 % 0-0 H NEUTROPHIL # (test code = NT#) 10.21 K/mm3 1.8-7.7 H IMMATURE GRANULOCYTE # (test code = IG#) 0.15 x10 3/uL 0-0.03 H LYMPHOCYTE # (test code = LY#) 2.50 K/mm3 1.0-5.0 N MONOCYTE # (test code = MO#) 1.08 K/mm3 0-0.8 H EOSINOPHIL # (test code = EO#) 0.01 K/mm3 0.0-0.5 N BASOPHIL # (test code = BA#) 0.03 K/mm3 0.0-0.2 N NUCLEATED RBC # (test code = NRBC#) 0.02 K/mm3 0.0-0.1 N MANUAL DIFF REQUIRED (test code = MDIFF) NO, ONLY SCAN NEEDED DIFFERENTIAL [id number] 07:54:00* Test Item Value Reference Range Interpretation Comments STAIN ACCEPTABILITY (test code = STN ACCEPTABLE) CABOT RINGS (test code = CAB) MORPHOLOGY COMMENT (test code = MOC) PLATELET ESTIMATE (test code = PLTEST) PLATELET MORPHOLOGY (test code = PLTMORPH) COMPREHENSIVE METABOLIC [id number] 07:52:00* Test Item Value Reference Range Interpretation Comments SODIUM (test code = NA) 134 mmol/L 136-145 L POTASSIUM (test code = K) 4.3 mmol/L 3.5-5.1 N CHLORIDE (test code = CL) 96.0 mmol/L 98-107 L CARBON DIOXIDE (test code = CO2) 30.0 mmol/L 21-32 N ANION GAP (test code = GAP) 12.3 10-20 N GLUCOSE (test code = GLU) 167 mg/dL 74-106 H BLOOD UREA NITROGEN (test code = BUN) 29 mg/dL 7-18 H GLOMERULAR FILTRATION RATE (test code = GFR) 39 mL/min >=60 Estimated GFR by using Modified MDRD formula.Chronic kidney disease is defined as either kidney damageor GFR <60 mL/min/1.73 m2 for >3 months. CREATININE (test code = CREAT) 1.30 mg/dL 0.55-1.02 H Note change in reference range due to change in reagent. BUN/CREATININE RATIO (test code = BUN/CREA) 22.8 10-20 H TOTAL PROTEIN (test code = PROT) 6.9 gram/dL 6.4-8.2 N ALBUMIN (test code = ALB) 2.6 g/dL 3.4-5.0 L GLOBULIN (test code = GLOB) 4.3 gram/dL 2.7-4.2 H ALBUMIN/GLOBULIN RATIO (test code = A/G) 0.6 0.75-1.50 L CALCIUM (test code = CA) 9.1 mg/dL 8.5-10.1 N BILIRUBIN TOTAL (test code = BILT) 1.80 mg/dL 0.0-1.0 H SGOT/AST (test code = AST) 339 IUnit/L 15-37 H SGPT/ALT (test code = ALT) 291 IUnit/L 12-78 H ALKALINE PHOSPHATASE TOTAL (test code = ALKP) 547 IUnit/L 45-117 H Note change in reference range due to change in reagent. COMPREHENSIVE METABOLIC [id number] 07:42:00* Test Item Value Reference Range Interpretation Comments SODIUM (test code = NA) 134 mmol/L 136-145 L POTASSIUM (test code = K) 4.3 mmol/L 3.5-5.1 N CHLORIDE (test code = CL) 96.0 mmol/L 98-107 L CARBON DIOXIDE (test code = CO2) mmol/L 21-32 ANION GAP (test code = GAP) 10-20 GLUCOSE (test code = GLU) mg/dL 74-106 BLOOD UREA NITROGEN (test code = BUN) mg/dL 7-18 GLOMERULAR FILTRATION RATE (test code = GFR) mL/min >=60 CREATININE (test code = CREAT) mg/dL 0.55-1.02 BUN/CREATININE RATIO (test code = BUN/CREA) 10-20 TOTAL PROTEIN (test code = PROT) gram/dL 6.4-8.2 ALBUMIN (test code = ALB) g/dL 3.4-5.0 GLOBULIN (test code = GLOB) gram/dL 2.7-4.2 ALBUMIN/GLOBULIN RATIO (test code = A/G) 0.75-1.50 CALCIUM (test code = CA) mg/dL 8.5-10.1 BILIRUBIN TOTAL (test code = BILT) mg/dL 0.0-1.0 SGOT/AST (test code = AST) IUnit/L 15-37 SGPT/ALT (test code = ALT) IUnit/L 12-78 ALKALINE PHOSPHATASE TOTAL (test code = ALKP) IUnit/L 45-117 [id number] 06:16:00* Test Item Value Reference Range Interpretation Comments GLUBED (test code = GLUBED) 203 mg/dL 74-106 H Performed by certified shaker operator at [facility] [id number] 21:05:00* Test Item Value Reference Range Interpretation Comments GLUBED (test code = GLUBED) 201 mg/dL 74-106 H Performed by certified shaker operator at [facility] [id number] 16:55:00* Test Item Value Reference Range Interpretation Comments GLUBED (test code = GLUBED) 170 mg/dL 74-106 H Performed by certified shaker operator at [facility] - XR CHEST 1 [id number] 14:28:00 FAX: Shweta Patton MD [phone] [place]: St: ADM FAX: Mathew Dove MD [phone] Name: ARNALDO MARSHALL [facility] : 1935 Age/S: 84/F [address] [facility] Unit #: [id number] Loc: V.2076 [place] [address] Phys: Shweta Patton MD Acct: [id number] Dis Date: Status: ADM IN PHONE #: [phone] Exam Date: 05/20/2019 1412 FAX #: [phone] Reason: sob EXAMS: CPT CODE: [id number] XR CHEST 1 V [id number] REASON FOR EXAM: sob Exam Order Date: 05/20/2019 12:00 AM Ordering Jose Ramon: Shweta Patton MD PROCEDURE: - XR CHEST 1 V [...] Jackson MD; Mathew Martinez MD Technologist: Mendy turner RT(R) Trnscrd Date/Time/By: 05/20/2019 (1428 ) : By: [email or web address] Orig Print D/T: S: 05/20/2019 (8361) PAGE 1 Signed Report [id number] 13:14:00* Test Item Value Reference Range Interpretation Comments GLUBED (test code = GLUBED) 171 mg/dL 74-106 H Performed by certified shaker operator at [facility] PROTHROMBIN [id number] 11:43:00* Test Item Value Reference Range Interpretation Comments PROTHROMBIN TIME PATIENT (test code = PTP) 22.4 seconds 9.0-14.0 H INTERNATIONAL NORMAL RATIO (test code = INR) 1.9 0.8-1.2 H The therapeutic range for oral anticoagulant therapy [...] heart valves (2.5-3.5) IS PATIENT ON ANTICOAGULANTS? [id number] 09:19:00* Test Item Value Reference Range Interpretation Comments TRANSFERRRIN (test code = TRANSF) mg/dL 200-370 [id number] 09:19:00* Test Item Value Reference Range Interpretation Comments FERRITIN (test code = JILL) 329 ng/mL 8-388 N CBC W/AUTO [id number] 07:05:00* Test Item Value Reference Range Interpretation Comments WHITE BLOOD CELL (test code = WBC) 10.0 K/mm3 4.5-12.5 N RED BLOOD CELL (test code = RBC) 3.96 mill/mm3 3.7-5.2 N HEMOGLOBIN (test code = HGB) 13.4 gram/dL 11.5-15.5 N HEMATOCRIT (test code = HCT) 39.8 % 36.0-46.0 N MEAN CELL VOLUME (test code = MCV) 100.5 fL 80-98 H MEAN CELL HGB (test code = MCH) 33.8 picogram 27.0-33.0 H MEAN CELL HGB CONCETRATION (test code = MCHC) 33.7 gram/dL 33.0-36. 0 N RED CELL DISTRIBUTION WIDTH (test code = RDW) 13.1 % 11.6-16. 2 N RED CELL DISTRIBUTION WIDTH SD (test code = RDW-SD) 48.7 fL 37 .0-51.0 N PLATELET COUNT (test code = PLT) 80 K/mm3 150-450 L MEAN PLATELET VOLUME (test code = MPV) 10.5 fL 6.7-11.0 N NEUTROPHIL % (test code = NT%) 73.9 % 39.0-69.0 H IMMATURE GRANULOCYTE % (test code = IG%) 0.8 % 0.0-5.0 N LYMPHOCYTE % (test code = LY%) 15.9 % 25.0-55.0 L MONOCYTE % (test code = MO%) 8.6 % 0.0-10.0 N EOSINOPHIL % (test code = EO%) 0.3 % 0.0-5.0 N BASOPHIL % (test code = BA%) 0.5 % 0.0-1.0 N NUCLEATED RBC % (test code = NRBC%) 0.0 % 0-0 N NEUTROPHIL # (test code = NT#) 7.41 K/mm3 1.8-7.7 N IMMATURE GRANULOCYTE # (test code = IG#) 0.08 x10 3/uL 0-0.03 H LYMPHOCYTE # (test code = LY#) 1.59 K/mm3 1.0-5.0 N MONOCYTE # (test code = MO#) 0.86 K/mm3 0-0.8 H EOSINOPHIL # (test code = EO#) 0.03 K/mm3 0.0-0.5 N BASOPHIL # (test code = BA#) 0.05 K/mm3 0.0-0.2 N NUCLEATED RBC # (test code = NRBC#) 0.00 K/mm3 0.0-0.1 N MANUAL DIFF REQUIRED (test code = MDIFF) NO, ONLY SCAN NEEDED DIFFERENTIAL [id number] 07:05:00* Test Item Value Reference Range Interpretation Comments STAIN ACCEPTABILITY (test code = STN ACCEPTABLE) STAIN ACCEPTABLE POLYCHROMASIA (test code = POLC) 1+ POIKILOCYTOSIS (test code = POIK) 3+ ANISOCYTOSIS (test code = ANISO) 2+ MACROCYTOSIS (test code = MACR) 1+ YOLI CELLS (test code = YOLI) 2+ NONE PLATELET ESTIMATE (test code = PLTEST) DECREASED PLATELET MORPHOLOGY (test code = PLTMORPH) NORMAL [id number] 06:18:00* Test Item Value Reference Range Interpretation Comments GLUBED (test code = GLUBED) 150 mg/dL 74-106 H Performed by certified shaker operator at [facility] COMPREHENSIVE METABOLIC [id number] 06:16:00* Test Item Value Reference Range Interpretation Comments SODIUM (test code = NA) 138 mmol/L 136-145 N POTASSIUM (test code = K) 3.5 mmol/L 3.5-5.1 N CHLORIDE (test code = CL) 103.0 mmol/L 98-107 N CARBON DIOXIDE (test code = CO2) 29.0 mmol/L 21-32 N ANION GAP (test code = GAP) 9.5 10-20 L GLUCOSE (test code = GLU) 156 mg/dL 74-106 H BLOOD UREA NITROGEN (test code = BUN) 22 mg/dL 7-18 H GLOMERULAR FILTRATION RATE (test code = GFR) 60 mL/min >=60 Estimated GFR by using Modified MDRD formula.Chronic kidney disease is defined as either kidney damageor GFR <60 mL/min/1.73 m2 for >3 months. CREATININE (test code = CREAT) 0.90 mg/dL 0.55-1.02 N Note change in reference range due to change in reagent. BUN/CREATININE RATIO (test code = BUN/CREA) 25.2 10-20 H TOTAL PROTEIN (test code = PROT) 6.3 gram/dL 6.4-8.2 L ALBUMIN (test code = ALB) 2.5 g/dL 3.4-5.0 L GLOBULIN (test code = GLOB) 3.8 gram/dL 2.7-4.2 N ALBUMIN/GLOBULIN RATIO (test code = A/G) 0.7 0.75-1.50 L CALCIUM (test code = CA) 8.6 mg/dL 8.5-10.1 N BILIRUBIN TOTAL (test code = BILT) 1.90 mg/dL 0.0-1.0 H SGOT/AST (test code = AST) 450 IUnit/L 15-37 H SGPT/ALT (test code = ALT) 318 IUnit/L 12-78 H ALKALINE PHOSPHATASE TOTAL (test code = ALKP) 379 IUnit/L 45-117 H Note change in reference range due to change in reagent. PROTHROMBIN [id number] 06:16:00* Test Item Value Reference Range Interpretation Comments PROTHROMBIN TIME PATIENT (test code = PTP) 24.7 seconds 9.0-14.0 H INTERNATIONAL NORMAL RATIO (test code = INR) 2.1 0.8-1.2 H The therapeutic range for oral anticoagulant therapy [...] (2.5-3.5) IS PATIENT ON ANTICOAGULANTS? NCOMPREHENSIVE METABOLIC [id number] 06:08:00 * Test Item Value Reference Range Interpretation Comments SODIUM (test code = NA) 138 mmol/L 136-145 N POTASSIUM (test code = K) 3.5 mmol/L 3.5-5.1 N CHLORIDE (test code = CL) 103.0 mmol/L 98-107 N CARBON DIOXIDE (test code = CO2) mmol/L 21-32 ANION GAP (test code = GAP) 10-20 GLUCOSE (test code = GLU) mg/dL 74-106 BLOOD UREA NITROGEN (test code = BUN) mg/dL 7-18 GLOMERULAR FILTRATION RATE (test code = GFR) mL/min >=60 CREATININE (test code = CREAT) mg/dL 0.55-1.02 BUN/CREATININE RATIO (test code = BUN/CREA) 10-20 TOTAL PROTEIN (test code = PROT) gram/dL 6.4-8.2 ALBUMIN (test code = ALB) g/dL 3.4-5.0 GLOBULIN (test code = GLOB) gram/dL 2.7-4.2 ALBUMIN/GLOBULIN RATIO (test code = A/G) 0.75-1.50 CALCIUM (test code = CA) mg/dL 8.5-10.1 BILIRUBIN TOTAL (test code = BILT) mg/dL 0.0-1.0 SGOT/AST (test code = AST) IUnit/L 15-37 SGPT/ALT (test code = ALT) IUnit/L 12-78 ALKALINE PHOSPHATASE TOTAL (test code = ALKP) IUnit/L 45-117 CBC W/AUTO [id number] 06:08:00* Test Item Value Reference Range Interpretation Comments WHITE BLOOD CELL (test code = WBC) 10.0 K/mm3 4.5-12.5 N RED BLOOD CELL (test code = RBC) 3.96 mill/mm3 3.7-5.2 N HEMOGLOBIN (test code = HGB) 13.4 gram/dL 11.5-15.5 N HEMATOCRIT (test code = HCT) 39.8 % 36.0-46.0 N MEAN CELL VOLUME (test code = MCV) 100.5 fL 80-98 H MEAN CELL HGB (test code = MCH) 33.8 picogram 27.0-33.0 H MEAN CELL HGB CONCETRATION (test code = MCHC) 33.7 gram/dL 33.0-36. 0 N RED CELL DISTRIBUTION WIDTH (test code = RDW) 13.1 % 11.6-16. 2 N RED CELL DISTRIBUTION WIDTH SD (test code = RDW-SD) 48.7 fL 37 .0-51.0 N PLATELET COUNT (test code = PLT) 80 K/mm3 150-450 L MEAN PLATELET VOLUME (test code = MPV) 10.5 fL 6.7-11.0 N NEUTROPHIL % (test code = NT%) 73.9 % 39.0-69.0 H IMMATURE GRANULOCYTE % (test code = IG%) 0.8 % 0.0-5.0 N LYMPHOCYTE % (test code = LY%) 15.9 % 25.0-55.0 L MONOCYTE % (test code = MO%) 8.6 % 0.0-10.0 N EOSINOPHIL % (test code = EO%) 0.3 % 0.0-5.0 N BASOPHIL % (test code = BA%) 0.5 % 0.0-1.0 N NUCLEATED RBC % (test code = NRBC%) 0.0 % 0-0 N NEUTROPHIL # (test code = NT#) 7.41 K/mm3 1.8-7.7 N IMMATURE GRANULOCYTE # (test code = IG#) 0.08 x10 3/uL 0-0.03 H LYMPHOCYTE # (test code = LY#) 1.59 K/mm3 1.0-5.0 N MONOCYTE # (test code = MO#) 0.86 K/mm3 0-0.8 H EOSINOPHIL # (test code = EO#) 0.03 K/mm3 0.0-0.5 N BASOPHIL # (test code = BA#) 0.05 K/mm3 0.0-0.2 N NUCLEATED RBC # (test code = NRBC#) 0.00 K/mm3 0.0-0.1 N MANUAL DIFF REQUIRED (test code = MDIFF) NO, ONLY SCAN NEEDED DIFFERENTIAL [id number] 06:08:00* Test Item Value Reference Range Interpretation Comments STAIN ACCEPTABILITY (test code = STN ACCEPTABLE) CABOT RINGS (test code = CAB) MORPHOLOGY COMMENT (test code = MOC) PLATELET ESTIMATE (test code = PLTEST) PLATELET MORPHOLOGY (test code = PLTMORPH) CBC W/AUTO [id number] 06:08:00* Test Item Value Reference Range Interpretation Comments WHITE BLOOD CELL (test code = WBC) 10.0 K/mm3 4.5-12.5 N RED BLOOD CELL (test code = RBC) 3.96 mill/mm3 3.7-5.2 N HEMOGLOBIN (test code = HGB) 13.4 gram/dL 11.5-15.5 N HEMATOCRIT (test code = HCT) 39.8 % 36.0-46.0 N MEAN CELL VOLUME (test code = MCV) 100.5 fL 80-98 H MEAN CELL HGB (test code = MCH) 33.8 picogram 27.0-33.0 H MEAN CELL HGB CONCETRATION (test code = MCHC) 33.7 gram/dL 33.0-36. 0 N RED CELL DISTRIBUTION WIDTH (test code = RDW) 13.1 % 11.6-16. 2 N RED CELL DISTRIBUTION WIDTH SD (test code = RDW-SD) 48.7 fL 37 .0-51.0 N PLATELET COUNT (test code = PLT) 80 K/mm3 150-450 L MEAN PLATELET VOLUME (test code = MPV) 10.5 fL 6.7-11.0 N NEUTROPHIL % (test code = NT%) 73.9 % 39.0-69.0 H IMMATURE GRANULOCYTE % (test code = IG%) 0.8 % 0.0-5.0 N LYMPHOCYTE % (test code = LY%) 15.9 % 25.0-55.0 L MONOCYTE % (test code = MO%) 8.6 % 0.0-10.0 N EOSINOPHIL % (test code = EO%) 0.3 % 0.0-5.0 N BASOPHIL % (test code = BA%) 0.5 % 0.0-1.0 N NUCLEATED RBC % (test code = NRBC%) 0.0 % 0-0 N NEUTROPHIL # (test code = NT#) 7.41 K/mm3 1.8-7.7 N IMMATURE GRANULOCYTE # (test code = IG#) 0.08 x10 3/uL 0-0.03 H LYMPHOCYTE # (test code = LY#) 1.59 K/mm3 1.0-5.0 N MONOCYTE # (test code = MO#) 0.86 K/mm3 0-0.8 H EOSINOPHIL # (test code = EO#) 0.03 K/mm3 0.0-0.5 N BASOPHIL # (test code = BA#) 0.05 K/mm3 0.0-0.2 N NUCLEATED RBC # (test code = NRBC#) 0.00 K/mm3 0.0-0.1 N MANUAL DIFF REQUIRED (test code = MDIFF) NO, ONLY SCAN NEEDED DIFFERENTIAL [id number] 06:08:00* Test Item Value Reference Range Interpretation Comments STAIN ACCEPTABILITY (test code = STN ACCEPTABLE) MORPHOLOGY COMMENT (test code = MOC) PLATELET ESTIMATE (test code = PLTEST) PLATELET MORPHOLOGY (test code = PLTMORPH) CBC W/AUTO [id number] 06:08:00* Test Item Value Reference Range Interpretation Comments WHITE BLOOD CELL (test code = WBC) 10.0 K/mm3 4.5-12.5 N RED BLOOD CELL (test code = RBC) 3.96 mill/mm3 3.7-5.2 N HEMOGLOBIN (test code = HGB) 13.4 gram/dL 11.5-15.5 N HEMATOCRIT (test code = HCT) 39.8 % 36.0-46.0 N MEAN CELL VOLUME (test code = MCV) 100.5 fL 80-98 H MEAN CELL HGB (test code = MCH) 33.8 picogram 27.0-33.0 H MEAN CELL HGB CONCETRATION (test code = MCHC) 33.7 gram/dL 33.0-36. 0 N RED CELL DISTRIBUTION WIDTH (test code = RDW) 13.1 % 11.6-16. 2 N RED CELL DISTRIBUTION WIDTH SD (test code = RDW-SD) 48.7 fL 37 .0-51.0 N PLATELET COUNT (test code = PLT) 80 K/mm3 150-450 L MEAN PLATELET VOLUME (test code = MPV) 10.5 fL 6.7-11.0 N NEUTROPHIL % (test code = NT%) 73.9 % 39.0-69.0 H IMMATURE GRANULOCYTE % (test code = IG%) 0.8 % 0.0-5.0 N LYMPHOCYTE % (test code = LY%) 15.9 % 25.0-55.0 L MONOCYTE % (test code = MO%) 8.6 % 0.0-10.0 N EOSINOPHIL % (test code = EO%) 0.3 % 0.0-5.0 N BASOPHIL % (test code = BA%) 0.5 % 0.0-1.0 N NUCLEATED RBC % (test code = NRBC%) 0.0 % 0-0 N NEUTROPHIL # (test code = NT#) 7.41 K/mm3 1.8-7.7 N IMMATURE GRANULOCYTE # (test code = IG#) 0.08 x10 3/uL 0-0.03 H LYMPHOCYTE # (test code = LY#) 1.59 K/mm3 1.0-5.0 N MONOCYTE # (test code = MO#) 0.86 K/mm3 0-0.8 H EOSINOPHIL # (test code = EO#) 0.03 K/mm3 0.0-0.5 N BASOPHIL # (test code = BA#) 0.05 K/mm3 0.0-0.2 N NUCLEATED RBC # (test code = NRBC#) 0.00 K/mm3 0.0-0.1 N MANUAL DIFF REQUIRED (test code = MDIFF) NO, ONLY SCAN NEEDED DIFFERENTIAL [id number] 06:08:00* Test Item Value Reference Range Interpretation Comments STAIN ACCEPTABILITY (test code = STN ACCEPTABLE) MORPHOLOGY COMMENT (test code = MOC) PLATELET ESTIMATE (test code = PLTEST) PLATELET MORPHOLOGY (test code = PLTMORPH) CBC W/AUTO [id number] 06:08:00* Test Item Value Reference Range Interpretation Comments WHITE BLOOD CELL (test code = WBC) 10.0 K/mm3 4.5-12.5 N RED BLOOD CELL (test code = RBC) 3.96 mill/mm3 3.7-5.2 N HEMOGLOBIN (test code = HGB) 13.4 gram/dL 11.5-15.5 N HEMATOCRIT (test code = HCT) 39.8 % 36.0-46.0 N MEAN CELL VOLUME (test code = MCV) 100.5 fL 80-98 H MEAN CELL HGB (test code = MCH) 33.8 picogram 27.0-33.0 H MEAN CELL HGB CONCETRATION (test code = MCHC) 33.7 gram/dL 33.0-36. 0 N RED CELL DISTRIBUTION WIDTH (test code = RDW) 13.1 % 11.6-16. 2 N RED CELL DISTRIBUTION WIDTH SD (test code = RDW-SD) 48.7 fL 37 .0-51.0 N PLATELET COUNT (test code = PLT) 80 K/mm3 150-450 L MEAN PLATELET VOLUME (test code = MPV) 10.5 fL 6.7-11.0 N NEUTROPHIL % (test code = NT%) 73.9 % 39.0-69.0 H IMMATURE GRANULOCYTE % (test code = IG%) 0.8 % 0.0-5.0 N LYMPHOCYTE % (test code = LY%) 15.9 % 25.0-55.0 L MONOCYTE % (test code = MO%) 8.6 % 0.0-10.0 N EOSINOPHIL % (test code = EO%) 0.3 % 0.0-5.0 N BASOPHIL % (test code = BA%) 0.5 % 0.0-1.0 N NUCLEATED RBC % (test code = NRBC%) 0.0 % 0-0 N NEUTROPHIL # (test code = NT#) 7.41 K/mm3 1.8-7.7 N IMMATURE GRANULOCYTE # (test code = IG#) 0.08 x10 3/uL 0-0.03 H LYMPHOCYTE # (test code = LY#) 1.59 K/mm3 1.0-5.0 N MONOCYTE # (test code = MO#) 0.86 K/mm3 0-0.8 H EOSINOPHIL # (test code = EO#) 0.03 K/mm3 0.0-0.5 N BASOPHIL # (test code = BA#) 0.05 K/mm3 0.0-0.2 N NUCLEATED RBC # (test code = NRBC#) 0.00 K/mm3 0.0-0.1 N MANUAL DIFF REQUIRED (test code = MDIFF) NO, ONLY SCAN NEEDED DIFFERENTIAL [id number] 06:08:00* Test Item Value Reference Range Interpretation Comments STAIN ACCEPTABILITY (test code = STN ACCEPTABLE) CABOT RINGS (test code = CAB) MORPHOLOGY COMMENT (test code = MOC) PLATELET ESTIMATE (test code = PLTEST) PLATELET MORPHOLOGY (test code = PLTMORPH) CBC W/AUTO [id number] 05:57:00* Test Item Value Reference Range Interpretation Comments WHITE BLOOD CELL (test code = WBC) K/mm3 4.5-12.5 RED BLOOD CELL (test code = RBC) mill/mm3 3.7-5.2 HEMOGLOBIN (test code = HGB) 13.4 gram/dL 11.5-15.5 N HEMATOCRIT (test code = HCT) 39.8 % 36.0-46.0 N MEAN CELL VOLUME (test code = MCV) fL 80-98 MEAN CELL HGB (test code = MCH) picogram 27.0-33.0 MEAN CELL HGB CONCETRATION (test code = MCHC) gram/dL 33.0-36. 0 RED CELL DISTRIBUTION WIDTH (test code = RDW) % 11.6-16. 2 RED CELL DISTRIBUTION WIDTH SD (test code = RDW-SD) fL 37 .0-51.0 PLATELET COUNT (test code = PLT) K/mm3 150-450 MEAN PLATELET VOLUME (test code = MPV) fL 6.7-11.0 NEUTROPHIL % (test code = NT%) % 39.0-69.0 IMMATURE GRANULOCYTE % (test code = IG%) % 0.0-5.0 LYMPHOCYTE % (test code = LY%) % 25.0-55.0 MONOCYTE % (test code = MO%) % 0.0-10.0 EOSINOPHIL % (test code = EO%) % 0.0-5.0 BASOPHIL % (test code = BA%) % 0.0-1.0 NEUTROPHIL # (test code = NT#) K/mm3 1.8-7.7 LYMPHOCYTE # (test code = LY#) K/mm3 1.0-5.0 MONOCYTE # (test code = MO#) K/mm3 0-0.8 EOSINOPHIL # (test code = EO#) K/mm3 0.0-0.5 BASOPHIL # (test code = BA#) K/mm3 0.0-0.2 LACTIC DEHYDROGENASE(LDH)2019-05-20 01:05:00* Test Item Value Reference Range Interpretation Comments LACTIC DEHYDROGENASE(LDH) (test code = LDH) 605 IUnit/L 84-246 H FE W/TOTAL IRON BINDING CAP.2019-05-20 01:05:00* Test Item Value Reference Range Interpretation Comments SERUM IRON (test code = IRON) 146 ug/dL 50-175 N TOTAL IRON BINDING CAPACITY (test code = TIBC) 242 mcg/dL 250-450 L IRON SATURATION (test code = FESAT) 60.33 % 13-45 H VITAMIN [id number] 01:05:00* Test Item Value Reference Range Interpretation Comments VITAMIN B12 (test code = VITB12) 3137 pg/mL 193-986 H FOLIC [id number] 01:05:00* Test Item Value Reference Range Interpretation Comments FOLIC ACID (test code = FOL) 19.1 ng/mL 3.10-17.50 H [id number] 23:46:00* Test Item Value Reference Range Interpretation Comments FIBRINOGEN (test code = FIB) 265 mg/dL 200-400 N RETICULOCYTE [id number] 23:15:00* Test Item Value Reference Range Interpretation Comments RETICULOCYTE COUNT (test code = RETICT) 1.5 % 0.5-2.0 N RETIC COUNT ABSOLUTE (test code = RET#) 0.055 mill/mm3 0.016-0.095 N IMMATURE RETICULOCYTE FRACTION (test code = IRF) 18.4 % 3.0-1 5.9 H Values above normal range indicate an increase in RBCcellular response from bone marrow. RETICULOCYTE HGB EQUIVALENT (test code = RETHE) 34.2 pg 28.2-3 5.7 N RET-He is a direct estimate of recent functionalavailability of iron in the cell, therefore, decreasedRET-He is indicative of iron deficiency. SMEAR PERIPHERAL [id number] 23:15:00* Test Item Value Reference Range Interpretation Comments SMEAR PERIPHERAL BLOOD (test code = BLDSM) PATH REV PATH REVIEW [id number] 23:15:00* Test Item Value Reference Range Interpretation Comments HAPTOGLOBIN (test code = HAPT) mg/dL [id number] 21:14:00* Test Item Value Reference Range Interpretation Comments GLUBED (test code = GLUBED) 211 mg/dL 74-106 H Performed by certified shaker operator at [facility] - MRI ABDOMEN W/O [id number] 19:06:00 FAX: Shweta Patton MD [phone] [place]: St: ADM FAX: Mathew Dove MD [phone] FAX: Valentina Strickland [phone] Name: ARNALDO MARSHALL [facility] : 1935 Age/S: 84/F [address] [facility] Unit #: [id number] Loc: [address] [place] [address] Phys: Valentina Strickland Acct: [id number] Dis Date: Status: ADM IN PH ONE #: [phone] Exam Date: 05/19/2019 1857 FAX #: [phone] Reason: elevated LFTs EXAMS: CPT CODE: [id number] MR I ABDOMEN W/O CONT [id number] REASON FOR EXAM: elevated LFTs EXAM ORDER DATE: 05/19/2019 10:58 AM Ordering: NYASIA La Attending:Shweta Patton MD Location: PROCEDURE: - MRI ABDOMEN W/O CONT FINDINGS: Axial and 3-D glcv-wu-dyfabe images of the upper abdomen and biliary [...] MD; Mathew Martinez MD; Valentina Strickland Technologist: VERONIQUE GARCIART - MRI Trnscrd Date/Time/By: (1905) : By: [email or web address] Orig Print D/T: S: 05/19/2019 (1909) PAGE 1 Signed Report - US ABDOMEN [id number] 17:44:00 Name: ARNALDO MARSHALL [facility] : 1935 Age/S: 84 / F [address] Unit #: [id number] Loc: [place] [address] Phys: Valentina Strickland Acct: [id number] Dis Date: Status: ADM IN PHONE #: [phone] Exam Date: 05/19/2019 1717 FAX #: [phone] Reason: elevated LFTS EXAMS: CPT CODE: [id number] US ABDOMEN LTD [id number] REASON FOR EXAM: elevated LFTS EXAM ORDER DATE: 05/19/2019 2:52 PM Ordering: NYASIA La Attending:Shweta Patton MD Location:[facility] PROCEDURE: - US ABDOMEN LTD FINDINGS: [...] Martinez MD ; Valentina Strickland Technologist: Christine Hernadnez MS Trnscb Date/Time: 05/19/2019 (7174) RereL Orig Print D/T: S: 05/19/2019 (3936) Probe: PAGE 1 Signed Report [id number] 16:43:00* Test Item Value Reference Range Interpretation Comments GLUBED (test code = GLUBED) 222 mg/dL 74-106 H Performed by certified shaker operator at [facility] [id number] 12:57:00* Test Item Value Reference Range Interpretation Comments GLUBED (test code = GLUBED) 182 mg/dL 74-106 H Performed by certified shaker operator at [facility] COMPREHENSIVE METABOLIC [id number] 07:36:00* Test Item Value Reference Range Interpretation Comments SODIUM (test code = NA) 140 mmol/L 136-145 N POTASSIUM (test code = K) 3.9 mmol/L 3.5-5.1 N CHLORIDE (test code = CL) 102.0 mmol/L 98-107 N CARBON DIOXIDE (test code = CO2) 29.0 mmol/L 21-32 N ANION GAP (test code = GAP) 12.9 10-20 N GLUCOSE (test code = GLU) 136 mg/dL 74-106 H BLOOD UREA NITROGEN (test code = BUN) 20 mg/dL 7-18 H GLOMERULAR FILTRATION RATE (test code = GFR) 39 mL/min >=60 Estimated GFR by using Modified MDRD formula.Chronic kidney disease is defined as either kidney damageor GFR <60 mL/min/1.73 m2 for >3 months. CREATININE (test code = CREAT) 1.30 mg/dL 0.55-1.02 H Note change in reference range due to change in reagent. BUN/CREATININE RATIO (test code = BUN/CREA) 15.2 10-20 N TOTAL PROTEIN (test code = PROT) 5.9 gram/dL 6.4-8.2 L ALBUMIN (test code = ALB) 2.8 g/dL 3.4-5.0 L GLOBULIN (test code = GLOB) 3.1 gram/dL 2.7-4.2 N ALBUMIN/GLOBULIN RATIO (test code = A/G) 0.9 0.75-1.50 N CALCIUM (test code = CA) 8.5 mg/dL 8.5-10.1 N BILIRUBIN TOTAL (test code = BILT) 1.30 mg/dL 0.0-1.0 H SGOT/AST (test code = AST) 483 IUnit/L 15-37 H SGPT/ALT (test code = ALT) 291 IUnit/L 12-78 H ALKALINE PHOSPHATASE TOTAL (test code = ALKP) 260 IUnit/L 45-117 H Note change in reference range due to change in reagent. COMPREHENSIVE METABOLIC [id number] 07:29:00* Test Item Value Reference Range Interpretation Comments SODIUM (test code = NA) 140 mmol/L 136-145 N POTASSIUM (test code = K) 3.9 mmol/L 3.5-5.1 N CHLORIDE (test code = CL) 102.0 mmol/L 98-107 N CARBON DIOXIDE (test code = CO2) mmol/L 21-32 ANION GAP (test code = GAP) 10-20 GLUCOSE (test code = GLU) mg/dL 74-106 BLOOD UREA NITROGEN (test code = BUN) mg/dL 7-18 GLOMERULAR FILTRATION RATE (test code = GFR) mL/min >=60 CREATININE (test code = CREAT) mg/dL 0.55-1.02 BUN/CREATININE RATIO (test code = BUN/CREA) 10-20 TOTAL PROTEIN (test code = PROT) gram/dL 6.4-8.2 ALBUMIN (test code = ALB) g/dL 3.4-5.0 GLOBULIN (test code = GLOB) gram/dL 2.7-4.2 ALBUMIN/GLOBULIN RATIO (test code = A/G) 0.75-1.50 CALCIUM (test code = CA) mg/dL 8.5-10.1 BILIRUBIN TOTAL (test code = BILT) mg/dL 0.0-1.0 SGOT/AST (test code = AST) IUnit/L 15-37 SGPT/ALT (test code = ALT) IUnit/L 12-78 ALKALINE PHOSPHATASE TOTAL (test code = ALKP) IUnit/L 45-117 PROTHROMBIN [id number] 06:51:00* Test Item Value Reference Range Interpretation Comments PROTHROMBIN TIME PATIENT (test code = PTP) 38.5 seconds 9.0-14.0 H INTERNATIONAL NORMAL RATIO (test code = INR) 3.3 0.8-1.2 H The therapeutic range for oral anticoagulant therapy [...] (2.5-3.5) IS PATIENT ON ANTICOAGULANTS? NCBC W/AUTO [id number] 06:49:00* Test Item Value Reference Range Interpretation Comments WHITE BLOOD CELL (test code = WBC) 7.7 K/mm3 4.5-12.5 N RED BLOOD CELL (test code = RBC) 3.58 mill/mm3 3.7-5.2 L HEMOGLOBIN (test code = HGB) 12.1 gram/dL 11.5-15.5 N HEMATOCRIT (test code = HCT) 36.0 % 36.0-46.0 N MEAN CELL VOLUME (test code = MCV) 100.6 fL 80-98 H MEAN CELL HGB (test code = MCH) 33.8 picogram 27.0-33.0 H MEAN CELL HGB CONCETRATION (test code = MCHC) 33.6 gram/dL 33.0-36. 0 N RED CELL DISTRIBUTION WIDTH (test code = RDW) 13.1 % 11.6-16. 2 N RED CELL DISTRIBUTION WIDTH SD (test code = RDW-SD) 48.6 fL 37 .0-51.0 N PLATELET COUNT (test code = PLT) 85 K/mm3 150-450 L MEAN PLATELET VOLUME (test code = MPV) 10.0 fL 6.7-11.0 N NEUTROPHIL % (test code = NT%) 73.0 % 39.0-69.0 H IMMATURE GRANULOCYTE % (test code = IG%) 0.4 % 0.0-5.0 N LYMPHOCYTE % (test code = LY%) 17.1 % 25.0-55.0 L MONOCYTE % (test code = MO%) 8.8 % 0.0-10.0 N EOSINOPHIL % (test code = EO%) 0.3 % 0.0-5.0 N BASOPHIL % (test code = BA%) 0.4 % 0.0-1.0 N NUCLEATED RBC % (test code = NRBC%) 0.0 % 0-0 N NEUTROPHIL # (test code = NT#) 5.66 K/mm3 1.8-7.7 N IMMATURE GRANULOCYTE # (test code = IG#) 0.03 x10 3/uL 0-0.03 N LYMPHOCYTE # (test code = LY#) 1.32 K/mm3 1.0-5.0 N MONOCYTE # (test code = MO#) 0.68 K/mm3 0-0.8 N EOSINOPHIL # (test code = EO#) 0.02 K/mm3 0.0-0.5 N BASOPHIL # (test code = BA#) 0.03 K/mm3 0.0-0.2 N NUCLEATED RBC # (test code = NRBC#) 0.00 K/mm3 0.0-0.1 N MANUAL DIFF REQUIRED (test code = MDIFF) NO CBC W/AUTO [id number] 06:48:00* Test Item Value Reference Range Interpretation Comments WHITE BLOOD CELL (test code = WBC) K/mm3 4.5-12.5 RED BLOOD CELL (test code = RBC) mill/mm3 3.7-5.2 HEMOGLOBIN (test code = HGB) 12.1 gram/dL 11.5-15.5 N HEMATOCRIT (test code = HCT) 36.0 % 36.0-46.0 N MEAN CELL VOLUME (test code = MCV) fL 80-98 MEAN CELL HGB (test code = MCH) picogram 27.0-33.0 MEAN CELL HGB CONCETRATION (test code = MCHC) gram/dL 33.0-36. 0 RED CELL DISTRIBUTION WIDTH (test code = RDW) % 11.6-16. 2 RED CELL DISTRIBUTION WIDTH SD (test code = RDW-SD) fL 37 .0-51.0 PLATELET COUNT (test code = PLT) K/mm3 150-450 MEAN PLATELET VOLUME (test code = MPV) fL 6.7-11.0 NEUTROPHIL % (test code = NT%) % 39.0-69.0 IMMATURE GRANULOCYTE % (test code = IG%) % 0.0-5.0 LYMPHOCYTE % (test code = LY%) % 25.0-55.0 MONOCYTE % (test code = MO%) % 0.0-10.0 EOSINOPHIL % (test code = EO%) % 0.0-5.0 BASOPHIL % (test code = BA%) % 0.0-1.0 NEUTROPHIL # (test code = NT#) K/mm3 1.8-7.7 LYMPHOCYTE # (test code = LY#) K/mm3 1.0-5.0 MONOCYTE # (test code = MO#) K/mm3 0-0.8 EOSINOPHIL # (test code = EO#) K/mm3 0.0-0.5 BASOPHIL # (test code = BA#) K/mm3 0.0-0.2 [id number] 19:49:00* Test Item Value Reference Range Interpretation Comments GLUBED (test code = GLUBED) 157 mg/dL 74-106 H Performed by certified shaker operator at [facility] [id number] 17:37:00* Test Item Value Reference Range Interpretation Comments GLUBED (test code = GLUBED) 152 mg/dL 74-106 H Performed by certified shaker operator at [facility] [id number] 17:37:00* Test Item Value Reference Range Interpretation Comments GLUBED (test code = GLUBED) 168 mg/dL 74-106 H Performed by certified shaker operator at [facility] PROTHROMBIN [id number] 13:05:00* Test Item Value Reference Range Interpretation Comments PROTHROMBIN TIME PATIENT (test code = PTP) 54.7 seconds 9.0-14.0 H INTERNATIONAL NORMAL RATIO (test code = INR) 4.7 0.8-1.2 H The therapeutic range for oral anticoagulant therapy [...] (2.5-3.5) IS PATIENT ON ANTICOAGULANTS? NCOMPREHENSIVE METABOLIC [id number] 07:43:00 * Test Item Value Reference Range Interpretation Comments SODIUM (test code = NA) 140 mmol/L 136-145 N POTASSIUM (test code = K) 4.9 mmol/L 3.5-5.1 N CHLORIDE (test code = CL) 104.0 mmol/L 98-107 N CARBON DIOXIDE (test code = CO2) 28.0 mmol/L 21-32 N ANION GAP (test code = GAP) 12.9 10-20 N GLUCOSE (test code = GLU) 201 mg/dL 74-106 H BLOOD UREA NITROGEN (test code = BUN) 15 mg/dL 7-18 N GLOMERULAR FILTRATION RATE (test code = GFR) 39 mL/min >=60 Estimated GFR by using Modified MDRD formula.Chronic kidney disease is defined as either kidney damageor GFR <60 mL/min/1.73 m2 for >3 months. CREATININE (test code = CREAT) 1.30 mg/dL 0.55-1.02 H Note change in reference range due to change in reagent. BUN/CREATININE RATIO (test code = BUN/CREA) 11.5 10-20 N TOTAL PROTEIN (test code = PROT) 6.7 gram/dL 6.4-8.2 N ALBUMIN (test code = ALB) 3.0 g/dL 3.4-5.0 L GLOBULIN (test code = GLOB) 3.7 gram/dL 2.7-4.2 N ALBUMIN/GLOBULIN RATIO (test code = A/G) 0.8 0.75-1.50 N CALCIUM (test code = CA) 8.8 mg/dL 8.5-10.1 N BILIRUBIN TOTAL (test code = BILT) 1.00 mg/dL 0.0-1.0 N SGOT/AST (test code = AST) 423 IUnit/L 15-37 H SGPT/ALT (test code = ALT) 240 IUnit/L 12-78 H ALKALINE PHOSPHATASE TOTAL (test code = ALKP) 189 IUnit/L 45-117 H Note change in reference range due to change in reagent. COMPREHENSIVE METABOLIC [id number] 07:37:00* Test Item Value Reference Range Interpretation Comments SODIUM (test code = NA) 140 mmol/L 136-145 N POTASSIUM (test code = K) 4.9 mmol/L 3.5-5.1 N CHLORIDE (test code = CL) 104.0 mmol/L 98-107 N CARBON DIOXIDE (test code = CO2) mmol/L 21-32 ANION GAP (test code = GAP) 10-20 GLUCOSE (test code = GLU) mg/dL 74-106 BLOOD UREA NITROGEN (test code = BUN) mg/dL 7-18 GLOMERULAR FILTRATION RATE (test code = GFR) mL/min >=60 CREATININE (test code = CREAT) mg/dL 0.55-1.02 BUN/CREATININE RATIO (test code = BUN/CREA) 10-20 TOTAL PROTEIN (test code = PROT) gram/dL 6.4-8.2 ALBUMIN (test code = ALB) g/dL 3.4-5.0 GLOBULIN (test code = GLOB) gram/dL 2.7-4.2 ALBUMIN/GLOBULIN RATIO (test code = A/G) 0.75-1.50 CALCIUM (test code = CA) mg/dL 8.5-10.1 BILIRUBIN TOTAL (test code = BILT) mg/dL 0.0-1.0 SGOT/AST (test code = AST) IUnit/L 15-37 SGPT/ALT (test code = ALT) IUnit/L 12-78 ALKALINE PHOSPHATASE TOTAL (test code = ALKP) IUnit/L 45-117 CBC W/AUTO [id number] 06:50:00* Test Item Value Reference Range Interpretation Comments WHITE BLOOD CELL (test code = WBC) 8.6 K/mm3 4.5-12.5 N RED BLOOD CELL (test code = RBC) 3.59 mill/mm3 3.7-5.2 L HEMOGLOBIN (test code = HGB) 12.1 gram/dL 11.5-15.5 N HEMATOCRIT (test code = HCT) 35.4 % 36.0-46.0 L MEAN CELL VOLUME (test code = MCV) 98.6 fL 80-98 H MEAN CELL HGB (test code = MCH) 33.7 picogram 27.0-33.0 H MEAN CELL HGB CONCETRATION (test code = MCHC) 34.2 gram/dL 33.0-36. 0 N RED CELL DISTRIBUTION WIDTH (test code = RDW) 13.2 % 11.6-16. 2 N RED CELL DISTRIBUTION WIDTH SD (test code = RDW-SD) 47.1 fL 37 .0-51.0 N PLATELET COUNT (test code = PLT) 106 K/mm3 150-450 L MEAN PLATELET VOLUME (test code = MPV) 10.3 fL 6.7-11.0 N NEUTROPHIL % (test code = NT%) 77.9 % 39.0-69.0 H IMMATURE GRANULOCYTE % (test code = IG%) 0.3 % 0.0-5.0 N LYMPHOCYTE % (test code = LY%) 10.8 % 25.0-55.0 L MONOCYTE % (test code = MO%) 10.8 % 0.0-10.0 H EOSINOPHIL % (test code = EO%) 0.0 % 0.0-5.0 N BASOPHIL % (test code = BA%) 0.2 % 0.0-1.0 N NUCLEATED RBC % (test code = NRBC%) 0.0 % 0-0 N NEUTROPHIL # (test code = NT#) 6.72 K/mm3 1.8-7.7 N IMMATURE GRANULOCYTE # (test code = IG#) 0.03 x10 3/uL 0-0.03 N LYMPHOCYTE # (test code = LY#) 0.93 K/mm3 1.0-5.0 L MONOCYTE # (test code = MO#) 0.93 K/mm3 0-0.8 H EOSINOPHIL # (test code = EO#) 0.00 K/mm3 0.0-0.5 N BASOPHIL # (test code = BA#) 0.02 K/mm3 0.0-0.2 N NUCLEATED RBC # (test code = NRBC#) 0.00 K/mm3 0.0-0.1 N CBC W/AUTO [id number] 06:46:00* Test Item Value Reference Range Interpretation Comments WHITE BLOOD CELL (test code = WBC) K/mm3 4.5-12.5 RED BLOOD CELL (test code = RBC) mill/mm3 3.7-5.2 HEMOGLOBIN (test code = HGB) 12.1 gram/dL 11.5-15.5 N HEMATOCRIT (test code = HCT) % 36.0-46.0 MEAN CELL VOLUME (test code = MCV) fL 80-98 MEAN CELL HGB (test code = MCH) picogram 27.0-33.0 MEAN CELL HGB CONCETRATION (test code = MCHC) gram/dL 33.0-36. 0 RED CELL DISTRIBUTION WIDTH (test code = RDW) % 11.6-16. 2 RED CELL DISTRIBUTION WIDTH SD (test code = RDW-SD) fL 37 .0-51.0 PLATELET COUNT (test code = PLT) K/mm3 150-450 MEAN PLATELET VOLUME (test code = MPV) fL 6.7-11.0 NEUTROPHIL % (test code = NT%) % 39.0-69.0 IMMATURE GRANULOCYTE % (test code = IG%) % 0.0-5.0 LYMPHOCYTE % (test code = LY%) % 25.0-55.0 MONOCYTE % (test code = MO%) % 0.0-10.0 EOSINOPHIL % (test code = EO%) % 0.0-5.0 BASOPHIL % (test code = BA%) % 0.0-1.0 NEUTROPHIL # (test code = NT#) K/mm3 1.8-7.7 LYMPHOCYTE # (test code = LY#) K/mm3 1.0-5.0 MONOCYTE # (test code = MO#) K/mm3 0-0.8 EOSINOPHIL # (test code = EO#) K/mm3 0.0-0.5 BASOPHIL # (test code = BA#) K/mm3 0.0-0.2 [id number] 06:02:00* Test Item Value Reference Range Interpretation Comments GLUBED (test code = GLUBED) 183 mg/dL 74-106 H Performed by certified shaker operator at [facility] - XR CHEST 1 [id number] 22:05:00 FAX: Shweta Patton MD [phone] [place]: B St: ADM FAX: Y Mathew Martinez MD [phone] Name: ARNALDO MARSHALL [facility] : 1935 Age/S: 84/F [address] [facility] Unit #: [id number] Loc: V.2076 [place] [address] Phys: Shweta Patton MD Acct: [id number] Dis Date: Status: ADM IN PHONE #: [phone] Exam Date: 05/17/20192199 FAX #: [phone] Reason: WHEEZING EXAMS: CPT CODE: [id number] XR CHEST 1 V 55094 HISTORY: WHEEZING TECHNIQUE: AP chest x-ray COMPARISON: [...] Trnscrd Date/Time/By: 05/17/2019 (2204) : By: [email or web address] Orig Print D/T: S: 05/17/2019 (2207) PAGE 1 Signed Report [id number] 20:13:00* Test Item Value Reference Range Interpretation Comments GLUBED (test code = GLUBED) 150 mg/dL 74-106 H Performed by certified shaker operator at [facility] PROTHROMBIN [id number] 10:28:00* Test Item Value Reference Range Interpretation Comments PROTHROMBIN TIME PATIENT (test code = PTP) 53.5 seconds 9.0-14.0 H INTERNATIONAL NORMAL RATIO (test code = INR) 4.6 0.8-1.2 H The therapeutic range for oral anticoagulant therapy [...] PATIENT ON ANTICOAGULANTS? YLIST ANTICOAGULANTS COUMADINCOMPREHENSIVE METABOLIC [id number] 07:47:00* Test Item Value Reference Range Interpretation Comments SODIUM (test code = NA) 139 mmol/L 136-145 N POTASSIUM (test code = K) 3.3 mmol/L 3.5-5.1 L CHLORIDE (test code = CL) 104.0 mmol/L 98-107 N CARBON DIOXIDE (test code = CO2) 24.0 mmol/L 21-32 N ANION GAP (test code = GAP) 14.3 10-20 N GLUCOSE (test code = GLU) 167 mg/dL 74-106 H BLOOD UREA NITROGEN (test code = BUN) 15 mg/dL 7-18 N GLOMERULAR FILTRATION RATE (test code = GFR) 53 mL/min >=60 Estimated GFR by using Modified MDRD formula.Chronic kidney disease is defined as either kidney damageor GFR <60 mL/min/1.73 m2 for >3 months. CREATININE (test code = CREAT) 1.00 mg/dL 0.55-1.02 N Note change in reference range due to change in reagent. BUN/CREATININE RATIO (test code = BUN/CREA) 15.4 10-20 N TOTAL PROTEIN (test code = PROT) 6.4 gram/dL 6.4-8.2 N ALBUMIN (test code = ALB) 3.2 g/dL 3.4-5.0 L GLOBULIN (test code = GLOB) 3.2 gram/dL 2.7-4.2 N ALBUMIN/GLOBULIN RATIO (test code = A/G) 1.0 0.75-1.50 N CALCIUM (test code = CA) 9.0 mg/dL 8.5-10.1 N BILIRUBIN TOTAL (test code = BILT) 0.90 mg/dL 0.0-1.0 N SGOT/AST (test code = AST) 340 IUnit/L 15-37 H SGPT/ALT (test code = ALT) 181 IUnit/L 12-78 H ALKALINE PHOSPHATASE TOTAL (test code = ALKP) 135 IUnit/L 45-117 H Note change in reference range due to change in reagent. [id number] 07:47:00* Test Item Value Reference Range Interpretation Comments MAGNESIUM (test code = MAG) 1.8 mg/dL 1.8-2.4 N COMPREHENSIVE METABOLIC [id number] 07:25:00* Test Item Value Reference Range Interpretation Comments SODIUM (test code = NA) 139 mmol/L 136-145 N POTASSIUM (test code = K) 3.3 mmol/L 3.5-5.1 L CHLORIDE (test code = CL) 104.0 mmol/L 98-107 N CARBON DIOXIDE (test code = CO2) mmol/L 21-32 ANION GAP (test code = GAP) 10-20 GLUCOSE (test code = GLU) mg/dL 74-106 BLOOD UREA NITROGEN (test code = BUN) mg/dL 7-18 GLOMERULAR FILTRATION RATE (test code = GFR) mL/min >=60 CREATININE (test code = CREAT) mg/dL 0.55-1.02 BUN/CREATININE RATIO (test code = BUN/CREA) 10-20 TOTAL PROTEIN (test code = PROT) gram/dL 6.4-8.2 ALBUMIN (test code = ALB) g/dL 3.4-5.0 GLOBULIN (test code = GLOB) gram/dL 2.7-4.2 ALBUMIN/GLOBULIN RATIO (test code = A/G) 0.75-1.50 CALCIUM (test code = CA) mg/dL 8.5-10.1 BILIRUBIN TOTAL (test code = BILT) mg/dL 0.0-1.0 SGOT/AST (test code = AST) IUnit/L 15-37 SGPT/ALT (test code = ALT) IUnit/L 12-78 ALKALINE PHOSPHATASE TOTAL (test code = ALKP) IUnit/L 45-117 [id number] 07:25:00* Test Item Value Reference Range Interpretation Comments MAGNESIUM (test code = MAG) mg/dL 1.8-2.4 CBC W/AUTO [id number] 06:58:00* Test Item Value Reference Range Interpretation Comments WHITE BLOOD CELL (test code = WBC) 9.4 K/mm3 4.5-12.5 N RED BLOOD CELL (test code = RBC) 3.34 mill/mm3 3.7-5.2 L HEMOGLOBIN (test code = HGB) 11.3 gram/dL 11.5-15.5 L HEMATOCRIT (test code = HCT) 34.1 % 36.0-46.0 L MEAN CELL VOLUME (test code = MCV) 102.1 fL 80-98 H MEAN CELL HGB (test code = MCH) 33.8 picogram 27.0-33.0 H MEAN CELL HGB CONCETRATION (test code = MCHC) 33.1 gram/dL 33.0-36. 0 N RED CELL DISTRIBUTION WIDTH (test code = RDW) 13.0 % 11.6-16. 2 N RED CELL DISTRIBUTION WIDTH SD (test code = RDW-SD) 48.1 fL 37 .0-51.0 N PLATELET COUNT (test code = PLT) 114 K/mm3 150-450 L MEAN PLATELET VOLUME (test code = MPV) 10.1 fL 6.7-11.0 N NEUTROPHIL % (test code = NT%) 63.3 % 39.0-69.0 N IMMATURE GRANULOCYTE % (test code = IG%) 0.5 % 0.0-5.0 N LYMPHOCYTE % (test code = LY%) 24.7 % 25.0-55.0 L MONOCYTE % (test code = MO%) 10.9 % 0.0-10.0 H EOSINOPHIL % (test code = EO%) 0.2 % 0.0-5.0 N BASOPHIL % (test code = BA%) 0.4 % 0.0-1.0 N NUCLEATED RBC % (test code = NRBC%) 0.0 % 0-0 N NEUTROPHIL # (test code = NT#) 5.97 K/mm3 1.8-7.7 N IMMATURE GRANULOCYTE # (test code = IG#) 0.05 x10 3/uL 0-0.03 H LYMPHOCYTE # (test code = LY#) 2.33 K/mm3 1.0-5.0 N MONOCYTE # (test code = MO#) 1.03 K/mm3 0-0.8 H EOSINOPHIL # (test code = EO#) 0.02 K/mm3 0.0-0.5 N BASOPHIL # (test code = BA#) 0.04 K/mm3 0.0-0.2 N NUCLEATED RBC # (test code = NRBC#) 0.00 K/mm3 0.0-0.1 N [id number] 22:28:00* Test Item Value Reference Range Interpretation Comments TROPONIN-I (test code = TROPI) 0.027 ng/mL 0-0.045 N COMMENTS TO [employer] OPERATOR: COLLECT 3 HOURS AFTER PREVIOUS SAMPLELACTIC [id number] 22:23:00* Test Item Value Reference Range Interpretation Comments LACTIC ACID (test code = LACT) 1.5 mmol/L 0.4-1.9 N CBC W/AUTO [id number] 22:18:00* Test Item Value Reference Range Interpretation Comments WHITE BLOOD CELL (test code = WBC) 12.0 K/mm3 4.5-12.5 N RED BLOOD CELL (test code = RBC) 3.25 mill/mm3 3.7-5.2 L HEMOGLOBIN (test code = HGB) 11.1 gram/dL 11.5-15.5 L RESULT VERIFIED BY REPEAT ANALYSIS HEMATOCRIT (test code = HCT) 33.2 % 36.0-46.0 L MEAN CELL VOLUME (test code = MCV) 102.2 fL 80-98 H MEAN CELL HGB (test code = MCH) 34.2 picogram 27.0-33.0 H MEAN CELL HGB CONCETRATION (test code = MCHC) 33.4 gram/dL 33.0-36. 0 N RED CELL DISTRIBUTION WIDTH (test code = RDW) 13.1 % 11.6-16. 2 N RED CELL DISTRIBUTION WIDTH SD (test code = RDW-SD) 49.1 fL 37 .0-51.0 N PLATELET COUNT (test code = PLT) 129 K/mm3 150-450 L MEAN PLATELET VOLUME (test code = MPV) 10.2 fL 6.7-11.0 N NEUTROPHIL % (test code = NT%) 70.5 % 39.0-69.0 H IMMATURE GRANULOCYTE % (test code = IG%) 0.6 % 0.0-5.0 N LYMPHOCYTE % (test code = LY%) 21.3 % 25.0-55.0 L MONOCYTE % (test code = MO%) 7.2 % 0.0-10.0 N EOSINOPHIL % (test code = EO%) 0.1 % 0.0-5.0 N BASOPHIL % (test code = BA%) 0.3 % 0.0-1.0 N NUCLEATED RBC % (test code = NRBC%) 0.0 % 0-0 N NEUTROPHIL # (test code = NT#) 8.48 K/mm3 1.8-7.7 H IMMATURE GRANULOCYTE # (test code = IG#) 0.07 x10 3/uL 0-0.03 H LYMPHOCYTE # (test code = LY#) 2.56 K/mm3 1.0-5.0 N MONOCYTE # (test code = MO#) 0.86 K/mm3 0-0.8 H EOSINOPHIL # (test code = EO#) 0.01 K/mm3 0.0-0.5 N BASOPHIL # (test code = BA#) 0.04 K/mm3 0.0-0.2 N NUCLEATED RBC # (test code = NRBC#) 0.00 K/mm3 0.0-0.1 N MANUAL DIFF REQUIRED (test code = MDIFF) NO BASIC METABOLIC [id number] 22:16:00* Test Item Value Reference Range Interpretation Comments SODIUM (test code = NA) 138 mmol/L 136-145 N POTASSIUM (test code = K) 3.5 mmol/L 3.5-5.1 N CHLORIDE (test code = CL) 104.0 mmol/L 98-107 N CARBON DIOXIDE (test code = CO2) 27.0 mmol/L 21-32 N ANION GAP (test code = GAP) 10.5 10-20 N GLUCOSE (test code = GLU) 185 mg/dL 74-106 H BLOOD UREA NITROGEN (test code = BUN) 17 mg/dL 7-18 N GLOMERULAR FILTRATION RATE (test code = GFR) 53 mL/min >=60 Estimated GFR by using Modified MDRD formula.Chronic kidney disease is defined as either kidney damageor GFR <60 mL/min/1.73 m2 for >3 months. CREATININE (test code = CREAT) 1.00 mg/dL 0.55-1.02 N Note change in reference range due to change in reagent. BUN/CREATININE RATIO (test code = BUN/CREA) 17.9 10-20 N CALCIUM (test code = CA) 8.6 mg/dL 8.5-10.1 N [id number] 22:16:00* Test Item Value Reference Range Interpretation Comments MAGNESIUM (test code = MAG) 1.8 mg/dL 1.8-2.4 N BASIC METABOLIC [id number] 22:12:00* Test Item Value Reference Range Interpretation Comments SODIUM (test code = NA) 138 mmol/L 136-145 N POTASSIUM (test code = K) 3.5 mmol/L 3.5-5.1 N CHLORIDE (test code = CL) 104.0 mmol/L 98-107 N CARBON DIOXIDE (test code = CO2) mmol/L 21-32 ANION GAP (test code = GAP) 10-20 GLUCOSE (test code = GLU) mg/dL 74-106 BLOOD UREA NITROGEN (test code = BUN) mg/dL 7-18 GLOMERULAR FILTRATION RATE (test code = GFR) mL/min >=60 CREATININE (test code = CREAT) mg/dL 0.55-1.02 BUN/CREATININE RATIO (test code = BUN/CREA) 10-20 CALCIUM (test code = CA) mg/dL 8.5-10.1 [id number] 22:12:00* Test Item Value Reference Range Interpretation Comments MAGNESIUM (test code = MAG) mg/dL 1.8-2.4 PROTHROMBIN [id number] 19:49:00* Test Item Value Reference Range Interpretation Comments PROTHROMBIN TIME PATIENT (test code = PTP) 165.9 seconds 9.0-14.0 H INTERNATIONAL NORMAL RATIO (test code = INR) 14.2 0.8-1.2 Results called to [id number] by V.LAB.IN 05/16/19 1948Critical results verified and read back by Nurse? [...] heart valves (2.5-3.5) IS PATIENT ON ANTICOAGULANTS? [id number] 19:36:00* Test Item Value Reference Range Interpretation Comments TROPONIN-I (test code = TROPI) 0.043 ng/mL 0-0.045 N COMMENTS TO [employer] OPERATOR: COLLECT 3 HOURS AFTER PREVIOUS SAMPLELACTIC [id number] 17:41:00* Test Item Value Reference Range Interpretation Comments LACTIC ACID (test code = LACT) 2.9 mmol/L 0.4-1.9 Results called to [id number] by V.LAB.LT 05/16/19 1741Critical results verified and read back by Nurse? Y BASIC METABOLIC [id number] 17:04:00* Test Item Value Reference Range Interpretation Comments SODIUM (test code = NA) 140 mmol/L 136-145 RESU LT VERIFIED BY REPEAT ANALYSIS POTASSIUM (test code = K) 4.0 mmol/L 3.5-5.1 N CHLORIDE (test code = CL) 105.0 mmol/L 98-107 N CARBON DIOXIDE (test code = CO2) 25.0 mmol/L 21-32 N ANION GAP (test code = GAP) 14.0 10-20 N GLUCOSE (test code = GLU) 211 mg/dL 74-106 H BLOOD UREA NITROGEN (test code = BUN) 18 mg/dL 7-18 N GLOMERULAR FILTRATION RATE (test code = GFR) 47 mL/min >=60 Estimated GFR by using Modified MDRD formula.Chronic kidney disease is defined as either kidney damageor GFR <60 mL/min/1.73 m2 for >3 months. CREATININE (test code = CREAT) 1.10 mg/dL 0.55-1.02 H Note change in reference range due to change in reagent. BUN/CREATININE RATIO (test code = BUN/CREA) 16.7 10-20 N CALCIUM (test code = CA) 8.6 mg/dL 8.5-10.1 N [id number] 17:04:00* Test Item Value Reference Range Interpretation Comments MAGNESIUM (test code = MAG) 1.4 mg/dL 1.8-2.4 L URINALYSIS [id number] 16:55:00* Test Item Value Reference Range Interpretation Comments UA COLOR (test code = COLU) YELLOW YELLOW UA APPEARANCE (test code = APPU) Cloudy CLEAR A UA GLUCOSE DIPSTICK (test code = DGLUU) NEGATIVE mg/dL NEGATIVE UA BILIRUBIN DIPSTICK (test code = BILU) NEGATIVE mg/dL NEGATIVE UA KETONE DIPSTICK (test code = KETU) 10 (1+) mg/dL NEGATIVE A UA SPECIFIC GRAVITY (test code = SGU) 1.023 1.001-1.035 UA BLOOD DIPSTICK (test code = ADRY) 1.0 mg/dL (3+) mg/dL NEGATIVE A UA PH DIPSTICK (test code = MALCOM) 5.5 5.0-8.0 UA PROTEIN DIPSTICK (test code = PROU) 50 (1+) mg/dL NEGATIVE A UA UROBILINIOGEN DIPSTICK (test code = URO) Normal mg/dL NEGATIVE UA NITRITE DIPSTICK (test code = LORENA) NEGATIVE NEGATIVE UA LEUKOCYTE ESTERASE W REFLEX (test code = LEUUR) NEGATIVE Lisa/uL NEGATIVE UA WBC (test code = WBCU) 6-10 per HPF 0-5 A UA RBC (test code = RBCU) 21-50 #/HPF 0-5 UA EPITHELIAL CELLS (test code = EPIU) FEW per HPF FEW UA BACTERIA (test code = BACU) MODERATE #/HPF NONE A UA HYALINE CAST (test code = HYALU) 11-20 #/LPF 0-5 A UA MUCUS (test code = MUCU) MODERATE #/LPF FEW A Urine Source? Clean CatchPOC LACTIC [id number] 16:28:00* Test Item Value Reference Range Interpretation Comments POC LACTIC ACID (test code = POCLAC) 4.03 MMOL/L 0.4-2.2 H - CT ABD PELVIS W/O [id number] 14:00:00 Name: ARNALDO MARSHALL [facility] : 1935 Age/S: 84 / F [address] [facility] Unit #: [id number] Loc: [place] [address] Phys: Amadou Novak MD Acct: [id number] Dis Date: Status: REG ER PHONE #: [phone] Exam Date: 05/16/2019 1301 FAX #: [phone] Reason: diarrhea, abdominal pain EXAMS: CPT CODE: [id number] CT ABD PELVIS W/O CONT 62517 REASON FOR EXAM: diarrhea, abdominal pain EXAM [...] 1 Signed Report (CONTINUED) Name: ARNALDO MARSHALL [facility] : 1935 Age/S: 84 / F [address] Unit #: [id number] Loc: [place] [address] Phys: Amadou Novak MD Acct: [id number] Dis Date: Status: REG ER PHONE #: [phone] Exam Date: 2018 1301 FAX #: [phone] Reason: diarrhea, abdomi nal pain EXAMS: CPT CODE: [id number] CT ABD PELVIS W/O CONT 741 76 <Continued> IMPRESSION: No acute intra-abdominal process. Specifically no abnormalities of the gastrointestinal tract. Anterior wedging of the T11 vertebral body likely represents a chronic compression fracture. Location: [facility] at 1400 Reported and signed by: Bautista Negrete MD CC: Mathew Martinez MD; Amadou Novak MD Technologist:Kashif Porter RT(R),(MR),(CT) CTDI: DLP: Trnscb Date/Time: 05/16/2019 (1400) t.SDR.RR31 Orig Print D/T: S: 05/16/2019 (1403) PAGE 2 Signed Report - CT HEAD/BRAIN W/O [id number] 12:49:00 Name: ARNALDO MARSHALL [facility] : 1935 Age/S: 84 / F [address] Unit #: [id number] Loc: [place] [address] Phys: Lakisha Novak MD Acct: [id number] Di s Date: Status: REG ER PHONE #: [phone] Exam Date: 05/16/2019 1202 FAX #: Reason: seizure EXAMS: CPT CODE: [id number] CT HEAD/BRAIN W/O CONT 36608 HISTORY: seizure TECHNIQUE: Noncontrast 2.[address] of the head. Examination acq uired within 24 hours of arrival. Automated exposure control for dose redu ction. COMPARISON: CT angiogram of the head and neck September [address] scan of the brain September [...] of the brain September 07, 2017. Location: [facility] Electronically Signed by Bautista Negrete MD on at 1249 Reported and signed by: Bautista Negrete MD CC: Mathew Martinez MD; Amadou Novak MD Technologist:Kashif Trujillo RT(R),(MR),(CT); CTDI: DLP: Trnscb Date/Time: 9 (7485) [id number] Orig Print D/T: S: 05/16/2019 (1980) PAGE 1 Signed Report BASIC METABOLIC [id number] 12:36:00* Test Item Value Reference Range Interpretation Comments SODIUM (test code = NA) 159 mmol/L 136-145 H Resu lts called to [id number] by V.LAB.QD 05/16/19 1236Critical results verified and read back by Nurse? YES POTASSIUM (test code = K) 4.0 mmol/L 3.5-5.1 N CHLORIDE (test code = CL) 114.0 mmol/L 98-107 H CARBON DIOXIDE (test code = CO2) 16.0 mmol/L 21-32 L ANION GAP (test code = GAP) 33.0 10-20 H GLUCOSE (test code = GLU) 164 mg/dL 74-106 H BLOOD UREA NITROGEN (test code = BUN) 18 mg/dL 7-18 N GLOMERULAR FILTRATION RATE (test code = GFR) 36 mL/min >=60 Estimated GFR by using Modified MDRD formula.Chronic kidney disease is defined as either kidney damageor GFR <60 mL/min/1.73 m2 for >3 months. CREATININE (test code = CREAT) 1.40 mg/dL 0.55-1.02 H Note change in reference range due to change in reagent. BUN/CREATININE RATIO (test code = BUN/CREA) 13.0 10-20 N CALCIUM (test code = CA) 9.4 mg/dL 8.5-10.1 N HEPATIC FUNCTION [id number] 12:36:00* Test Item Value Reference Range Interpretation Comments TOTAL PROTEIN (test code = PROT) 7.6 gram/dL 6.4-8.2 N ALBUMIN (test code = ALB) 3.4 g/dL 3.4-5.0 N GLOBULIN (test code = GLOB) 4.2 gram/dL 2.7-4.2 N ALBUMIN/GLOBULIN RATIO (test code = A/G) 0.8 0.75-1.50 N BILIRUBIN TOTAL (test code = BILT) 1.10 mg/dL 0.0-1.0 H BILIRUBIN DIRECT (test code = BILD) 0.57 mg/dL 0.0-0.20 H SGOT/AST (test code = AST) 333 IUnit/L 15-37 H SGPT/ALT (test code = ALT) 189 IUnit/L 12-78 H ALKALINE PHOSPHATASE TOTAL (test code = ALKP) 174 IUnit/L 45-117 H Note change in reference range due to change in reagent. [id number] 12:36:00* Test Item Value Reference Range Interpretation Comments LIPASE (test code = LIP) 50 U/L 73.0-393.0 L [id number] 12:36:00* Test Item Value Reference Range Interpretation Comments TROPONIN-I (test code = TROPI) <0.015 ng/mL 0-0.045 N LACTIC [id number] 12:35:00* Test Item Value Reference Range Interpretation Comments LACTIC ACID (test code = LACT) 17.1 mmol/L 0.4-1.9 HH Results called to [id number] by V.LABHAYDEE 05/16/19 1235Critical results verified and read back by Nurse? YES [id number] 12:31:00* Test Item Value Reference Range Interpretation Comments MAGNESIUM (test code = MAG) 1.4 mg/dL 1.8-2.4 L TSH REFLEX TO [id number] 12:31:00* Test Item Value Reference Range Interpretation Comments TSH REFLEX TO FT4 (test code = TSHREFLEX) 4.4 0.4-5.5 N PROCALCITONIN (PCT)[id number] 12:31:00* Test Item Value Reference Range Interpretation Comments PROCALCITONIN (PCT) (test code = PROCAL) 0.27 ng/ml Concentration Interpretation (ng/mL) <0.51 Sepsis [...] taking into account the patients history. PROTHROMBIN [id number] 12:27:00* Test Item Value Reference Range Interpretation Comments PROTHROMBIN TIME PATIENT (test code = PTP) 113.6 seconds 9.0-14.0 H INTERNATIONAL NORMAL RATIO (test code = INR) 9.7 0.8-1.2 Results called to [id number] by CRYSTAL 05/16/19 1226Critical results verified and [...] (2.5-3.5) IS PATIENT ON ANTICOAGULANTS? NTHROMBOPLASTIN TIME [id number] 12:27:00* Test Item Value Reference Range Interpretation Comments THROMBOPLASTIN TIME PARTIAL (test code = PTT) 31.2 seconds 25.0-36. 5 N IS PATIENT ON ANTICOAGULANTS? [id number] 12:22:00* Test Item Value Reference Range Interpretation Comments MAGNESIUM (test code = MAG) 1.4 mg/dL 1.8-2.4 L TSH REFLEX TO [id number] 12:22:00* Test Item Value Reference Range Interpretation Comments TSH REFLEX TO FT4 (test code = TSHREFLEX) 0.4-5.5 CBC W/O [id number] 11:46:00* Test Item Value Reference Range Interpretation Comments WHITE BLOOD CELL (test code = WBC) K/mm3 4.5-12.5 RED BLOOD CELL (test code = RBC) mill/mm3 3.7-5.2 HEMOGLOBIN (test code = HGB) 15.1 gram/dL 11.5-15.5 N HEMATOCRIT (test code = HCT) 45.4 % 36.0-46.0 N MEAN CELL VOLUME (test code = MCV) fL 80-98 MEAN CELL HGB (test code = MCH) picogram 27.0-33.0 MEAN CELL HGB CONCETRATION (test code = MCHC) gram/dL 33.0-36. 0 RED CELL DISTRIBUTION WIDTH (test code = RDW) % 11.6-16. 2 PLATELET COUNT (test code = PLT) K/mm3 150-450 MEAN PLATELET VOLUME (test code = MPV) fL 6.7-11.0 CBC W/O [id number] 11:46:00* Test Item Value Reference Range Interpretation Comments WHITE BLOOD CELL (test code = WBC) 16.2 K/mm3 4.5-12.5 H RED BLOOD CELL (test code = RBC) 4.45 mill/mm3 3.7-5.2 N HEMOGLOBIN (test code = HGB) 15.1 gram/dL 11.5-15.5 N HEMATOCRIT (test code = HCT) 45.4 % 36.0-46.0 N MEAN CELL VOLUME (test code = MCV) 102.0 fL 80-98 H MEAN CELL HGB (test code = MCH) 33.9 picogram 27.0-33.0 H MEAN CELL HGB CONCETRATION (test code = MCHC) 33.3 gram/dL 33.0-36. 0 N RED CELL DISTRIBUTION WIDTH (test code = RDW) 12.9 % 11.6-16. 2 N PLATELET COUNT (test code = PLT) 157 K/mm3 150-450 N MEAN PLATELET VOLUME (test code = MPV) 10.5 fL 6.7-11.0 N
[2020-03-01] MEDS: CEFEPIME 1GM/NS 0.9% 50 ML 50 ML IV SCH (12:44)
[2020-03-01] MEDS: VANCOMYCIN 250MG/5ML ORAL SOLN PO SCH ×2 (12:45→18:00)
[2020-03-01 12:50] LABS: BASOPHILS % 0.1 % (0.0-1.0); EOSINOPHILS # (AUTO) 0.1 (0.0-0.4); EOSINOPHILS % 0.4 % (0.0-6.0); HEMATOCRIT 38.9 % (34.2-44.1); HEMOGLOBIN 13.1 g/dL (12.0-16.0); LYMPHOCYTES # (AUTO) 1.2 (1.0-3.2); LYMPHOCYTES % 7.6 % (18.0-39.1); MEAN CORPUSCULAR HGB CONC 33.7 g/dL (31-35); MEAN CORPUSCULAR VOLUME 94.9 fL (81-99); MONOCYTES # (AUTO) 0.4 (0.2-0.8); MONOCYTES % 2.7 % (4.4-11.3); NEUTROPHILS % 86.6 % (38.7-80.0); PLATELET COUNT 190 x10e3/uL (140-360); RED CELL DISTRIBUTION WIDTH 13.2 % (11.7-14.4)
[2020-03-01 12:53] LABS: CLARITY,URINE SL CLOUDY (CLEAR); COLOR,URINE YELLOW (YELLOW)
[2020-03-01 12:56] LABS: BILIRUBIN,URINE NEGATIVE (NEGATIVE); KETONES,URINE NEGATIVE (NEGATIVE); LEUKOCYTE ESTERASE ,URINE SMALL (NEGATIVE); NITRITE,URINE NEGATIVE (NEGATIVE); PROTEIN,URINE DIPSTICK >=300 (NEGATIVE); URINE UROBILINOGEN 0.2 mg/dL (0.2 - 1)
[2020-03-01 12:57] LABS: BACTERIA,URINE RARE /HPF; EPITHELIAL CELLS,URINE FEW /LPF
[2020-03-01 13:06] LABS: ALBUMIN 3.3 g/dL (3.5-5.0); ALBUMIN/GLOBULIN RATIO 0.9 (0.8-2.0); ANION GAP 24.6 mmol/L (8-16); CALCIUM 8.4 mg/dL (8.4-10.2); CREATININE, SERUM 2.17 mg/dL (0.57-1.11); POTASSIUM 3.6 mmol/L (3.5-5.1)
[2020-03-01 13:13] LABS: CREATINE KINASE MB 1.3 ng/mL (0-5.0)
[2020-03-01] MEDS ORDERED: METRONIDAZOLE 500MG/NS 100ML 100 ML IV ONE (13:14)
--- NOTE | 2020-03-01 13:29 | NUR ---
H&P cc: rapid HR and diarrhea HPI: 84yoF, PCP , developed diarrhea and abdominal pain. Pt is a poor historian. A.fib with RVR present. PMH: PAF, stroke, C.diff, ambulatory dysfunction using walker, UTI PShx: none Allergies; see emr Fh/SH; single; no cigs; uses walker Meds; see MAR ROS; unobtainable v/s; revd PE tired appearing anicteric [id number] mod bs soft MILD TENDERNESS; GARCIA in place. no e/t skin dry flat affect awake; CONFUSED. labs/meds revd A/P: Acute bacterial diarrhea- flagyl Hx C.diff- check test A.fib with RVR- AV blockade; cardio eval UTI- IV abx SHAISTA- IVF Dehydration- IVF HLD- cont statin Hypothyroidism- synthroid Physical deconditioning- PT Prop; scd Dispo; PT consult Kelley Narvaez MD, PhD.
[2020-03-01] MEDS ORDERED: ZOLPIDEM TARTRATE 5 MG TAB PO PRN (13:30)
--- OUTSIDE RECORDS SUMMARY | 2020-03-01 13:51 | XMS REPORT | Continuity of Care Document ---
Author Author [facility] t Organization [facility] Address [address] [place] [address] Phone Unavailable Care Team Providers Care Recreational Therapy Technician Name Role Phone REY, (NON STAFF) MANUEL PCP [phone] GAGAN PATHAK Attphys Unavailable ANTOINETTE LOPEZ Admphys Unavailable Payers Payer Name Policy Type Policy Number Effective Date Expiration Date S ource Problems This patient has no known problems. Allergies, Adverse Reactions, Alerts Allergy Name Allergy Type Status Severity Reaction(s) Onset Date Inacti ve Date Treating Clinician Comments Source Penicillin Allergy to Substance Active 2019-06-07 00:00:00 [facility] Penicillins DA Active [place] 2019-05-16 00:00:00 [facility] Penicillins DA Active [place] 2017-09-07 00:00:00 [facility] Medications Ordered Medication Name Filled Medication Name Start Date Stop Da te Current Medication? Ordering Clinician Indication Dosage Frequency Signature (SIG) Comments Components Source Acetaminophen 325 Mg Tablet Acetaminophen 325 Mg Tablet Yes 650 Every 6 Hours as needed for Moderate Pain (4-6) [facility] Aspirin (Aspirin Ec) 81 Mg Tablet. Aspirin (Aspirin Ec) 81 Mg Tab let. Yes 81 Daily [facility] Atorvastatin Calcium 10 Mg Tablet Atorvastatin Calcium 10 Mg Tablet Yes 10 Today At 9:00PM [facility] Lactobacillus Acidophilus (Acidophilus) 1 Each Tab.saul w Lactobacillus Acidophilus (Acidophilus) 1 Each Tab.chew Yes 1 Twice A Day [facility] Lactulose 20 Gm/30 Ml Solution Lactulose 20 Gm/30 Ml Solution Yes 30 Daily as needed for Constipation [facility] Levothyroxine Sodium 75 Mcg Tablet Levothyroxine Sodium 75 Mcg Tablet Yes 75 Daily [facility] Niacin 500 Mg Tabsr Niacin 500 Mg Tabsr Yes 1000 Daily [facility] Ondansetron Hcl (Zofran*) 4 Mg Tablet Ondansetron Hcl (Zofran*) 4 M g Tablet Yes 4 Every 8 Hours as needed for Nausea [facility] Vancomycin Solution Vancomycin Solution Yes 250 Every 6 Hours [facility] Megestrol Acetate 400 Mg/10 Ml Oral.susp, 400 Mg Oral Megestrol Acetate 400 Mg/10 Ml Oral.susp, 400 Mg Oral 2019-06-11 00:00:00 No 400 Daily [facility] Metoprolol Tartrate 25 Mg Tablet, 25 Mg Oral Metoprolo l Tartrate 25 Mg Tablet, 25 Mg Oral 2019-06-11 00:00:00 No 25 Every 8 Hours [facility] Rivaroxaban (Xarelto) 10 Mg Tablet, 10 Mg Oral Rivarox aban (Xarelto) 10 Mg Tablet, 10 Mg Oral 2019-06-11 00:00:00 No 10 Daily [facility] Procedures Procedure Date / Time Performed Performing Clinician [facility] e Computed tomography of brain without radiopaque contrast 201 03-06-14 00:00:00 GAGAN PATHAK [facility] Encounters Start Date/Time End Date/Time En[facility] En[facility] ID Source 2019-06-07 21:28:00 2019-06-11 19:06:00 Discharged Inpatient 1 GAGAN PATHAK [facility] [id number] [facility] Results Test Description Test Time Test Comments Results Result Comments Source Bedside Glucose 2019-06-11 16:17:00 Test Item Bedside Glucose (test code = 54535-2) 111 70-120 [id number] 06:13:00* Test Item Value Reference Range Interpretation Comments Sodium Level (test code = 2951-2) 136 136-145 [facility]woodPotassium Ctpdz2482-43-31 06:13:00* Test Item Value Reference Range Interpretation Comments Potassium Level (test code = 2823-3) 3.9 3.5-5.1 [facility]woodChloride Qkqkd9026-03-65 06:13:00* Test Item Value Reference Range Interpretation Comments Chloride Level (test code = 2075-0) 104 98-107 [facility]woodCarbon Dioxide Yrlkp3467-75-10 06:13:00* Test Item Value Reference Range Interpretation Comments Carbon Dioxide Level (test code = 2028-9) 22 22-29 [facility]woodAnion Snr3399-72-13 06:13:00* Test Item Value Reference Range Interpretation Comments Anion Gap (test code = 33548-7) 13.9 8-16 [facility]woodBlood Urea Maooasws6649-61-24 06:13:00* Test Item Value Reference Range Interpretation Comments Blood Urea Nitrogen (test code = 3094-0) 12 7-26 [facility]woodCreatinine2019-12-18 06:13:00* Test Item Value Reference Range Interpretation Comments Creatinine (test code = 2160-0) 0.70 0.57-1.11 [facility]woodBUN/Creatinine Dqvdw0914-66-98 06:13:00* Test Item Value Reference Range Interpretation Comments BUN/Creatinine Ratio (test code = 3097-3) 17 6-25 [facility] KingwoodEstimat Glomerular Filtration Rate 2019-06-11 06:13:00* Test Item Value Reference Range Interpretation Comments Estimat Glomerular Filtration Rate (test code = 497500822) > 60 >60 Ranges were taken from the National Kidney Disease Education Program and the [facility] literature.Reference ranges:60 or greater: Jbrhkv56-56 ( for 3 consecutive months): Chronic kidney disease 15 or less: Kidney failureHCA [facility] Healthcare KingwoodGlucose Gwhij2699-25-82 06:13:00* Test Item Value Reference Range Interpretation Comments Glucose Level (test code = YUQ9667) 126 74-118 H [facility]woodCalcium Stoot1369-92-60 06:13:00* Test Item Value Reference Range Interpretation Comments Calcium Level (test code = 19352-1) 9.0 8.4-10.2 [facility]woodWhite Blood Umyxh5846-74-85 05:53:00* Test Item Value Reference Range Interpretation Comments White Blood Count (test code = 6690-2) 8.18 4.8-10.8 [facility]woodRed Blood Ccfut8020-14-84 05:53:00* Test Item Value Reference Range Interpretation Comments Red Blood Count (test code = 789-8) 3.71 3.6-5.1 [facility]woodHemoglobin2019-12-18 05:53:00* Test Item Value Reference Range Interpretation Comments Hemoglobin (test code = 29774-8) 12.8 12.0-16.0 [facility]woodHematocrit2019-12-18 05:53:00* Test Item Value Reference Range Interpretation Comments Hematocrit (test code = 4544-3) 39.4 34.2-44.1 [facility] KingwoodMean Corpuscular Vgomsl4745-83-74 05:53:00* Test Item Value Reference Range Interpretation Comments Mean Corpuscular Volume (test code = 787-2) 106.2 81-99 H [facility] KingwoodMean Corpuscular Hxtdvicyjx5401-83-01 05:53:00* Test Item Value Reference Range Interpretation Comments Mean Corpuscular Hemoglobin (test code = 785-6) 34.5 28-32 H [facility] KingwoodMean Corpuscular Hemoglobin Concent 2019-06-11 05:53:00* Test Item Value Reference Range Interpretation Comments Mean Corpuscular Hemoglobin Concent (test code = 786-4) 32.5 31-35 [facility] KingwoodRed Cell Distribution Ohrer6199-80-59 05:53:00* Test Item Value Reference Range Interpretation Comments Red Cell Distribution Width (test code = 52768-2) 15.2 11.7 -14.4 H [facility] KingwoodPlatelet Gmfed9555-79-35 05:53:00* Test Item Value Reference Range Interpretation Comments Platelet Count (test code = 777-3) 402 140-360 H [facility] KingwoodNeutrophils (%) (Auto)2019-06-11 05:53:00 * Test Item Value Reference Range Interpretation Comments Neutrophils (%) (Auto) (test code = 46370-3) 52.1 38.7-80.0 [facility]woodLymphocytes (%) (Auto)2019-06-11 05:53:00 * Test Item Value Reference Range Interpretation Comments Lymphocytes (%) (Auto) (test code = 736-9) 33.0 18.0-39.1 [facility]woodMonocytes (%) (Auto)2019-06-11 05:53:00* Test Item Value Reference Range Interpretation Comments Monocytes (%) (Auto) (test code = 5905-5) 8.1 4.4-11.3 [facility]woodEosinophils (%) (Auto)2019-06-11 05:53:00 * Test Item Value Reference Range Interpretation Comments Eosinophils (%) (Auto) (test code = 713-8) 1.3 0.0-6.0 [facility]woodBasophils (%) (Auto)2019-06-11 05:53:00* Test Item Value Reference Range Interpretation Comments Basophils (%) (Auto) (test code = 706-2) 1.2 0.0-1.0 H [facility] KingwoodIM GRANULOCYTES %2019-06-11 05:53:00* Test Item Value Reference Range Interpretation Comments IM GRANULOCYTES % (test code = IM GRANULOCYTES %) 4.3 0.0- 1.0 H [facility]woodNeutrophils # (Auto)2019-06-11 05:53:00* Test Item Value Reference Range Interpretation Comments Neutrophils # (Auto) (test code = 751-8) 4.3 2.1-6.9 [facility]woodLymphocytes # (Auto)2019-06-11 05:53:00* Test Item Value Reference Range Interpretation Comments Lymphocytes # (Auto) (test code = 45083-5) 2.7 1.0-3.2 [facility]woodMonocytes # (Auto)2019-06-11 05:53:00* Test Item Value Reference Range Interpretation Comments Monocytes # (Auto) (test code = 742-7) 0.7 0.2-0.8 [facility]woodEosinophils # (Auto)2019-06-11 05:53:00* Test Item Value Reference Range Interpretation Comments Eosinophils # (Auto) (test code = 711-2) 0.1 0.0-0.4 [facility]woodBasophils # (Auto)2019-06-11 05:53:00* Test Item Value Reference Range Interpretation Comments Basophils # (Auto) (test code = 704-7) 0.1 0.0-0.1 [facility] KingwoodAbsolute Immature Granulocyte (auto 2019-06-11 05:53:00* Test Item Value Reference Range Interpretation Comments Absolute Immature Granulocyte (auto (henri t code = Absolute Immature Granulocyte (auto) 0.35 0-0.1 H [facility] KingwoodMagnesium Zmeln6329-24-72 08:57:00* Test Item Value Reference Range Interpretation Comments Magnesium Level (test code = 12133-4) 1.5 1.3-2.1 [facility] KingwoodCreatine Tgqimy7872-39-96 13:54:00* Test Item Value Reference Range Interpretation Comments Creatine Kinase (test code = 2157-6) 35 29-168 [facility] KingwoodCreatine Kinase FK6285-43-94 13:54:00* Test Item Value Reference Range Interpretation Comments Creatine Kinase MB (test code = 68030-2) 2.70 0-5.0 [facility] KingwoodTroponin [id number] 13:54:00* Test Item Value Reference Range Interpretation Comments Troponin I (test code = EGU8210) 0.024 0-0.300 [facility] KingwoodUrine Fumwo9395-39-76 01:18:00* Test Item Value Reference Range Interpretation Comments Urine Color (test code = 5778-6) YELLOW YELLOW [facility] KingwoodUrine Deibxls6649-18-41 01:18:00* Test Item Value Reference Range Interpretation Comments Urine Clarity (test code = 99606-0) CLOUDY CLEAR H [facility] KingwoodUrine Specific Kfbqhgu3933-74-12 01:18:00 * Test Item Value Reference Range Interpretation Comments Urine Specific Karthaus (test code = 5811-5) 1.015 1.010-1.02 5 [facility] KingwoodUrine qM8872-58-51 01:18:00* Test Item Value Reference Range Interpretation Comments Urine pH (test code = 65771-2) 6.5 5-7 [facility] Leukocyte Hemizuwa1155-00-20 01:18:00* Test Item Value Reference Range Interpretation Comments Urine Leukocyte Esterase (test code = 5799-2) MODERATE NEGATIVE [facility] Ofgpemx6366-93-47 01:18:00* Test Item Value Reference Range Interpretation Comments Urine Nitrite (test code = 59089-0) POSITIVE NEGATIVE [facility] Pyoumtm6452-45-76 01:18:00* Test Item Value Reference Range Interpretation Comments Urine Protein (test code = 5804-0) TRACE NEGATIVE H [facility] Glucose (UA)2019-06-08 01:18:00* Test Item Value Reference Range Interpretation Comments Urine Glucose (UA) (test code = 2349-9) NEGATIVE NEGATIVE [facility] Ztcpkux1385-43-41 01:18:00* Test Item Value Reference Range Interpretation Comments Urine Ketones (test code = 49196-5) NEGATIVE NEGATIVE [facility] Xdzelukpbshs9720-73-32 01:18:00* Test Item Value Reference Range Interpretation Comments Urine Urobilinogen (test code = 19942-9) 0.2 0.2-1 [facility]woodUrine Tiwzesnzp3403-70-82 01:18:00* Test Item Value Reference Range Interpretation Comments Urine Bilirubin (test code = 1978-6) NEGATIVE NEGATIVE [facility] Eiqqe8403-60-53 01:18:00* Test Item Value Reference Range Interpretation Comments Urine Blood (test code = 39459-0) 3+ NEGATIVE [facility] KingwoodUrine RXY9034-78-12 01:18:00* Test Item Value Reference Range Interpretation Comments Urine WBC (test code = 5821-4) >50 0-5 H [facility] KingwoodUrine QNP0070-09-56 01:18:00* Test Item Value Reference Range Interpretation Comments Urine RBC (test code = 53559-8) >50 0-5 H [facility] KingwoodUrine Puketehe4243-15-96 01:18:00* Test Item Value Reference Range Interpretation Comments Urine Bacteria (test code = 18072-8) MANY NONE H [facility] KingwoodUrine Epithelial Wtnne1153-49-67 01:18:00 * Test Item Value Reference Range Interpretation Comments Urine Epithelial Cells (test code = 66945-7) MODERATE NONE [facility] KingwoodB-Type Natriuretic Ymemkqy7493-02-41 21:31:00* Test Item Value Reference Range Interpretation Comments B-Type Natriuretic Peptide (test code = 36577-0) 479.7 0-100 H [facility] KingwoodCHEST SINGLE (PORTABLE)2019-06-07 21:05:00 [facility] [address] [place] [address] Patient Name: ARNALDO MARSHALL MR #: [id number] : 1935 Age/Sex: 84/F Req #: [id number] Adm Physician: Ordered by: GAGAN PATHAK DO Report #: [id number] Location: ER Room/Bed: Procedure: 2929-1806 DX/C HEST SINGLE (PORTABLE) Exam Date: 06/07/19 [...] 06/07/192107 COPY TO: GAGAN PATHAK DO Total Gifvehxqo4356-82-67 20:58:00 * Test Item Value Reference Range Interpretation Comments Total Bilirubin (test code = 1975-2) 0.4 0.2-1.2 [facility] KingwoodAspartate Amino Transf (AST/SGOT) 2019-06-07 20:58:00* Test Item Value Reference Range Interpretation Comments Aspartate Amino Transf (AST/SGOT) (test code = Aspartate Amino Transf (AST/SGOT)) 43 5-34 H [facility] KingwoodAlanine Aminotransferase (ALT/SGPT) 2019-06-07 20:58:00* Test Item Value Reference Range Interpretation Comments Alanine Aminotransferase (ALT/SGPT) (test code = 1742-6) 32 0-55 [facility] KingwoodTotal Bacoiza0076-41-09 20:58:00* Test Item Value Reference Range Interpretation Comments Total Protein (test code = 2885-2) 6.6 6.5-8.1 [facility]woodAlbumin2019-12-14 20:58:00* Test Item Value Reference Range Interpretation Comments Albumin (test code = 1751-7) 2.1 3.5-5.0 L [facility]woodGlobulin2019-12-14 20:58:00* Test Item Value Reference Range Interpretation Comments Globulin (test code = 20807-4) 4.5 2.3-3.5 H [facility]woodAlbumin/Globulin Szvml4354-31-66 20:58:00 * Test Item Value Reference Range Interpretation Comments Albumin/Globulin Ratio (test code = 1759-0) 0.5 0.8-2.0 L [facility] KingwoodAlkaline Fshwmbbuvem7286-35-25 20:58:00* Test Item Value Reference Range Interpretation Comments Alkaline Phosphatase (test code = 6768-6) 187 40-150 H [facility] KingwoodCT BRAIN RR7348-26-80 20:29:00 [place] [address] Patient Name: ARNALDO MARSHALL MR #: [id number] : 1935 Age/Sex: 84/F Req #: [id number] Adm Physician: Ordered by: GAGAN PATHAK DO Report #: [id number] Location: ER Room/Bed: Procedure: [id number] CT/C T BRAIN WO Exam Date: 06/07/19 [...] prior vascular insult in right MCA and HOURLY ASSOCIATE vascular nitin tories. Wallerian degeneration of right [...] vascular insult in ri ght MCA and HOU[employer]Y ASSOCIATE vascular territory. 3. 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 4. 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 5. Generalized age-related cerebral volume loss. Si gned by: Dr. Jaky Malin M.D. on 06/07/2019 8:37 PM Dictated By: BERE MALIN MD 36 Transcribed By: FRANCIS on 06/07/192036 COPY TO: GAGAN PATHAK DO LXDGUPNM-J1022-25-02 13:41:00* Test Item Value Reference Range Interpretation Comments TROPONIN-I (test code = TROPI) 0.047 ng/mL 0-0.045 Results called to [id number] by [email or web address] 05/26/19 1341Critical results verified and read back by Nurse? Y PIKXGY7384-98-13 12:37:00* Test Item Value Reference Range Interpretation Comments GLUBED (test code = GLUBED) 233 mg/dL 74-106 H Performed by certified distribution collection operator at [facility] - XR ABDOMEN AP 1 [id number] 08:01:00 FAX: Shweta Patton MD [phone] [place]: St: ADM FAX: Mathew Dove MD [phone] FAX: Oskar Mendoza [phone] Name: ARNALDO MARSHALL [facility] : 1935 Age/S: 84/F [address] [facility] Unit #: [id number] Loc: [place] [address] Phys: Oskar Luther MD Acct: [id number] Dis Date: Status: ADM [facility] #: [phone] Exam Date: 05/26/2019 0750 FAX #: [phone] Reason: distension EXAMS: CPT CODE: [id number] XR ABDOMEN AP 1 V 60902 HISTORY: dist ension TECHNIQUE: AP abdomen x-ray [...] : By: [email or web address] Orig Print D/T: S: (7107) PAGE 1 Signed Rep ort COMPREHENSIVE METABOLIC PERCU6016-06-89 07:51:00* Test Item Value Reference Range Interpretation [...] reference range due to change in reagent. MTMDQVHP-A1700-68-02 07:47:00* Test Item Value Reference Range Interpretation Comments TROPONIN-I (test code = TROPI) 0.062 ng/mL 0-0.045 COMPREHENSIVE METABOLIC KDODU5427-35-36 07:38:00* Test Item Value Reference Range Interpretation [...] code = ALKP) IUnit/L 45-117 CBC W/AUTO HVVI6214-97-93 07:23:00* Test Item Value Reference Range Interpretation [...] (test code = MDIFF) NO CBC W/AUTO ETNP9790-45-31 07:05:00* Test Item Value Reference Range Interpretation [...] # (test code = BA#) K/mm3 0.0-0.2 ZLLDKN8150-89-71 06:23:00* Test Item Value Reference Range Interpretation Comments GLUBED (test code = GLUBED) 127 mg/dL 74-106 H Performed by certified distribution collection operator at [facility] CUVHONKR-G8706-74-02 03:21:00* Test Item Value Reference Range Interpretation Comments TROPONIN-I (test code = TROPI) 0.078 ng/mL 0-0.045 HH Results called to [id number] by [email or web address] 05/26/19 0321Critical results verified and read back by Nurse? Y VBHFHA7378-11-97 21:08:00* Test Item Value Reference Range Interpretation Comments GLUBED (test code = GLUBED) 264 mg/dL 74-106 H Performed by certified distribution collection operator at [facility] PHOJRQ6619-63-61 17:36:00* Test Item Value Reference Range Interpretation Comments GLUBED (test code = GLUBED) 176 mg/dL 74-106 H Performed by certified distribution collection operator at [facility] FKMYFBMO-[id number] 17:07:00* Test Item Value Reference Range Interpretation Comments TROPONIN-T (test code = TROPT) < 0.010 ng/mL <0.011 Performed At: [facility] [id number] Sanjai MD Ph:[phone] performed at: [facility] [address] [place] [address] CBC W/MANUAL [id number] 16:29:00* Test Item Value Reference Range Interpretation [...] (test code = PLTMORPH) NORMAL CBC W/MANUAL [id number] 16:28:00* Test Item Value Reference Range Interpretation [...] PLTMORPH) NORMAL - XR ABDOMEN AP 1 [id number] 15:42:00 FAX: Shweta Patton MD [phone] [place]: B St: ADM FAX: Mathew Dove MD [phone] Name: ARNALDO MARSHALL [facility] : 1935 Age/S: 84/F [address] [facility] Unit #: [id number] Loc: [place] [address] Phys: Shweta Patton MD Acct: [id number] Dis Date: Status: ADM IN PHONE #: [phone] Exam Date: 05/25/2019 1510 FAX #: [phone] Reason: ABD PAIN EXAMS: CPT CODE: [id number] XR ABDOMEN AP 1 V 80606 EXAM: Abdomen, 2 views; INFORMATION: Abdominal pain; IMPRESSION: No significant change compared with yeste mariam's study; moderate gaseous distention of the colon and mild distenti on of small bowel loops but no obstructive pattern. Lo cation code: GW at 1542 Reported and signed by: Ryan Lowe M.D. CC: Shweta Patton MD; Mtahew Martinez MD Technologist: Monse Neely RT(R); MARIA FERNANDA WOLFF RT(R) Trnscrd Date/Time/By: 019 (7137) : By: ChristGRW Orig Print D/T: S: 05/25/2019 (2865) PAGE 1 Signed Report HEPATIC FUNCTION [id number] 15:25:00* Test Item Value Reference Range Interpretation [...] reference range due to change in reagent. [id number] 12:29:00* Test Item Value Reference Range Interpretation Comments GLUBED (test code = GLUBED) 239 mg/dL 74-106 H Performed by certified distribution collection operator at [facility] PROTHROMBIN [id number] 07:12:00* Test Item Value Reference Range Interpretation [...] (2.5-3.5) IS PATIENT ON ANTICOAGULANTS? NCOMPREHENSIVE METABOLIC [id number] 07:03:00 * Test Item Value Reference Range [...] due to change in reagent. CBC W/MANUAL [id number] 07:02:00* Test Item Value Reference Range Interpretation [...] PLTEST) PLATELET MORPHOLOGY (test code = PLTMORPH) [id number] 07:01:00* Test Item Value Reference Range Interpretation Comments GLYCOSYLATED HEMOGLOBIN (HA1C) (test code = GLYHGB) 6.7 % HbA1 SUGGESTED DIAGNOSIS: HbA1C (%) Diabetic >6.4Prediabetes 5.7 - 6.4Normal <5.7 ESTIMATED AVERAGE GLUCOSE (test code = EAG) 146 MG/DL [id number] 06:21:00* Test Item Value Reference Range Interpretation Comments GLUBED (test code = GLUBED) 131 mg/dL 74-106 H Performed by certified distribution collection operator at [facility] [id number] 20:36:00* Test Item Value Reference Range Interpretation Comments GLUBED (test code = GLUBED) 257 mg/dL 74-106 H Performed by certified distribution collection operator at [facility] [id number] 17:37:00* Test Item Value Reference Range Interpretation Comments GLUBED (test code = GLUBED) 206 mg/dL 74-106 H Performed by certified distribution collection operator at [facility] [id number] 17:37:00* Test Item Value Reference Range Interpretation Comments GLUBED (test code = GLUBED) 147 mg/dL 74-106 H Performed by certified distribution collection operator at [facility] - XR ABDOMEN AP 1 [id number] 14:54:00 FAX: Shweta Patton MD [phone] [place]: St: ADM FAX: Mathew Dove MD [phone] FAX: Manuel Moreland MD [phone] Name: ARNALDO MARSHALL [facility] : 1935 Age/S: 84/F [address] [facility] Unit #: [id number] Loc: [address] [place] [address] Phys: Manuel Link MD Acct: [id number] Dis Date: Status: ADM IN ONE #: [phone] Exam Date: 05/24/2019 1300 FAX #: [phone] Reason: colon distention EXAMS: CPT CODE: [id number] XR ABDOMEN AP 1 V 11554 EXAM: Abdomen, one view; INFORMATION: Diarrhea, colon distention; IMPRESSION: Moderate gaseous distention of the colon with a maximum di ameter of 6 cm. No obstructive pattern. No acute abnormalities. Location code: [facility] at 8692 Reported and signed by: Ryan Lowe M.D. CC: Shweta Patton MD; Mathew Martinez MD; Manuel Link MD Technologist: MARIA FERNANDA COLLIER(R) Trnscrd D ate/Time/By: 05/24/2019 (7038) : By: ChristGRW Orig Print D/T: S: 04/27 (0307) PAGE 1 Signed Repor t PROTHROMBIN [id number] 11:37:00* Test Item Value Reference Range Interpretation [...] (2.5-3.5) IS PATIENT ON ANTICOAGULANTS? NHEPATIC FUNCTION [id number] 07:30:00* Test Item Value Reference Range Interpretation [...] due to change in reagent. BLOOD UREA [id number] 07:22:00* Test Item Value Reference Range Interpretation Comments BLOOD UREA NITROGEN (test code = BUN) 33 mg/dL 7-18 H RESULT VERIFIED BY REPEAT ANALYSIS [id number] 07:22:00* Test Item Value Reference Range Interpretation Comments CREATININE (test code = CREAT) 1.00 mg/dL 0.55-1.02 N Note change in reference range due to change in reagent. CBC W/AUTO [id number] 06:29:00* Test Item Value Reference Range Interpretation [...] = MDIFF) NO, ONLY SCAN NEEDED DIFFERENTIAL [id number] 06:29:00* Test Item Value Reference Range Interpretation Comments STAIN ACCEPTABILITY (test code = STN ACCEPTABLE) STAIN ACCEPTABLE ANISOCYTOSIS (test code = ANISO) 1+ MACROCYTOSIS (test code = MACR) 1+ PLATELET ESTIMATE (test code = PLTEST) DECREASED PLATELET MORPHOLOGY (test code = PLTMORPH) NORMAL CBC W/AUTO [id number] 06:00:00* Test Item Value Reference Range Interpretation [...] = MDIFF) NO, ONLY SCAN NEEDED DIFFERENTIAL [id number] 06:00:00* Test Item Value Reference Range Interpretation Comments STAIN ACCEPTABILITY (test code = STN ACCEPTABLE) MORPHOLOGY COMMENT (test code = MOC) PLATELET ESTIMATE (test code = PLTEST) PLATELET MORPHOLOGY (test code = PLTMORPH) CBC W/AUTO [id number] 05:59:00* Test Item Value Reference Range Interpretation [...] = MDIFF) NO, ONLY SCAN NEEDED DIFFERENTIAL [id number] 05:59:00* Test Item Value Reference Range Interpretation Comments STAIN ACCEPTABILITY (test code = STN ACCEPTABLE) CABOT RINGS (test code = CAB) MORPHOLOGY COMMENT (test code = MOC) PLATELET ESTIMATE (test code = PLTEST) PLATELET MORPHOLOGY (test code = PLTMORPH) CBC W/AUTO [id number] 05:59:00* Test Item Value Reference Range Interpretation [...] = MDIFF) NO, ONLY SCAN NEEDED DIFFERENTIAL [id number] 05:59:00* Test Item Value Reference Range Interpretation Comments STAIN ACCEPTABILITY (test code = STN ACCEPTABLE) MORPHOLOGY COMMENT (test code = MOC) PLATELET ESTIMATE (test code = PLTEST) PLATELET MORPHOLOGY (test code = PLTMORPH) CBC W/AUTO [id number] 05:59:00* Test Item Value Reference Range Interpretation [...] = MDIFF) NO, ONLY SCAN NEEDED DIFFERENTIAL [id number] 05:59:00* Test Item Value Reference Range Interpretation Comments STAIN ACCEPTABILITY (test code = STN ACCEPTABLE) CABOT RINGS (test code = CAB) MORPHOLOGY COMMENT (test code = MOC) PLATELET ESTIMATE (test code = PLTEST) PLATELET MORPHOLOGY (test code = PLTMORPH) [id number] 16:45:00* Test Item Value Reference Range Interpretation Comments GLUBED (test code = GLUBED) 214 mg/dL 74-106 H Performed by certified distribution collection operator at [facility] - CT ABD PELVIS W/O [id number] 13:21:00 Name: ARNALDO MARSHALL LORNE [facility] : 1935 Age/S: 84 / F [address] Unit #: [id number] Loc: [place] [address] Phys: Shweta Patton MD Acct: [id number] Dis Date: Status: ADM IN PHONE #: [phone] Exam Date: 05/23/2019 1303 FAX #: [phone] Reason: abd distended EXAMS: CPT CODE: [id number] CT ABD PELVIS W/O CONT 14057 HISTORY: Abdominal distention TECHNIQUE: 5mm axial CT [...] Signed Report (CONTINUED) Name: VILLAARNALDO WEBBER ALFA [facility] : 1935 Age/S: 84 / F [address] Unit #: [id number] Loc: [place] [address] Phys: Shweta Patton MD Acct: [id number] Dis Date: Sta tus: ADM IN PHONE #: [phone] Exam Date : 05/23/2019 1303 FAX #: [phone] Reason: abd dist ended EXAMS: CPT CODE: [id number] CT ABD PELVIS W/O CONT 35751 <Continued> at 1321 Reported and signed by: Leonela Way D.O. CC: Shweta Patton MD; Mathew Martinez MD Technologist:Kashif Porter RT(R),(MR),(CT); CTDI: DLP: Trnscb Date/Time: 05/23/2019 (1321) [email or web address] Orig Print D/T: S: 05/23/2019 (5853) PAGE 2 Signed Report - HEPA IMAG INCL GB W [facility] 2019-05-23 13:13:00 FAX: Shweta Patton MD [phone] [place]: St: ADM FAX: Mathew Dove MD [phone] FAX: Oskar Mendoza [phone] Name: VILLANISAARNALDO MANDEL [facility] : 1935 Age/S: 84/F [address] Unit #: [id number] Loc: V.2076 [place] [address] Phys: Oskar Luther MD Acct: [id number] Dis Date: Status: ADM IN ONE #: [phone] Exam Date: 05/23/2019 1306 FAX #: [phone] Reason: elevated LFTs EXAMS: CPT CODE: [id number] HE PA IMAG INCL GB W PHA 73194 HISTORY: Right upper quadrant abdominal pain, elevated [...] MD Technologist: CHIKIS DUMONT Trnscrd Date/Time/By: 05/23/2019 (1479) : By: [email or web address] Orig Print D/T: S: 05/23/2019 (3124) PAGE 1 Signed Report [id number] 12:12:00* Test Item Value Reference Range Interpretation Comments GLUBED (test code = GLUBED) 227 mg/dL 74-106 H Performed by certified distribution collection operator at [facility] CBC W/AUTO [id number] 09:16:00* Test Item Value Reference Range Interpretation [...] = MDIFF) NO, ONLY SCAN NEEDED DIFFERENTIAL [id number] 09:16:00* Test Item Value Reference Range Interpretation Comments STAIN ACCEPTABILITY (test code = STN ACCEPTABLE) STAIN ACCEPTABLE TOXIC GRANULATION (test code = TOX) 1+ MORPHOLOGY COMMENT (test code = MOC) NORMAL PLATELET ESTIMATE (test code = PLTEST) DECREASED PLATELET MORPHOLOGY (test code = PLTMORPH) NORMAL COMPREHENSIVE METABOLIC [id number] 08:37:00* Test Item Value Reference Range Interpretation [...] due to change in reagent. HEPATIC FUNCTION [id number] 08:37:00* Test Item Value Reference Range Interpretation Comments BILIRUBIN DIRECT (test code = BILD) 0.88 mg/dL 0.0-0.20 H GAMMA GLUTAMYL [id number] 08:37:00* Test Item Value Reference Range Interpretation Comments GAMMA GLUTAMYL TRANSPEPTIDASE (test code = GGT) 1740 Unit/L 5-55 H COMPREHENSIVE METABOLIC [id number] 08:19:00* Test Item Value Reference Range Interpretation [...] code = ALKP) IUnit/L 45-117 HEPATIC FUNCTION [id number] 08:19:00* Test Item Value Reference Range Interpretation Comments BILIRUBIN DIRECT (test code = BILD) mg/dL 0.0-0.20 GAMMA GLUTAMYL [id number] 08:19:00* Test Item Value Reference Range Interpretation Comments GAMMA GLUTAMYL TRANSPEPTIDASE (test code = GGT) Unit/L 5-55 CBC W/AUTO [id number] 08:10:00* Test Item Value Reference Range Interpretation [...] = MDIFF) NO, ONLY SCAN NEEDED DIFFERENTIAL [id number] 08:10:00* Test Item Value Reference Range Interpretation Comments STAIN ACCEPTABILITY (test code = STN ACCEPTABLE) CABOT RINGS (test code = CAB) MORPHOLOGY COMMENT (test code = MOC) PLATELET ESTIMATE (test code = PLTEST) PLATELET MORPHOLOGY (test code = PLTMORPH) CBC W/AUTO [id number] 08:10:00* Test Item Value Reference Range Interpretation [...] = MDIFF) NO, ONLY SCAN NEEDED DIFFERENTIAL [id number] 08:10:00* Test Item Value Reference Range Interpretation Comments STAIN ACCEPTABILITY (test code = STN ACCEPTABLE) CABOT RINGS (test code = CAB) MORPHOLOGY COMMENT (test code = MOC) PLATELET ESTIMATE (test code = PLTEST) PLATELET MORPHOLOGY (test code = PLTMORPH) CBC W/AUTO [id number] 08:10:00* Test Item Value Reference Range Interpretation [...] = MDIFF) NO, ONLY SCAN NEEDED DIFFERENTIAL [id number] 08:10:00* Test Item Value Reference Range Interpretation Comments STAIN ACCEPTABILITY (test code = STN ACCEPTABLE) MORPHOLOGY COMMENT (test code = MOC) PLATELET ESTIMATE (test code = PLTEST) PLATELET MORPHOLOGY (test code = PLTMORPH) CBC W/AUTO [id number] 08:10:00* Test Item Value Reference Range Interpretation [...] = MDIFF) NO, ONLY SCAN NEEDED DIFFERENTIAL [id number] 08:10:00* Test Item Value Reference Range Interpretation Comments STAIN ACCEPTABILITY (test code = STN ACCEPTABLE) CABOT RINGS (test code = CAB) MORPHOLOGY COMMENT (test code = MOC) PLATELET ESTIMATE (test code = PLTEST) PLATELET MORPHOLOGY (test code = PLTMORPH) CBC W/AUTO [id number] 07:56:00* Test Item Value Reference Range Interpretation [...] # (test code = BA#) K/mm3 0.0-0.2 [id number] 06:19:00* Test Item Value Reference Range Interpretation Comments GLUBED (test code = GLUBED) 250 mg/dL 74-106 H Performed by certified distribution collection operator at [facility] [id number] 23:29:00* Test Item Value Reference Range Interpretation Comments TROPONIN-I (test code = TROPI) 0.144 ng/mL 0-0.045 HH PREVIOUSLY CALLED - XR CHEST 1 [id number] 13:05:00 FAX: Shweta Patton MD [phone] [place]: St: ADM FAX: Mathew Dove MD [phone] Name: ARNALDO MARSHALL [facility] : 1935 Age/S: 84/F [address] Unit #: [id number] Loc: V.2076 [place] [address] Phys: Shweta Patton MD Acct: [id number] Dis Date: Status: ADM IN PHONE #: [phone] Exam Date: 05/22/2019 1237 FAX #: [phone] Reason: sob EXAMS: CPT CODE: [id number] XR CHEST 1 V 00651 EXAM: Chest x-ray, one view; INFORMATION: Shortness of breath; IMPRESSION: 1. No significant change compared with the recent study from May 20, 2019; persistent moderate cardiomegaly. Aortic calcifications. 2. No acute pulmonary abnormalities. 3. Old, consolidated right-sided rib fractures. Location code: [facility] at 1305 Reported and signed by: Ryan Lowe M.D. CC: Shweta Patton MD; Mathew Martinez MD Technologist: Keri Cotter(R); PAYAM GERMANIA COLLIER (R) Trnscrd Date/Time/By: 05/22/2019 (2379) : By: ChristGRW Orig Print D/T: S: 05/22/2019 (3320) PAGE 1 Signed Report [id number] 11:38:00* Test Item Value Reference Range Interpretation Comments TROPONIN-I (test code = TROPI) 0.055 ng/mL 0-0.045 HH [id number] 07:12:00* Test Item Value Reference Range Interpretation Comments TRANSFERRRIN (test code = TRANSF) 154 mg/dL 200-370 A Performed At: [facility] [id number] Sanjai MD Ph:[phone] [id number] 07:12:00* Test Item Value Reference Range Interpretation Comments FERRITIN (test code = JILL) 329 ng/mL 8-388 N RETICULOCYTE [id number] 07:12:00* Test Item Value Reference Range Interpretation [...] is indicative of iron deficiency. SMEAR PERIPHERAL [id number] 07:12:00* Test Item Value Reference Range Interpretation Comments SMEAR PERIPHERAL BLOOD (test code = BLDSM) PATH REV PATH REVIEW Reviewed by Dr Sheri LiangHOMBOCYTOPENIASOME CRENATED RED BLOOD CELLSRED BLOOD CELL MORPHOLOGYOTHERWISE UNREMARKABLE [id number] 07:12:00* Test Item Value Reference Range Interpretation [...] - 329 41 - 333Performed At: [facility] [address] [id number] Sanjai MD Ph:[phone] [id number] 06:42:00* Test Item Value Reference Range Interpretation Comments GLUBED (test code = GLUBED) 212 mg/dL 74-106 H Performed by certified distribution collection operator at [facility] CBC W/AUTO [id number] 06:19:00* Test Item Value Reference Range Interpretation [...] = MDIFF) NO, ONLY SCAN NEEDED DIFFERENTIAL [id number] 06:19:00* Test Item Value Reference Range Interpretation Comments STAIN ACCEPTABILITY (test code = STN ACCEPTABLE) STAIN ACCEPTABLE POLYCHROMASIA (test code = POLC) 1+ POIKILOCYTOSIS (test code = POIK) 1+ CRENATED CELLS (test code = CREN) 1+ PLATELET ESTIMATE (test code = PLTEST) ADEQUATE PLATELET MORPHOLOGY (test code = PLTMORPH) NORMAL COMPREHENSIVE METABOLIC [id number] 05:50:00* Test Item Value Reference Range Interpretation [...] due to change in reagent. COMPREHENSIVE METABOLIC [id number] 05:20:00* Test Item Value Reference Range Interpretation [...] code = ALKP) IUnit/L 45-117 CBC W/AUTO [id number] 04:44:00* Test Item Value Reference Range Interpretation [...] = MDIFF) NO, ONLY SCAN NEEDED DIFFERENTIAL [id number] 04:44:00* Test Item Value Reference Range Interpretation Comments STAIN ACCEPTABILITY (test code = STN ACCEPTABLE) CABOT RINGS (test code = CAB) MORPHOLOGY COMMENT (test code = MOC) PLATELET ESTIMATE (test code = PLTEST) PLATELET MORPHOLOGY (test code = PLTMORPH) CBC W/AUTO [id number] 04:44:00* Test Item Value Reference Range Interpretation [...] = MDIFF) NO, ONLY SCAN NEEDED DIFFERENTIAL [id number] 04:44:00* Test Item Value Reference Range Interpretation Comments STAIN ACCEPTABILITY (test code = STN ACCEPTABLE) CABOT RINGS (test code = CAB) MORPHOLOGY COMMENT (test code = MOC) PLATELET ESTIMATE (test code = PLTEST) PLATELET MORPHOLOGY (test code = PLTMORPH) CBC W/AUTO [id number] 04:44:00* Test Item Value Reference Range Interpretation [...] = MDIFF) NO, ONLY SCAN NEEDED DIFFERENTIAL [id number] 04:44:00* Test Item Value Reference Range Interpretation Comments STAIN ACCEPTABILITY (test code = STN ACCEPTABLE) MORPHOLOGY COMMENT (test code = MOC) PLATELET ESTIMATE (test code = PLTEST) PLATELET MORPHOLOGY (test code = PLTMORPH) CBC W/AUTO [id number] 04:44:00* Test Item Value Reference Range Interpretation [...] = MDIFF) NO, ONLY SCAN NEEDED DIFFERENTIAL [id number] 04:44:00* Test Item Value Reference Range Interpretation Comments STAIN ACCEPTABILITY (test code = STN ACCEPTABLE) CABOT RINGS (test code = CAB) MORPHOLOGY COMMENT (test code = MOC) PLATELET ESTIMATE (test code = PLTEST) PLATELET MORPHOLOGY (test code = PLTMORPH) CBC W/AUTO [id number] 04:37:00* Test Item Value Reference Range Interpretation [...] # (test code = BA#) K/mm3 0.0-0.2 [id number] 20:42:00* Test Item Value Reference Range Interpretation Comments GLUBED (test code = GLUBED) 235 mg/dL 74-106 H Performed by certified distribution collection operator at [facility] RETICULOCYTE [id number] 18:07:00* Test Item Value Reference Range Interpretation [...] is indicative of iron deficiency. SMEAR PERIPHERAL [id number] 18:07:00* Test Item Value Reference Range Interpretation Comments SMEAR PERIPHERAL BLOOD (test code = BLDSM) PATH REV PATH REVIEW Reviewed by Dr Sheri LiangHOMBOCYTOPENIASOME CRENATED RED BLOOD CELLSRED BLOOD CELL MORPHOLOGYOTHERWISE UNREMARKABLE [id number] 18:07:00* Test Item Value Reference Range Interpretation Comments HAPTOGLOBIN (test code = HAPT) mg/dL [id number] 16:24:00* Test Item Value Reference Range Interpretation Comments GLUBED (test code = GLUBED) 183 mg/dL 74-106 H Performed by certified distribution collection operator at [facility] [id number] 13:06:00* Test Item Value Reference Range Interpretation Comments GLUBED (test code = GLUBED) 204 mg/dL 74-106 H Performed by certified distribution collection operator at [facility] ACUTE HEPATITIS [id number] 12:08:00* Test Item Value Reference Range Interpretation [...] with a HCV Nucleic Acid Amplification test ([id number]).Performed At: [facility] [address] [id number] Darío Bob MD Ph:[phone] SPECIMEN COMMENTS: can add to morning labs or tomorrow [id number] 11:04:00* Test Item Value Reference Range Interpretation Comments TROPONIN-I (test code = TROPI) 0.048 ng/mL 0-0.045 Results called to [id number] by V.LAB.QD 05/21/19 1104Critical results verified and read back by Nurse? YES CBC W/AUTO [id number] 09:22:00* Test Item Value Reference Range Interpretation [...] = MDIFF) NO, ONLY SCAN NEEDED DIFFERENTIAL [id number] 09:22:00* Test Item Value Reference Range Interpretation Comments STAIN ACCEPTABILITY (test code = STN ACCEPTABLE) STAIN ACCEPTABLE ANISOCYTOSIS (test code = ANISO) 2+ MACROCYTOSIS (test code = MACR) 2+ ELLIPTOCYTES (test code = ELL) 1+ PLATELET ESTIMATE (test code = PLTEST) DECREASED PLATELET MORPHOLOGY (test code = PLTMORPH) NORMAL CBC W/AUTO [id number] 07:54:00* Test Item Value Reference Range Interpretation [...] = MDIFF) NO, ONLY SCAN NEEDED DIFFERENTIAL [id number] 07:54:00* Test Item Value Reference Range Interpretation Comments STAIN ACCEPTABILITY (test code = STN ACCEPTABLE) CABOT RINGS (test code = CAB) MORPHOLOGY COMMENT (test code = MOC) PLATELET ESTIMATE (test code = PLTEST) PLATELET MORPHOLOGY (test code = PLTMORPH) CBC W/AUTO [id number] 07:54:00* Test Item Value Reference Range Interpretation [...] = MDIFF) NO, ONLY SCAN NEEDED DIFFERENTIAL [id number] 07:54:00* Test Item Value Reference Range Interpretation Comments STAIN ACCEPTABILITY (test code = STN ACCEPTABLE) CABOT RINGS (test code = CAB) MORPHOLOGY COMMENT (test code = MOC) PLATELET ESTIMATE (test code = PLTEST) PLATELET MORPHOLOGY (test code = PLTMORPH) CBC W/AUTO [id number] 07:54:00* Test Item Value Reference Range Interpretation [...] = MDIFF) NO, ONLY SCAN NEEDED DIFFERENTIAL [id number] 07:54:00* Test Item Value Reference Range Interpretation Comments STAIN ACCEPTABILITY (test code = STN ACCEPTABLE) MORPHOLOGY COMMENT (test code = MOC) PLATELET ESTIMATE (test code = PLTEST) PLATELET MORPHOLOGY (test code = PLTMORPH) CBC W/AUTO [id number] 07:54:00* Test Item Value Reference Range Interpretation [...] = MDIFF) NO, ONLY SCAN NEEDED DIFFERENTIAL [id number] 07:54:00* Test Item Value Reference Range Interpretation Comments STAIN ACCEPTABILITY (test code = STN ACCEPTABLE) CABOT RINGS (test code = CAB) MORPHOLOGY COMMENT (test code = MOC) PLATELET ESTIMATE (test code = PLTEST) PLATELET MORPHOLOGY (test code = PLTMORPH) COMPREHENSIVE METABOLIC [id number] 07:52:00* Test Item Value Reference Range Interpretation [...] due to change in reagent. COMPREHENSIVE METABOLIC [id number] 07:42:00* Test Item Value Reference Range Interpretation [...] TOTAL (test code = ALKP) IUnit/L 45-117 [id number] 06:16:00* Test Item Value Reference Range Interpretation Comments GLUBED (test code = GLUBED) 203 mg/dL 74-106 H Performed by certified distribution collection operator at [facility] [id number] 21:05:00* Test Item Value Reference Range Interpretation Comments GLUBED (test code = GLUBED) 201 mg/dL 74-106 H Performed by certified distribution collection operator at [facility] [id number] 16:55:00* Test Item Value Reference Range Interpretation Comments GLUBED (test code = GLUBED) 170 mg/dL 74-106 H Performed by certified distribution collection operator at [facility] - XR CHEST 1 [id number] 14:28:00 FAX: Shweta Patton MD [phone] [place]: St: ADM FAX: Mathew Dove MD [phone] Name: ARNALDO MARSHALL [facility] : 1935 Age/S: 84/F [address] [facility] Unit #: [id number] Loc: V.2076 [place] [address] Phys: Shweta Patton MD Acct: [id number] Dis Date: Status: ADM IN PHONE #: [phone] Exam Date: 05/20/2019 1412 FAX #: [phone] Reason: sob EXAMS: CPT CODE: [id number] XR CHEST 1 V 61760 REASON FOR EXAM: sob Exam Order Date: [...] By: [email or web address] Orig Print D/T: S: 05/20/2019 (4706) PAGE 1 Signed Report [id number] 13:14:00* Test Item Value Reference Range Interpretation Comments GLUBED (test code = GLUBED) 171 mg/dL 74-106 H Performed by certified distribution collection operator at [facility] PROTHROMBIN [id number] 11:43:00* Test Item Value Reference Range Interpretation [...] heart valves (2.5-3.5) IS PATIENT ON ANTICOAGULANTS? [id number] 09:19:00* Test Item Value Reference Range Interpretation Comments TRANSFERRRIN (test code = TRANSF) mg/dL 200-370 [id number] 09:19:00* Test Item Value Reference Range Interpretation Comments FERRITIN (test code = JILL) 329 ng/mL 8-388 N CBC W/AUTO [id number] 07:05:00* Test Item Value Reference Range Interpretation [...] = MDIFF) NO, ONLY SCAN NEEDED DIFFERENTIAL [id number] 07:05:00* Test Item Value Reference Range Interpretation Comments STAIN ACCEPTABILITY (test code = STN ACCEPTABLE) STAIN ACCEPTABLE POLYCHROMASIA (test code = POLC) 1+ POIKILOCYTOSIS (test code = POIK) 3+ ANISOCYTOSIS (test code = ANISO) 2+ MACROCYTOSIS (test code = MACR) 1+ YOLI CELLS (test code = YOLI) 2+ NONE PLATELET ESTIMATE (test code = PLTEST) DECREASED PLATELET MORPHOLOGY (test code = PLTMORPH) NORMAL [id number] 06:18:00* Test Item Value Reference Range Interpretation Comments GLUBED (test code = GLUBED) 150 mg/dL 74-106 H Performed by certified distribution collection operator at [facility] COMPREHENSIVE METABOLIC [id number] 06:16:00* Test Item Value Reference Range Interpretation [...] range due to change in reagent. PROTHROMBIN [id number] 06:16:00* Test Item Value Reference Range Interpretation [...] (2.5-3.5) IS PATIENT ON ANTICOAGULANTS? NCOMPREHENSIVE METABOLIC [id number] 06:08:00 * Test Item Value Reference Range [...] code = ALKP) IUnit/L 45-117 CBC W/AUTO [id number] 06:08:00* Test Item Value Reference Range Interpretation [...] = MDIFF) NO, ONLY SCAN NEEDED DIFFERENTIAL [id number] 06:08:00* Test Item Value Reference Range Interpretation Comments STAIN ACCEPTABILITY (test code = STN ACCEPTABLE) CABOT RINGS (test code = CAB) MORPHOLOGY COMMENT (test code = MOC) PLATELET ESTIMATE (test code = PLTEST) PLATELET MORPHOLOGY (test code = PLTMORPH) CBC W/AUTO [id number] 06:08:00* Test Item Value Reference Range Interpretation [...] = MDIFF) NO, ONLY SCAN NEEDED DIFFERENTIAL [id number] 06:08:00* Test Item Value Reference Range Interpretation Comments STAIN ACCEPTABILITY (test code = STN ACCEPTABLE) MORPHOLOGY COMMENT (test code = MOC) PLATELET ESTIMATE (test code = PLTEST) PLATELET MORPHOLOGY (test code = PLTMORPH) CBC W/AUTO [id number] 06:08:00* Test Item Value Reference Range Interpretation [...] = MDIFF) NO, ONLY SCAN NEEDED DIFFERENTIAL [id number] 06:08:00* Test Item Value Reference Range Interpretation Comments STAIN ACCEPTABILITY (test code = STN ACCEPTABLE) MORPHOLOGY COMMENT (test code = MOC) PLATELET ESTIMATE (test code = PLTEST) PLATELET MORPHOLOGY (test code = PLTMORPH) CBC W/AUTO [id number] 06:08:00* Test Item Value Reference Range Interpretation [...] = MDIFF) NO, ONLY SCAN NEEDED DIFFERENTIAL [id number] 06:08:00* Test Item Value Reference Range Interpretation Comments STAIN ACCEPTABILITY (test code = STN ACCEPTABLE) CABOT RINGS (test code = CAB) MORPHOLOGY COMMENT (test code = MOC) PLATELET ESTIMATE (test code = PLTEST) PLATELET MORPHOLOGY (test code = PLTMORPH) CBC W/AUTO [id number] 05:57:00* Test Item Value Reference Range Interpretation [...] = FESAT) 60.33 % 13-45 H VITAMIN [id number] 01:05:00* Test Item Value Reference Range Interpretation Comments VITAMIN B12 (test code = VITB12) 3137 pg/mL 193-986 H FOLIC [id number] 01:05:00* Test Item Value Reference Range Interpretation Comments FOLIC ACID (test code = FOL) 19.1 ng/mL 3.10-17.50 H [id number] 23:46:00* Test Item Value Reference Range Interpretation Comments FIBRINOGEN (test code = FIB) 265 mg/dL 200-400 N RETICULOCYTE [id number] 23:15:00* Test Item Value Reference Range Interpretation [...] is indicative of iron deficiency. SMEAR PERIPHERAL [id number] 23:15:00* Test Item Value Reference Range Interpretation Comments SMEAR PERIPHERAL BLOOD (test code = BLDSM) PATH REV PATH REVIEW [id number] 23:15:00* Test Item Value Reference Range Interpretation Comments HAPTOGLOBIN (test code = HAPT) mg/dL [id number] 21:14:00* Test Item Value Reference Range Interpretation Comments GLUBED (test code = GLUBED) 211 mg/dL 74-106 H Performed by certified distribution collection operator at [facility] - MRI ABDOMEN W/O [id number] 19:06:00 FAX: Shweta Patton MD [phone] [place]: St: ADM FAX: Mathew Dove MD [phone] FAX: Valentina Strickland [phone] Name: ARNALDO MARSHALL [facility] : 1935 Age/S: 84/F [address] [facility] Unit #: [id number] Loc: 2076 [place] [address] Phys: Valentina Strickland Acct: [id number] Dis Date: Status: ADM IN PH ONE #: [phone] Exam Date: 05/19/2019 1857 FAX #: [phone] Reason: elevated LFTs EXAMS: CPT CODE: [id number] MR I ABDOMEN W/O CONT 42108 REASON FOR EXAM: elevated LFTs EXAM ORDER DATE: 05/19/2019 10:58 AM Ordering: NYASIA La Attending:Shweta Patton MD Location: PROCEDURE: - MRI ABDOMEN W/O CONT FINDINGS: Axial and 3-D uhph-mj-emftxq images of the upper abdomen and biliary [...] PAGE 1 Signed Report - US ABDOMEN [id number] 17:44:00 Name: ARNALDO MARSHALL [facility] : 1935 Age/S: 84 / F [address] Unit #: [id number] Loc: [place] [address] Phys: Valentina Strickland Acct: [id number] Dis Date: Status: ADM IN PHONE #: [phone] Exam Date: 05/19/2019 1717 FAX #: [phone] Reason: elevated LFTS EXAMS: CPT CODE: [id number] US ABDOMEN LTD 82178 REASON FOR EXAM: elevated LFTS EXAM ORDER DATE: 05/19/2019 2:52 PM Ordering: NYASIA La Attending:Shweta Patton MD Location:[facility] PROCEDURE: - US ABDOMEN LTD FINDINGS: The [...] MD ; Valentina Strickland Technologist: Christine Hernandez MS Trnscb Date/Time: 05/19/2019 (9098) RereL Orig Print D/T: S: 05/19/2019 (9880) Probe: PAGE 1 Signed Report [id number] 16:43:00* Test Item Value Reference Range Interpretation Comments GLUBED (test code = GLUBED) 222 mg/dL 74-106 H Performed by certified distribution collection operator at [facility] [id number] 12:57:00* Test Item Value Reference Range Interpretation Comments GLUBED (test code = GLUBED) 182 mg/dL 74-106 H Performed by certified distribution collection operator at [facility] COMPREHENSIVE METABOLIC [id number] 07:36:00* Test Item Value Reference Range Interpretation [...] due to change in reagent. COMPREHENSIVE METABOLIC [id number] 07:29:00* Test Item Value Reference Range Interpretation [...] (test code = ALKP) IUnit/L 45-117 PROTHROMBIN [id number] 06:51:00* Test Item Value Reference Range Interpretation [...] (2.5-3.5) IS PATIENT ON ANTICOAGULANTS? NCBC W/AUTO [id number] 06:49:00* Test Item Value Reference Range Interpretation [...] (test code = MDIFF) NO CBC W/AUTO [id number] 06:48:00* Test Item Value Reference Range Interpretation [...] # (test code = BA#) K/mm3 0.0-0.2 [id number] 19:49:00* Test Item Value Reference Range Interpretation Comments GLUBED (test code = GLUBED) 157 mg/dL 74-106 H Performed by certified distribution collection operator at [facility] [id number] 17:37:00* Test Item Value Reference Range Interpretation Comments GLUBED (test code = GLUBED) 152 mg/dL 74-106 H Performed by certified distribution collection operator at [facility] [id number] 17:37:00* Test Item Value Reference Range Interpretation Comments GLUBED (test code = GLUBED) 168 mg/dL 74-106 H Performed by certified distribution collection operator at [facility] PROTHROMBIN [id number] 13:05:00* Test Item Value Reference Range Interpretation [...] (2.5-3.5) IS PATIENT ON ANTICOAGULANTS? NCOMPREHENSIVE METABOLIC [id number] 07:43:00 * Test Item Value Reference Range [...] due to change in reagent. COMPREHENSIVE METABOLIC [id number] 07:37:00* Test Item Value Reference Range Interpretation [...] code = ALKP) IUnit/L 45-117 CBC W/AUTO [id number] 06:50:00* Test Item Value Reference Range Interpretation [...] NRBC#) 0.00 K/mm3 0.0-0.1 N CBC W/AUTO [id number] 06:46:00* Test Item Value Reference Range Interpretation [...] # (test code = BA#) K/mm3 0.0-0.2 [id number] 06:02:00* Test Item Value Reference Range Interpretation Comments GLUBED (test code = GLUBED) 183 mg/dL 74-106 H Performed by certified distribution collection operator at [facility] - XR CHEST 1 [id number] 22:05:00 FAX: Shweta Patton MD [phone] [place]: B St: ADM FAX: Y Mathew Martinez MD [phone] Name: ARNALDO MARSHALL [facility] : 1935 Age/S: 84/F [address] [facility] Unit #: [id number] Loc: V.2076 [place] [address] Phys: Shweta Patton MD Acct: [id number] Dis Date: Status: ADM IN PHONE #: [phone] Exam Date: 05/17/20192199 FAX #: [phone] Reason: WHEEZING EXAMS: CPT CODE: [id number] XR CHEST 1 V 11088 HISTORY: WHEEZING TECHNIQUE: AP chest x-ray COMPARISON: [...] S: 05/17/2019 (2207) PAGE 1 Signed Report [id number] 20:13:00* Test Item Value Reference Range Interpretation Comments GLUBED (test code = GLUBED) 150 mg/dL 74-106 H Performed by certified distribution collection operator at [facility] PROTHROMBIN [id number] 10:28:00* Test Item Value Reference Range Interpretation [...] PATIENT ON ANTICOAGULANTS? YLIST ANTICOAGULANTS COUMADINCOMPREHENSIVE METABOLIC [id number] 07:47:00* Test Item Value Reference Range Interpretation [...] reference range due to change in reagent. [id number] 07:47:00* Test Item Value Reference Range Interpretation Comments MAGNESIUM (test code = MAG) 1.8 mg/dL 1.8-2.4 N COMPREHENSIVE METABOLIC [id number] 07:25:00* Test Item Value Reference Range Interpretation [...] TOTAL (test code = ALKP) IUnit/L 45-117 [id number] 07:25:00* Test Item Value Reference Range Interpretation Comments MAGNESIUM (test code = MAG) mg/dL 1.8-2.4 CBC W/AUTO [id number] 06:58:00* Test Item Value Reference Range Interpretation [...] code = NRBC#) 0.00 K/mm3 0.0-0.1 N [id number] 22:28:00* Test Item Value Reference Range Interpretation Comments TROPONIN-I (test code = TROPI) 0.027 ng/mL 0-0.045 N COMMENTS TO HAND PAINTER: COLLECT 3 HOURS AFTER PREVIOUS SAMPLELACTIC [id number] 22:23:00* Test Item Value Reference Range Interpretation Comments LACTIC ACID (test code = LACT) 1.5 mmol/L 0.4-1.9 N CBC W/AUTO [id number] 22:18:00* Test Item Value Reference Range Interpretation [...] (test code = MDIFF) NO BASIC METABOLIC [id number] 22:16:00* Test Item Value Reference Range Interpretation [...] code = CA) 8.6 mg/dL 8.5-10.1 N [id number] 22:16:00* Test Item Value Reference Range Interpretation Comments MAGNESIUM (test code = MAG) 1.8 mg/dL 1.8-2.4 N BASIC METABOLIC [id number] 22:12:00* Test Item Value Reference Range Interpretation [...] CALCIUM (test code = CA) mg/dL 8.5-10.1 [id number] 22:12:00* Test Item Value Reference Range Interpretation Comments MAGNESIUM (test code = MAG) mg/dL 1.8-2.4 PROTHROMBIN [id number] 19:49:00* Test Item Value Reference Range Interpretation Comments PROTHROMBIN TIME PATIENT (test code = PTP) 165.9 seconds 9.0-14.0 H INTERNATIONAL NORMAL RATIO (test code = INR) 14.2 0.8-1.2 Results called to [id number] by V.LAB.IN 05/16/19 1948Critical results verified and [...] heart valves (2.5-3.5) IS PATIENT ON ANTICOAGULANTS? [id number] 19:36:00* Test Item Value Reference Range Interpretation Comments TROPONIN-I (test code = TROPI) 0.043 ng/mL 0-0.045 N COMMENTS TO HAND PAINTER: COLLECT 3 HOURS AFTER PREVIOUS SAMPLELACTIC [id number] 17:41:00* Test Item Value Reference Range Interpretation Comments LACTIC ACID (test code = LACT) 2.9 mmol/L 0.4-1.9 Results called to [id number] by V.LAB.LT 05/16/19 1741Critical results verified and read back by Nurse? Y BASIC METABOLIC [id number] 17:04:00* Test Item Value Reference Range Interpretation [...] code = CA) 8.6 mg/dL 8.5-10.1 N [id number] 17:04:00* Test Item Value Reference Range Interpretation Comments MAGNESIUM (test code = MAG) 1.4 mg/dL 1.8-2.4 L URINALYSIS [id number] 16:55:00* Test Item Value Reference Range Interpretation [...] FEW A Urine Source? Clean CatchPOC LACTIC [id number] 16:28:00* Test Item Value Reference Range Interpretation Comments POC LACTIC ACID (test code = POCLAC) 4.03 MMOL/L 0.4-2.2 H - CT ABD PELVIS W/O [id number] 14:00:00 Name: ARNALDO MARSHALL [facility] : 1935 Age/S: 84 / F [address] [facility] Unit #: [id number] Loc: [place] [address] Phys: Amadou Novak MD Acct: [id number] Dis Date: Status: REG ER PHONE #: [phone] Exam Date: 05/16/2019 1301 FAX #: [phone] Reason: diarrhea, abdominal pain EXAMS: CPT CODE: [id number] CT ABD PELVIS W/O CONT 39220 REASON FOR EXAM: diarrhea, abdominal pain EXAM [...] 1 Signed Report (CONTINUED) Name: ARNALDO MARSHALL [facility] : 1935 Age/S: 84 / F [address] Unit #: [id number] Loc: [place] [address] Phys: Amadou Novak MD Acct: [id number] Dis Date: Status: REG ER PHONE #: [phone] Exam Date: 2018 1301 FAX #: [phone] Reason: diarrhea, abdomi nal pain EXAMS: CPT CODE: [id number] CT ABD PELVIS W/O CONT 741 76 <Continued> IMPRESSION: No acute intra-abdominal process. Specifically no abnormalities of the gastrointestinal tract. Anterior wedging of the T11 vertebral body likely represents a chronic compression fracture. Location: [facility] at 1400 Reported and signed by: Bautista Negrete MD CC: Mathew Martinez MD; Amadou Novak MD Technologist:Kashif Porter RT(R),(MR),(CT) CTDI: DLP: Trnscb Date/Time: 05/16/2019 (1400) [id number].SDR.RR31 Orig Print D/T: S: 05/16/2019 (1403) PAGE 2 Signed Report - CT HEAD/BRAIN W/O [id number] 12:49:00 Name: ARNALDO MARSHALL [facility] : 1935 Age/S: 84 / F [address] Unit #: [id number] Loc: [place] [address] Phys: Lakisha Novak MD Acct: [id number] Di s Date: Status: REG ER PHONE #: Exam Date: 05/16/2019 1202 FAX #: Reason: seizure EXAMS: CPT CODE: [id number] CT HEAD/BRAIN W/O CONT 61097 HISTORY: seizure TECHNIQUE: Noncontrast 2.5 mm axial [...] of the brain September 07, 2017. Location: [facility] Electronically Signed by Bautista Negrete MD on at 1249 Reported and signed by: Bautista Negrete MD CC: Mathew Martinez MD; Amadou Novak MD Technologist:Kashif Trujillo RT(R),(MR),(CT); CTDI: DLP: Trnscb Date/Time: 9 (5156) [id number].[id number] Orig Print D/T: S: 05/16/2019 (3901) PAGE 1 Signed Report BASIC METABOLIC [id number] 12:36:00* Test Item Value Reference Range Interpretation Comments SODIUM (test code = NA) 159 mmol/L 136-145 H Resu lts called to [id number] by V.LAB.QD 05/16/19 1236Critical results verified and [...] CA) 9.4 mg/dL 8.5-10.1 N HEPATIC FUNCTION [id number] 12:36:00* Test Item Value Reference Range Interpretation [...] reference range due to change in reagent. [id number] 12:36:00* Test Item Value Reference Range Interpretation Comments LIPASE (test code = LIP) 50 U/L 73.0-393.0 L [id number] 12:36:00* Test Item Value Reference Range Interpretation Comments TROPONIN-I (test code = TROPI) <0.015 ng/mL 0-0.045 N LACTIC [id number] 12:35:00* Test Item Value Reference Range Interpretation Comments LACTIC ACID (test code = LACT) 17.1 mmol/L 0.4-1.9 HH Results called to [id number] by V.LABHAYDEE 05/16/19 1235Critical results verified and read back by Nurse? YES [id number] 12:31:00* Test Item Value Reference Range Interpretation Comments MAGNESIUM (test code = MAG) 1.4 mg/dL 1.8-2.4 L TSH REFLEX TO [id number] 12:31:00* Test Item Value Reference Range Interpretation [...] taking into account the patients history. PROTHROMBIN [id number] 12:27:00* Test Item Value Reference Range Interpretation Comments PROTHROMBIN TIME PATIENT (test code = PTP) 113.6 seconds 9.0-14.0 H INTERNATIONAL NORMAL RATIO (test code = INR) 9.7 0.8-1.2 Results called to [id number] by CRYSTAL 05/16/19 1226Critical results verified and [...] (2.5-3.5) IS PATIENT ON ANTICOAGULANTS? NTHROMBOPLASTIN TIME [id number] 12:27:00* Test Item Value Reference Range Interpretation Comments THROMBOPLASTIN TIME PARTIAL (test code = PTT) 31.2 seconds 25.0-36. 5 N IS PATIENT ON ANTICOAGULANTS? [id number] 12:22:00* Test Item Value Reference Range Interpretation Comments MAGNESIUM (test code = MAG) 1.4 mg/dL 1.8-2.4 L TSH REFLEX TO [id number] 12:22:00* Test Item Value Reference Range Interpretation Comments TSH REFLEX TO FT4 (test code = TSHREFLEX) 0.4-5.5 CBC W/O [id number] 11:46:00* Test Item Value Reference Range Interpretation [...] code = MPV) fL 6.7-11.0 CBC W/O [id number] 11:46:00* Test Item Value Reference Range Interpretation [...]
--- NOTE | 2020-03-01 16:13 | Diagnostic Imaging Report ---
EXAM: CT Abdomen and Pelvis WITHOUT contrast INDICATION: Abdominal pain. COMPARISON: None. TECHNIQUE: Abdomen and pelvis were scanned utilizing a multidetector helical scanner from the lung base to the pubic symphysis without administration of IV contrast. Absence of intravenous contrast decreases sensitivity for detection of focal lesions and vascular pathology. Coronal and sagittal reformations were obtained. Routine protocol was performed. IV CONTRAST: None ORAL CONTRAST: None COMPLICATIONS: None RADIATION DOSE: Total DLP: 607.26 mGy*cm Estimated effective dose: (DLP x 0.015 x size factor) mSv CTDIvol has been reviewed. It is below the limits set by the Radiation Protocol Committee (RPC). Dose modulation, iterative reconstruction, and/or weight based adjustment of the mA/kV was utilized to reduce the radiation dose to as low as reasonably achievable. FINDINGS: LINES and TUBES: None. LOWER THORAX: There is bibasilar atelectasis. The base of the heart demonstrates cardiomegaly with atherosclerotic calcification of the coronary vessels. HEPATOBILIARY: No focal hepatic lesions. No biliary ductal dilation. GALLBLADDER: No radio-opaque stones or sludge. No wall thickening. SPLEEN: No splenomegaly. PANCREAS: There is fatty infiltration of the pancreas. ADRENALS: There is thickening of the adrenal gland without discrete nodule, consistent with hyperplasia. KIDNEYS/URETERS: There is an extrarenal pelvis on the right. No hydronephrosis. There is nasal hepatic cyst in the upper pole of the right kidney. No stones. GI TRACT: Lack of enteric and oral contrast significantly limiting optimal assessment of the bowel. There is mucosal wall thickening of the rectum and entire colon with loss of normal haustral surface and pericolonic fat stranding. There is small amount of fluid along the bilateral paracolic gutters. Appendix is not visualized, likely surgically absent. PELVIC ORGANS/BLADDER: There is a Kelly catheter in the urinary bladder. There is small amount of fluid in the pelvis. LYMPH NODES: No lymphadenopathy. VESSELS: There is severe atherosclerotic disease in the aorta and major arterial branches. PERITONEUM / RETROPERITONEUM: There is diffuse stranding of the mesenteric fat and small free fluid along the paracolic gutters. BONES: There are degenerative changes in the spine. There are multiple compression fractures involving T11, T12 and L4 vertebral bodies. SOFT TISSUES: Unremarkable. IMPRESSION: 1. Mucosal wall thickening of the rectum and entire colon with loss of normal haustral surface and pericolonic fat stranding. This constellation of findings can be seen with ischemic, inflammatory and infectious colitis in the proper clinical context. 2. Cardiomegaly with atherosclerotic calcification of the coronary vessels. 3. Compression fractures of T11, T12 and L4 vertebral bodies of indeterminate age. Signed by: Nelson Nix MD on 03/01/2020 4:10 PM
[2020-03-01] MEDS: SODIUM CHLORIDE 0.9% 1000ML 1,000 ML IV SCH ×2 (16:52→18:46)
[2020-03-01] MEDS ORDERED: METOPROLOL TARTRATE INJ 1 MG/ML VIAL IV PRN (17:30)
--- NOTE | 2020-03-01 17:31 | NUR ---
Rec'd patient to Room 199; alert and confused. A fib with RVR to the 170s, BP 128/48, 98% RA, 18, and 98.[address] Narvaez and orders rec'd for metoprolol IV and PO if the patient becomes cognitive enough to safely swallow. Spoke with both sons, Rinku and José Manuel.
--- NOTE | 2020-03-01 19:13 | NUR ---
Received pt in bed awake alert. Afib w/ RVR remains, BP 76/56. NC at 2L with 99% sat noted. Pt awaiting ICU bed. Bed low and locked, will cont to mon pt.
[2020-03-01 19:33] LABS: ANION GAP 24.8 mmol/L (8-16); CALCIUM 8.6 mg/dL (8.4-10.2); CREATININE, SERUM 1.64 mg/dL (0.57-1.11); POTASSIUM 3.8 mmol/L (3.5-5.1)
[2020-03-01] MEDS ORDERED: SODIUM CHLORIDE 0.9% 500ML 500 ML IV ONE (20:30)
--- NOTE | 2020-03-01 20:36 | NUR ---
Dr. Narvaez notified of pt low BP and tachy HR, orders noted for 500cc NS Bolus.
--- NOTE | 2020-03-01 20:36 | NUR ---
Patient with elevated HR - a-fib 150s and 160s, at 2017 bp 101/83 - 2.5 mg of metoprolol IV given. At 2029 hr 144 and b/p 103/83 additional 2.5 mg of IV metoprolol given, will continue to monitor
[2020-03-01] MEDS: METRONIDAZOLE 250MG/NS 50ML 50 ML IV SCH (20:57)
--- NOTE | 2020-03-01 21:12 | NUR ---
Dr. Narvaez notified regarding Lactic Acid, HR, and BP. Orders for Amiodarone gtt and consult for Dr. Silva noted.
[2020-03-01] MEDS ORDERED: AMIODARONE HCL 100 ML IV ONE (21:25)
[2020-03-01] MEDS ORDERED: AMIODARONE 900MG 500 ML IV ONE (21:25)
[2020-03-01] MEDS: ATORVASTATIN 10 MG TAB PO SCH (21:57)
[2020-03-01] MEDS: METOPROLOL TARTRATE 25 MG TAB PO SCH (21:58)
[2020-03-01] MEDS: ACETAMINOPHEN 325 MG TAB PO PRN (21:58)
[2020-03-01] MEDS ORDERED: AMIODARONE HCL 900 MG in DEXTROSE 5% 500ML 500 ML IV ONE (22:00)
[2020-03-01] MEDS ORDERED: AMIODARONE HCL 150 MG/100 ML BAG IV ONE (22:00)
--- NOTE | 2020-03-01 22:02 | NUR ---
Call placed to Dr. Silva's service, message left for personnel recruiter md regarding consult
[2020-03-02] VITALS (8 sets, daily range): BP systolic 77–110; BP diastolic 51–80
[2020-03-02] MEDS: METRONIDAZOLE 250MG/NS 50ML 50 ML IV SCH ×3 (04:00→20:24)
[2020-03-02 04:58] LABS: BASOPHILS % 0.1 % (0.0-1.0); EOSINOPHILS % 0.1 % (0.0-6.0); HEMATOCRIT 36.1 % (34.2-44.1); HEMOGLOBIN 12.2 g/dL (12.0-16.0); LYMPHOCYTES # (AUTO) 1.4 (1.0-3.2); LYMPHOCYTES % 9.2 % (18.0-39.1); MEAN CORPUSCULAR HEMOGLOBIN 31.2 pg (28-32); MEAN CORPUSCULAR HGB CONC 33.8 g/dL (31-35); MEAN CORPUSCULAR VOLUME 92.3 fL (81-99); MONOCYTES # (AUTO) 0.7 (0.2-0.8); MONOCYTES % 4.8 % (4.4-11.3); NEUTROPHILS # (AUTO) 11.4 (2.1-6.9); NEUTROPHILS % 78.4 % (38.7-80.0); PLATELET COUNT 171 x10e3/uL (140-360); RED BLOOD COUNT 3.91 x10e6/uL (3.6-5.1); RED CELL DISTRIBUTION WIDTH 13.4 % (11.7-14.4)
[2020-03-02 05:19] LABS: ALBUMIN/GLOBULIN RATIO 1.1 (0.8-2.0); ANION GAP 17.6 mmol/L (8-16); CALCIUM 7.3 mg/dL (8.4-10.2); CREATININE, SERUM 1.36 mg/dL (0.57-1.11); POTASSIUM 3.6 mmol/L (3.5-5.1)
--- NOTE | 2020-03-02 06:06 | NUR ---
IM- progress note O/N see below ROS; unobtainable v/s; revd PE tired appearing anicteric ns1s2 mod bs soft MILD TENDERNESS; GARCIA in place. no e/t skin dry flat affect awake; CONFUSED. labs/meds revd A/P: Acute bacterial diarrhea- flagyl Hx C.diff- check test A.fib with RVR- AV blockade; cardio eval UTI- IV abx SHAISTA- IVF Dehydration- IVF HLD- cont statin Hypothyroidism- synthroid Physical deconditioning- PT Prop; scd Dispo; PT consult 03-02-20 Amio; fluid boluses; AV blockade; C.diff positive; SNF eval Kelley Narvaez MD, PhD.
--- NOTE | 2020-03-02 08:30 | NUR ---
WILL CALL SON WHEN GET PT EVAL, PT HAS BEEN TO [facility] [place] [facility]
[2020-03-02] MEDS: ONDANSETRON HCL INJ 2MG/ML 2ML 2 MG/ML VIAL IV PRN ×2 (09:01→22:32)
[2020-03-02] MEDS: LEVOTHYROXINE SODIUM 75 MCG TAB PO SCH (09:26)
[2020-03-02] MEDS: ASPIRIN 81 MG ENTERIC COATED PO SCH (09:26)
[2020-03-02] MEDS: METOPROLOL TARTRATE 25 MG TAB PO SCH ×3 (09:26→21:08)
[2020-03-02] MEDS: VANCOMYCIN 250MG/5ML ORAL SOLN PO SCH ×5 (09:26→23:45)
--- NOTE | 2020-03-02 09:26 | NUR ---
PT BP IS CONCERN AND ON A DRIP, UNABLE TO PROCEED WITH SNF AT THIS TIME. CM WILL UPDATE WHEN READY TO PROCEED.
--- NOTE | 2020-03-02 13:50 | Consultation ---
DATE OF CONSULTATION: Cardiology Consultation REASON FOR CONSULTATION: Atrial fibrillation. HISTORY OF PRESENT ILLNESS: This is an 84-year-old woman who has a history of diabetes mellitus, cerebral vascular accident with residual deficits, atrial fibrillation, and seizure disorder in addition to history of Clostridium difficile colitis, who presented from home via EMS with altered mental status and lethargy. She was found to be in atrial fibrillation with rapid ventricular response. The patient is confused and likely has dementia and cannot provide me the exact details of her presenting symptoms or past medical history. She is currently hemodynamically stable and remains tachycardic. She denies any chest pain, shortness of breath, or palpitations. REVIEW OF SYSTEMS: Unable to be obtained due to confusion. PAST MEDICAL HISTORY: As stated above in the HPI. PAST SURGICAL HISTORY: None recent. PAST FAMILY HISTORY: Noncontributory to current illness. ALLERGIES: PENICILLIN. MEDICATIONS: See medication reconciliation form. SOCIAL HISTORY: No illicit drug, alcohol, or tobacco use. PHYSICAL EXAMINATION: VITAL SIGNS: Temperature is 96.7, heart rate is 108, respirations are 20, blood pressure is 110/80, and ox saturation 100% on 1 L nasal cannula. GENERAL: Chronically ill-appearing elderly woman, lying comfortably in bed, no apparent distress. Alert and oriented x3. HEAD: Normocephalic and atraumatic. Eyes, the extraocular movements intact. Conjunctivae clear. NECK: No JVD. No bruits. CARDIOVASCULAR: She is irregularly irregular. Tachycardic. LUNGS: Clear to auscultation. ABDOMEN: Soft, nontender, nondistended. EXTREMITIES: No clubbing, cyanosis, or edema. VASCULAR: 2+ pulses. SKIN: Warm, dry, intact. NEUROLOGIC: The patient is alert, not oriented. LABORATORY DATA: Reviewed. White blood cell count is 14.6. Potassium 134, and creatinine is 1.36. Troponin is 0.046. C diff toxin positive. CT of the abdomen and pelvis shows cardiomegaly with atherosclerotic calcification of coronary vessels, compression fractures, mucosal wall thickening of the rectum and entire colon. IMPRESSION: 1. Atrial fibrillation with rapid ventricular response. 2. Colitis. 3. History of cerebrovascular accident. 4. Diabetes mellitus. 5. Hypertension. 6. Altered mental status. 7. Hyperlipidemia. 8. Severe protein-calorie malnutrition. RECOMMENDATIONS: Continue metoprolol for rate control. She is currently also on amiodarone for rate and rhythm control. Complete protocol and transition to p.o. once completed. If needed, can use digoxin or IV metoprolol for rate and rhythm control. Continue aspirin. We will hold anticoagulation at this point in time if the patient should need some surgical procedure for her colitis. Continue infectious treatment per primary and Infectious Disease team. DO LORENA Paiz/SANDY /[id number]
[2020-03-02] MEDS: CEFEPIME 1GM/NS 0.9% 50 ML 50 ML IV SCH (14:22)
[2020-03-02] MEDS: SODIUM CHLORIDE 0.9% 1000ML 1,000 ML IV SCH (18:11)
[2020-03-02] MEDS ORDERED: AMIODARONE HCL 900 MG in DEXTROSE 5% 500ML 500 ML IV SCH (18:15)
--- NOTE | 2020-03-02 19:00 | NUR ---
Bedside report received from Neris [facility]. Pt is AAOx3 and following commands, pt reports no pain or discomfort at this time, HOB elevated 30 degrees, bed in lowest and locked position, call light is in reach of the pt, bed alarm engaged, bloom to gravity, IV to left ac intact with amiodarone and ns infusing per [facility] orders.
[2020-03-02] MEDS: ATORVASTATIN 10 MG TAB PO SCH (20:24)
--- NOTE | 2020-03-02 21:00 | NUR ---
Pt pulled up and repositioned in bed. Pt reports no pain or discomfort at this time. Bed alarm engaged.
--- NOTE | 2020-03-02 21:30 | NUR ---
Pt reporting nausea. Pt sitting up in bed with basin. Zofran given.
[2020-03-03 03:00] VITALS: BP 88/77
--- NOTE | 2020-03-03 04:35 | NUR ---
Donato from lab is present and collecting AM labs.
[2020-03-03] MEDS: METRONIDAZOLE 250MG/NS 50ML 50 ML IV SCH ×3 (04:51→20:30)
[2020-03-03 05:13] LABS: BASOPHILS % 0.1 % (0.0-1.0); EOSINOPHILS # (AUTO) 0.1 (0.0-0.4); EOSINOPHILS % 0.6 % (0.0-6.0); HEMATOCRIT 32.3 % (34.2-44.1); LYMPHOCYTES # (AUTO) 1.4 (1.0-3.2); LYMPHOCYTES % 12.7 % (18.0-39.1); MEAN CORPUSCULAR HEMOGLOBIN 31.2 pg (28-32); MEAN CORPUSCULAR HGB CONC 34.1 g/dL (31-35); MEAN CORPUSCULAR VOLUME 91.5 fL (81-99); MONOCYTES # (AUTO) 0.5 (0.2-0.8); MONOCYTES % 4.9 % (4.4-11.3); NEUTROPHILS # (AUTO) 7.4 (2.1-6.9); NEUTROPHILS % 68.5 % (38.7-80.0); PLATELET COUNT 172 x10e3/uL (140-360); RED BLOOD COUNT 3.53 x10e6/uL (3.6-5.1); RED CELL DISTRIBUTION WIDTH 13.8 % (11.7-14.4)
[2020-03-03] MEDS: VANCOMYCIN 250MG/5ML ORAL SOLN PO SCH ×4 (05:33→23:47)
[2020-03-03] MEDS: SODIUM CHLORIDE 0.9% 1000ML 1,000 ML IV SCH ×2 (05:33→17:59)
[2020-03-03] MEDS: METOPROLOL TARTRATE 25 MG TAB PO SCH ×3 (05:33→22:00)
[2020-03-03] MEDS: LEVOTHYROXINE SODIUM 75 MCG TAB PO SCH (05:33)
[2020-03-03 05:46] LABS: ANION GAP 18.2 mmol/L (8-16); CALCIUM 7.1 mg/dL (8.4-10.2); CREATININE, SERUM 1.09 mg/dL (0.57-1.11); POTASSIUM 3.2 mmol/L (3.5-5.1)
--- NOTE | 2020-03-03 06:00 | NUR ---
IV dressing loose and peeling. Changed at this time.
--- NOTE | 2020-03-03 06:33 | NUR ---
IM- progress note O/N see below ROS; unobtainable v/s; revd PE tired appearing anicteric ns1s2 mod bs soft MILD TENDERNESS; GARCIA in place. no e/t skin dry flat affect awake; CONFUSED. labs/meds revd A/P: Acute bacterial diarrhea- flagyl Hx C.diff- check test A.fib with RVR- AV blockade; cardio eval UTI- IV abx SHAISTA- IVF Dehydration- IVF HLD- cont statin Hypothyroidism- synthroid Physical deconditioning- PT Prop; scd Dispo; PT consult 03-02-20 Amio; fluid boluses; AV blockade; C.diff positive; SNF eval 9- leukocytosis resolved; SHAISTA improving; Kelley Narvaez MD, PhD.
[2020-03-03 06:47] LABS: BAND NEUTROPHILS % (MANUAL) 3 %; LYMPHOCYTES % (MANUAL) 22 % (19-48); MONOCYTES % (MANUAL) 3 % (3.4-9.0); MYELOCYTES % (MANUAL) 5 % (0-0); NEUTROPHILS % (MANUAL) 67 % (40-74); NUCLEATED RED BLOOD CELLS 1; PLATELET ESTIMATE ADEQUATE; PLATELET MORPHOLOGY COMMENT NORMAL; RBC MORPHOLOGY COMMENT NORMAL
[2020-03-03 07:35] VITALS: BP 109/81
[2020-03-03 07:37] VITALS: BP 109/81
[2020-03-03] MEDS ORDERED: POTASSIUM CHLORIDE 10MEQ EA PO ONE (07:40)
[2020-03-03] MEDS: ASPIRIN 81 MG ENTERIC COATED PO SCH (08:31)
[2020-03-03] MEDS: CEFEPIME 1GM/NS 0.9% 50 ML 50 ML IV SCH (12:20)
[2020-03-03 12:21] VITALS: BP 110/79
[2020-03-03] MEDS ORDERED: DIGOXIN INJ 0.25 MG/ML 2 ML AMP IV ONE (13:15)
--- NOTE | 2020-03-03 13:34 | Progress Note ---
DATE: Cardiology Progress Note SUBJECTIVE: The patient remains tachycardic. No chest pain or shortness of breath. OBJECTIVE: VITAL SIGNS: Temperature 97.9, heart rate ranges from 108 to 126, respiratory rate is 20, blood pressure is 110/79, and oxygen saturation 99% on 2 L nasal cannula. GENERAL: Elderly woman, in no apparent distress. CARDIOVASCULAR: Irregularly irregular. Tachycardic. LUNGS: Diminished breath sounds at bases. ABDOMEN: Soft and nondistended. EXTREMITIES: No edema. CARDIOVASCULAR MEDICATIONS: Reviewed. LABORATORY DATA: Reviewed. Hemoglobin is 11. Creatinine is 1.09 and potassium is 3.2. Telemetry monitoring shows atrial fibrillation with rapid ventricular response. IMPRESSION: 1. Atrial fibrillation with rapid ventricular response. 2. Colitis. 3. History of cerebrovascular accident. 4. Diabetes mellitus. 5. Hypertension. 6. Altered mental status. 7. Hyperlipidemia. 8. Malnutrition. RECOMMENDATIONS: The patient has episodes of hypotension, so metoprolol was discontinued. We will continue amiodarone, however, we will transition to amiodarone 200 mg p.o. b.i.d. We will add digoxin today for better rate control. Continue infectious treatment per primary team. We will continue to follow along. DO LORENA Paiz/GLORIAL /[id number]
--- NOTE | 2020-03-03 15:36 | NUR ---
Nutrition Screen Note RD Recommendation for Physician: -Recommend ADA diet -If PO intake is <50% of meals, offer Glucerna nutrition supplement Plan of Care: RD following, monitoring for tolerance and adequacy Nutrition reason for involvement: Nutrition Risk trigger Primary Diagnose(s): septic shock PMH: diabetes mellitus, cerebral vascular accident with residual deficits, atrial fibrillation, and seizure disorder in addition to history of Clostridium difficile colitis Ht: 59 in Wt:114 lb BMI: 23.0 kg/m2 IBW:[address] Assessment: (03/03/20) Chart reviewed. Labs and meds reviewed. Pt is an 84 year old female admitted with septic shock. It is noted that pt is confused; therefore, unable to obtain nutrition history from pt at this time. RN reported pt did not eat much of breakfast. Per weight history, pt weighed 115 lbs in 2018. Pt currently has a weight of 114 lbs in chart; therefore, no significant weight loss is evident in the past 9 months. Will continue to monitor. Current Diet: cardiac Malnutrition Evaluation (03/03/20) The patient does not meet criteria for a specified degree of malnutrition at this time. Will re-evaluate at follow-up as appropriate. Energy intake: unable to assess Weight loss: No weight loss is evident per weight history Fat loss: unable to evaluate Muscle loss: unable to evaluate Supporting Evidence: Fluid accumulation: no edema per chart Functional Status: unable to evaluate Diet Education Needs Assessment: Diet education not indicated. Nutrition Care Level: low Signed: Kate Lucero, RD, LD
[2020-03-03 17:55] VITALS: BP 118/88
[2020-03-03] MEDS: AMIODARONE HCL 200 MG TAB PO SCH (17:59)
[2020-03-03 20:00] VITALS: BP 129/85
[2020-03-03] MEDS: ATORVASTATIN 10 MG TAB PO SCH (21:13)
[2020-03-04] VITALS (8 sets, daily range): BP systolic 108–125; BP diastolic 63–77
[2020-03-04] MEDS: METRONIDAZOLE 250MG/NS 50ML 50 ML IV SCH ×3 (04:00→19:54)
[2020-03-04] MEDS: LEVOTHYROXINE SODIUM 75 MCG TAB PO SCH (06:30)
[2020-03-04] MEDS: VANCOMYCIN 250MG/5ML ORAL SOLN PO SCH ×3 (06:30→17:41)
[2020-03-04] MEDS: METOPROLOL TARTRATE 25 MG TAB PO SCH ×3 (06:30→22:00)
--- NOTE | 2020-03-04 06:31 | NUR ---
IM- progress note O/N see below ROS; unobtainable v/s; revd PE tired appearing anicteric ns1s2 mod bs soft MILD TENDERNESS; GARCIA in place. no e/t skin dry flat affect awake; CONFUSED. labs/meds revd A/P: Acute bacterial diarrhea- flagyl Hx C.diff- check test A.fib with RVR- AV blockade; cardio eval UTI- IV abx SHAISTA- IVF Dehydration- IVF HLD- cont statin Hypothyroidism- synthroid Physical deconditioning- PT Prop; scd Dispo; PT consult 03-02-20 Amio; fluid boluses; AV blockade; C.diff positive; SNF eval 9-9 leukocytosis resolved; SHAISTA improving; 9-10 improving; check labs; Kelley Narvaez MD, PhD.
[2020-03-04 06:42] LABS: BASOPHILS % 0.1 % (0.0-1.0); EOSINOPHILS # (AUTO) 0.1 (0.0-0.4); EOSINOPHILS % 0.5 % (0.0-6.0); HEMATOCRIT 34.1 % (34.2-44.1); HEMOGLOBIN 11.4 g/dL (12.0-16.0); LYMPHOCYTES # (AUTO) 1.5 (1.0-3.2); LYMPHOCYTES % 13.5 % (18.0-39.1); MEAN CORPUSCULAR HEMOGLOBIN 31.5 pg (28-32); MEAN CORPUSCULAR HGB CONC 33.4 g/dL (31-35); MEAN CORPUSCULAR VOLUME 94.2 fL (81-99); MONOCYTES # (AUTO) 0.5 (0.2-0.8); MONOCYTES % 4.1 % (4.4-11.3); NEUTROPHILS # (AUTO) 7.8 (2.1-6.9); NEUTROPHILS % 69.7 % (38.7-80.0); PLATELET COUNT 166 x10e3/uL (140-360); RED BLOOD COUNT 3.62 x10e6/uL (3.6-5.1); RED CELL DISTRIBUTION WIDTH 14.2 % (11.7-14.4)
[2020-03-04 07:07] LABS: ANION GAP 16.1 mmol/L (8-16); BLOOD UREA NITROGEN 20 mg/dL (7-26); BUN/CREATININE RATIO 25 (6-25); CALCIUM 7.2 mg/dL (8.4-10.2); CARBON DIOXIDE 15 mmol/L (22-29); CHLORIDE 111 mmol/L (98-107); CREATININE, SERUM 0.81 mg/dL (0.57-1.11); EST GLOMERULAR FILTRATION RATE > 60 ML/MIN (60-); GLUCOSE 116 mg/dL (74-118); POTASSIUM 4.1 mmol/L (3.5-5.1); SODIUM 138 mmol/L (136-145)
--- NOTE | 2020-03-04 07:45 | NUR ---
PT IS NO LONGER ON A DRIP, PHYSICAL THERAPY STILL HAS NOT BEEN ABLE TO ASSESS THE PT DUE TO HEART RATE AND BP ISSUES. WILL CONTINUE TO MONITOR FOR SNF. WHEN GET INFORMATION NEEDED WILL BEGIN THE PROCESS FOR SNF.
[2020-03-04] MEDS: DIGOXIN 0.25 MG TAB PO SCH (10:14)
[2020-03-04] MEDS: AMIODARONE HCL 200 MG TAB PO SCH ×2 (10:14→17:41)
[2020-03-04] MEDS: ASPIRIN 81 MG ENTERIC COATED PO SCH (10:14)
[2020-03-04] MEDS: SODIUM CHLORIDE 0.9% 1000ML 1,000 ML IV SCH ×2 (10:14→21:30)
--- NOTE | 2020-03-04 10:19 | NUR ---
CALLED SON MANUEL AT [phone] HE STATES TO CALL BROTHER JOSÉ LUIS. MANUEL STATES HE DOESN'T BELIEVE THAT SNF IS THE DIRECTION THEY WANT TO GO BUT TO ASK JOSÉ LUIS TO BE SURE. CALLED JOSÉ LUIS AT [phone] LEFT VOICE MAIL TO RETURN CALL.
[2020-03-04 10:36] LABS: BAND NEUTROPHILS % (MANUAL) 1 %; LYMPHOCYTES % (MANUAL) 11 % (19-48); MONOCYTES % (MANUAL) 4 % (3.4-9.0); MYELOCYTES % (MANUAL) 4 % (0-0); NEUTROPHILS % (MANUAL) 80 % (40-74); PLATELET ESTIMATE ADEQUATE; PLATELET MORPHOLOGY COMMENT NORMAL; RBC MORPHOLOGY COMMENT NORMAL
[2020-03-04] MEDS: CEFEPIME 1GM/NS 0.9% 50 ML 50 ML IV SCH (12:00)
--- NOTE | 2020-03-04 13:47 | NUR ---
SON JOSÉ LUIS RETURNED CALL, DOES NOT WANT HER TO GO TO A SNF AT THIS TIME, [facility] HAS A PROVIDER FROM 7-7 SUN THROUGH SUNDAY AND HER OTHER SON AND DAUGHTER IN LAW ARE THERE THROUGH THE NIGHT AND WEEKENDS. WOULD PREFER HOME WITH HOME HEALTH. LET CM KNOW.
--- NOTE | 2020-03-04 17:37 | Progress Note ---
DATE: Cardiology Progress Note SUBJECTIVE: No events. Case discussed with nurse. No chest pain, shortness of breath, or palpitations. OBJECTIVE: VITAL SIGNS: Temperature is 97.9, heart rate is 71, respirations are 18, blood pressure is 117/77, and oxygen saturation 97% on room air. GENERAL: A well-appearing elderly woman, in no apparent distress. The patient was viewed from doorway as she is on contact isolation. CARDIOVASCULAR MEDICATIONS: Reviewed include metoprolol, digoxin, and amiodarone. LABORATORY DATA: Reviewed. Hemoglobin 11.4. Creatinine is 0.8. TELEMETRY: Telemetry monitoring shows atrial fibrillation with controlled ventricular response. IMPRESSION: 1. Atrial fibrillation. 2. Colitis. 3. History of cerebrovascular accident. 4. Diabetes mellitus. 5. Hypertension. 6. Altered mental status. 7. Hyperlipidemia. 8. Malnutrition. RECOMMENDATIONS: Continue current cardiovascular medication regimen. Her heart rate is better controlled. Continue infectious treatment per primary team. The patient will need to be initiated on anticoagulation prior to discharge. Reuben Hdez DO BM/MODL /[id number]
[2020-03-04] MEDS: ATORVASTATIN 10 MG TAB PO SCH (21:00)
[2020-03-05] VITALS (7 sets, daily range): BP systolic 131–150; BP diastolic 73–86
[2020-03-05] MEDS: METRONIDAZOLE 250MG/NS 50ML 50 ML IV SCH ×3 (04:00→20:51)
[2020-03-05 05:13] LABS: BASOPHILS % 0.2 % (0.0-1.0); EOSINOPHILS # (AUTO) 0.1 (0.0-0.4); EOSINOPHILS % 0.5 % (0.0-6.0); HEMATOCRIT 37.1 % (34.2-44.1); HEMOGLOBIN 12.5 g/dL (12.0-16.0); LYMPHOCYTES # (AUTO) 2.2 (1.0-3.2); MEAN CORPUSCULAR HEMOGLOBIN 32.1 pg (28-32); MEAN CORPUSCULAR HGB CONC 33.7 g/dL (31-35); MEAN CORPUSCULAR VOLUME 95.4 fL (81-99); MONOCYTES # (AUTO) 0.6 (0.2-0.8); MONOCYTES % 3.3 % (4.4-11.3); NEUTROPHILS # (AUTO) 12.3 (2.1-6.9); NEUTROPHILS % 71.9 % (38.7-80.0); PLATELET COUNT 183 x10e3/uL (140-360); RED BLOOD COUNT 3.89 x10e6/uL (3.6-5.1); RED CELL DISTRIBUTION WIDTH 14.3 % (11.7-14.4)
--- NOTE | 2020-03-05 05:17 | NUR ---
IM- progress note O/N see below ROS; unobtainable v/s; revd PE tired appearing anicteric ns1s2 mod bs soft MILD TENDERNESS; GARCIA in place. no e/t skin dry flat affect awake; CONFUSED. labs/meds revd A/P: Acute bacterial diarrhea- flagyl Hx C.diff- check test A.fib with RVR- AV blockade; cardio eval UTI- IV abx SHAISTA- IVF Dehydration- IVF HLD- cont statin Hypothyroidism- synthroid Physical deconditioning- PT Prop; scd Dispo; PT consult 03-02-20 Amio; fluid boluses; AV blockade; C.diff positive; SNF eval - leukocytosis resolved; SHAISTA improving; 9-10 improving; check labs; - Multiple diarrhea ovenright; increase vanco PO; add questran; leukocytosis worsened; will not d/c socorro; will need AC prior to d/c. Keep in house today Kelley Narvaez MD, PhD.
[2020-03-05 05:52] LABS: ANION GAP 15.8 mmol/L (8-16); BLOOD UREA NITROGEN 16 mg/dL (7-26); BUN/CREATININE RATIO 21 (6-25); CALCIUM 7.4 mg/dL (8.4-10.2); CARBON DIOXIDE 16 mmol/L (22-29); CHLORIDE 110 mmol/L (98-107); CREATININE, SERUM 0.77 mg/dL (0.57-1.11); EST GLOMERULAR FILTRATION RATE > 60 ML/MIN (60-); GLUCOSE 146 mg/dL (74-118); POTASSIUM 3.8 mmol/L (3.5-5.1); SODIUM 138 mmol/L (136-145)
[2020-03-05] MEDS: METOPROLOL TARTRATE 25 MG TAB PO SCH ×3 (06:00→22:00)
[2020-03-05] MEDS: VANCOMYCIN 250MG/5ML ORAL SOLN PO SCH ×5 (06:00→23:36)
[2020-03-05] MEDS: LEVOTHYROXINE SODIUM 75 MCG TAB PO SCH (06:00)
[2020-03-05] MEDS: CHOLESTYRAMINE 4 GM PACKET PO SCH ×3 (06:46→17:07)
[2020-03-05 07:06] LABS: BAND NEUTROPHILS % (MANUAL) 8 %; EOSINOPHILS % (MANUAL) 1 % (0-7); LYMPHOCYTES % (MANUAL) 6 % (19-48); METAMYELOCYTES % (MANUAL) 3 % (0-0); MYELOCYTES % (MANUAL) 6 % (0-0); NEUTROPHILS % (MANUAL) 76 % (40-74); NUCLEATED RED BLOOD CELLS 1
[2020-03-05 07:07] LABS: PLATELET ESTIMATE ADEQUATE; PLATELET MORPHOLOGY COMMENT NORMAL; RBC MORPHOLOGY COMMENT NORMAL
[2020-03-05] MEDS: ASPIRIN 81 MG ENTERIC COATED PO SCH (08:00)
[2020-03-05] MEDS: AMIODARONE HCL 200 MG TAB PO SCH ×2 (08:00→16:39)
[2020-03-05] MEDS: DIGOXIN 0.25 MG TAB PO SCH (08:00)
[2020-03-05] MEDS: SODIUM CHLORIDE 0.9% 1000ML 1,000 ML IV SCH (09:38)
[2020-03-05] MEDS: CEFEPIME 1GM/NS 0.9% 50 ML 50 ML IV SCH (12:28)
--- NOTE | 2020-03-05 14:45 | NUR ---
ORDER RECEIVED FOR HOME SN/PT. PER KOFI, CORNELIO JOSÉ LUIS IS THE DECISION MAKER FOR THE PT. STATES THE PT ALREADY IS ON SERVICE W A AGENCY. CALL TO PT'S SON JOSÉ LUIS MARSHALL @ [phone].. NO ANSWER; LEFT VM W CONTACT INFO. CALL TO PT'S OTHER SON MANUEL @ [phone].
[2020-03-05] MEDS: ACETAMINOPHEN 325 MG TAB PO PRN (15:32)
--- NOTE | 2020-03-05 17:51 | NUR ---
Output noted to be 300cc this shift. Dr Narvaez made aware, no new orders received at this time.
--- NOTE | 2020-03-05 18:37 | NUR ---
Patient HR noted to be 40-50's intermittently. Call placed to Dr Hdez, message left for .
[2020-03-05] MEDS: ATORVASTATIN 10 MG TAB PO SCH (21:18)
[2020-03-06] VITALS (9 sets, daily range): BP systolic 132–152; BP diastolic 69–95
[2020-03-06] MEDS: CHOLESTYRAMINE 4 GM PACKET PO SCH ×5 (00:32→23:56)
[2020-03-06] MEDS: SODIUM CHLORIDE 0.9% 1000ML 1,000 ML IV SCH ×3 (01:11→23:56)
[2020-03-06] MEDS: METRONIDAZOLE 250MG/NS 50ML 50 ML IV SCH ×3 (03:56→20:00)
--- NOTE | 2020-03-06 05:53 | NUR ---
IM- progress note O/N see below ROS; unobtainable v/s; revd PE tired appearing anicteric ns1s2 mod bs soft MILD TENDERNESS; GARCIA in place. no e/t skin dry flat affect awake; CONFUSED. labs/meds revd A/P: Acute bacterial diarrhea- flagyl Hx C.diff- check test A.fib with RVR- AV blockade; cardio eval UTI- IV abx SHAISTA- IVF Dehydration- IVF HLD- cont statin Hypothyroidism- synthroid Physical deconditioning- PT Prop; scd Dispo; PT consult 03-02-20 Amio; fluid boluses; AV blockade; C.diff positive; SNF eval 9- leukocytosis resolved; SHAISTA improving; 9-10 improving; check labs; - Multiple diarrhea ovenright; increase vanco PO; add questran; leukocytosis worsened; will not d/c socorro; will need AC prior to d/c. Keep in house today 9-12 check labs; treat diarrhea Kelley Narvaez MD, PhD.
[2020-03-06] MEDS: METOPROLOL TARTRATE 25 MG TAB PO SCH ×2 (05:59→18:23)
[2020-03-06] MEDS: LEVOTHYROXINE SODIUM 75 MCG TAB PO SCH (05:59)
[2020-03-06] MEDS: VANCOMYCIN 250MG/5ML ORAL SOLN PO SCH ×4 (05:59→23:56)
[2020-03-06 07:16] LABS: BASOPHILS # (AUTO) 0.1 (0.0-0.1); BASOPHILS % 0.9 % (0.0-1.0); EOSINOPHILS # (AUTO) 0.2 (0.0-0.4); EOSINOPHILS % 1.1 % (0.0-6.0); HEMATOCRIT 33.9 % (34.2-44.1); HEMOGLOBIN 11.4 g/dL (12.0-16.0); LYMPHOCYTES % 14.5 % (18.0-39.1); MEAN CORPUSCULAR HEMOGLOBIN 31.3 pg (28-32); MEAN CORPUSCULAR HGB CONC 33.6 g/dL (31-35); MEAN CORPUSCULAR VOLUME 93.1 fL (81-99); MONOCYTES # (AUTO) 0.4 (0.2-0.8); MONOCYTES % 3.1 % (4.4-11.3); NEUTROPHILS # (AUTO) 9.8 (2.1-6.9); NEUTROPHILS % 69.9 % (38.7-80.0); PLATELET COUNT 184 x10e3/uL (140-360); RED BLOOD COUNT 3.64 x10e6/uL (3.6-5.1); RED CELL DISTRIBUTION WIDTH 14.6 % (11.7-14.4)
[2020-03-06 07:29] LABS: ANION GAP 15.3 mmol/L (8-16); BLOOD UREA NITROGEN 9 mg/dL (7-26); BUN/CREATININE RATIO 14 (6-25); CALCIUM 7.1 mg/dL (8.4-10.2); CARBON DIOXIDE 17 mmol/L (22-29); CHLORIDE 108 mmol/L (98-107); CREATININE, SERUM 0.64 mg/dL (0.57-1.11); EST GLOMERULAR FILTRATION RATE > 60 ML/MIN (60-); GLUCOSE 137 mg/dL (74-118); POTASSIUM 3.3 mmol/L (3.5-5.1); SODIUM 137 mmol/L (136-145)
[2020-03-06 07:42] LABS: MAGNESIUM 1.5 MG/DL (1.3-2.1)
[2020-03-06] MEDS: DIGOXIN 0.25 MG TAB PO SCH (09:00)
[2020-03-06] MEDS: AMIODARONE HCL 200 MG TAB PO SCH (09:00)
[2020-03-06] MEDS: ASPIRIN 81 MG ENTERIC COATED PO SCH (09:10)
[2020-03-06] MEDS ORDERED: POTASSIUM CHLORIDE 20 MEQ TAB CR PO STA (10:34)
[2020-03-06] MEDS ORDERED: METOPROLOL TARTRATE 25 MG TAB PO SCH (10:45)
--- NOTE | 2020-03-06 11:11 | Progress Note ---
DATE: Cardiology Progress Note SUBJECTIVE: The patient became bradycardic. No other cardiac complaints or events. OBJECTIVE: VITAL SIGNS: Temperature is 98, heart rate is 53, respirations are 20, blood pressure is 132/77, ox saturation is 99% on room air. GENERAL: Well-appearing elderly woman. CARDIOVASCULAR: Irregularly irregular, bradycardic. LUNGS: Diminished breath sounds at bases. ABDOMEN: Soft, nontender, and nondistended. LABORATORY DATA: Reviewed. White blood cell count is 14, hemoglobin is 11.4. Creatinine 0.64, potassium 3.3, phosphorus is 1. TELEMETRY: Monitoring shows atrial fibrillation with slow ventricular response. IMPRESSION: 1. Colitis. 2. Sepsis. 3. Atrial fibrillation, now with slow ventricular response. 4. History of cerebrovascular accident. 5. Diabetes mellitus. 6. Hypertension. 7. Altered mental status. 8. Malnutrition. 9. Hypokalemia. 10. Hypophosphatemia. RECOMMENDATION: Please correct all electrolyte levels. Continue metoprolol with holding parameters. We will discontinue amiodarone and digoxin as she is now bradycardic. Continue to monitor closely on telemetry. Continue infectious treatment per primary team. Reuben Hdez DO BM/MODL /[id number]
[2020-03-06] MEDS: CEFEPIME 1GM/NS 0.9% 50 ML 50 ML IV SCH (12:28)
[2020-03-06] MEDS: ATORVASTATIN 10 MG TAB PO SCH (21:25)
[2020-03-07] VITALS (7 sets, daily range): BP systolic 121–152; BP diastolic 66–83
--- NOTE | 2020-03-07 01:39 | NUR ---
Cleaned for small soft brown stool. Partial linen change.
[2020-03-07] MEDS: METRONIDAZOLE 250MG/NS 50ML 50 ML IV SCH ×3 (04:00→20:53)
[2020-03-07] MEDS: LEVOTHYROXINE SODIUM 75 MCG TAB PO SCH (06:01)
[2020-03-07] MEDS: VANCOMYCIN 250MG/5ML ORAL SOLN PO SCH ×4 (06:01→23:07)
[2020-03-07] MEDS: CHOLESTYRAMINE 4 GM PACKET PO SCH ×3 (06:01→18:00)
[2020-03-07] MEDS: ASPIRIN 81 MG ENTERIC COATED PO SCH (08:34)
[2020-03-07] MEDS: METOPROLOL TARTRATE 25 MG TAB PO SCH ×2 (10:20→19:42)
--- NOTE | 2020-03-07 11:46 | NUR ---
IM- progress note O/N see below ROS; unobtainable v/s; revd PE tired appearing anicteric ns1s2 mod bs soft MILD TENDERNESS; GARCIA in place. no e/t skin dry flat affect awake; CONFUSED. labs/meds revd A/P: Acute bacterial diarrhea- flagyl Hx C.diff- check test A.fib with RVR- AV blockade; cardio eval UTI- IV abx SHAISTA- IVF Dehydration- IVF HLD- cont statin Hypothyroidism- synthroid Physical deconditioning- PT Prop; scd Dispo; PT consult 03-02-20 Amio; fluid boluses; AV blockade; C.diff positive; SNF eval 9- leukocytosis resolved; SHAISTA improving; 9-10 improving; check labs; 9- Multiple diarrhea ovenright; increase vanco PO; add questran; leukocytosis worsened; will not d/c socorro; will need AC prior to d/c. Keep in house today 9-12 check labs; treat diarrhea 9-13 Hypophosphatemia- replace; HypoK- replace; Kelley Narvaez MD, PhD.
[2020-03-07] MEDS: CEFEPIME 1GM/NS 0.9% 50 ML 50 ML IV SCH (11:56)
[2020-03-07] MEDS ORDERED: POTASSIUM PHOSPHATE 20 MM in SODIUM CHLORIDE 0.9% 250ML 250 ML IV ONE (13:00)
[2020-03-07] MEDS: ATORVASTATIN 10 MG TAB PO SCH (20:53)
[2020-03-07] MEDS: SODIUM CHLORIDE 0.9% 1000ML 1,000 ML IV SCH (20:53)
[2020-03-08] VITALS (8 sets, daily range): BP systolic 125–157; BP diastolic 57–87
[2020-03-08] MEDS: CHOLESTYRAMINE 4 GM PACKET PO SCH ×4 (00:35→18:00)
[2020-03-08] MEDS: METRONIDAZOLE 250MG/NS 50ML 50 ML IV SCH ×3 (04:34→20:03)
[2020-03-08] MEDS: LEVOTHYROXINE SODIUM 75 MCG TAB PO SCH (05:02)
[2020-03-08] MEDS: VANCOMYCIN 250MG/5ML ORAL SOLN PO SCH ×4 (05:02→22:59)
[2020-03-08] MEDS: SODIUM CHLORIDE 0.9% 1000ML 1,000 ML IV SCH ×2 (05:02→18:00)
[2020-03-08] MEDS: ONDANSETRON HCL INJ 2MG/ML 2ML 2 MG/ML VIAL IV PRN (06:35)
--- NOTE | 2020-03-08 07:16 | NUR ---
Bedside report and walking rounds completed with oncoming nurse. Patient in bed with call light within reach. No issues or concerns noted.
[2020-03-08] MEDS: METOPROLOL TARTRATE 25 MG TAB PO SCH ×2 (08:07→17:00)
[2020-03-08] MEDS: ASPIRIN 81 MG ENTERIC COATED PO SCH (08:07)
--- NOTE | 2020-03-08 10:31 | NUR ---
IM- progress note O/N see below ROS; unobtainable v/s; revd PE tired appearing anicteric ns1s2 mod bs soft MILD TENDERNESS; GARCIA in place. no e/t skin dry flat affect awake; CONFUSED. labs/meds revd A/P: Acute bacterial diarrhea- flagyl Hx C.diff- check test A.fib with RVR- AV blockade; cardio eval UTI- IV abx SHAISTA- IVF Dehydration- IVF HLD- cont statin Hypothyroidism- synthroid Physical deconditioning- PT Prop; scd Dispo; PT consult 03-02-20 Amio; fluid boluses; AV blockade; C.diff positive; SNF eval 9- leukocytosis resolved; SHAISTA improving; 9-10 improving; check labs; 03-05 Multiple diarrhea ovenright; increase vanco PO; add questran; leukocytosis worsened; will not d/c socorro; will need AC prior to d/c. Keep in house today 9-12 check labs; treat diarrhea 9- Hypophosphatemia- replace; HypoK- replace; -14 check labs; Kelley Narvaez MD, PhD.
[2020-03-08 11:11] LABS: BASOPHILS # (AUTO) 0.1 (0.0-0.1); BASOPHILS % 0.8 % (0.0-1.0); EOSINOPHILS # (AUTO) 0.2 (0.0-0.4); EOSINOPHILS % 1.3 % (0.0-6.0); HEMATOCRIT 34.3 % (34.2-44.1); HEMOGLOBIN 11.3 g/dL (12.0-16.0); LYMPHOCYTES # (AUTO) 2.3 (1.0-3.2); LYMPHOCYTES % 17.1 % (18.0-39.1); MEAN CORPUSCULAR HEMOGLOBIN 31.1 pg (28-32); MEAN CORPUSCULAR HGB CONC 32.9 g/dL (31-35); MEAN CORPUSCULAR VOLUME 94.5 fL (81-99); MONOCYTES # (AUTO) 0.6 (0.2-0.8); MONOCYTES % 4.1 % (4.4-11.3); NEUTROPHILS # (AUTO) 9.3 (2.1-6.9); NEUTROPHILS % 69.5 % (38.7-80.0); PLATELET COUNT 224 x10e3/uL (140-360); RED BLOOD COUNT 3.63 x10e6/uL (3.6-5.1)
[2020-03-08 11:22] LABS: ANION GAP 10.7 mmol/L (8-16); BLOOD UREA NITROGEN < 5 mg/dL (7-26); CALCIUM 7.4 mg/dL (8.4-10.2); CARBON DIOXIDE 23 mmol/L (22-29); CHLORIDE 107 mmol/L (98-107); CREATININE, SERUM 0.67 mg/dL (0.57-1.11); EST GLOMERULAR FILTRATION RATE > 60 ML/MIN (60-); GLUCOSE 200 mg/dL (74-118); POTASSIUM 3.7 mmol/L (3.5-5.1); SODIUM 137 mmol/L (136-145)
[2020-03-08 11:23] LABS: BUN/CREATININE RATIO 7 (6-25)
[2020-03-08 11:38] LABS: MAGNESIUM 1.4 MG/DL (1.3-2.1)
[2020-03-08] MEDS: CEFEPIME 1GM/NS 0.9% 50 ML 50 ML IV SCH (12:02)
--- NOTE | 2020-03-08 13:13 | Progress Note ---
DATE: Cardiology Progress Note SUBJECTIVE: The patient is feeling well. Denies any discomfort. OBJECTIVE: VITAL SIGNS: Temperature is 97.9, heart rate ranges from 58-70, blood pressure is 146/82, respirations are 18, oxygen saturation 99% on room air. GENERAL: No apparent distress. CARDIOVASCULAR: Irregularly irregular, bradycardic. LUNGS: Clear to auscultation. ABDOMEN: Soft, nontender, nondistended. CARDIOVASCULAR MEDICATIONS: Reviewed. LABORATORY DATA: Reviewed. TELEMETRY: Monitoring shows atrial fibrillation with episodes of slow ventricular response. IMPRESSION: 1. Colitis. 2. Sepsis. 3. Atrial fibrillation. 4. Hypertension. 5. Cerebrovascular accident. 6. Diabetes mellitus. 7. Altered mental status. 8. Malnutrition. Heart rate still occasionally on the low side. Continue to stay off amiodarone and digoxin. Continue low-dose metoprolol 12.5 mg p.o. b.i.d. Continue infectious treatment per primary team. We will continue to follow. Reuben Hdez DO BM/MODL /[id number]
[2020-03-08 14:23] LABS: PHOSPHORUS 1.5 MG/DL (2.3-4.7)
--- NOTE | 2020-03-08 14:43 | NUR ---
PATIENT ARRIVED ON THE UNIT AT 1434 PER BED FROM IMCU RM 199. PATIENT IN STABLE CONDITION WITH NO S/S OF RESPIRATORY DISTRESS. NO PAIN VOICED. TELEMETRY APPLIED- AFIB @72. GARCIA INTACT AND DRAINING- URINE IS LIGHT MARIZOL AND CLEAR. DIAPER APPLIED. BED ALARM APPLIED. IV FLUIDS INFUSING. CALL LIGHT IS WITHIN REACH, PATIENT INSTRUCTED TO CALL FOR ASSISTANCE NEEDED.
--- NOTE | 2020-03-08 19:11 | NUR ---
PATIENT IN STABLE CONDITION WITH NO S/S OF RESPIRATORY DISTRESS. NO PAIN VOICED. IV FLUIDS INFUSING. TELEMETRY APPLIED. GARCIA INTACT AND DRAINING. DIAPER APPLIED. CALL LIGHT WITHIN REACH, PATIENT INSTRUCTED TO CALL FOR ASSISTANCE NEEDED. BEDSIDE REPORT GIVEN TO ONCOMING NURSE.
--- NOTE | 2020-03-08 19:37 | Progress Note ---
DATE: 03/08/2020 Cardiology Progress Note SUBJECTIVE: The patient denies chest pain or shortness of breath. She reports she continues to feel weak. OBJECTIVE: VITAL SIGNS: Temperature 97.6 degrees, pulse 70, respiratory rate 20, blood pressure 137/87, and oxygen saturation 100% on room air. GENERAL: Ab elderly woman, frail, no acute distress. LUNGS: Clear to auscultation bilaterally. No wheezes or crackles. CARDIOVASCULAR: Normal rate. Irregularly irregular. Normal S1, S2. ABDOMEN: Soft, nontender. EXTREMITIES: No edema. CARDIAC MEDICATIONS: Metoprolol tartrate 12.5 mg p.o. b.i.d., aspirin 81 mg p.o. daily, levothyroxine 75 mcg p.o. daily, and atorvastatin 10 mg p.o. at bedtime. LABORATORY DATA: WBC 13.42, hemoglobin 11.3, hematocrit 34.3, and platelets 224. Sodium 137, potassium 3.7, chloride 107, CO2 of 27 BUN less than 5, and creatinine 0.67. TELEMETRY: Telemetry was personally reviewed and interpreted revealing atrial fibrillation. IMPRESSION: 1. Clostridium difficile colitis. 2. Sepsis secondary to above. 3. Atrial fibrillation. 4. History of chronic systolic heart failure. Recovery ejection fraction. 5. Hyperlipidemia. 6. Altered mental status, suspect metabolic encephalopathy. RECOMMENDATIONS: Monitor the patient closely on telemetry. Rate is controlled. Continue metoprolol. Resume Eliquis if no procedures are planned. Antibiotics per primary service. Thank you for this consult. We will continue to follow. Chrissy Rand MD ABS/MODL /[id number]
[2020-03-08] MEDS: ATORVASTATIN 10 MG TAB PO SCH (20:03)
[2020-03-09] VITALS: BP 138/73
[2020-03-09] MEDS: CHOLESTYRAMINE 4 GM PACKET PO SCH ×3 (00:05→12:10)
[2020-03-09] MEDS: SODIUM CHLORIDE 0.9% 1000ML 1,000 ML IV SCH (01:02)
[2020-03-09 04:00] VITALS: BP 131/91
[2020-03-09] MEDS: METRONIDAZOLE 250MG/NS 50ML 50 ML IV SCH ×2 (04:02→11:00)
[2020-03-09] MEDS: VANCOMYCIN 250MG/5ML ORAL SOLN PO SCH ×2 (04:52→11:00)
[2020-03-09] MEDS: LEVOTHYROXINE SODIUM 75 MCG TAB PO SCH (04:52)
--- NOTE | 2020-03-09 06:53 | NUR ---
IM- progress note O/N see below ROS; unobtainable v/s; revd PE tired appearing anicteric ns1s2 mod bs soft MILD TENDERNESS; GARCIA in place. no e/t skin dry flat affect awake; CONFUSED. labs/meds revd A/P: Acute bacterial diarrhea- flagyl Hx C.diff- check test A.fib with RVR- AV blockade; cardio eval UTI- IV abx SHAISTA- IVF Dehydration- IVF HLD- cont statin Hypothyroidism- synthroid Physical deconditioning- PT Prop; scd Dispo; PT consult 03-02-20 Amio; fluid boluses; AV blockade; C.diff positive; SNF eval 9- leukocytosis resolved; SHAISTA improving; 9-10 improving; check labs; 9- Multiple diarrhea ovenright; increase vanco PO; add questran; leukocytosis worsened; will not d/c socorro; will need AC prior to d/c. Keep in house today 9-12 check labs; treat diarrhea 9-13 Hypophosphatemia- replace; HypoK- replace; -14 check labs; 15 check lytes; SNF pending; Replace with [facility] Kelley Narvaez MD, PhD.
--- NOTE | 2020-03-09 07:15 | NUR ---
PATIENT IS AWAKE AND ALERT TO SELF- PATIENT IN STABLE CONDITION WITH NO S/S OF RESPIRATORY DISTRESS. NO PAIN NOTED. TELEMETRY APPLIED. GARCIA IN PLACE AND DIAPER APPLIED. BED ALARM APPLIED. CALL LIGHT IS WITHIN REACH, PATIENT INSTRUCTED TO CALL FOR ASSISTANCE NEEDED.
[2020-03-09] MEDS: ASPIRIN 81 MG ENTERIC COATED PO SCH (08:45)
[2020-03-09] MEDS: METOPROLOL TARTRATE 25 MG TAB PO SCH ×2 (08:45→16:53)
[2020-03-09 09:00] LABS: ANION GAP 12.3 mmol/L (8-16); BLOOD UREA NITROGEN < 5 mg/dL (7-26); CALCIUM 7.6 mg/dL (8.4-10.2); CARBON DIOXIDE 27 mmol/L (22-29); CHLORIDE 103 mmol/L (98-107); EST GLOMERULAR FILTRATION RATE > 60 ML/MIN (60-); GLUCOSE 120 mg/dL (74-118); POTASSIUM 3.3 mmol/L (3.5-5.1); SODIUM 139 mmol/L (136-145)
[2020-03-09 09:09] LABS: BUN/CREATININE RATIO 8 (6-25)
[2020-03-09 09:31] VITALS: BP 128/79
[2020-03-09 09:38] LABS: MAGNESIUM 1.4 MG/DL (1.3-2.1); PHOSPHORUS 1.5 MG/DL (2.3-4.7)
[2020-03-09] MEDS: CEFEPIME 1GM/NS 0.9% 50 ML 50 ML IV SCH (12:10)
[2020-03-09 12:26] VITALS: BP 117/58
[2020-03-09] MEDS ORDERED: POTASSIUM PHOSPHATE 15 MM in SODIUM CHLORIDE 0.9% 250ML 250 ML IV ONE (12:45)
[2020-03-09] MEDS ORDERED: CHOLESTYRAMINE L4 GM PO (13:11)
[2020-03-09] MEDS ORDERED: FLAGYL500 MG PO (13:11)
[2020-03-09] MEDS ORDERED: VANCOCIN HCL250 MG PO (13:11)
--- NOTE | 2020-03-09 13:35 | NUR ---
CM called pt's son Rinku Escoto [phone] and informed of plan for dc today. States pt on service with [facility] and wants to resume services with them. IMM letter discussed with Rinku. He verbalized understanding. States to call his brother José Manuel, whom pt lives with, regarding discharge so he can arrange transportation. Signed choice letter and IMM placed in chart. Copy placed at bedside. Home health referral order and clinical faxed to [facility] at [phone] / [phone]. CM called intake and spoke with Zulema. Confirmed pt on service and informed of dc for today. ARNOLDO Jackson was updated and said she will call pt's son José Manuel regarding dc.
--- NOTE | 2020-03-09 13:42 | Progress Note ---
DATE: 03/09/2020 Cardiology Progress Note SUBJECTIVE: The patient denies chest pain or shortness of breath. OBJECTIVE: VITAL SIGNS: Temperature 97.7 degrees, pulse 73, respiratory rate 17, blood pressure 128/79, and oxygen saturation 98% on room air. GENERAL: Awake, elderly woman, frail, in no acute distress. LUNGS: Clear to auscultation bilaterally. No wheezes or crackles. CARDIOVASCULAR: Normal rate. Irregularly irregular. Normal S1 and S2. ABDOMEN: Soft and nontender. EXTREMITIES: No edema. CARDIAC MEDICATIONS: Metoprolol tartrate 12.5 mg p.o. b.i.d., aspirin 81 mg p.o. daily, levothyroxine 75 mcg p.o. daily, and atorvastatin 10 mg p.o. at bedtime. LABORATORY DATA: Sodium 139, potassium 3.3, chloride 103, CO2 27, BUN less than 5, and creatinine 0.6. Telemetry was personally reviewed and interpreted, revealing atrial fibrillation with slow ventricular response. IMPRESSION: 1. Clostridium difficile colitis. 2. Sepsis secondary to above. 3. Atrial fibrillation with slow ventricular response. 4. History of chronic systolic heart failure with recurrent ejection fraction. 5. Hyperlipidemia. 6. Altered mental status, suspect metabolic encephalopathy, improved. RECOMMENDATIONS: Monitor the patient closely on telemetry. If she continues to be bradycardic, we will need to decrease metoprolol further. Continue at current dose for now. Resume Eliquis if no procedures are planned. Antibiotics per primary service. Monitor volume status closely. Thank you for this consult. We will continue to follow. Chrissy Rand MD ABS/MODL /[id number]
[2020-03-09 16:00] VITALS: BP 133/98
--- NOTE | 2020-03-09 18:39 | NUR ---
PATIENT DISCHARGE HOME WITH RESUMED HOME HEALTH- PATIENT OFF THE UNIT AT 1808 PER WHEELCHAIR ACCOMPANIED BY RN AND PCT TO THE FRONT LOBBY AND TO THE PATIENT CAREGIVER, ZURDO'S, VEHICLE. PATIENT REMAINS ALERT TO SELF ONLY AND IN STABLE CONDITION WITH NO S/S OF RESPIRATORY DISTRESS- NO PAIN INDICATED. IV REMOVED WITH TIP INTACT. GARCIA INTACT AND DIAPER APPLIED. DISCHARGE TEACHING AND INSTRUCTIONS WERE GIVEN TO THE PATIENT'S SON/POA,JOSÉ LUIS MARSHALL, VIA TELEPHONE WITH TWO RN WITNESS. PATIENT'S SON/POA, JOSÉ LUIS, AND THE PATIENT'S CAREGIVER, ZURDO, ARE AWARE THAT PRESCRIPTIONS WERE CALLED IN BY DR. FERRARI TO [facility] ON [address] AND [address]. ALL THE PATIENT'S PROPERTY WERE TAKEN BY THE PATIENT AND GIVEN TO THE CAREGIVER UPON DISCHARGE.
== END 2020-03-09 18:08 | disposition home health service (06) | DRG 871 ==
LOC: ER 12:29 → OBSVTOIN 13:47 → INTOOBSV 13:47 → ERHOLD 13:47 → IMCU 16:57 → MED/SURG3 03-08 14:34
PROVIDERS: ADMIT Internal Medicine; ATTEND Internal Medicine
DX: A41.89 Other specified sepsis (principal); E43 Unspecified severe protein-calorie malnutrition; G93.41 Metabolic encephalopathy; N17.9 Acute kidney failure, unspecified; N39.0 Urinary tract infection, site not specified; A04.72 Enterocolitis due to Clostridium difficile, not specified as recurrent; I50.22 Chronic systolic (congestive) heart failure; I48.0 Paroxysmal atrial fibrillation; Z79.01 Long term (current) use of anticoagulants; Z74.09 Other reduced mobility; I11.0 Hypertensive heart disease with heart failure; E83.39 Other disorders of phosphorus metabolism; E87.6 Hypokalemia; Z68.22 Body mass index [BMI] 22.0-22.9, adult; G40.909 Epilepsy, unspecified, not intractable, without status epilepticus; Z11.59 Encounter for screening for other viral diseases; R65.20 Severe sepsis without septic shock; E03.9 Hypothyroidism, unspecified; E86.0 Dehydration; Z86.73 Personal history of transient ischemic attack (TIA), and cerebral infarction without residual deficits; E78.5 Hyperlipidemia, unspecified
CPT/HCPCS: 36415; 74176; 80048; 80053; 81001; 82550; 82553; 82948; 83605; 83690; 83735; 84100; 84484; 85025; 87040; 87493; 93005; 97139; 99251; 99285; J0692; J1160; J2405; J3370; J7030; J7040; J7050; J7060; U0002

== ENCOUNTER 2020-04-05 13:47 | Inpatient (IN) | payer MEDICARE ==
[~2020-04-05] VITALS: Ht 162.6 cm; Wt 51.3 kg
[~2020-04-05 13:47] MED LIST changes: +CHOLESTYRAMINE L4 GM PO; +FLAGYL500 MG PO; +VANCOCIN HCL250 MG PO
[2020-04-05] MEDS ORDERED: CEFEPIME 1GM/NS 0.9% 50 ML 50 ML IV STA (15:08)
[2020-04-05] MEDS ORDERED: SODIUM CHLORIDE 0.9% 1000ML 1,000 ML IV STA (15:08)
[2020-04-05 15:18] LABS: BASOPHILS # (AUTO) 0.1 (0.0-0.1); BASOPHILS % 0.2 % (0.0-1.0); HEMATOCRIT 39.9 % (34.2-44.1); HEMOGLOBIN 12.8 g/dL (12.0-16.0); LYMPHOCYTES # (AUTO) 3.3 (1.0-3.2); LYMPHOCYTES % 16.4 % (18.0-39.1); MEAN CORPUSCULAR HEMOGLOBIN 31.3 pg (28-32); MEAN CORPUSCULAR HGB CONC 32.1 g/dL (31-35); MEAN CORPUSCULAR VOLUME 97.6 fL (81-99); MONOCYTES # (AUTO) 1.2 (0.2-0.8); MONOCYTES % 5.7 % (4.4-11.3); NEUTROPHILS # (AUTO) 15.6 (2.1-6.9); NEUTROPHILS % 77.2 % (38.7-80.0); PLATELET COUNT 354 x10e3/uL (140-360); RED BLOOD COUNT 4.09 x10e6/uL (3.6-5.1); RED CELL DISTRIBUTION WIDTH 15.2 % (11.7-14.4)
[2020-04-05 15:33] LABS: ALBUMIN 3.2 g/dL (3.5-5.0); ALBUMIN/GLOBULIN RATIO 0.6 (0.8-2.0); ANION GAP 21.6 mmol/L (8-16); CALCIUM 9.5 mg/dL (8.4-10.2); CREATININE, SERUM 1.23 mg/dL (0.57-1.11)
[2020-04-05 15:37] LABS: POTASSIUM 2.6 mmol/L (3.5-5.1)
[2020-04-05 15:40] LABS: CREATINE KINASE MB 0.5 ng/mL (0-5.0)
[2020-04-05] MEDS ORDERED: POTASSIUM CHLORIDE 10MEQ/100ML 100 ML IV ONE (15:45)
[2020-04-05] MEDS ORDERED: SODIUM CHLORIDE 0.9% 1000ML 1,000 ML IV SCH (20:15)
[2020-04-05] MEDS ORDERED: METOPROLOL TARTRATE INJ 1 MG/ML VIAL IV ONE (20:45)
[2020-04-05 21:14] LABS: BILIRUBIN,URINE NEGATIVE (NEGATIVE); CLARITY,URINE TURBID (CLEAR); COLOR,URINE YELLOW (YELLOW); KETONES,URINE NEGATIVE (NEGATIVE); LEUKOCYTE ESTERASE ,URINE SMALL (NEGATIVE); NITRITE,URINE POSITIVE (NEGATIVE); PROTEIN,URINE DIPSTICK 2+ (NEGATIVE); URINE UROBILINOGEN 0.2 mg/dL (0.2 - 1)
[2020-04-05 21:24] LABS: BACTERIA,URINE MODERATE /HPF; EPITHELIAL CELLS,URINE FEW /LPF; WBC,URINE (MAN) >50 /HPF (0-5)
[2020-04-05 22:15] VITALS: BP 106/74
[2020-04-05] MEDS ORDERED: ELIQUIS2.5 MG PO (23:22)
[2020-04-05] MEDS ORDERED: LEVETIRACETAM500 MG PO (23:22)
[2020-04-05] MEDS ORDERED: OXYBUTYNIN CHLOR5 MG PO (23:22)
[2020-04-05] MEDS ORDERED: FUROSEMIDE40 MG PO (23:22)
[2020-04-05] MEDS ORDERED: METOPROLOL SUCC25 MG PO (23:22)
[2020-04-05 23:35] VITALS: BP 106/71
[2020-04-05 23:57] VITALS: BP 106/71
[2020-04-06] VITALS (8 sets, daily range): BP systolic 98–143; BP diastolic 60–98
[2020-04-06 07:21] LABS: BASOPHILS # (AUTO) 0.1 (0.0-0.1); BASOPHILS % 0.9 % (0.0-1.0); EOSINOPHILS % 0.3 % (0.0-6.0); HEMATOCRIT 35.7 % (34.2-44.1); HEMOGLOBIN 11.6 g/dL (12.0-16.0); LYMPHOCYTES % 14.7 % (18.0-39.1); MEAN CORPUSCULAR HGB CONC 32.5 g/dL (31-35); MEAN CORPUSCULAR VOLUME 98.3 fL (81-99); MONOCYTES # (AUTO) 0.8 (0.2-0.8); NEUTROPHILS # (AUTO) 10.7 (2.1-6.9); NEUTROPHILS % 77.6 % (38.7-80.0); PLATELET COUNT 242 x10e3/uL (140-360); RED BLOOD COUNT 3.63 x10e6/uL (3.6-5.1)
[2020-04-06 07:47] LABS: ANION GAP 13.7 mmol/L (8-16); BLOOD UREA NITROGEN 12 mg/dL (7-26); BUN/CREATININE RATIO 15 (6-25); CALCIUM 7.9 mg/dL (8.4-10.2); CARBON DIOXIDE 28 mmol/L (22-29); CHLORIDE 100 mmol/L (98-107); CREATININE, SERUM 0.79 mg/dL (0.57-1.11); EST GLOMERULAR FILTRATION RATE > 60 ML/MIN (60-); GLUCOSE 136 mg/dL (74-118); SODIUM 139 mmol/L (136-145)
[2020-04-06 08:02] LABS: POTASSIUM 2.7 mmol/L (3.5-5.1)
[2020-04-06] MEDS ORDERED: MAGNESIUM SULF 1GRAM/DEXTROSE 100 ML IV ONE (11:30)
[2020-04-06] MEDS ORDERED: SODIUM CHLORIDE 0.9% 250ML 250 ML ONE (11:53)
[2020-04-06] MEDS ORDERED: POTASSIUM CHLORIDE 20MEQ/100ML 200 ML IV ONE (12:30)
[2020-04-06] MEDS: POTASSIUM CHLORIDE 20MEQ/100ML 200 ML IV ONE ×2 (18:02→20:15)
[2020-04-06] MEDS ORDERED: DIGOXIN INJ 0.25 MG/ML 2 ML AMP IV ONE (18:45)
[2020-04-06] MEDS ORDERED: METOPROLOL TARTRATE INJ 1 MG/ML VIAL IV ONE (18:45)
[2020-04-06] MEDS: ATORVASTATIN 10 MG TAB PO SCH (20:16)
[2020-04-07] VITALS (8 sets, daily range): BP systolic 115–130; BP diastolic 71–90
[2020-04-07] MEDS: LEVOTHYROXINE SODIUM 75 MCG TAB PO SCH (05:44)
[2020-04-07 06:12] LABS: BASOPHILS % 0.4 % (0.0-1.0); EOSINOPHILS # (AUTO) 0.1 (0.0-0.4); EOSINOPHILS % 0.9 % (0.0-6.0); HEMATOCRIT 30.4 % (34.2-44.1); LYMPHOCYTES # (AUTO) 2.9 (1.0-3.2); LYMPHOCYTES % 26.8 % (18.0-39.1); MEAN CORPUSCULAR HEMOGLOBIN 31.5 pg (28-32); MEAN CORPUSCULAR HGB CONC 32.9 g/dL (31-35); MEAN CORPUSCULAR VOLUME 95.9 fL (81-99); MONOCYTES # (AUTO) 0.8 (0.2-0.8); NEUTROPHILS # (AUTO) 6.9 (2.1-6.9); NEUTROPHILS % 64.1 % (38.7-80.0); PLATELET COUNT 243 x10e3/uL (140-360); RED BLOOD COUNT 3.17 x10e6/uL (3.6-5.1); RED CELL DISTRIBUTION WIDTH 14.8 % (11.7-14.4)
[2020-04-07 06:27] LABS: ANION GAP 11.6 mmol/L (8-16); BLOOD UREA NITROGEN 10 mg/dL (7-26); BUN/CREATININE RATIO 15 (6-25); CALCIUM 7.9 mg/dL (8.4-10.2); CARBON DIOXIDE 29 mmol/L (22-29); CHLORIDE 102 mmol/L (98-107); CREATININE, SERUM 0.67 mg/dL (0.57-1.11); EST GLOMERULAR FILTRATION RATE > 60 ML/MIN (60-); GLUCOSE 107 mg/dL (74-118); POTASSIUM 3.6 mmol/L (3.5-5.1); SODIUM 139 mmol/L (136-145)
[2020-04-07] MEDS: CEFTRIAXONE SOD 1 GM/NS 50 ML 50 ML IV SCH (08:30)
[2020-04-07] MEDS: ASPIRIN 81 MG ENTERIC COATED PO SCH (08:30)
[2020-04-07] MEDS: METOPROLOL SUCCINATE 25 MG TAB XL PO SCH ×2 (08:30→16:44)
[2020-04-07] MEDS: OXYBUTYNIN CHLORIDE 5 MG TAB PO SCH ×2 (08:30→16:44)
[2020-04-07] MEDS: NIACIN 500 MG TABSR PO SCH (08:30)
[2020-04-07] MEDS: APIXAB 2.5 MG TABLET PO SCH ×2 (08:30→16:44)
[2020-04-07] MEDS: LEVETIRACETAM 500 MG TAB PO SCH ×2 (08:30→16:44)
[2020-04-07] MEDS: METRONIDAZOLE 500MG/NS 100ML 100 ML IV SCH ×2 (09:00→16:44)
[2020-04-07] MEDS: ATORVASTATIN 10 MG TAB PO SCH (20:47)
[2020-04-08] VITALS (7 sets, daily range): BP systolic 107–130; BP diastolic 61–90
[2020-04-08] MEDS: METRONIDAZOLE 500MG/NS 100ML 100 ML IV SCH ×2 (00:06→09:00)
[2020-04-08] MEDS: LEVOTHYROXINE SODIUM 75 MCG TAB PO SCH (05:20)
[2020-04-08] MEDS: ACETAMINOPHEN 325 MG TAB PO PRN ×2 (06:08→06:38)
[2020-04-08] MEDS ORDERED: FLUCONAZOLE 100 MG/NS 50 ML 50 ML IV SCH (07:15)
[2020-04-08] MEDS: CEFTRIAXONE SOD 1 GM/NS 50 ML 50 ML IV SCH (08:30)
[2020-04-08] MEDS: LEVETIRACETAM 500 MG TAB PO SCH (08:43)
[2020-04-08] MEDS: OXYBUTYNIN CHLORIDE 5 MG TAB PO SCH (08:43)
[2020-04-08] MEDS: ASPIRIN 81 MG ENTERIC COATED PO SCH (08:43)
[2020-04-08] MEDS: APIXAB 2.5 MG TABLET PO SCH (08:43)
[2020-04-08] MEDS: NIACIN 500 MG TABSR PO SCH (08:44)
[2020-04-08] MEDS: METOPROLOL SUCCINATE 25 MG TAB XL PO SCH (08:45)
[2020-04-08 09:05] LABS: BASOPHILS # (AUTO) 0.1 (0.0-0.1); BASOPHILS % 0.8 % (0.0-1.0); EOSINOPHILS # (AUTO) 0.2 (0.0-0.4); EOSINOPHILS % 1.6 % (0.0-6.0); HEMATOCRIT 37.1 % (34.2-44.1); HEMOGLOBIN 11.7 g/dL (12.0-16.0); LYMPHOCYTES % 28.5 % (18.0-39.1); MEAN CORPUSCULAR HEMOGLOBIN 31.5 pg (28-32); MEAN CORPUSCULAR HGB CONC 31.5 g/dL (31-35); MEAN CORPUSCULAR VOLUME 99.7 fL (81-99); MONOCYTES # (AUTO) 0.7 (0.2-0.8); MONOCYTES % 6.4 % (4.4-11.3); NEUTROPHILS # (AUTO) 6.3 (2.1-6.9); NEUTROPHILS % 60.4 % (38.7-80.0); PLATELET COUNT 291 x10e3/uL (140-360); RED BLOOD COUNT 3.72 x10e6/uL (3.6-5.1); RED CELL DISTRIBUTION WIDTH 14.8 % (11.7-14.4)
[2020-04-08 09:24] LABS: ANION GAP 13.8 mmol/L (8-16); BLOOD UREA NITROGEN 7 mg/dL (7-26); BUN/CREATININE RATIO 9 (6-25); CALCIUM 8.3 mg/dL (8.4-10.2); CARBON DIOXIDE 27 mmol/L (22-29); CHLORIDE 99 mmol/L (98-107); CREATININE, SERUM 0.74 mg/dL (0.57-1.11); EST GLOMERULAR FILTRATION RATE > 60 ML/MIN (60-); GLUCOSE 203 mg/dL (74-118); POTASSIUM 3.8 mmol/L (3.5-5.1); SODIUM 136 mmol/L (136-145)
[2020-04-08] MEDS ORDERED: CHOLESTYRAMINE 4 GM PACKET PO SCH (15:00)
== END 2020-04-08 15:40 | DRG 871 ==
LOC: ER 17:12 → ERHOLD 20:54 → MED/SURG3 22:13
PROVIDERS: ADMIT Internal Medicine; ATTEND Internal Medicine
DX: A41.9 Sepsis, unspecified organism (principal); G93.41 Metabolic encephalopathy; N39.0 Urinary tract infection, site not specified; A04.72 Enterocolitis due to Clostridium difficile, not specified as recurrent; E44.1 Mild protein-calorie malnutrition; Z68.1 Body mass index [BMI] 19.9 or less, adult; B37.49 Other urogenital candidiasis; R65.20 Severe sepsis without septic shock; I48.91 Unspecified atrial fibrillation; Z86.73 Personal history of transient ischemic attack (TIA), and cerebral infarction without residual deficits; E03.9 Hypothyroidism, unspecified; B96.5 Pseudomonas (aeruginosa) (mallei) (pseudomallei) as the cause of diseases classified elsewhere; B95.4 Other streptococcus as the cause of diseases classified elsewhere; Z11.59 Encounter for screening for other viral diseases
CPT/HCPCS: 36415; 51700; 80048; 80053; 81001; 82550; 82553; 82948; 83605; 83735; 84484; 85025; 87040; 87086; 87186; 87493; 93005; 97139; 99284; J0692; J0696; J1160; J1450; J3475; J3480; J7030; J7050; U0002